=== PATIENT | male | born 1950 | race Caucasian/White ===

== ENCOUNTER → 2017-03-29 13:43 | Outpatient (CLI) | payer MEDICARE, OTHER, SELFPAY ==
--- NOTE | 2017-03-29 13:50 | RAD_ITS ---
STUDY: X-RAY - LUMBAR SPINE REASON FOR EXAM: Male, 66 years old. Radiculopathy TECHNIQUE: 3 view(s) of the lumbar spine were obtained. COMPARISON: Prior comparison studies are not available for review at this time. FINDINGS: Normal lumbar lordosis. There is no substantial scoliosis. There is a normal alignment of the vertebrae. Normal vertebral bodies and endplates. Normal disc space heights. The soft tissue structures are unremarkable. RAD/Lumbar Spine 2 or 3 Views IMPRESSION: Normal x-ray examination of the lumbar spine. Electronically Signed: Seamus Jim MD, FACR at 14:10 EST , Service support ,
== END ==
PROVIDERS: Family Provider Family Medicine Geriatric Medicine; PCP Family Medicine Geriatric Medicine; Visit Provider Family Medicine Geriatric Medicine
DX: M54.16 Radiculopathy, lumbar region (principal)
CPT/HCPCS: 72100

== ENCOUNTER → 2017-03-29 15:21 | Outpatient (CLI) | payer MEDICARE, OTHER, SELFPAY ==
[2017-03-29 17:35] LABS: Absolute Lymphocyte Count 1.35 X10^3/ul (0.83-4.51); Absolute Neutrophil Count 5.5 X10^3/uL (2.0-7.7); Basophil# 0.07 X10^3/uL; Basophil% 0.9 % (0-1); Eosinophil# 0.21 X10^3/uL; Eosinophils% 2.8 % (0-5); Hematocrit 45.9 % (40-54); Lymphocyte # 1.35 X10^3/ul (4.0); Lymphocyte % 17.8 % (19-41); Mean Corp Hgb Conc 32.7 g/gl (32-36); Mean Corpuscular Hgb 29.1 pg (27.0-32.0); Mean Corpuscular Volume 89.1 fL (80-94); Mean Platelet Vol. 11.5 fl (6.2-12.0); Monocyte# 0.46 X10^3/uL; Monocyte% 6.1 % (0-10); Neutrophil # 5.49 X10^3/uL (2.7-7.7); Neutrophil % 72.3 % (47-70); Platelet Count 234 K/mm3 (150-450); RBC Distribution Width CV 13.3 % (11.6-14.6); RBC Distribution Width SD 42.8 fl (35.1-43.9); Red Blood Count 5.15 M/mm3 (4.6-6.2); White Blood Count 7.6 K/mm3 (4.4-11.0)
[2017-03-29 17:54] LABS: POSITIVE COUNT NO; POSITIVE DIFFERENTIAL NO; POSITIVE MORPHOLOGY NO
[2017-03-29 18:06] LABS: ALB/GLOB Ratio 1.2 RATIO (0.9-2.4); AST(SGOT) 18 U/L (15-37); Alanine Aminotransfer ALT/SGPT 30 U/L (16-61); Albumin, Serum 4.1 g/dL (3.2-5.0); Alkaline Phosphatase 114 U/L (45-117); Anion Gap 7 (5-15); BUN 21 mg/dL (7-18); BUN/Creat Ratio 22.8 RATIO (10-20); Calcium,Total 9.1 mg/dL (8.5-10.1); Chloride 102 mmol/L (98-107); Creatinine, Serum 0.92 mg/dL (0.70-1.30); EST Glomerular Filtration Rate 87 mL/min (>60); Est Glom Filt Rate - Afr Amer 105 mL/min (>60); Globulin 3.4 g/dL (2.2-4.2); Glucose 154 mg/dL (74-106); Potassium 4.4 mmol/L (3.5-5.1); Protein, Total 7.5 g/dL (6.4-8.2); Sodium Level 137 mmol/L (136-145); Thyroid Stim Hormone (TSH) 1.64 uIU/mL (0.358-3.74)
== END ==
PROVIDERS: Family Provider Family Medicine Geriatric Medicine; PCP Family Medicine Geriatric Medicine; Visit Provider Family Medicine Geriatric Medicine
DX: E11.9 Type 2 diabetes mellitus without complications (principal); I10 Essential (primary) hypertension
CPT/HCPCS: 36415; 72100; 80053; 84443; 85025

== ENCOUNTER → 2017-12-09 09:17 | Outpatient (CLI) | payer MEDICARE, OTHER, SELFPAY ==
[2017-12-09 12:04] LABS: Absolute Lymphocyte Count 1.26 X10^3/ul (0.83-4.51); Absolute Neutrophil Count 4.3 X10^3/uL (2.0-7.7); Basophil# 0.05 X10^3/uL; Basophil% 0.8 % (0-1); Eosinophil# 0.31 X10^3/uL; Eosinophils% 4.9 % (0-5); Hematocrit 46.6 % (40-54); Hemoglobin 15.1 g/dl (13.0-16.5); Lymphocyte # 1.26 X10^3/ul (4.0); Mean Corp Hgb Conc 32.4 g/gl (32-36); Mean Corpuscular Hgb 28.5 pg (27.0-32.0); Mean Corpuscular Volume 87.9 fL (80-94); Mean Platelet Vol. 11.5 fl (6.2-12.0); Monocyte# 0.36 X10^3/uL; Monocyte% 5.7 % (0-10); Neutrophil # 4.32 X10^3/uL (2.7-7.7); Neutrophil % 68.4 % (47-70); Platelet Count 204 K/mm3 (150-450); RBC Distribution Width CV 13.1 % (11.6-14.6); RBC Distribution Width SD 42.2 fl (35.1-43.9); White Blood Count 6.3 K/mm3 (4.4-11.0)
[2017-12-09 12:19] LABS: Vitamin D,25 Hydroxy 20.3 ng/mL (29.95-100.01)
[2017-12-09 12:24] LABS: ALB/GLOB Ratio 1.2 RATIO (0.9-2.4); AST(SGOT) 20 U/L (15-37); Alanine Aminotransfer ALT/SGPT 26 U/L (16-61); Albumin, Serum 4.1 g/dL (3.2-5.0); Alkaline Phosphatase 104 U/L (45-117); Anion Gap 8 (5-15); BUN 19 mg/dL (7-18); BUN/Creat Ratio 20.6 RATIO (10-20); Chloride 104 mmol/L (98-107); Creatinine, Serum 0.92 mg/dL (0.70-1.30); EST Glomerular Filtration Rate 87 mL/min (>60); Est Glom Filt Rate - Afr Amer 105 mL/min (>60); Globulin 3.4 g/dL (2.2-4.2); Glucose 136 mg/dL (74-106); PSA,Total - Annual Screen 0.69 ng/mL (0.00-4.00); Potassium 4.2 mmol/L (3.5-5.1); Protein, Total 7.5 g/dL (6.4-8.2); Sodium Level 138 mmol/L (136-145); Thyroid Stim Hormone (TSH) 1.81 uIU/mL (0.358-3.74)
[2017-12-09 12:25] LABS: POSITIVE COUNT NO; POSITIVE DIFFERENTIAL NO; POSITIVE MORPHOLOGY NO
[2017-12-10 13:20] LABS: Hep C Antibodies <0.1 s/co ratio (0.0-0.9)
== END ==
PROVIDERS: Family Provider Family Medicine Geriatric Medicine; PCP Family Medicine Geriatric Medicine; Visit Provider Family Medicine Geriatric Medicine
DX: E11.9 Type 2 diabetes mellitus without complications (principal); E55.9 Vitamin D deficiency, unspecified; I10 Essential (primary) hypertension; Z13.89 Encounter for screening for other disorder; Z12.5 Encounter for screening for malignant neoplasm of prostate
CPT/HCPCS: 36415; 80053; 82306; 84153; 84443; 85025; 86803; G0103

== ENCOUNTER → 2018-08-23 10:04 | Outpatient (CLI) | payer MEDICARE, OTHER, SELFPAY ==
[2018-08-23 18:10] LABS: Absolute Lymphocyte Count 1.35 X10^3/ul (0.83-4.51); Absolute Neutrophil Count 4.2 X10^3/uL (2.0-7.7); Basophil# 0.05 X10^3/uL; Basophil% 0.8 % (0-1); Eosinophils% 4.8 % (0-5); Hematocrit 45.1 % (40-54); Hemoglobin 14.5 g/dl (13.0-16.5); Lymphocyte # 1.35 X10^3/ul (4.0); Lymphocyte % 21.5 % (19-41); Mean Corp Hgb Conc 32.2 g/gl (32-36); Mean Corpuscular Hgb 28.2 pg (27.0-32.0); Mean Corpuscular Volume 87.6 fL (80-94); Mean Platelet Vol. 11.3 fl (6.2-12.0); Monocyte% 6.4 % (0-10); Neutrophil # 4.17 X10^3/uL (2.7-7.7); Neutrophil % 66.3 % (47-70); Platelet Count 217 K/mm3 (150-450); RBC Distribution Width CV 13.3 % (11.6-14.6); RBC Distribution Width SD 42.4 fl (35.1-43.9); Red Blood Count 5.15 M/mm3 (4.6-6.2); White Blood Count 6.3 K/mm3 (4.4-11.0)
[2018-08-23 18:16] LABS: POSITIVE COUNT NO; POSITIVE DIFFERENTIAL NO; POSITIVE MORPHOLOGY NO
[2018-08-23 18:33] LABS: Vitamin D,25 Hydroxy 23.4 ng/mL (29.95-100.01)
[2018-08-23 18:39] LABS: ALB/GLOB Ratio 1.2 RATIO (0.9-2.4); AST(SGOT) 16 U/L (15-37); Alanine Aminotransfer ALT/SGPT 22 U/L (16-61); Albumin, Serum 4.1 g/dL (3.2-5.0); Alkaline Phosphatase 114 U/L (45-117); Anion Gap 4 (5-15); BUN 20 mg/dL (7-18); BUN/Creat Ratio 20.4 RATIO (10-20); Calcium,Total 9.2 mg/dL (8.5-10.1); Chloride 103 mmol/L (98-107); Creatinine, Serum 0.98 mg/dL (0.70-1.30); EST Glomerular Filtration Rate 81 mL/min (>60); Est Glom Filt Rate - Afr Amer 98 mL/min (>60); Globulin 3.3 g/dL (2.2-4.2); Glucose 131 mg/dL (74-106); Potassium 4.8 mmol/L (3.5-5.1); Protein, Total 7.4 g/dL (6.4-8.2); Sodium Level 137 mmol/L (136-145)
== END ==
PROVIDERS: Family Provider Family Medicine Geriatric Medicine; PCP Family Medicine Geriatric Medicine; Visit Provider Family Medicine Geriatric Medicine
DX: E11.9 Type 2 diabetes mellitus without complications (principal); E55.9 Vitamin D deficiency, unspecified; I10 Essential (primary) hypertension
CPT/HCPCS: 36415; 80053; 82306; 84443; 85025

== ENCOUNTER → 2018-12-11 | Outpatient (CLI) | payer MEDICARE, OTHER, SELFPAY ==
[2018-12-11 17:28] LABS: Absolute Lymphocyte Count 1.29 X10^3/uL (0.83-4.51); Absolute Neutrophil Count 5.2 X10^3/uL (2.0-7.7); Basophil# 0.07 X10^3/uL; Eosinophil# 0.23 X10^3/uL; Eosinophils% 3.2 % (0-5); Hematocrit 46.8 % (40-54); Hemoglobin 14.9 g/dL (13.0-16.5); Lymphocyte # 1.29 X10^3/ul (4.0); Lymphocyte % 17.7 % (19-41); Mean Corp Hgb Conc 31.8 g/dL (32-36); Mean Corpuscular Hgb 28.9 pg (27.0-32.0); Mean Corpuscular Volume 90.9 fL (80-94); Mean Platelet Vol. 11.4 fl (6.2-12.0); Monocyte# 0.43 X10^3/uL; Monocyte% 5.9 % (0-10); NRBC Flagged by Analyzer 0 % (0-5); Neutrophil # 5.24 X10^3/uL (2.7-7.7); Neutrophil % 71.9 % (47-70); Platelet Count 228 K/mm3 (150-450); RBC Distribution Width CV 12.3 % (11.6-14.6); RBC Distribution Width SD 40.7 fl (35.1-43.9); Red Blood Count 5.15 M/mm3 (4.6-6.2); White Blood Count 7.3 K/mm3 (4.4-11.0)
[2018-12-11 17:45] LABS: Vitamin D,25 Hydroxy 23.3 ng/mL (29.95-100.01)
[2018-12-11 17:49] LABS: BUN 19 mg/dL (7-18); Creatinine, Serum 0.96 mg/dL (0.70-1.30); Glucose 144 mg/dL (74-106)
[2018-12-11 17:50] LABS: ALB/GLOB Ratio 1.2 RATIO (0.9-2.4); AST(SGOT) 16 U/L (15-37); Alanine Aminotransfer ALT/SGPT 25 U/L (16-61); Albumin, Serum 4.2 g/dL (3.2-5.0); Alkaline Phosphatase 94 U/L (45-117); Anion Gap 6 (5-15); BUN/Creat Ratio 19.8 RATIO (10-20); Calcium,Total 9.4 mg/dL (8.5-10.1); Chloride 104 mmol/L (98-107); EST Glomerular Filtration Rate 83 mL/min (>60); Est Glom Filt Rate - Afr Amer 100 mL/min (>60); Globulin 3.5 g/dL (2.2-4.2); PSA,Total - Annual Screen 0.92 ng/mL (0.00-4.00); Potassium 4.4 mmol/L (3.5-5.1); Protein, Total 7.7 g/dL (6.4-8.2); Sodium Level 139 mmol/L (136-145); Thyroid Stim Hormone (TSH) 1.53 uIU/mL (0.358-3.74)
== END | disposition home or self-care (01) ==
LOC: POLAB3 15:20
PROVIDERS: Family Provider Family Medicine Geriatric Medicine; PCP Family Medicine Geriatric Medicine; Visit Provider Family Medicine Geriatric Medicine
DX: E11.9 Type 2 diabetes mellitus without complications (principal); E55.9 Vitamin D deficiency, unspecified; Z12.5 Encounter for screening for malignant neoplasm of prostate; I10 Essential (primary) hypertension
CPT/HCPCS: 36415; 80053; 82306; 84153; 84443; 85025; G0103

== ENCOUNTER → 2019-08-22 10:31 | Outpatient (CLI) | payer MEDICARE, OTHER, SELFPAY ==
[2019-08-22 12:33] LABS: Absolute Neutrophil Count 4.7 X10^3/uL (2.0-7.7); Basophil# 0.09 X10^3/uL; Basophil% 1.4 % (0-1); Eosinophil# 0.27 X10^3/uL; Eosinophils% 4.1 % (0-5); Hematocrit 46.3 % (40-54); Hemoglobin 14.7 g/dL (13.0-16.5); Mean Corp Hgb Conc 31.7 g/dL (32-36); Mean Corpuscular Hgb 29.3 pg (27.0-32.0); Mean Corpuscular Volume 92.2 fL (80-94); Mean Platelet Vol. 11.1 fl (6.2-12.0); Monocyte# 0.36 X10^3/uL; Monocyte% 5.4 % (0-10); NRBC Flagged by Analyzer 0 % (0-5); Neutrophil # 4.73 X10^3/uL (2.7-7.7); Neutrophil % 70.9 % (47-70); Platelet Count 208 K/mm3 (150-450); RBC Distribution Width CV 12.7 % (11.6-14.6); RBC Distribution Width SD 42.1 fl (35.1-43.9); Red Blood Count 5.02 M/mm3 (4.6-6.2); White Blood Count 6.7 K/mm3 (4.4-11.0)
[2019-08-22 12:51] LABS: ALB/GLOB Ratio 1.1 RATIO (0.9-2.4); AST(SGOT) 14 U/L (15-37); Alanine Aminotransfer ALT/SGPT 24 U/L (16-61); Albumin, Serum 4.1 g/dL (3.2-5.0); Alkaline Phosphatase 102 U/L (45-117); Anion Gap 6 (5-15); BUN 21 mg/dL (7-18); BUN/Creat Ratio 20.2 RATIO (10-20); Calcium,Total 9.4 mg/dL (8.5-10.1); Chloride 102 mmol/L (98-107); Creatinine, Serum 1.04 mg/dL (0.70-1.30); EST Glomerular Filtration Rate 75 mL/min (>60); Est Glom Filt Rate - Afr Amer 91 mL/min (>60); Globulin 3.6 g/dL (2.2-4.2); Glucose 136 mg/dL (74-106); Potassium 5.2 mmol/L (3.5-5.1); Protein, Total 7.7 g/dL (6.4-8.2); Sodium Level 137 mmol/L (136-145); Thyroid Stim Hormone (TSH) 1.98 uIU/mL (0.358-3.74)
[2019-08-22 12:52] LABS: Vitamin D,25 Hydroxy 31.6 ng/mL
== END ==
PROVIDERS: PCP Family Medicine Geriatric Medicine; Visit Provider Family Medicine Geriatric Medicine
DX: E11.9 Type 2 diabetes mellitus without complications (principal); E55.9 Vitamin D deficiency, unspecified; I10 Essential (primary) hypertension
CPT/HCPCS: 36415; 80053; 82306; 84443; 85025

== ENCOUNTER → 2019-08-24 11:39 | Outpatient (CLI) | payer MEDICARE, OTHER, SELFPAY ==
[2019-08-24 13:45] LABS: Anion Gap 2 (5-15); BUN 20 mg/dL (7-18); BUN/Creat Ratio 20.4 RATIO (10-20); Chloride 105 mmol/L (98-107); Creatinine, Serum 0.98 mg/dL (0.70-1.30); EST Glomerular Filtration Rate 80 mL/min (>60); Est Glom Filt Rate - Afr Amer 97 mL/min (>60); Glucose 177 mg/dL (74-106); Potassium 4.5 mmol/L (3.5-5.1); Sodium Level 136 mmol/L (136-145)
== END ==
PROVIDERS: PCP Family Medicine Geriatric Medicine; Referring Provider Family Medicine Geriatric Medicine; Visit Provider Family Medicine Geriatric Medicine
DX: E87.5 Hyperkalemia (principal)
CPT/HCPCS: 36415; 80048

== ENCOUNTER → 2020-03-20 13:05 | Outpatient (CLI) | payer MEDICARE, OTHER, SELFPAY ==
[2020-03-20 17:16] LABS: Absolute Neutrophil Count 4.7 X10^3/uL (2.0-7.7); Basophil# 0.07 X10^3/uL; Eosinophil# 0.33 X10^3/uL; Eosinophils% 4.8 % (0-5); Hematocrit 45.6 % (40-54); Hemoglobin 14.5 g/dL (13.0-16.5); Lymphocyte % 20.2 % (19-41); Mean Corp Hgb Conc 31.8 g/dL (32-36); Mean Corpuscular Hgb 29.3 pg (27.0-32.0); Mean Corpuscular Volume 92.1 fL (80-94); Mean Platelet Vol. 11.2 fl (6.2-12.0); Monocyte% 5.8 % (0-10); NRBC Flagged by Analyzer 0 % (0-5); Neutrophil # 4.72 X10^3/uL (2.7-7.7); Neutrophil % 67.9 % (47-70); Platelet Count 216 K/mm3 (150-450); RBC Distribution Width CV 12.4 % (11.6-14.6); RBC Distribution Width SD 41.9 fl (35.1-43.9); Red Blood Count 4.95 M/mm3 (4.6-6.2); White Blood Count 6.9 K/mm3 (4.4-11.0)
[2020-03-20 17:26] LABS: Vitamin D,25 Hydroxy 22.5 ng/mL
[2020-03-20 17:31] LABS: ALB/GLOB Ratio 1.3 RATIO (0.9-2.4); AST(SGOT) 17 U/L (15-37); Alanine Aminotransfer ALT/SGPT 29 U/L (16-61); Albumin, Serum 4.3 g/dL (3.2-5.0); Alkaline Phosphatase 123 U/L (45-117); Anion Gap 6 (5-15); BUN 26 mg/dL (7-18); BUN/Creat Ratio 26.7 RATIO (10-20); Calcium,Total 9.4 mg/dL (8.5-10.1); Chloride 102 mmol/L (98-107); Creatinine, Serum 0.97 mg/dL (0.70-1.30); EST Glomerular Filtration Rate 81 mL/min (>60); Est Glom Filt Rate - Afr Amer 98 mL/min (>60); Globulin 3.3 g/dL (2.2-4.2); Glucose 142 mg/dL (74-106); PSA,Total - Annual Screen 0.89 ng/mL (0.00-4.00); Potassium 4.7 mmol/L (3.5-5.1); Protein, Total 7.6 g/dL (6.4-8.2); Sodium Level 137 mmol/L (136-145); Thyroid Stim Hormone (TSH) 1.81 uIU/mL (0.358-3.74)
== END ==
PROVIDERS: PCP Family Medicine Geriatric Medicine; Visit Provider Family Medicine Geriatric Medicine
DX: E11.9 Type 2 diabetes mellitus without complications (principal); E55.9 Vitamin D deficiency, unspecified; I10 Essential (primary) hypertension; Z12.5 Encounter for screening for malignant neoplasm of prostate
CPT/HCPCS: 36415; 80053; 82306; 84153; 84443; 85025; G0103

== ENCOUNTER → 2020-07-17 14:22 | Outpatient (CLI) | payer MEDICARE, OTHER, SELFPAY ==
[2020-07-17 17:37] LABS: Absolute Lymphocyte Count 1.15 X10^3/uL (0.83-4.51); Absolute Neutrophil Count 4.6 X10^3/uL (2.0-7.7); Basophil# 0.08 X10^3/uL; Basophil% 1.2 % (0-1); Eosinophil# 0.26 X10^3/uL; Hematocrit 44.4 % (40-54); Hemoglobin 14.4 g/dL (13.0-16.5); Lymphocyte # 1.15 X10^3/ul (0.83-4.51); Lymphocyte % 17.7 % (19-41); Mean Corp Hgb Conc 32.4 g/dL (32-36); Mean Corpuscular Hgb 29.5 pg (27.0-32.0); Monocyte# 0.37 X10^3/uL; Monocyte% 5.7 % (0-10); NRBC Flagged by Analyzer 0 % (0-5); Neutrophil # 4.61 X10^3/uL (2.7-7.7); Neutrophil % 70.8 % (47-70); Platelet Count 224 K/mm3 (150-450); RBC Distribution Width CV 12.3 % (11.6-14.6); RBC Distribution Width SD 40.5 fl (35.1-43.9); Red Blood Count 4.88 M/mm3 (4.6-6.2); White Blood Count 6.5 K/mm3 (4.4-11.0)
[2020-07-17 17:41] LABS: Vitamin D,25 Hydroxy 25.6 ng/mL
[2020-07-17 17:44] LABS: ALB/GLOB Ratio 1.2 RATIO (0.9-2.4); AST(SGOT) 19 U/L (15-37); Alanine Aminotransfer ALT/SGPT 25 U/L (16-61); Alkaline Phosphatase 117 U/L (45-117); Anion Gap 5 (5-15); BUN 21 mg/dL (7-18); Calcium,Total 8.9 mg/dL (8.5-10.1); Chloride 104 mmol/L (98-107); Creatinine, Serum 1.05 mg/dL (0.70-1.30); EST Glomerular Filtration Rate 74 mL/min (>60); Est Glom Filt Rate - Afr Amer 90 mL/min (>60); Globulin 3.2 g/dL (2.2-4.2); Glucose 174 mg/dL (74-106); Potassium 4.4 mmol/L (3.5-5.1); Protein, Total 7.2 g/dL (6.4-8.2); Sodium Level 139 mmol/L (136-145)
[2020-07-18 10:47] LABS: Thyroid Stim Hormone (TSH) 1.79 uIU/mL (0.358-3.74)
== END ==
PROVIDERS: PCP Family Medicine Geriatric Medicine; Visit Provider Family Medicine Geriatric Medicine
DX: E11.9 Type 2 diabetes mellitus without complications (principal); I10 Essential (primary) hypertension; E55.9 Vitamin D deficiency, unspecified
CPT/HCPCS: 36415; 80053; 82306; 84443; 85025

== ENCOUNTER 2021-02-23 23:02 | Emergency (ER) | payer MEDICARE, OTHER, SELFPAY ==
[2021-02-23 23:02] VITALS: BP 131/76; PULSE 86; RESP 16; TEMP 36.2; O2SAT 99; BMI 27.5
--- NOTE | 2021-02-23 23:21 | CT_ITS ---
STUDY: CT ABDOMEN AND PELVIS WITHOUT CONTRAST REASON FOR EXAM: Male, 70 years old patient with hernia. RADIATION DOSAGE (If Supplied By Facility): CTDIvol = ( 13.08 ) mGy, DLP = ( 826.88 ) mGycm TECHNIQUE: Transaxial images were obtained from the dome of the diaphragm to the symphysis pubis without oral contrast, and without intravenous contrast. Sagittal and coronal images were reconstructed. Individualized dose optimization techniques were used for this CT. COMPARISON: Prior comparable comparison studies are not available for review at this time. FINDINGS: The visualized lung bases are unremarkable. The visualized portions of the heart are within normal limits. Normal liver. There are multiple gallstones. Normal spleen. There is severe fatty infiltration of the pancreas with minimal pancreatic parenchyma visible. Normal bilateral adrenal glands. There are multiple right-sided renal cysts with the largest measuring approximately 4.4 cm. There appears be a horseshoe kidney. The left kidney is small in size. There are bilateral nonobstructing renal calculi. The largest is on the right and measures approximately 8.4 mm. Normal visualized stomach. There is no obvious ascites or pneumoperitoneum. There is mild distention of small bowel within the lower abdomen and probably involving the distal ileum with maximum transverse dimension of approximately 2.5 cm. There is no clear dilated bowel. Small bowel has a grossly normal appearance, otherwise. There is stool throughout most of the colon. There are scattered colonic diverticula. There is non-visualization of the appendix. There is minimal atherosclerotic calcification of the abdominal aorta with elongation and tortuosity, but without a demonstrated aneurysm. There is venous distention of the inferior vena cava (IVC). Normal retroperitoneum. Normal urinary bladder. Normal visualized prostate gland. There is a right-sided inguinal hernia containing incarcerated bowel. Bowel extends into the right scrotum. There is mild distention of fluid-filled bowel in the right side of the abdomen probably involving the distal small bowel.. There are diffuse degenerative changes of the visualized spine. There is decreased height of the thoracic vertebral bodies with irregular endplates suggesting possible sequela of Scheuermann''s disease. The bones are osteopenic. There are degenerative changes of the sacroiliac joints. CT/Abdomen/Pelvis without Cont IMPRESSION: 1. Incarcerated right-sided inguinal hernia with possible mild/early small bowel obstruction. 2. 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 3. Bilateral nonobstructing renal calculi. 4. Multiple renal cysts. Electronically Signed: Linh Hill MD at 1:34 EST , Service support ,
--- NOTE | 2021-02-23 23:21 | EX.ED.GUMALE ---
HPI History of Present Illness Chief Complaint: Male Pain/Injury Informant: patient Narrative Narrative: 70-year-old male presenting to the emergency department out of concern for hernia. Patient states that earlier tonight he was straining to have a bowel movement and felt pain in his right lower quadrant swelling in his inguinal region. He has not had a hernia before. He has a history of diabetes and cholesterolemia. [facility] Medical History (Updated 02/24/21 @ 01:[address] Hiram Mccollum DO) Diabetes Hypercholesterolemia Home Medications docusate sodium [Colace] 100 mg PO DAILY #30 capsule 12/13/12 [Rx Last Taken Unknown] glipizide 10 mg PO BIDAC 12/13/12 [History Last Taken Unknown] metformin 1,000 mg PO BIDCM 12/13/12 [History Last Taken Unknown] Allergy/AdvReac Type Severity Reaction Status Date / Time No Known Allergies Allergy Unverified 12/13/12 15:40 Social History (Updated 02/23/21 @ 23:[address] Hiram Mccollum DO) current gender identity: male Smoking Status: Never smoker ROS ROS ED Constitutional Constitutional ED: Denies chills or weight loss Eyes Eyes: Denies change in vision or diplopia ENT ENT ED: Denies ear pain, rhinorrhea or sore throat Cardiovascular Cardiovascular: Denies chest pain, orthopnea, palpitations or racing heartbeat Respiratory/Chest Respiratory/Chest: Denies cough, dyspnea or orthopnea Gastrointestinal Gastrointestinal: Reports abdominal pain; Denies diarrhea, nausea or vomiting Genitourinary Genitourinary ED: Denies dysuria, hematuria or urinary frequency Musculoskeletal Musculoskeletal: Denies arthralgias or myalgias Integumentary Denies abscess or rash Neurologic Neurologic: Denies headache(s) or weakness Psychiatric Psychiatric: Denies anxiety, depression, suicidal ideation or suicidal thoughts Endocrine Endocrinology: Denies polydipsia, polyphagia or polyuria Allergic/Immunologic Allergic/Immunologic ED: Denies mouth swelling, tongue swelling or urticaria EXAM Physical Exam Const Vital Signs: 02/23/21 23:02 Temperature 97.1 F L Temperature Source Temporal Pulse Rate 86 Respiratory Rate 16 Blood Pressure 131/76 H Blood Pressure Mean 94 Pulse Ox 99 Oxygen Delivery Method Room Air Positive well nourished and well developed General Appearance ED: well developed HEENT Reports normocephalic, head/scalp atraumatic, TM's clear and moist mucous membranes normocephalic and atraumatic Tympanic Membrane ED: Yes TM's clear Eyes PERRL and EOMs intact bilaterally Neck no lymphadenopathy, supple and no JVD Resp normal respiratory effort and clear to auscultation bilaterally Cardio regular rate, regular rhythm and no murmurs GI normal to inspection, nondistended, normoactive bowel sounds and non-tender Palpation: soft Back/Spine no CVA tenderness and normal ROM Extremity normal to inspection General Extremety ED: Negative for edema General Extremity: Negative for edema Neuro oriented x3 and CN's II-XII intact bilaterally Sensorium / Orientation: alert Motor Exam: strength 5/5 throughout Psych mental status grossly normal Mood & Affect: Negative for depressed or tearful Skin no rashes or lesions noted and no wounds MDM MDM MDM Narrative Medical decision making narrative: Patient was laid flat with his knees bent. Is unable to reduce the hernia. CT then pelvis was obtained which confirms bowel into the scrotum. I attempted to reduce the hernia again and was unsuccessful. I contacted our on-call surgeon Dr. Ontiveros who came to the emergency department and was able to reduce this. Patient will be discharged home to follow-up in the office for outpatient surgical repair Lab Data Labs: Laboratory Results - last 24 hr 02/24/21 01:00 WBC 6.7 RBC 5.00 Hgb 14.3 Hct 45.0 MCV 90.0 MCH 28.6 MCHC 31.8 L RDW Std Deviation 39.9 RDW Coeff of Emmanuel 12.1 Plt Count 216 MPV 10.3 Immature Gran % (Auto) 0.300 Neut % (Auto) 66.5 Lymph % (Auto) 24.4 Trinity % (Auto) 4.6 Eos % (Auto) 3.3 Baso % (Auto) 0.9 Absolute Neuts (auto) 4.5 Absolute Lymphs (auto) 1.64 Nucleated RBC % 0 Discharge Plan Triage Chief Complaint: Male Pain/Injury ED Provider: Hiram Mccollum Dx/Rx/DC Orders Clinical Impression: Inguinal hernia Instructions: ED Hernia (Adult) Prescriptions: No Action glipizide 10 MG tablet 10 mg PO BIDAC RF: 0 metformin 1,000 MG tablet 1,000 mg PO BIDCM RF: 0 docusate sodium [DOK] 100 MG capsule 100 mg PO DAILY Qty: 30 RF: 0 Primary Care Provider: Zenon Garcia Chi Referrals: Hiarm Ontiveros MD [STAFF PHYSICIAN] - As soon as possible Zenon Garcia Chi, MD [Primary Care Provider] - Activity Restrictions/Additional Instructions: Avoid strenuous bowel movements and heavy lifting. Disposition Disposition: Home, Self Care
[2021-02-24 01:07] LABS: Absolute Lymphocyte Count 1.64 X10^3/uL (0.83-4.51); Absolute Neutrophil Count 4.5 X10^3/uL (2.0-7.7); Basophil# 0.06 X10^3/uL; Basophil% 0.9 % (0-1); Eosinophil# 0.22 X10^3/uL; Eosinophils% 3.3 % (0-5); Hemoglobin 14.3 g/dL (13.0-16.5); Lymphocyte # 1.64 X10^3/ul (0.83-4.51); Lymphocyte % 24.4 % (19-41); Mean Corp Hgb Conc 31.8 g/dL (32-36); Mean Corpuscular Hgb 28.6 pg (27.0-32.0); Mean Platelet Vol. 10.3 fl (6.2-12.0); Monocyte# 0.31 X10^3/uL; Monocyte% 4.6 % (0-10); NRBC Flagged by Analyzer 0 % (0-5); Neutrophil # 4.46 X10^3/uL (2.7-7.7); Neutrophil % 66.5 % (47-70); Platelet Count 216 K/mm3 (150-450); RBC Distribution Width CV 12.1 % (11.6-14.6); RBC Distribution Width SD 39.9 fl (35.1-43.9); White Blood Count 6.7 K/mm3 (4.4-11.0)
--- NOTE | 2021-02-24 01:10 | CON.PCM.SX_ITS ---
Assessment & Plan Assessment/Plan (1) Inguinal hernia: QUALIFIERS: Obstruction and gangrene presence: with obstruction but without gangrene Laterality: unilateral Recurrence: non-recurrent Qualified Code(s): K40.30 - Unilateral inguinal hernia, with obstruction, without gangrene, not specified as recurrent PLAN: We can have the patient discharged from the emergency department tonight. I will see him in the office and get him scheduled for a laparoscopic right inguinal hernia repair in the near future. HPI Consult Data Date of Consult: 02/24/21 HPI Narrative HPI Narrative: YUE CHAPIN, is a 70 M who presents with pain in his right inguinal area. Patient states that earlier tonight he was straining to have a bowel movement and felt pain in his right lower quadrant swelling in his inguinal region. He has not had a hernia before. He has a history of diabetes and cholesterolemia. Patient had a CT scan of his abdomen and pelvis without contrast which showed a strangulated right inguinal hernia. When I came to see him in the emergency department he was no longer complaining of pain. [facility] Medical History Diabetes Hypercholesterolemia Home Medications docusate sodium [Colace] 100 mg PO DAILY #30 capsule 12/13/12 [Rx Last Taken Unknown] glipizide 10 mg PO BIDAC 12/13/12 [History Last Taken Unknown] metformin 1,000 mg PO BIDCM 12/13/12 [History Last Taken Unknown] Allergy/AdvReac Type Severity Reaction Status Date / Time No Known Allergies Allergy Unverified 12/13/12 15:40 Social History current gender identity: male Smoking Status: Never smoker ROS Constitutional Constitutional: Denies chills, fatigue or fever(s) ENT HEENT: Denies dysphagia Cardiovascular Cardiovascular: Denies chest pain or dyspnea Respiratory/Chest Respiratory/Chest: Reports dyspnea; Denies cough Gastrointestinal Gastrointestinal: Reports abdominal pain, change in bowel habits and constipation; Denies diarrhea Physical Exam Const alert, oriented x3 and no apparent distress General Appearance: cooperative HEENT normocephalic and head/scalp atraumatic Eyes PERRL and EOMs intact bilaterally Resp clear to auscultation bilaterally Cardio Rate: regular rate Rhythm: regular rhythm GI soft to palpation, non-tender and non-distended GI Narrative: When I came to examine the patient hernia had spontaneously reduced and there were no longer any palpable lumps in either groin. Palpation: Negative for hernia Lab / Micro Data Result Diagrams: 02/24/21 01:00 02/24/21 01:00 Labs: Laboratory Results - last 24 hr 02/24/21 01:00: WBC 6.7, RBC 5.00, Hgb 14.3, Hct 45.0, MCV 90.0, MCH 28.6, MCHC 31.8 L, RDW Std Deviation 39.9, RDW Coeff of Emmanuel 12.1, Plt Count 216, MPV 10.3, Immature Gran % (Auto) 0.300, Neut % (Auto) 66.5, Lymph % (Auto) 24.4, Spink % (Auto) 4.6, Eos % (Auto) 3.3, Baso % (Auto) 0.9, Absolute Neuts (auto) 4.5, Absolute Lymphs (auto) 1.64, Nucleated RBC % 0
[2021-02-24 01:22] LABS: Anion Gap 7 (5-15); BUN 22 mg/dL (7-18); BUN/Creat Ratio 24.6 RATIO (10-20); Calcium,Total 9.6 mg/dL (8.5-10.1); Chloride 103 mmol/L (98-107); EST Glomerular Filtration Rate 89 mL/min (>60); Est Glom Filt Rate - Afr Amer 108 mL/min (>60); Estimated Creatinine Clearance 92.43 ml/min; Glucose 105 mg/dL (74-106); Potassium 4.5 mmol/L (3.5-5.1); Sodium Level 141 mmol/L (136-145)
[2021-02-24 01:26] VITALS: BP 136/76; PULSE 74; RESP 17; O2SAT 97
== END 2021-02-24 01:31 | disposition home or self-care (01) ==
PROVIDERS: Emergency Provider Emergency Medicine; PCP Family Medicine Geriatric Medicine; Visit Provider Emergency Medicine
DX: K40.90 Unilateral inguinal hernia, without obstruction or gangrene, not specified as recurrent (principal); E11.9 Type 2 diabetes mellitus without complications; E78.00 Pure hypercholesterolemia, unspecified; Z79.84 Long term (current) use of oral hypoglycemic drugs; Z79.899 Other long term (current) drug therapy
CPT/HCPCS: 74176; 80048; 85025; 99283; A4216

== ENCOUNTER 2021-03-07 06:26 | Emergency (ER) | payer MEDICARE, OTHER, SELFPAY ==
[2021-03-07 06:27] VITALS: BP 153/91; PULSE 93; RESP 18; TEMP 37.2; O2SAT 95; BMI 27.0
--- NOTE | 2021-03-07 06:49 | EDS_ITS ---
HPI History of Present Illness Chief Complaint: Abd Pain Narrative Narrative: Patient is a 70-year-old male who presents to the ER with postoperative abdominal pain. He was seen on February 24 of this year after trying to have a bowel movement and developing a bulge in his right inguinal. At that time he was seen and it was determined he had an incarcerated hernia in the right inguinal region. However by the time the patient's work-up was complete and he had been evaluated by general surgery at the hernia had spontaneously reduced. Therefore he went and had an outpatient open hernia repair on Tuesday. He states since that time he is been taking Tylenol for pain control which has not done too much for him. He states that he has noticed pain in the right lower quadrant region near the hernia that is worse if he coughs or sneezes or tries to walk. He denies any fevers or chills but also reports constipation. He states that he is urinating but that he feels like he is doing more so than normal but there is been no dysuria associated with it. He called his surgeon today because of the symptoms and was advised to come to the hospital for repeat evaluation [facility] Medical History Diabetes Hypercholesterolemia Home Medications docusate sodium [Colace] 100 mg PO DAILY #30 capsule 12/13/12 [Rx Last Taken Unknown] glipizide 10 mg PO BIDAC 12/13/12 [History Last Taken Unknown] metformin 1,000 mg PO BIDCM 12/13/12 [History Last Taken Unknown] docusate sodium [Colace] 100 mg PO BID 7 Days #14 cap 03/07/21 [Rx Last Taken Unknown] Allergy/AdvReac Type Severity Reaction Status Date / Time No Known Allergies Allergy Unverified 12/13/12 15:40 Social History Smoking Status: Never smoker ROS ROS ED Constitutional Constitutional ED: Denies chills or fever(s) ENT ENT ED: Denies sore throat Cardiovascular Cardiovascular: Denies chest pain Respiratory/Chest Respiratory/Chest: Denies cough or dyspnea Gastrointestinal Gastrointestinal: Reports abdominal pain and constipation; Denies diarrhea, nausea or vomiting Genitourinary Genitourinary ED: Reports urinary frequency; Denies dysuria Musculoskeletal Musculoskeletal: Denies myalgias Integumentary Denies rash Neurologic Neurologic: Denies headache(s) Hematologic/Lymphatic Hematologic/Lymphatic: Denies easy bleeding or easy bruising EXAM Physical Exam Const Vital Signs: 03/07/21 06:27 Temperature 98.9 F Temperature Source Temporal Pulse Rate 93 Respiratory Rate 18 Blood Pressure 153/91 H Blood Pressure Mean 111 Pulse Ox 95 Oxygen Delivery Method Room Air Positive well nourished and well developed General Appearance ED: well developed HEENT Reports moist mucous membranes Eyes PERRL and EOMs intact bilaterally Neck supple Resp normal respiratory effort and clear to auscultation bilaterally Cardio regular rate and regular rhythm Rate: other Other Details: Radial pulses are plus 2 out of 4 bilaterally are equal and symmetric GI non-distended GI Narrative: Abdomen is soft and nondistended with hypoactive bowel sounds. Patient has a horizontal incision in the right inguinal region consistent with his history of open inguinal hernia repair. The wound is clean dry and intact. Extending down into the right lower quadrant/inguinal region and scrotum there is soft tissue swelling and ecchymosis most consistent with a postoperative hematoma. There is pain with palpation over top the site. There is no induration or erythema no active drainage or lymphangitic streaking. No vol untary guarding or pulsatile mass Palpation: soft Narrative: Patient has ecchymosis and swelling into the penis and scrotum consistent with tracking of a postoperative hematoma Back/Spine no CVA tenderness Extremity normal to inspection Neuro oriented x3 and CN's II-XII intact bilaterally Sensorium / Orientation: alert Motor Exam: strength 5/5 throughout Psych mental status grossly normal Skin no rashes or lesions noted Skin Narrative: Soft tissue changes into the right abdomen/inguinal region as documented above MDM MDM MDM Narrative Medical decision making narrative: Patient presented to the ER afebrile but slightly hypertensive. I do feel the elevated blood pressure is most likely related to his pain. He is 3 days out from surgery and he denies having any fevers. He does admit to increased urinary frequency and constipation. However his exam does not suggest bowel obstruction or UTI. Exam is most consistent with postoperative hematoma. As he is diabetic and has had increased pain as well as the urinary and bowel issues I will elect to perform basic labs and a CT scan today. I feel that as long as his H&H is normal he does not have severe elevation to his white count or lactic acid value and CAT scan does not show any type of obstruction or active bleeding that he will be safe for discharge and can follow-up on an outpatient basis Discharge Plan Triage Chief Complaint: Abd Pain ED Provider: Hunter Hoyt Dx/Rx/DC Orders Clinical Impression: Postoperative hematoma Instructions: ED Hematoma Prescriptions: New docusate sodium [Colace] 100 mg capsule 100 mg PO BID 7 Days Qty: 14 RF: 0 No Action glipizide 10 MG tablet 10 mg PO BIDAC RF: 0 metformin 1,000 MG tablet 1,000 mg PO BIDCM RF: 0 docusate sodium [DOK] 100 MG capsule 100 mg PO DAILY Qty: 30 RF: 0 Primary Care Provider: Zenon Garcia Chi Referrals: Hiram Ontiveros MD [STAFF PHYSICIAN] - 3-5 Days if not improving Zenon Garcia Chi, MD [Primary Care Provider] -
[2021-03-07] MEDS: Ketorolac 15 MG/ML Vial IV (07:03)
[2021-03-07] MEDS: 0.9% Normal Saline 1,000 ML 999 ML IV (07:03)
--- NOTE | 2021-03-07 07:11 | CT_ITS ---
STUDY: CT PELVIS WITH CONTRAST REASON FOR EXAM: Male, 70 years old. Postoperative pain evaluate for abscess RADIATION DOSAGE (If Supplied By Facility): CTDIvol = ( 28.21 ) mGy, DLP = ( 1116.76 ) mGycm TECHNIQUE: Transaxial imaging of the pelvis was performed without oral contrast. IV 100mL Isovue-370 was administered intravenously. Individualized dose optimization techniques were used for this CT. COMPARISON: Preoperative CT abdomen and pelvis of of 11/23/2021. FINDINGS: Normal urinary bladder. Nonspecific fluid-filled small bowel loops. Fecal retention. No evidence of acute diverticulitis. There is no pelvic fluid. There is no pelvic lymphadenopathy or mass lesion. There is diffuse atherosclerotic calcification of the pelvic arteries. Edematous changes and thickening of the right groin fracture extending to the right abdominis rectus muscle with a small pocket of air extending into the pelvic cavity. No evidence of drainable abscess. There are degenerative changes in the lower lumbar spine. CT/Pelvis WITH IV Contrast IMPRESSION: Edematous changes and stranding in the right groin region involving the subcutaneous fat, anterior fascia and extending to the pelvic cavity with small pockets of air which could represent postoperative changes. Early infectious or inflammatory process cannot be excluded. No drainable abscess is seen at this time. Follow up exam might be of value if clinically indicated. Electronically Signed: Wero Loja, at 8:19 EST Tel , Service support ,
[2021-03-07 07:18] LABS: Mucous, Urine 0 SEEN /hpf (<or=2+); Squamous Epithelial Cells - UA 0 SEEN /hpf (0-5); White Blood Cells 0 SEEN /hpf (0-5)
[2021-03-07 07:20] LABS: Absolute Lymphocyte Count 0.88 X10^3/uL (0.83-4.51); Absolute Neutrophil Count 3.1 X10^3/uL (2.0-7.7); Basophil# 0.05 X10^3/uL; Basophil% 1.1 % (0-1); Eosinophil# 0.21 X10^3/uL; Eosinophils% 4.4 % (0-5); Hematocrit 43.5 % (40-54); Hemoglobin 13.6 g/dL (13.0-16.5); Lymphocyte # 0.88 X10^3/ul (0.83-4.51); Lymphocyte % 18.6 % (19-41); Mean Corp Hgb Conc 31.3 g/dL (32-36); Mean Corpuscular Hgb 28.6 pg (27.0-32.0); Mean Corpuscular Volume 91.4 fL (80-94); Mean Platelet Vol. 10.7 fl (6.2-12.0); Monocyte# 0.48 X10^3/uL; Monocyte% 10.1 % (0-10); NRBC Flagged by Analyzer 0 % (0-5); Neutrophil # 3.11 X10^3/uL (2.7-7.7); Neutrophil % 65.6 % (47-70); Platelet Count 185 K/mm3 (150-450); RBC Distribution Width CV 12.2 % (11.6-14.6); RBC Distribution Width SD 41.1 fl (35.1-43.9); Red Blood Count 4.76 M/mm3 (4.6-6.2); White Blood Count 4.7 K/mm3 (4.4-11.0)
[2021-03-07 07:24] LABS: Color, Urine Yellow (Yellow); Glucose, Dipstick Normal (Normal); Ketone-Dipstick Negative (Negative); Leukocyte Esterase-Dipstick Negative /ul (Negative); Nitrite-Dipstick Negative (Negative); Occult Blood-Urine 25 /ul (Negative); Protein-Dipstick Negative (Negative); Urine Bilirubin Dipstick Negative (Negative); Urine Clarity Clear (Clear); Urine Urobilinogen 1 mg/dl (Normal)
[2021-03-07 07:31] LABS: International Normalized Ratio 1.1; Prothrombin Time (Protime)PT. 13.5 SECONDS (11.7-14.9)
[2021-03-07 07:31] LABS: Bacteria RARE /hpf (None Seen); Red Blood Cells-Urine 0-5 SEEN /hpf (0-5)
[2021-03-07 07:32] LABS: Anion Gap 3 (5-15); BUN 12 mg/dL (7-18); BUN/Creat Ratio 14.9 RATIO (10-20); Chloride 104 mmol/L (98-107); Creatinine, Serum 0.81 mg/dL (0.70-1.30); EST Glomerular Filtration Rate 100 mL/min (>60); Est Glom Filt Rate - Afr Amer 121 mL/min (>60); Glucose 146 mg/dL (74-106); Partial Thromboplast Time 32.9 Seconds (24.1-36.2); Potassium 4.6 mmol/L (3.5-5.1); Sodium Level 137 mmol/L (136-145)
[2021-03-07 07:41] LABS: Lactic Acid 0.7 mmol/L (0.4-1.9)
[2021-03-07 08:35] VITALS: BP 126/71; PULSE 79; RESP 16; O2SAT 95
[2021-03-07 08:54] VITALS: RESP 16
--- NOTE | 2021-03-07 08:59 | ED.RN ---
REVIEWED D/C INSTRUCTIONS, FOLLOW UP CARE, PRESCRIPTION, AND S/S THAT WOULD WARRANT A RETURN TO THE ED WITH PT. PT VERBALIZED AN UNDERSTANDING AND DENIES FURTHER QUESTIONS FOR THIS RN. PT SKIN P/W/D, RESP EVEN AND UNLABORED, PT A&O X 3, NO DISTRESS NOTED. PT AMBULATED OUT OF ED, GAIT STEADY.
== END 2021-03-07 09:00 | disposition home or self-care (01) ==
PROVIDERS: Emergency Provider Emergency Medicine; PCP Family Medicine Geriatric Medicine; Visit Provider Emergency Medicine
DX: K91.870 Postprocedural hematoma of a digestive system organ or structure following a digestive system procedure (principal); E11.9 Type 2 diabetes mellitus without complications; Z79.899 Other long term (current) drug therapy; Z79.84 Long term (current) use of oral hypoglycemic drugs
CPT/HCPCS: 72193; 80048; 81001; 83605; 85025; 85610; 85730; 96361; 96374; 99283; J7030; Q9967; A4216

== ENCOUNTER 2021-03-31 13:46 | Outpatient (CLI) | payer MEDICARE, OTHER, SELFPAY ==
[2021-03-31 16:21] LABS: Absolute Lymphocyte Count 1.26 X10^3/uL (0.83-4.51); Absolute Neutrophil Count 3.9 X10^3/uL (2.0-7.7); Basophil# 0.07 X10^3/uL; Basophil% 1.2 % (0-1); Eosinophil# 0.16 X10^3/uL; Eosinophils% 2.7 % (0-5); Hematocrit 40.3 % (40-54); Hemoglobin 13.1 g/dL (13.0-16.5); Lymphocyte # 1.26 X10^3/ul (0.83-4.51); Lymphocyte % 21.4 % (19-41); Mean Corp Hgb Conc 32.5 g/dL (32-36); Mean Corpuscular Hgb 28.9 pg (27.0-32.0); Mean Corpuscular Volume 88.8 fL (80-94); Mean Platelet Vol. 10.8 fl (6.2-12.0); Monocyte# 0.46 X10^3/uL; Monocyte% 7.8 % (0-10); NRBC Flagged by Analyzer 0 % (0-5); Neutrophil # 3.93 X10^3/uL (2.7-7.7); Neutrophil % 66.6 % (47-70); Platelet Count 277 K/mm3 (150-450); RBC Distribution Width CV 12.1 % (11.6-14.6); RBC Distribution Width SD 39.1 fl (35.1-43.9); Red Blood Count 4.54 M/mm3 (4.6-6.2); White Blood Count 5.9 K/mm3 (4.4-11.0)
[2021-03-31 16:37] LABS: Vitamin D,25 Hydroxy 18.1 ng/mL
[2021-03-31 16:51] LABS: ALB/GLOB Ratio 0.8 RATIO (0.9-2.4); AST(SGOT) 30 U/L (15-37); Alanine Aminotransfer ALT/SGPT 34 U/L (16-61); Albumin, Serum 3.4 g/dL (3.2-5.0); Alkaline Phosphatase 104 U/L (45-117); Anion Gap 4 (5-15); BUN 9 mg/dL (7-18); BUN/Creat Ratio 10.8 RATIO (10-20); Calcium,Total 9.2 mg/dL (8.5-10.1); Chloride 102 mmol/L (98-107); Creatinine, Serum 0.84 mg/dL (0.70-1.30); EST Glomerular Filtration Rate 96 mL/min (>60); Est Glom Filt Rate - Afr Amer 117 mL/min (>60); Glucose 120 mg/dL (74-106); Potassium 4.4 mmol/L (3.5-5.1); Protein, Total 7.4 g/dL (6.4-8.2); Sodium Level 137 mmol/L (136-145); Thyroid Stim Hormone (TSH) 1.08 uIU/mL (0.358-3.74)
== END 2021-03-31 23:59 | disposition home or self-care (01) ==
PROVIDERS: PCP Family Medicine Geriatric Medicine; Visit Provider Family Medicine Geriatric Medicine
DX: E11.9 Type 2 diabetes mellitus without complications (principal); I82.411 Acute embolism and thrombosis of right femoral vein; I82.431 Acute embolism and thrombosis of right popliteal vein; I82.451 Acute embolism and thrombosis of right peroneal vein; I82.441 Acute embolism and thrombosis of right tibial vein; E55.9 Vitamin D deficiency, unspecified; I10 Essential (primary) hypertension; R60.9 Edema, unspecified
CPT/HCPCS: 36415; 80053; 82306; 84443; 85025; 93971

== ENCOUNTER 2021-03-31 14:27 | Outpatient (CLI) | payer MEDICARE, OTHER, SELFPAY ==
--- NOTE | 2021-03-31 14:37 | VDLE_ITS ---
Reason For Study: edema RIGHT LEFT GSV is normal. CFV is compressible, spontaneous, phasic, CFV is compressible, spontaneous, phasic, competent, and demonstrates normal competent and demonstrates normal augmentation. augmentation. Proximal FV is compressible, spontaneous, phasic, competent and demonstrates normal augmentation. Mid FV is compressible. Distal FV is partially compressible. POP V, T/P Trunk, and Peroneal V are dilated and noncompressible. Varicose veins below the knee are dilated and noncompressible. PTV is compressible. Procedure This is a venous duplex using B-mode, color flow and spectral Doppler. Exam performed in department. The exam was diagnostic. A preliminary report was called and/or faxed to Dr. Garcia. VL/Venous Duplex US, Unilateral Interpretation Summary Acute deep vein thrombosis is noted in the right distal femoral vein. Acute heriberto p vein thrombosis is noted in the right popliteal vein. Acute deep vein thrombosis is noted in the r ight tibio-peroneal trunk. Acute deep vein thrombosis is noted in the right peroneal vein. The gayatri liliane of the right lower extremity deep venous system is patent and compressible. The right great saphenous vein is patent and compressible. Acute superficial thrombophlebitis is noted involving superficial varicosities below the right knee. Ordering Physician: Zenon Garcia Performed By: Gino Wise RVRoberta
== END 2021-03-31 23:59 | disposition home or self-care (01) ==
LOC: CVS 14:29
PROVIDERS: PCP Family Medicine Geriatric Medicine; Referring Provider Family Medicine Geriatric Medicine; Visit Provider Family Medicine Geriatric Medicine
DX: R60.9 Edema, unspecified (principal); I82.411 Acute embolism and thrombosis of right femoral vein; I82.431 Acute embolism and thrombosis of right popliteal vein; I82.451 Acute embolism and thrombosis of right peroneal vein; I82.441 Acute embolism and thrombosis of right tibial vein
CPT/HCPCS: 93971

== ENCOUNTER 2021-05-25 11:16 | Outpatient (CLI) | payer MEDICARE, OTHER, SELFPAY ==
[2021-05-25 15:33] LABS: ALB/GLOB Ratio 1.4 RATIO (0.9-2.4); AST(SGOT) 19 U/L (15-37); Alanine Aminotransfer ALT/SGPT 30 U/L (16-61); Albumin, Serum 4.4 g/dL (3.2-5.0); Alkaline Phosphatase 110 U/L (45-117); Anion Gap 3 (5-15); BUN 18 mg/dL (7-18); BUN/Creat Ratio 21.6 RATIO (10-20); Calcium,Total 9.2 mg/dL (8.5-10.1); Chloride 102 mmol/L (98-107); Creatinine, Serum 0.83 mg/dL (0.70-1.30); EST Glomerular Filtration Rate 96 mL/min (>60); Est Glom Filt Rate - Afr Amer 117 mL/min (>60); Globulin 3.1 g/dL (2.2-4.2); Glucose 146 mg/dL (74-106); Potassium 5.2 mmol/L (3.5-5.1); Protein, Total 7.5 g/dL (6.4-8.2); Sodium Level 136 mmol/L (136-145)
== END 2021-05-25 23:59 | disposition home or self-care (01) ==
LOC: MFPLAB 11:21
PROVIDERS: PCP Family Medicine; Referring Provider Family Medicine; Visit Provider Family Medicine
DX: E11.9 Type 2 diabetes mellitus without complications (principal)
CPT/HCPCS: 36415; 80053

== ENCOUNTER → 2021-08-07 | Outpatient (CLI) | payer MEDICARE, OTHER, SELFPAY ==
[2021-08-07 15:19] LABS: Absolute Lymphocyte Count 1.31 X10^3/uL (0.83-4.51); Absolute Neutrophil Count 4.6 X10^3/uL (2.0-7.7); Basophil# 0.07 X10^3/uL; Basophil% 1.1 % (0-1); Eosinophil# 0.18 X10^3/uL; Eosinophils% 2.8 % (0-5); Hematocrit 48.2 % (40-54); Hemoglobin 15.4 g/dL (13.0-16.5); Lymphocyte # 1.31 X10^3/ul (0.83-4.51); Lymphocyte % 20.4 % (19-41); Mean Corpuscular Hgb 28.5 pg (27.0-32.0); Mean Corpuscular Volume 89.1 fL (80-94); Monocyte# 0.28 X10^3/uL; Monocyte% 4.4 % (0-10); NRBC Flagged by Analyzer 0 % (0-5); Neutrophil # 4.57 X10^3/uL (2.7-7.7); Platelet Count 198 K/mm3 (150-450); RBC Distribution Width CV 12.6 % (11.6-14.6); Red Blood Count 5.41 M/mm3 (4.6-6.2); White Blood Count 6.4 K/mm3 (4.4-11.0)
[2021-08-07 15:38] LABS: Microalbumin,Random Urine 9.4 mg/L (NO RANGE EST.); Microalbumin:Creatinine Ratio 28.5 mg/g CRE (<30 mg/g CRE)
[2021-08-07 15:45] LABS: Vitamin D,25 Hydroxy 50.4 ng/mL
[2021-08-07 15:46] LABS: ALB/GLOB Ratio 1.3 RATIO (0.9-2.4); AST(SGOT) 15 U/L (15-37); Alanine Aminotransfer ALT/SGPT 23 U/L (16-61); Albumin, Serum 4.2 g/dL (3.2-5.0); Alkaline Phosphatase 111 U/L (45-117); Anion Gap 7 (5-15); BUN 21 mg/dL (7-18); BUN/Creat Ratio 19.6 RATIO (10-20); Calcium,Total 9.7 mg/dL (8.5-10.1); Chloride 100 mmol/L (98-107); Cholesterol 193 mg/dL (200); Creatinine, Serum 1.07 mg/dL (0.70-1.30); EST Glomerular Filtration Rate 72 mL/min (>60); Est Glom Filt Rate - Afr Amer 87 mL/min (>60); Globulin 3.3 g/dL (2.2-4.2); Glucose 355 mg/dL (74-106); High Density Lipoprotein 24 mg/dL; Potassium 4.6 mmol/L (3.5-5.1); Protein, Total 7.5 g/dL (6.4-8.2); Sodium Level 134 mmol/L (136-145); Triglycerides 169 mg/dL; Very Low Density Lipoprotein 34 mg/dL (5-40)
== END | disposition home or self-care (01) ==
LOC: MFPLAB 14:18
PROVIDERS: PCP Family Medicine; Referring Provider Family Medicine; Visit Provider Family Medicine
DX: E55.9 Vitamin D deficiency, unspecified (principal); E11.9 Type 2 diabetes mellitus without complications
CPT/HCPCS: 36415; 80053; 80061; 82043; 82306; 82570; 83036; 85025

== ENCOUNTER → 2021-12-02 | Outpatient (CLI) | payer MEDICARE, OTHER, SELFPAY ==
[2021-12-02 17:46] LABS: Absolute Lymphocyte Count 1.51 X10^3/uL (0.83-4.51); Absolute Neutrophil Count 4.9 X10^3/uL (2.0-7.7); Basophil# 0.09 X10^3/uL; Basophil% 1.3 % (0-1); Eosinophil# 0.27 X10^3/uL; Eosinophils% 3.8 % (0-5); Hematocrit 47.7 % (40-54); Hemoglobin 15.3 g/dL (13.0-16.5); Lymphocyte # 1.51 X10^3/ul (0.83-4.51); Lymphocyte % 21.1 % (19-41); Mean Corp Hgb Conc 32.1 g/dL (32-36); Mean Corpuscular Hgb 29.5 pg (27.0-32.0); Mean Corpuscular Volume 92.1 fL (80-94); Mean Platelet Vol. 11.2 fl (6.2-12.0); Monocyte# 0.41 X10^3/uL; Monocyte% 5.7 % (0-10); NRBC Flagged by Analyzer 0 % (0-5); Neutrophil # 4.87 X10^3/uL (2.7-7.7); Neutrophil % 67.8 % (47-70); Platelet Count 210 K/mm3 (150-450); RBC Distribution Width CV 12.8 % (11.6-14.6); RBC Distribution Width SD 43.3 fl (35.1-43.9); Red Blood Count 5.18 M/mm3 (4.6-6.2); White Blood Count 7.2 K/mm3 (4.4-11.0)
[2021-12-02 18:10] LABS: ALB/GLOB Ratio 1.2 RATIO (0.9-2.4); AST(SGOT) 17 U/L (15-37); Alanine Aminotransfer ALT/SGPT 23 U/L (16-61); Albumin, Serum 4.2 g/dL (3.2-5.0); Alkaline Phosphatase 126 U/L (45-117); Anion Gap 7 (5-15); BUN 17 mg/dL (7-18); BUN/Creat Ratio 17.7 RATIO (10-20); Calcium,Total 9.7 mg/dL (8.5-10.1); Chloride 104 mmol/L (98-107); Cholesterol 133 mg/dL (200); Creatinine, Serum 0.96 mg/dL (0.70-1.30); EST Glomerular Filtration Rate 82 mL/min (>60); Est Glom Filt Rate - Afr Amer 99 mL/min (>60); Globulin 3.4 g/dL (2.2-4.2); Glucose 223 mg/dL (74-106); High Density Lipoprotein 23 mg/dL; Potassium 4.4 mmol/L (3.5-5.1); Protein, Total 7.6 g/dL (6.4-8.2); Sodium Level 137 mmol/L (136-145); Triglycerides 119 mg/dL; Very Low Density Lipoprotein 24 mg/dL (5-40)
[2021-12-02 20:53] LABS: Vitamin D,25 Hydroxy 37.6 ng/mL
== END | disposition home or self-care (01) ==
LOC: MFPLAB 14:40
PROVIDERS: PCP Family Medicine; Referring Provider Family Medicine; Visit Provider Family Medicine
DX: E55.9 Vitamin D deficiency, unspecified (principal); E11.9 Type 2 diabetes mellitus without complications
CPT/HCPCS: 36415; 80053; 80061; 82306; 83036; 85025

== ENCOUNTER → 2022-07-07 | Outpatient (CLI) | payer MEDICARE, OTHER, SELFPAY ==
[2022-07-07 14:48] LABS: Absolute Lymphocyte Count 1.47 X10^3/uL (0.83-4.51); Absolute Neutrophil Count 3.7 X10^3/uL (2.0-7.7); Basophil# 0.08 X10^3/uL; Basophil% 1.4 % (0-1); Eosinophil# 0.16 X10^3/uL; Eosinophils% 2.7 % (0-5); Hematocrit 46.9 % (40-54); Lymphocyte # 1.47 X10^3/ul (0.83-4.51); Lymphocyte % 25.1 % (19-41); Mean Corpuscular Hgb 29.2 pg (27.0-32.0); Mean Corpuscular Volume 91.4 fL (80-94); Mean Platelet Vol. 11.1 fl (6.2-12.0); Monocyte% 6.8 % (0-10); NRBC Flagged by Analyzer 0 % (0-5); Neutrophil # 3.66 X10^3/uL (2.7-7.7); Neutrophil % 62.5 % (47-70); Platelet Count 228 K/mm3 (150-450); RBC Distribution Width CV 12.5 % (11.6-14.6); RBC Distribution Width SD 42.5 fl (35.1-43.9); Red Blood Count 5.13 M/mm3 (4.6-6.2); White Blood Count 5.9 K/mm3 (4.4-11.0)
[2022-07-07 15:26] LABS: Microalbumin,Random Urine 5.5 mg/L (NO RANGE EST.); Microalbumin:Creatinine Ratio 17.6 mg/g CRE (<30 mg/g CRE)
[2022-07-07 15:35] LABS: ALB/GLOB Ratio 1.3 RATIO (0.9-2.4); AST(SGOT) 15 U/L (15-37); Alanine Aminotransfer ALT/SGPT 22 U/L (16-61); Albumin, Serum 4.1 g/dL (3.2-5.0); Alkaline Phosphatase 121 U/L (45-117); Anion Gap 6 (5-15); BUN 21 mg/dL (7-18); BUN/Creat Ratio 22.2 RATIO (10-20); Calcium,Total 9.5 mg/dL (8.5-10.1); Chloride 101 mmol/L (98-107); Cholesterol 173 mg/dL (200); Creatinine, Serum 0.95 mg/dL (0.70-1.30); EST Glomerular Filtration Rate 83 mL/min (>60); Est Glom Filt Rate - Afr Amer 101 mL/min (>60); Globulin 3.1 g/dL (2.2-4.2); Glucose 196 mg/dL (74-106); High Density Lipoprotein 26 mg/dL; PSA,Total - Annual Screen 1.08 ng/mL (0.00-4.00); Potassium 4.6 mmol/L (3.5-5.1); Protein, Total 7.2 g/dL (6.4-8.2); Sodium Level 134 mmol/L (136-145); Triglycerides 95 mg/dL; Very Low Density Lipoprotein 19 mg/dL (5-40)
== END | disposition home or self-care (01) ==
LOC: MFPLAB 12:18
PROVIDERS: PCP Family Medicine; Visit Provider Family Medicine
DX: Z12.5 Encounter for screening for malignant neoplasm of prostate (principal); E11.9 Type 2 diabetes mellitus without complications
CPT/HCPCS: 36415; 80053; 80061; 82043; 82570; 83036; 84153; 85025; G0103

== ENCOUNTER → 2022-10-07 | Outpatient (CLI) | payer MEDICARE, OTHER, SELFPAY ==
[2022-10-07 17:43] LABS: Absolute Neutrophil Count 5.5 X10^3/uL (2.0-7.7); Basophil% 1.2 % (0-1); Eosinophil# 0.32 X10^3/uL; Hematocrit 47.9 % (40-54); Hemoglobin 15.2 g/dL (13.0-16.5); Lymphocyte % 19.8 % (19-41); Mean Corp Hgb Conc 31.7 g/dL (32-36); Mean Corpuscular Hgb 29.1 pg (27.0-32.0); Mean Corpuscular Volume 91.6 fL (80-94); Mean Platelet Vol. 10.2 fl (6.2-12.0); Monocyte# 0.53 X10^3/uL; Monocyte% 6.6 % (0-10); NRBC Flagged by Analyzer 0 % (0-5); Platelet Count 213 K/mm3 (150-450); RBC Distribution Width CV 12.6 % (11.6-14.6); RBC Distribution Width SD 42.8 fl (35.1-43.9); Red Blood Count 5.23 M/mm3 (4.6-6.2); White Blood Count 8.1 K/mm3 (4.4-11.0)
[2022-10-07 18:10] LABS: Vitamin D,25 Hydroxy 35.7 ng/mL
[2022-10-07 18:16] LABS: ALB/GLOB Ratio 1.3 RATIO (0.9-2.4); AST(SGOT) 18 U/L (15-37); Alanine Aminotransfer ALT/SGPT 21 U/L (16-61); Albumin, Serum 4.3 g/dL (3.2-5.0); Alkaline Phosphatase 99 U/L (45-117); Anion Gap 6 (5-15); BUN 23 mg/dL (7-18); BUN/Creat Ratio 26.4 RATIO (10-20); Calcium,Total 9.5 mg/dL (8.5-10.1); Chloride 102 mmol/L (98-107); Cholesterol 135 mg/dL (200); Creatinine, Serum 0.87 mg/dL (0.70-1.30); EST Glomerular Filtration Rate 91 mL/min (>60); Est Glom Filt Rate - Afr Amer 111 mL/min (>60); Globulin 3.2 g/dL (2.2-4.2); Glucose 119 mg/dL (74-106); High Density Lipoprotein 27 mg/dL; Potassium 4.7 mmol/L (3.5-5.1); Protein, Total 7.5 g/dL (6.4-8.2); Sodium Level 137 mmol/L (136-145); Triglycerides 71 mg/dL; Very Low Density Lipoprotein 14 mg/dL (5-40)
[2022-10-07 18:23] LABS: Hemoglobin A1c 9.4 % (3.8-5.6)
== END | disposition home or self-care (01) ==
LOC: MFPLAB 16:37
PROVIDERS: PCP Family Medicine; Visit Provider Family Medicine
DX: E55.9 Vitamin D deficiency, unspecified (principal); E11.69 Type 2 diabetes mellitus with other specified complication
CPT/HCPCS: 36415; 80053; 80061; 82306; 83036; 85025

== ENCOUNTER → 2023-01-11 | Outpatient (CLI) | payer MEDICARE, OTHER, SELFPAY ==
[2023-01-11 17:41] LABS: Absolute Lymphocyte Count 1.74 X10^3/uL (0.83-4.51); Absolute Neutrophil Count 4.3 X10^3/uL (2.0-7.7); Basophil# 0.11 X10^3/uL; Basophil% 1.6 % (0-1); Eosinophil# 0.26 X10^3/uL; Eosinophils% 3.8 % (0-5); Hematocrit 49.1 % (40-54); Hemoglobin 15.2 g/dL (13.0-16.5); Lymphocyte # 1.74 X10^3/ul (0.83-4.51); Lymphocyte % 25.2 % (19-41); Mean Corpuscular Hgb 28.6 pg (27.0-32.0); Mean Corpuscular Volume 92.3 fL (80-94); Mean Platelet Vol. 10.4 fl (6.2-12.0); Monocyte# 0.44 X10^3/uL; Monocyte% 6.4 % (0-10); NRBC Flagged by Analyzer 0 % (0-5); Neutrophil # 4.34 X10^3/uL (2.7-7.7); Neutrophil % 62.9 % (47-70); Platelet Count 175 K/mm3 (150-450); RBC Distribution Width CV 12.7 % (11.6-14.6); RBC Distribution Width SD 43.3 fl (35.1-43.9); Red Blood Count 5.32 M/mm3 (4.6-6.2); White Blood Count 6.9 K/mm3 (4.4-11.0)
[2023-01-11 18:02] LABS: Vitamin D,25 Hydroxy 34.3 ng/mL
[2023-01-11 18:05] LABS: ALB/GLOB Ratio 1.3 RATIO (0.9-2.4); AST(SGOT) 13 U/L (15-37); Alanine Aminotransfer ALT/SGPT 23 U/L (16-61); Albumin, Serum 4.2 g/dL (3.2-5.0); Alkaline Phosphatase 99 U/L (45-117); Anion Gap 2 (5-15); BUN 25 mg/dL (7-18); BUN/Creat Ratio 25.4 RATIO (10-20); Calcium,Total 9.2 mg/dL (8.5-10.1); Chloride 105 mmol/L (98-107); Cholesterol 124 mg/dL (200); Creatinine, Serum 0.98 mg/dL (0.70-1.30); EST Glomerular Filtration Rate 79 mL/min (>60); Est Glom Filt Rate - Afr Amer 96 mL/min (>60); Globulin 3.3 g/dL (2.2-4.2); Glucose 111 mg/dL (74-106); High Density Lipoprotein 30 mg/dL; Potassium 4.6 mmol/L (3.5-5.1); Protein, Total 7.5 g/dL (6.4-8.2); Sodium Level 137 mmol/L (136-145); Triglycerides 65 mg/dL; Very Low Density Lipoprotein 13 mg/dL (5-40)
[2023-01-11 18:13] LABS: Hemoglobin A1c 6.7 % (3.8-5.6)
[2023-01-11 18:42] LABS: Microalbumin,Random Urine 6.8 mg/L (NO RANGE EST.); Microalbumin:Creatinine Ratio 11.8 mg/g CRE (<30 mg/g CRE)
== END | disposition home or self-care (01) ==
PROVIDERS: PCP Family Medicine; Referring Provider Family Medicine; Visit Provider Family Medicine
DX: E11.9 Type 2 diabetes mellitus without complications (principal); E55.9 Vitamin D deficiency, unspecified
CPT/HCPCS: 36415; 80053; 80061; 82043; 82306; 82570; 83036; 85025

== ENCOUNTER → 2023-04-12 | Outpatient (CLI) | payer MEDICARE, OTHER, SELFPAY ==
[2023-04-12 15:26] LABS: Absolute Lymphocyte Count 1.33 X10^3/uL (0.83-4.51); Absolute Neutrophil Count 5.1 X10^3/uL (2.0-7.7); Basophil# 0.08 X10^3/uL; Basophil% 1.1 % (0-1); Eosinophil# 0.23 X10^3/uL; Eosinophils% 3.2 % (0-5); Hematocrit 51.9 % (40-54); Hemoglobin 16.5 g/dL (13.0-16.5); Lymphocyte # 1.33 X10^3/ul (0.83-4.51); Lymphocyte % 18.6 % (19-41); Mean Corp Hgb Conc 31.8 g/dL (32-36); Mean Corpuscular Hgb 29.2 pg (27.0-32.0); Mean Corpuscular Volume 91.9 fL (80-94); Mean Platelet Vol. 10.8 fl (6.2-12.0); Monocyte# 0.37 X10^3/uL; Monocyte% 5.2 % (0-10); NRBC Flagged by Analyzer 0 % (0-5); Neutrophil # 5.13 X10^3/uL (2.7-7.7); Neutrophil % 71.6 % (47-70); Platelet Count 232 K/mm3 (150-450); RBC Distribution Width CV 12.5 % (11.6-14.6); RBC Distribution Width SD 42.5 fl (35.1-43.9); Red Blood Count 5.65 M/mm3 (4.6-6.2); White Blood Count 7.2 K/mm3 (4.4-11.0)
[2023-04-12 16:06] LABS: Hemoglobin A1c 7.7 % (3.8-5.6)
[2023-04-12 16:06] LABS: Microalbumin:Creatinine Ratio 19.1 mg/g CRE (<30 mg/g CRE)
[2023-04-12 16:42] LABS: ALB/GLOB Ratio 1.4 RATIO (0.9-2.4); AST(SGOT) 14 U/L (15-37); Alanine Aminotransfer ALT/SGPT 24 U/L (16-61); Albumin, Serum 4.4 g/dL (3.2-5.0); Alkaline Phosphatase 87 U/L (45-117); Anion Gap 6 (5-15); BUN 23 mg/dL (7-18); Calcium,Total 9.6 mg/dL (8.5-10.1); Chloride 104 mmol/L (98-107); Cholesterol 125 mg/dL (200); Creatinine, Serum 0.88 mg/dL (0.70-1.30); EST Glomerular Filtration Rate 90 mL/min (>60); Est Glom Filt Rate - Afr Amer 109 mL/min (>60); Globulin 3.1 g/dL (2.2-4.2); Glucose 129 mg/dL (74-106); High Density Lipoprotein 27 mg/dL; Potassium 4.6 mmol/L (3.5-5.1); Protein, Total 7.5 g/dL (6.4-8.2); Sodium Level 137 mmol/L (136-145); Triglycerides 63 mg/dL; Very Low Density Lipoprotein 13 mg/dL (5-40)
--- OUTSIDE RECORDS SUMMARY | 2023-04-12 21:09 | XMS RPT_ITS | CCD ---
Author Name Unknown Address [address] [place] [address] Organization [facility] Care Team Providers Care Elevator Tender Name Role Phone Sisi Cisneros Unavailable [phone] Joyce Aleshia Edith Unavailable Sisi Cisneros Unavailable Medications Completed/Discontinued Medications Medication Drug Class(es) Dates Sig (Normalized) Sig (Original) amoxicillin 875 mg / clavulanate 125 mg oral tablet (3 sources) Penicillin-class Antibacterial take 1 tablet by mouth twice daily AUGMENTIN 875-125 MG TABS One tablet by mouth twice daily AMOXICILLIN-POT CLAVULANATE [id number] Candy Ruiz Problems Problem Classification Problem Date Documented Da te Episodic/Chronic Nonmalignant breast conditions (4 sources) Gynecomastia; Translations: [Other abnormal and inconclusive findings on diagnostic imaging of breast] Onset: 01-31-2012 02-14-2012 Episodic Other non-traumatic joint disorders (2 sources) Pain in left shoulder; Translations: [Pain in left shoulder] Onset: 08-05-2016 08-05-2016 Episodic Other screening for suspected conditions (not mental disorders or infectious disease) (2 sources) Other abnormal and inconclusive findings on diagnostic imaging of breast; Translations: [Other abnormal and inconclusive findings on diagnostic imaging of breast] Onset: 01-31-2012 02-04-2012 Episodic Results Test Name Value Interpretation Reference Range Facil ity Vital Signs Date Time Vital Sign Value Performing Clinician Facility 08-05-2016 14:42-0400 BMI (Body Mass Index) 31.41 kg/m2 [facility] Work Phone: 08-05-2016 14:42-0400 Weight 111.59 kg [facility] Work Phone: 02-03-2012 10:06-7811 BMI (Body Mass Index) 34.89 kg/m2 [facility]
== END | disposition home or self-care (01) ==
LOC: MFPLAB 12:00
PROVIDERS: PCP Family Medicine; Visit Provider Family Medicine
DX: E55.9 Vitamin D deficiency, unspecified (principal); E11.69 Type 2 diabetes mellitus with other specified complication
CPT/HCPCS: 36415; 80053; 80061; 82043; 82306; 82570; 83036; 85025

== ENCOUNTER 2023-04-21 10:38 | Emergency (ER) | payer MEDICARE, OTHER, SELFPAY ==
[2023-04-21 10:39] VITALS: BP 123/91; PULSE 105; RESP 18; TEMP 36.6; O2SAT 99; BMI 22.8
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
[2023-04-21] MEDS: Fleet Enema 133 ML RC (13:50)
[2023-04-21 14:56] VITALS: BP 128/74; PULSE 61; RESP 16; TEMP 36.1; O2SAT 97
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
== END 2023-04-21 14:57 | disposition home or self-care (01) ==
PROVIDERS: Emergency Provider Emergency Medicine; PCP Family Medicine; Visit Provider Emergency Medicine
DX: K59.00 Constipation, unspecified (principal); E11.9 Type 2 diabetes mellitus without complications; E78.00 Pure hypercholesterolemia, unspecified; R11.10 Vomiting, unspecified
CPT/HCPCS: 99282

== ENCOUNTER → 2023-05-18 | Outpatient (CLI) | payer MEDICARE, OTHER, SELFPAY ==
--- NOTE | 2023-05-18 15:40 | RAD_ITS ---
STUDY: X-RAY - LUMBAR SPINE REASON FOR EXAM: Male, 72 years old. Back pain. TECHNIQUE: 2 view(s) of the lumbar spine were obtained. COMPARISON: 03/29/2017 FINDINGS: Osteopenia. Normal lumbar lordosis. No scoliosis. Normal vertebral alignment. Diffuse moderate lower thoracic and lumbosacral facet sclerosis. Endplate cavities compatible with osteoporosis. Diffuse mild intervertebral disc space narrowing without significant osteophytes. Vascular calcification. RAD/Lumbar Spine 2 or 3 Views IMPRESSION: Osteopenia with mild diffuse lower thoracic and lumbosacral spondylosis. Electronically Signed: Beck Ascencio MD at 12:33 EDT ,
== END | disposition home or self-care (01) ==
PROVIDERS: PCP Family Medicine; Referring Provider Family Medicine; Visit Provider Family Medicine
DX: M54.50 Low back pain, unspecified (principal)
CPT/HCPCS: 72100

== ENCOUNTER → 2023-06-16 | Outpatient (CLI) | payer MEDICARE, OTHER, SELFPAY ==
--- NOTE | 2023-06-16 12:59 | EKG12_ITS ---
Test Reason : PRE OP Blood Pressure : / mmHG Vent. Rate : 068 BPM Atrial Rate : 068 BPM P-R Int : 230 ms QRS Dur : 100 ms QT Int : 386 ms P-R-T Axes : 079 -08 045 degrees QTc Int : 410 ms Sinus rhythm with 1st degree A-V block Otherwise normal ECG Confirmed by REBECA PONCE, AZEEM ([id number]), medical transcription editor STEPHANY PRESTON ([id number]) on 06/17/2023 9:43:59 AM Referred By: Naseem Diaz Confirmed By:AZEEM JOSE MD
[2023-06-16 13:46] LABS: Hematocrit 47.3 % (40-54); Hemoglobin 15.3 g/dL (13.0-16.5); Mean Corp Hgb Conc 32.3 g/dL (32-36); Mean Corpuscular Hgb 29.5 pg (27.0-32.0); Mean Corpuscular Volume 91.3 fL (80-94); Mean Platelet Vol. 10.5 fl (6.2-12.0); Platelet Count 196 K/mm3 (150-450); RBC Distribution Width CV 12.1 % (11.6-14.6); Red Blood Count 5.18 M/mm3 (4.6-6.2)
[2023-06-16 14:08] LABS: Anion Gap 3 (5-15); BUN 20 mg/dL (7-18); BUN/Creat Ratio 22.9 RATIO (10-20); Calcium,Total 9.6 mg/dL (8.5-10.1); Chloride 103 mmol/L (98-107); Creatinine, Serum 0.87 mg/dL (0.70-1.30); EST Glomerular Filtration Rate 91 mL/min (>60); Est Glom Filt Rate - Afr Amer 110 mL/min (>60); Glucose 176 mg/dL (74-106); Potassium 4.4 mmol/L (3.5-5.1); Sodium Level 135 mmol/L (136-145)
== END | disposition home or self-care (01) ==
PROVIDERS: PCP Family Medicine; Referring Provider Urology; Visit Provider Urology
DX: Z01.810 Encounter for preprocedural cardiovascular examination (principal); Z01.818 Encounter for other preprocedural examination
CPT/HCPCS: 36415; 80048; 85027; 93005

== ENCOUNTER → 2023-09-08 | Outpatient (CLI) | payer MEDICARE, OTHER, SELFPAY ==
[2023-09-08 17:49] LABS: Basophil# 0.07 X10^3/uL; Eosinophil# 0.36 X10^3/uL; Eosinophils% 4.9 % (0-5); Hemoglobin 15.2 g/dL (13.0-16.5); Lymphocyte % 20.4 % (19-41); Mean Corp Hgb Conc 32.3 g/dL (32-36); Mean Corpuscular Hgb 29.9 pg (27.0-32.0); Mean Corpuscular Volume 92.3 fL (80-94); Mean Platelet Vol. 10.3 fl (6.2-12.0); Monocyte# 0.44 X10^3/uL; NRBC Flagged by Analyzer 0 % (0-5); Neutrophil # 4.96 X10^3/uL (2.7-7.7); Neutrophil % 67.3 % (47-70); Platelet Count 201 K/mm3 (150-450); Red Blood Count 5.09 M/mm3 (4.6-6.2); White Blood Count 7.4 K/mm3 (4.4-11.0)
[2023-09-08 18:25] LABS: Hemoglobin A1c 6.3 % (3.8-5.6)
[2023-09-08 18:27] LABS: Microalbumin,Random Urine < 5.0 mg/L (NO RANGE EST.)
[2023-09-08 18:44] LABS: ALB/GLOB Ratio 1.2 RATIO (0.9-2.4); AST(SGOT) 17 U/L (15-37); Alanine Aminotransfer ALT/SGPT 23 U/L (16-61); Albumin, Serum 4.3 g/dL (3.2-5.0); Alkaline Phosphatase 106 U/L (45-117); Anion Gap 6 (5-15); BUN 18 mg/dL (7-18); Calcium,Total 9.6 mg/dL (8.5-10.1); Chloride 102 mmol/L (98-107); Cholesterol 98 mg/dL (200); EST Glomerular Filtration Rate 88 mL/min (>60); Est Glom Filt Rate - Afr Amer 106 mL/min (>60); Globulin 3.5 g/dL (2.2-4.2); Glucose 116 mg/dL (74-106); High Density Lipoprotein 24 mg/dL; PSA,Total - Annual Screen 1.65 ng/mL (0.00-4.00); Potassium 4.4 mmol/L (3.5-5.1); Protein, Total 7.8 g/dL (6.4-8.2); Sodium Level 135 mmol/L (136-145); Triglycerides 60 mg/dL; Very Low Density Lipoprotein 12 mg/dL (5-40)
== END | disposition home or self-care (01) ==
LOC: MTLAB 16:52
PROVIDERS: PCP Family Medicine; Referring Provider Family Medicine; Visit Provider Family Medicine
DX: Z12.5 Encounter for screening for malignant neoplasm of prostate (principal); E11.9 Type 2 diabetes mellitus without complications
CPT/HCPCS: 36415; 80053; 80061; 82043; 82570; 83036; 84153; 85025; G0103

== ENCOUNTER 2023-10-20 23:24 | Emergency (ER) | payer MEDICARE, OTHER, SELFPAY ==
[2023-10-20 23:25] VITALS: BP 133/71; PULSE 89; RESP 18; TEMP 36.6; O2SAT 98; BMI 23.7
--- NOTE | 2023-10-21 00:01 | RAD_ITS ---
INDICATION: chest pain EXAMINATION/TECHNIQUE: X-RAY - XR Chest 2 Views COMPARISON: Prior study dated: 11/23/2016 FINDINGS: LINES/DEVICES: Cardiac leads overlie the chest. LUNGS: The lungs are well expanded. No consolidation, edema or effusion. No pneumothorax. MEDIASTINUM AND CARDIOVASCULAR STRUCTURES: Cardiac silhouette not enlarged. Central airways and mediastinal contour are unremarkable. BONES AND SOFT TISSUES: No acute abnormality. Moderate stool burden noted in the visualized colon. RAD/Chest PA and Lateral IMPRESSION: No acute pulmonary finding. Electronically Signed: Randy Flowers MD at 0:34 EDT ,
[2023-10-21 00:10] LABS: Absolute Lymphocyte Count 1.62 X10^3/uL (0.83-4.51); Absolute Neutrophil Count 3.5 X10^3/uL (2.0-7.7); Basophil# 0.05 X10^3/uL; Basophil% 0.8 % (0-1); Eosinophils% 6.6 % (0-5); Hemoglobin 14.9 g/dL (13.0-16.5); Lymphocyte # 1.62 X10^3/ul (0.83-4.51); Lymphocyte % 26.6 % (19-41); Mean Corp Hgb Conc 31.7 g/dL (32-36); Mean Corpuscular Hgb 29.2 pg (27.0-32.0); Mean Platelet Vol. 10.2 fl (6.2-12.0); Monocyte# 0.44 X10^3/uL; Monocyte% 7.2 % (0-10); NRBC Flagged by Analyzer 0 % (0-5); Neutrophil # 3.53 X10^3/uL (2.7-7.7); Platelet Count 189 K/mm3 (150-450); RBC Distribution Width CV 12.1 % (11.6-14.6); RBC Distribution Width SD 41.4 fl (35.1-43.9); Red Blood Count 5.11 M/mm3 (4.6-6.2); White Blood Count 6.1 K/mm3 (4.4-11.0)
[2023-10-21 00:15] VITALS: PULSE 78; RESP 20
[2023-10-21] MEDS: Aspirin 325 MG Tablet PO (00:34)
[2023-10-21 00:44] LABS: Anion Gap 5 (5-15); BUN 27 mg/dL (7-18); BUN/Creat Ratio 23.7 RATIO (10-20); Calcium,Total 9.8 mg/dL (8.5-10.1); Chloride 103 mmol/L (98-107); Creatinine, Serum 1.14 mg/dL (0.70-1.30); EST Glomerular Filtration Rate 67 mL/min (>60); Est Glom Filt Rate - Afr Amer 81 mL/min (>60); Estimated Creatinine Clearance 70.85 ml/min; Glucose 183 mg/dL (74-106); Magnesium 2.1 mg/dL (1.6-2.6); Potassium 4.4 mmol/L (3.5-5.1); Sodium Level 140 mmol/L (136-145); Troponin-I HS 12 pg/mL (3.0-78.0)
[2023-10-21 01:00] VITALS: PULSE 85; RESP 17
--- NOTE | 2023-10-21 01:12 | EKG12_ITS ---
Test Reason : CHEST HEAVY Blood Pressure : / mmHG Vent. Rate : 075 BPM Atrial Rate : 075 BPM P-R Int : 240 ms QRS Dur : 096 ms QT Int : 362 ms P-R-T Axes : 070 -03 059 degrees QTc Int : 404 ms Sinus rhythm with marked sinus arrhythmia with 1st degree A-V block Low voltage QRS Septal infarct , age undetermined Abnormal ECG Confirmed by REBECA PONCE, AZEEM ([id number]), purchasing expeditor ARLET COLUNGA ([id number]) on 10/24/2023 8:18:45 AM Referred By: Confirmed By:AZEEM JOSE MD
[2023-10-21 02:00] VITALS: BP 133/72; PULSE 79; RESP 18; O2SAT 98
[2023-10-21 02:15] VITALS: PULSE 78; RESP 19
[2023-10-21 02:19] LABS: Troponin-I HS 12 pg/mL (3.0-78.0)
--- NOTE | 2023-10-21 02:26 | EDS_ITS ---
HPI History of Present Illness Chief Complaint: Palpitations Informant: patient and family Narrative Narrative: Patient is a 72-year-old male with past medical history of hypertension and [id number] type 2 diabetes. He reports that he will frequently get GERD but that it seems to resolve with [id number] medication. He states this evening around 930 or 10 PM he felt a pressure/discomfort in the center of his chest. He states with this there was slight shortness of breath. He denies any nausea vomiting or diaphoresis or radiation of the pain. He states it felt similar nature to his previous bouts of GERD so he took his medication but there was no symptom improvement. Since the symptoms did not resolve he had concern this could be cardiac and therefore comes in for evaluation [facility] Medical History Diabetes Hypercholesterolemia Home Medications ?Medication ?Instructions ?Recorded ?Last Taken ?Type docusate sodium 100 mg capsule 100 mg PO DAILY ##30 12/13/12 Unknown Rx (DOK) glipizide 10 mg tablet 10 mg PO BIDAC 12/13/12 Unknown History metformin 1,000 mg tablet 1,000 mg PO BIDCM 12/13/12 Unknown History docusate sodium 100 mg capsule 100 mg PO BID 7 days #14 caps 03/07/21 Unknown Rx (Colace) magnesium citrate 300 ml PO X1 #1 BOTTLE 04/21/23 Unknown Rx atorvastatin 40 mg tablet 40 mg PO QHS 10/21/23 Unknown History plecanatide 3 mg tablet (Trulance) 3 mg PO DAILY 10/21/23 Unknown History Allergy/AdvReac Type Severity Reaction Status Date / Time No Known Allergies Allergy Verified 10/20/23 23:25 Social History Smoking Status: Former smoker ROS ROS ED Constitutional Constitutional ED: Denies chills or fever(s) Eyes Eyes: Denies blurry vision or change in vision ENT ENT ED: Denies sore throat Cardiovascular Cardiovascular: Reports chest pain; Denies palpitations or racing heartbeat Respiratory/Chest Respiratory/Chest: Reports dyspnea; Denies cough Gastrointestinal Gastrointestinal: Denies abdominal pain, diarrhea, nausea or vomiting Genitourinary Genitourinary ED: Denies dysuria Musculoskeletal Musculoskeletal: Denies back pain or myalgias Integumentary Denies rash Neurologic Neurologic: Denies headache(s) Hematologic/Lymphatic Hematologic/Lymphatic: Denies easy bleeding or easy bruising EXAM Physical Exam Const Vital Signs: 10/20/23 23:25 10/21/23 00:15 10/21/23 00:16 Temperature 97.8 F Temperature Source Temporal Pulse Rate 89 78 Respiratory Rate 18 20 H Respiratory Effort Normal Blood Pressure 133/71 H Blood Pressure Mean 91 Pulse Ox 98 Oxygen Delivery Method Room Air 10/21/23 01:00 10/21/23 02:00 10/21/23 02:15 Temperature Temperature Source Pulse Rate 85 79 78 Respiratory Rate 17 18 19 H Respiratory Effort Blood Pressure 133/72 H Blood Pressure Mean 92 Pulse Ox 98 Oxygen Delivery Method Room Air Positive well nourished and well developed General Appearance ED: well developed; Negative for pallor HEENT HEENT Narrative: Normocephalic atraumatic Eyes PERRL and EOMs intact bilaterally General Eye ED: Negative for pale conjunctiva or scleral icterus Neck supple and no JVD Neck Narrative: No nuchal rigidity or meningeal signs noted Chest Wall palpation of chest normal Chest Narrative: No bony deformity or crepitance of the chest wall no reproducible pain with palpation Resp normal respiratory effort and clear to auscultation bilaterally Cardio regular rate and regular rhythm Rate: other Other Details: Heart is regular rate and rhythm Radial and carotid pulses are equal and symmetric GI normal to inspection, nondistended, normoactive bowel sounds, non-tender, non- distended and no masses GI Narrative: No voluntary guarding or rigidity or pulsatile mass Auscultation: normoactive bowel sounds Palpation: soft Extremity normal to inspection Extremity Narrative: No asymmetric edema no pitting edema negative Homans' sign bilaterally Neuro oriented x3, CN's II-XII intact bilaterally and no sensory deficits noted Sensorium / Orientation: alert Motor Exam: strength 5/5 throughout Psych mental status grossly normal Skin no rashes or lesions noted General Skin Exam: Negative for jaundice or pallor MDM MDM MDM Narrative Medical decision making narrative: Patient arrived to the ER slightly hypertensive but otherwise with stable vitals. He reported roughly 30 minutes to 1 hour of chest discomfort prior to arrival. Differential diagnosis is for acute coronary syndrome versus cardiac dysrhythmia versus GERD versus esophageal spasm versus pneumonia or pneumothorax. The patient had an atypical presentation for ACS as he had chest pressure but no nausea vomiting diaphoresis or radiation of the pain. EKG reveals sinus rhythm with bouts of ectopy but no true cardiac dysrhythmia. The patient's initial and delta troponin were stable at 12 which goes against acute coronary syndrome. This correlates with the fact the patient's been pain-free since arrival without medication. He did not have a true cardiac dysrhythmia on exam/monitoring but just occasional/frequent PVCs. Therefore with no signs of lung pathology and no signs of acute ACS or cardiac dysrhythmia there is no need for further evaluation as an inpatient but he was strongly advised to follow-up with his family doctor to discuss Holter monitor to assess for cardiac dysrhythmia as a cause of his symptoms that occurred this evening History & Record Review Discussion w/independent historian: Patient and Family Lab Data Attestation: I reviewed the patient's lab results. Labs: Laboratory Results - last 24 hr 10/20/23 10/21/23 23:55 01:57 WBC 6.1 RBC 5.11 Hgb 14.9 Hct 47.0 MCV 92.0 MCH 29.2 MCHC 31.7 L RDW Std Deviation 41.4 RDW Coeff of Emmanuel 12.1 Plt Count 189 MPV 10.2 Immature Gran % (Auto) 0.800 Neut % (Auto) 58.0 Lymph % (Auto) 26.6 Travis % (Auto) 7.2 Eos % (Auto) 6.6 H Baso % (Auto) 0.8 Absolute Neuts (auto) 3.5 Absolute Lymphs (auto) 1.62 Nucleated RBC % 0 Sodium 140 Potassium 4.4 Chloride 103 Carbon Dioxide 32.0 Anion Gap 5 BUN 27 H Creatinine 1.14 Estim Creat Clear Calc 70.85 Est GFR (MDRD) Af Amer 81 Est GFR (MDRD) Non-Af 67 BUN/Creatinine Ratio 23.7 H Glucose 183 H Calcium 9.8 Magnesium 2.1 Troponin I High Sens 12 12 Radiography Diagnostic Testing: Clinical Impression(s) from Imaging Studies Chest X-Ray 10/21/23 00:01 IMPRESSION: No acute pulmonary finding. Electronically Signed: Randy Flowers MD at 0:34 EDT , Chest x-ray as interpreted by the emergency medicine physician reveals no acute infiltrate pneumothorax pleural effusion or widened mediastinum Discharge Plan Triage Chief Complaint: Palpitations ED Provider: Hunter Hoyt Dx/Rx/DC Orders Clinical Impression: Nonspecific chest pain, PVC's (premature ventricular contractions), Hyperlipidemia, Type 2 diabetes mellitus Instructions: PVCs, ED Chest Pain, Uncertain Cause Prescriptions: No Action glipizide 10 MG tablet 10 mg PO BIDAC metformin 1,000 MG tablet 1,000 mg PO BIDCM docusate sodium [DOK] 100 MG capsule 100 mg PO DAILY Qty: 30 0RF docusate sodium [Colace] 100 mg capsule 100 mg PO BID 7 Days Qty: 14 0RF magnesium citrate Solution 300 ml PO X1 Qty: 1 0RF atorvastatin 40 mg tablet 40 mg PO QHS Trulance 3 mg tablet 3 mg PO DAILY Primary Care Provider: Taras Leal Referrals: Taras Leal MD [Primary Care Provider] - Activity Restrictions/Additional Instructions: Your workup today showed no sign of heart attack but you are having abnormal heartbeats and this could have precipitated an abnormal heart rhythm while you are at home. Follow-up with your family doctor and/or tool analyst to discuss a Holter monitor to further assess the potential for an abnormal heart rhythm and return to the ER should you have any further concerns. Print Language: Vietnamese Disposition Disposition: Home, Self Care Discharge Date/Time: 10/21/23 02:38
== END 2023-10-21 02:38 | disposition home or self-care (01) ==
PROVIDERS: Emergency Provider Emergency Medicine; PCP Family Medicine; Visit Provider Emergency Medicine
DX: R00.2 Palpitations (principal); E11.9 Type 2 diabetes mellitus without complications; R07.9 Chest pain, unspecified; I49.3 Ventricular premature depolarization; Z87.891 Personal history of nicotine dependence; E78.00 Pure hypercholesterolemia, unspecified; I10 Essential (primary) hypertension; Z79.899 Other long term (current) drug therapy; Z79.84 Long term (current) use of oral hypoglycemic drugs
CPT/HCPCS: 71046; 80048; 83735; 84484; 85025; 93005; 99282; A4216

== ENCOUNTER → 2024-01-05 | Outpatient (CLI) | payer MEDICARE, OTHER, SELFPAY ==
[2024-01-05 17:51] LABS: Absolute Lymphocyte Count 1.35 X10^3/uL (0.83-4.51); Absolute Neutrophil Count 5.1 X10^3/uL (2.0-7.7); Basophil# 0.09 X10^3/uL; Basophil% 1.2 % (0-1); Eosinophils% 4.1 % (0-5); Hematocrit 47.6 % (40-54); Hemoglobin 15.3 g/dL (13.0-16.5); Lymphocyte # 1.35 X10^3/ul (0.83-4.51); Lymphocyte % 18.4 % (19-41); Mean Corp Hgb Conc 32.1 g/dL (32-36); Mean Corpuscular Hgb 29.5 pg (27.0-32.0); Mean Corpuscular Volume 91.7 fL (80-94); Mean Platelet Vol. 10.8 fl (6.2-12.0); Monocyte# 0.45 X10^3/uL; Monocyte% 6.1 % (0-10); NRBC Flagged by Analyzer 0 % (0-5); Neutrophil # 5.12 X10^3/uL (2.7-7.7); Neutrophil % 69.9 % (47-70); Platelet Count 191 K/mm3 (150-450); RBC Distribution Width CV 12.5 % (11.6-14.6); RBC Distribution Width SD 42.3 fl (35.1-43.9); Red Blood Count 5.19 M/mm3 (4.6-6.2); White Blood Count 7.3 K/mm3 (4.4-11.0)
[2024-01-05 18:14] LABS: Vitamin D,25 Hydroxy 27.2 ng/mL
[2024-01-05 18:21] LABS: ALB/GLOB Ratio 1.3 RATIO (0.9-2.4); AST(SGOT) 12 U/L (15-37); Alanine Aminotransfer ALT/SGPT 20 U/L (16-61); Alkaline Phosphatase 126 U/L (45-117); Anion Gap 5 (5-15); BUN 23 mg/dL (7-18); BUN/Creat Ratio 26.2 RATIO (10-20); Chloride 105 mmol/L (98-107); Cholesterol 121 mg/dL (200); Creatinine, Serum 0.88 mg/dL (0.70-1.30); EST Glomerular Filtration Rate 90 mL/min (>60); Est Glom Filt Rate - Afr Amer 109 mL/min (>60); Globulin 3.1 g/dL (2.2-4.2); Glucose 171 mg/dL (74-106); High Density Lipoprotein 25 mg/dL; Potassium 4.3 mmol/L (3.5-5.1); Protein, Total 7.1 g/dL (6.4-8.2); Sodium Level 138 mmol/L (136-145); Triglycerides 99 mg/dL; Very Low Density Lipoprotein 20 mg/dL (5-40)
[2024-01-05 18:52] LABS: Hemoglobin A1c 6.9 % (3.8-5.6)
== END | disposition home or self-care (01) ==
LOC: MFPLAB 14:29
PROVIDERS: PCP Family Medicine; Visit Provider Family Medicine
DX: E11.9 Type 2 diabetes mellitus without complications (principal); E55.9 Vitamin D deficiency, unspecified
CPT/HCPCS: 36415; 80053; 80061; 82306; 83036; 85025

== ENCOUNTER → 2024-02-01 | Outpatient (CLI) | payer MEDICARE, OTHER, SELFPAY ==
--- NOTE | 2024-02-01 13:40 | ECHOD_ITS ---
Reason For Study: VENTRICULAR PREMATURE DEPOLARIZATION Procedure This was a 2D Doppler, Color Flow transthoracic echocardiogram. Exam performed in department. Left Ventricle Normal LV size. Left ventricular systolic function is normal. The left ventricular ejection fraction is 55 %. No regional wall motion abnormalities noted. Right Ventricle Normal RV size. Normal systolic function. Atria Normal left atrium. Normal right atrium. Mitral Valve Normal mitral valve. Tricuspid Valve Myxomatous appearing tricuspid valve. Aortic Valve Trisinus/trileaflet aortic valve. Pulmonic Valve The pulmonic valve is not well visualized. Great Vessels Normal aortic root. The pulmonary artery is normal size. Inferior vena cava collapse with respiration. Pericardium/Pleural No pericardial effusion. MMode/2D Measurements & Calculations LVIDd: 4.3 cm IVSd: 1.1 cm LVOT diam: 2.2 cm LVIDs: 3.0 cm LVPWd: 1.0 cm LVOT area: 3.9 cm2 RVDd: 3.7 cm FS: 31.8 % asc Aorta Diam: 3.1 cm LAV(MOD-bp): 51.7 ml LVAd ap4: 26.3 cm2 LAV(MOD-bp) Indexed: 23.4 ml/m2 LVLd ap4: 7.8 cm LAV(MOD-sp2): 59.2 ml EDV(MOD-sp4): 71.3 ml LAV(MOD-sp4): 44.9 ml EDV(sp4-el): 74.9 ml LVAs ap4: 17.6 cm2 LVLs ap4: 6.7 cm ESV(MOD-sp4): 37.5 ml ESV(sp4-el): 39.5 ml EF(MOD-sp4): 47.4 % EF(sp4-el): 47.2 % LVAd ap2: 21.0 cm2 SV(MOD-sp4): 33.8 ml SV(MOD-sp2): 22.3 ml LVLd ap2: 7.3 cm SI(MOD-sp4): 15.3 ml/m2 SI(MOD-sp2): 10.1 ml/m2 EDV(MOD-sp2): 49.4 ml EDV(sp2-el): 50.9 ml LVAs ap2: 13.7 cm2 LVLs ap2: 5.9 cm ESV(MOD-sp2): 27.1 ml ESV(sp2-el): 26.6 ml EF(MOD-sp2): 45.1 % SV(sp4-el): 35.4 ml Ao sinus diam: 3.[address] Junction: 3.0 cm LA dimension(2D): 4.1 cm LA A4 area: 17.2 cm2 RA A4 area: 13.9 cm2 TAPSE: 1.5 cm Time Measurements MV dec time: 0.26 sec Doppler Measurements & Calculations MV E max raffi: 43.4 cm/sec Lat Peak E' Raffi: 8.2 cm/sec Med Peak E' Raffi: 5.4 cm/sec MV A max raffi: 78.5 cm/sec E/E' lat: 5.3 E/E' med: 8.1 MV E/A: 0.55 MV dec slope: 167.0 cm/sec2 Ao V2 max: 75.1 cm/sec LV V1 max: 57.0 cm/sec Ao max P.3 mmHg LV V1 max P.3 mmHg Ao V2 mean: 49.8 cm/sec LV V1 mean P.74 mmHg Ao mean P.2 mmHg LV V1 mean: 40.6 cm/sec Ao V2 VTI: 16.9 cm LV V1 VTI: 12.5 cm AV (velocity ratio): 0.74 CHAITANYA(I,D): 2.9 cm2 CHAITANYA(V,D): 3.0 cm2 SV(LVOT): 49.1 ml PA V2 max: 63.1 cm/sec ECHO/Echo Complete Interpretation Summary Normal LV size. Left ventricular systolic function is normal. The left ventricular ejection fraction is 55 %. Myxomatous appearing tricuspid valve. Ordering Physician: Anjel Nelson Referring Physician: Taras Leal Performed By: Angelika Murry RDCS
== END | disposition home or self-care (01) ==
LOC: CVS 13:40
PROVIDERS: PCP Family Medicine; Referring Provider Internal Medicine Cardiovascular Disease; Visit Provider Internal Medicine Cardiovascular Disease
DX: I49.3 Ventricular premature depolarization (principal)
CPT/HCPCS: 93306

== ENCOUNTER 2024-02-11 21:58 | Emergency (ER) | payer MEDICARE, OTHER, SELFPAY ==
[2024-02-11 21:59] VITALS: BP 148/71; PULSE 72; RESP 11; TEMP 36.5; O2SAT 97; BMI 24.8
--- NOTE | 2024-02-11 22:44 | EKG12_ITS ---
Test Reason : CP Blood Pressure : */* mmHG Vent. Rate : 84 BPM Atrial Rate : 84 BPM P-R Int : 306 ms QRS Dur : 110 ms QT Int : 378 ms P-R-T Axes : 60 -19 45 degrees QTcB Int : 446 ms Sinus rhythm with 1st degree A-V block Septal infarct (cited on or before 20-Oct-2023) Abnormal ECG Confirmed by AZEEM JOSE MD ([id number]), medical editor STEPHANY PRESTON ([id number]) on 02/13/2024 8:41:00 AM Referred By: FABRICIO Confirmed By: AZEEM JOSE MD
[2024-02-11 22:55] LABS: Absolute Lymphocyte Count 1.35 X10^3/uL (0.83-4.51); Absolute Neutrophil Count 4.2 X10^3/uL (2.0-7.7); Basophil# 0.08 X10^3/uL; Basophil% 1.3 % (0-1); Eosinophil# 0.31 X10^3/uL; Eosinophils% 4.8 % (0-5); Hematocrit 46.6 % (40-54); Hemoglobin 14.9 g/dL (13.0-16.5); Lymphocyte # 1.35 X10^3/ul (0.83-4.51); Lymphocyte % 21.1 % (19-41); Mean Corpuscular Hgb 29.4 pg (27.0-32.0); Mean Corpuscular Volume 92.1 fL (80-94); Mean Platelet Vol. 10.8 fl (6.2-12.0); Monocyte# 0.49 X10^3/uL; Monocyte% 7.7 % (0-10); NRBC Flagged by Analyzer 0 % (0-5); Neutrophil # 4.15 X10^3/uL (2.7-7.7); Neutrophil % 64.8 % (47-70); POSITIVE COUNT NO; POSITIVE DIFFERENTIAL NO; POSITIVE MORPHOLOGY NO; Platelet Count 187 K/mm3 (150-450); RBC Distribution Width CV 12.4 % (11.6-14.6); RBC Distribution Width SD 42.3 fl (35.1-43.9); Red Blood Count 5.06 M/mm3 (4.6-6.2); White Blood Count 6.4 K/mm3 (4.4-11.0)
--- NOTE | 2024-02-11 22:55 | RAD_ITS ---
INDICATION: chest pain EXAMINATION/TECHNIQUE: X-RAY - XR Chest 2 Views COMPARISON: None. FINDINGS: The lungs are clear. Tortuous and calcified thoracic aorta. The heart is not enlarged. No pleural effusion or pneumothorax. Degenerative changes of the thoracic spine. RAD/Chest PA and Lateral IMPRESSION: No acute radiographic abnormalities. Electronically Signed: Aaron Harris MD at 23:21 EST ,
[2024-02-11 22:59] VITALS: BP 142/85; PULSE 70; RESP 19; O2SAT 100
[2024-02-11 22:59] LABS: Bacteria 0 SEEN /hpf (None Seen); Mucous, Urine 0 SEEN /hpf (<or=2+); Squamous Epithelial Cells - UA 0 SEEN /hpf (0-5)
[2024-02-11 23:00] LABS: Color, Urine Yellow (Yellow); Glucose, Dipstick 1000 mg/dl (Normal); Ketone-Dipstick Negative (Negative); Leukocyte Esterase-Dipstick Negative /ul (Negative); Nitrite-Dipstick Negative (Negative); Occult Blood-Urine 25 /ul (Negative); Protein-Dipstick 15 mg/dl (Negative); Specific Gravity, Urine 1.015 (1.002-1.030); Urine Bilirubin Dipstick Negative (Negative); Urine Clarity Clear (Clear); Urine Urobilinogen 1 mg/dl (Normal)
[2024-02-11 23:07] VITALS: PULSE 76; RESP 17
[2024-02-11 23:15] VITALS: BP 119/53; PULSE 71; RESP 14
[2024-02-11 23:22] LABS: Anion Gap 6 (5-15); BUN 23 mg/dL (7-18); BUN/Creat Ratio 24.8 RATIO (10-20); Calcium,Total 9.5 mg/dL (8.5-10.1); Chloride 103 mmol/L (98-107); Creatinine, Serum 0.93 mg/dL (0.70-1.30); EST Glomerular Filtration Rate 85 mL/min (>60); Est Glom Filt Rate - Afr Amer 102 mL/min (>60); Estimated Creatinine Clearance 85.56 ml/min; Glucose 221 mg/dL (74-106); Magnesium 2.3 mg/dL (1.6-2.6); Potassium 4.2 mmol/L (3.5-5.1); Sodium Level 139 mmol/L (136-145); Troponin-I HS 8 pg/mL (3.0-78.0)
[2024-02-11 23:28] LABS: Red Blood Cells-Urine 0-5 SEEN /hpf (0-5); White Blood Cells 0-5 SEEN /hpf (0-5)
[2024-02-11 23:30] VITALS: BP 122/66; PULSE 74; RESP 20
[2024-02-11 23:45] VITALS: BP 104/73; PULSE 75; RESP 16
[2024-02-12] VITALS (9 sets, daily range): BP systolic 118–180; BP diastolic 61–99; PULSE 71–82; RESP 13–27; TEMP 36.6; O2SAT 96
[2024-02-12 00:39] LABS: Troponin-I HS 9 pg/mL (3.0-78.0)
--- NOTE | 2024-02-12 01:13 | EDS_ITS ---
HPI History of Present Illness Chief Complaint: Chest Pain Informant: patient Narrative Narrative: Patient is a 73-year-old male with past medical history of hyperlipidemia diabetes and GERD. He states a few hours prior to arrival he developed some midsternal chest discomfort. He states that there is no associated nausea vomiting diaphoresis or shortness of breath. He denies any radiation of the pain. However because of his history of hyperlipidemia and diabetes and his age he is concerned this could be cardiac in nature and therefore comes in for evaluation [facility] Medical History (Updated 02/19/24 @ 06:[address] Hunter Hoyt, DO) GERD (gastroesophageal reflux disease) PVC (premature ventricular contraction) Hypercholesterolemia Diabetes Home Medications ?Medication ?Instructions ?Recorded ?Last Taken ?Type plecanatide 3 mg tablet (Trulance) 3 mg PO DAILY 10/21/23 Unknown History atorvastatin 40 mg tablet 20 mg PO QHS 12/26/23 Unknown History brimonidine 0.2 % eye drops 1 drp ophthalmic (eye) BID 12/26/23 Unknown History dorzolamide 22.3 mg-timolol 6.8 1 drp ophthalmic (eye) BID 12/26/23 Unknown His tory mg/mL eye drops dulaglutide 1.5 mg/0.5 mL 1.5 mg subcut QWEEK 12/26/23 Unknown History subcutaneous pen injector (Trulicity) empagliflozin 25 mg tablet 25 mg PO DAILY 12/26/23 Unknown History (Jardiance) latanoprost 0.005 % eye drops 1 drp ophthalmic (eye) QDAY 12/26/23 Unknown History metformin 850 mg tablet 850 mg PO BID 12/26/23 Unknown History cholecalciferol (vitamin D3) 25 25 mcg PO QDAY 01/10/24 Unknown History mcg (1,000 unit) capsule docusate sodium 100 mg capsule 100 mg PO DAILY PRN constipation 01/10/24 Unknown History (DOK) fluticasone propionate 50 1 spray intranasal QDAY PRN 01/10/24 Unknown History mcg/actuation nasal allergy symptoms spray,suspension Allergy/AdvReac Type Severity Reaction Status Date / Time No Known Allergies Allergy Verified 02/11/24 22:02 Social History Smoking Status: Former smoker ROS ROS ED Constitutional Constitutional ED: Denies chills or fever(s) Eyes Eyes: Denies blurry vision or change in vision ENT ENT ED: Denies sore throat Cardiovascular Cardiovascular: Reports chest pain; Denies palpitations or racing heartbeat Respiratory/Chest Respiratory/Chest: Denies cough or dyspnea Gastrointestinal Gastrointestinal: Denies abdominal pain, diarrhea, nausea or vomiting Genitourinary Genitourinary ED: Denies dysuria Musculoskeletal Musculoskeletal: Denies back pain Integumentary Denies rash Neurologic Neurologic: Denies headache(s), paresthesias or weakness Hematologic/Lymphatic Hematologic/Lymphatic: Denies easy bleeding or easy bruising EXAM Physical Exam Const Vital Signs: 02/11/24 21:59 02/11/24 22:04 02/11/24 22:59 Temperature 97.7 F L Temperature Source Oral Pulse Rate 72 70 Respiratory Rate 11 L 19 H Respiratory Effort Normal Non-Labored Blood Pressure 148/71 H 142/85 H Blood Pressure Mean 96 104 Pulse Ox 97 100 Oxygen Delivery Method Room Air Room Air 02/11/24 23:07 02/11/24 23:15 02/11/24 23:30 Temperature Temperature Source Pulse Rate 76 71 74 Respiratory Rate 17 14 20 H Respiratory Effort Blood Pressure 119/53 L 122/66 H Blood Pressure Mean 73 84 Pulse Ox Oxygen Delivery Method 02/11/24 23:45 02/12/24 00:00 02/12/24 00:07 Temperature Temperature Source Pulse Rate 75 79 Respiratory Rate 16 14 Respiratory Effort Blood Pressure 104/73 118/63 Blood Pressure Mean 83 79 Pulse Ox Oxygen Delivery Method Positive well nourished and well developed General Appearance ED: well developed; Negative for pallor HEENT HEENT Narrative: Normocephalic atraumatic Eyes PERRL and EOMs intact bilaterally General Eye ED: Negative for scleral icterus Neck supple and no JVD Neck Narrative: No nuchal rigidity or meningeal signs Chest Wall palpation of chest normal Chest Narrative: No bony deformity or crepitance or subcutaneous emphysema noted Resp normal respiratory effort and clear to auscultation bilaterally Cardio regular rate and regular rhythm Rate: other Other Details: Heart is regular rate and rhythm without murmurs rubs or gallop Radial and carotid pulses are equal and symmetric GI normal to inspection, nondistended, normoactive bowel sounds, non-tender, non- distended and no masses Auscultation: normoactive bowel sounds Palpation: soft Extremity normal to inspection Extremity Narrative: No asymmetric edema no pitting edema negative Homans' sign bilaterally Neuro oriented x3, CN's II-XII intact bilaterally and no sensory deficits noted Sensorium / Orientation: alert Motor Exam: strength 5/5 throughout Psych mental status grossly normal Skin no rashes or lesions noted General Skin Exam: Negative for jaundice or pallor MDM MDM MDM Narrative Medical decision making narrative: Patient arrived to the ER with stable vitals. He reported midsternal chest pain without nausea vomiting diaphoresis shortness of breath. This goes against classic acute coronary syndrome but based on his age and medical risk factors he still has risk for this. In order to ensure that there is no signs of ACS or cardiac dysrhythmia patient will undergo a basic workup. EKG was sinus rhythm without ischemic changes or dysrhythmia findings. His initial troponin was 8 the delta remained flat at a value of 9 going against ACS. Chest x-ray revealed no acute lung pathology such as pneumonia pneumothorax or pleural effusion. Laboratory studies showed no clinically significant findings such as LEE or clinically significant electrolyte finding. On reevaluation he had resolution of his pain and as his workup is negative for ACS or dysrhythmia I do not feel there is any need for further evaluation in the ER especially with resolution of symptoms and he is otherwise safe for discharge History & Record Review Discussion w/independent historian: Patient and Family Lab Data Attestation: I reviewed the patient's lab results. Labs: Laboratory Results - last 24 hr 02/11/24 02/11/24 02/12/24 22:09 22:52 00:05 WBC 6.4 RBC 5.06 Hgb 14.9 Hct 46.6 MCV 92.1 MCH 29.4 MCHC 32.0 RDW Std Deviation 42.3 RDW Coeff of Emmanuel 12.4 Plt Count 187 MPV 10.8 Immature Gran % (Auto) 0.300 Neut % (Auto) 64.8 Lymph % (Auto) 21.1 Lewis % (Auto) 7.7 Eos % (Auto) 4.8 Baso % (Auto) 1.3 H Absolute Neuts (auto) 4.2 Absolute Lymphs (auto) 1.35 Nucleated RBC % 0 Sodium 139 Potassium 4.2 Chloride 103 Carbon Dioxide 30.0 Anion Gap 6 BUN 23 H Creatinine 0.93 Estim Creat Clear Calc 85.56 Est GFR (MDRD) Af Amer 102 Est GFR (MDRD) Non-Af 85 BUN/Creatinine Ratio 24.8 H Glucose 221 H Calcium 9.5 Magnesium 2.3 Troponin I High Sens 8 9 TSH 1.620 Urine Color Yellow Urine Clarity Clear Urine pH 6.0 Ur Specific [place] 1.015 Urine Protein 15 H Urine Glucose (UA) 1000 H Urine Ketones Negative Urine Occult Blood 25 H Urine Nitrite Negative Urine Bilirubin Negative Urine Urobilinogen 1 H Ur Leukocyte Esterase Negative Urine RBC 0-5 SEEN Urine WBC 0-5 SEEN Ur Squamous Epith Cells 0 SEEN Urine Bacteria 0 SEEN Urine Mucus 0 SEEN Radiography Diagnostic Testing: Clinical Impression(s) from Imaging Studies Chest X-Ray 02/11/24 22:55 IMPRESSION: No acute radiographic abnormalities. Electronically Signed: Aaron Harris MD at 23:21 EST , Chest x-ray as interpreted by the emergency medicine physician reveals no acute infiltrate pneumothorax pleural effusion or widening of the mediastinum Discharge Plan Triage Chief Complaint: Chest Pain ED Provider: Hunter Hoyt Dx/Rx/DC Orders Clinical Impression: Nonspecific chest pain, Hypercholesterolemia, Diabetes, GERD (gastroesophageal reflux disease) Instructions: ED Chest Pain, Uncertain Cause Prescriptions: No Action metformin 850 mg tablet 850 mg PO BID dorzolamide-timolol 22.3-6.8 mg/mL drops 1 drp ophthalmic (eye) BID brimonidine 0.2 % drops 1 drp ophthalmic (eye) BID Rx Instructions: administer approximately 8 hours apart latanoprost 0.005 % drops 1 drp ophthalmic (eye) QDAY Jardiance 25 mg tablet 25 mg PO DAILY Trulicity 1.5 mg/0.5 mL pen injector 1.5 mg subcut QWEEK docusate sodium [DOK] 100 mg capsule 100 mg PO DAILY PRN (Reason: constipation) fluticasone propionate 50 mcg/actuation spray,suspension 1 spray intranasal QDAY PRN (Reason: allergy symptoms) Rx Instructions: administer into each nostril cholecalciferol (vitamin D3) 25 mcg (1,000 unit) capsule 25 mcg PO QDAY Trulance 3 mg tablet 3 mg PO DAILY atorvastatin 40 mg tablet 20 mg PO QHS Primary Care Provider: Taras Leal Referrals: Taras Leal MD [Primary Care Provider] - Activity Restrictions/Additional Instructions: Please follow-up with your family doctor and/or director of social work for repeat evaluation. Your workup today for active heart disease was negative but based o n your age history of diabetes and high cholesterol you have cardiac risk factors and therefore you may require a heart cath but based on your negative workup today this can be done as an outpatient. Return to the ER should you have any further concerns Print Language: Malagasy Disposition Disposition: Home, Self Care Discharge Date/Time: 02/12/24 01:49
== END 2024-02-12 01:49 | disposition home or self-care (01) ==
PROVIDERS: Emergency Provider Emergency Medicine; PCP Family Medicine; Visit Provider Emergency Medicine
DX: R07.9 Chest pain, unspecified (principal); E11.9 Type 2 diabetes mellitus without complications; K21.9 Gastro-esophageal reflux disease without esophagitis; Z87.891 Personal history of nicotine dependence; E78.00 Pure hypercholesterolemia, unspecified; Z79.899 Other long term (current) drug therapy; R94.31 Abnormal electrocardiogram [ECG] [EKG]; I44.0 Atrioventricular block, first degree; I77.1 Stricture of artery
CPT/HCPCS: 71046; 80048; 81001; 83735; 84443; 84484; 85025; 87631; 93005; 99283; A4216

== ENCOUNTER → 2024-02-16 | Outpatient (CLI) | payer MEDICARE, OTHER, SELFPAY ==
--- NOTE | 2024-02-16 15:26 | RAD_ITS ---
STUDY: X-RAY - LEFT HAND, ATTENTION THUMB FINGER REASON FOR EXAM: Male, 73 years old. Fracture/trauma. TECHNIQUE: 3 views of the left thumb were obtained. COMPARISON: None. FINDINGS: Intact visualized first metacarpal. There is mild degenerative arthrosis of the MCP joint of the thumb. Normal proximal phalanx of the thumb. There is a minimally displaced transverse fracture through the midportion of the distal phalanx of the thumb. Normal interphalangeal joint of the thumb. RAD/Finger(s) Min 2 Views IMPRESSION: Minimally displaced transverse fracture through the midportion of the distal phalanx of the thumb. 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 Electronically Signed: Magdiel Laura MD at 9:35 EST ,
== END | disposition home or self-care (01) ==
PROVIDERS: PCP Family Medicine; Referring Provider Family Medicine; Visit Provider Family Medicine
DX: S62.509A Fracture of unspecified phalanx of unspecified thumb, initial encounter for closed fracture (principal)
CPT/HCPCS: 73140

== ENCOUNTER → 2024-02-23 | Outpatient (CLI) | payer MEDICARE, OTHER, SELFPAY ==
--- NOTE | 2024-02-24 14:19 | STRESSREP_ITS ---
Stress Test Report Date: 02/23/2024 Procedure: Pharmacologic stress nuclear imaging study Indications: Chest pain Consent: Per the patient Procedure: The patient underwent pharmacologic (Regadenoson) evaluation with a peak heart rate of 107 beats per minute (73%predicted maximal heart rate) and a peak blood pressure of 118/70 mmHg. The baseline ECG demonstrated normal sinus rhythm. EKG during lexiscan infusion revealed no significant ischemic changes. EKG post infusion revealed no significant ischemic changes [There were no cardiac dysrhythmias pretest, during pharmacologic infusion, or recovery]. [There was no complaint of chest discomfort during pharmacologic infusion or recovery]. The examination was discontinued secondary to completion of protocol. Impression: 1. Lexiscan stress test test is negative for Lexiscan infusion induced EKG changes of ischemia. 2. Lexiscan stress test test is negative for Lexiscan infusion induced chest pain. 3. Results of the nuclear portion of the test is as below Myocardial perfusion imaging study: Technique: The patient was injected with 11 millicuries of technetium 99m Cardiolite and subsequently rest SPECT Cardiolite nuclear imaging was obtained in the horizontal long, vertical long, and short axis views. The patient underwent pharmacologic [Regadenoson 0.4mg] evaluation. Please see above for details. The patient was injected with 35 millicuries of technetium 99m Cardiolite and subsequently stress SPECT Cardiolite nuclear imaging was obtained in the horizontal long, vertical long, and short axis views. A gated Cardiolite study at peak stress was obtained. Interpretation: Rest and stress SPECT Cardiolite nuclear imaging status post realignment, normalization, and attenuation correction demonstrate mild fixed defect in the apex and septum. No significant reversibility suggestive of significant ischemia. Gated images reveal no significant regional wall motion abnormalities. The reported LVEF is 69%. Impression: 1. There is no evidence of significant ischemia. 2. Estimated ejection fraction is 69%. This note was generated with Simfinitation software. It may contain incorrect words, spelling, and punctuation that were not noted in checking the note before signing.
== END | disposition home or self-care (01) ==
LOC: CVS 06:58
PROVIDERS: PCP Family Medicine; Referring Provider Nurse Practitioner Family; Visit Provider Nurse Practitioner Family
DX: R07.9 Chest pain, unspecified (principal); E11.9 Type 2 diabetes mellitus without complications; I49.3 Ventricular premature depolarization; E78.00 Pure hypercholesterolemia, unspecified; R94.31 Abnormal electrocardiogram [ECG] [EKG]
CPT/HCPCS: 78452; 93017; A9500; A4216; J2785

== ENCOUNTER → 2024-04-10 | Outpatient (CLI) | payer MEDICARE, OTHER, SELFPAY ==
--- NOTE | 2024-04-10 16:24 | RAD_ITS ---
PROCEDURE: FINGER(S) MIN 2 VIEWS REASON FOR EXAM: History of fracture, still not feeling better TECHNIQUE: 3 view(s) of the left 1st ray, thumb COMPARISON: 02/16/2024 FINDINGS: Continued visualization of fracture plane at the 1st distal phalanx without significant interval callus formation or definite bony bridging since the prior examination. No change in bony alignment. 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 RAD/Finger(s) Min 2 Views IMPRESSION: Continued visualization of fracture plane at the 1st distal phalanx without sig nificant interval callus formation or definite bony bridging since the prior examination. No change in bony alignment. Reading Location: [id number]
== END | disposition home or self-care (01) ==
LOC: MTRAD 16:24
PROVIDERS: PCP Family Medicine; Referring Provider Family Medicine; Visit Provider Family Medicine
DX: S62.509A Fracture of unspecified phalanx of unspecified thumb, initial encounter for closed fracture (principal)
CPT/HCPCS: 73140

== ENCOUNTER → 2024-05-04 | Outpatient (CLI) | payer MEDICARE, OTHER, SELFPAY ==
[2024-05-04 16:18] LABS: Hemoglobin A1c 7.4 % (<=5.6)
[2024-05-04 16:34] LABS: Basophil# 0.08 X10^3/uL; Basophil% 1.3 % (0-1); Eosinophil# 0.32 X10^3/uL; Hematocrit 46.6 % (40-54); Lymphocyte % 23.7 % (19-41); Mean Corp Hgb Conc 32.2 g/dL (32-36); Mean Corpuscular Hgb 29.7 pg (27.0-32.0); Mean Corpuscular Volume 92.3 fL (80-94); Mean Platelet Vol. 11.1 fl (6.2-12.0); Monocyte# 0.38 X10^3/uL; NRBC Flagged by Analyzer 0 % (0-5); Neutrophil # 4.04 X10^3/uL (2.7-7.7); Neutrophil % 63.7 % (47-70); Platelet Count 171 K/mm3 (150-450); RBC Distribution Width CV 12.4 % (11.6-14.6); RBC Distribution Width SD 41.9 fl (35.1-43.9); Red Blood Count 5.05 M/mm3 (4.6-6.2); White Blood Count 6.3 K/mm3 (4.4-11.0)
[2024-05-04 16:54] LABS: ALB/GLOB Ratio 1.7 RATIO (0.9-2.4); AST(SGOT) 17 U/L (<=37); Alanine Aminotransfer ALT/SGPT 16 U/L (<=46); Albumin, Serum 4.5 g/dL (3.4-4.8); Alkaline Phosphatase 110 U/L (40-129); Anion Gap 11 (5-15); BUN 20 mg/dL (4-19); BUN/Creat Ratio 22.9 RATIO (10-20); Calcium,Total 9.7 mg/dL (7.6-11.0); Chloride 102 mmol/L (98-108); Cholesterol 102 mg/dL (<=200); Creatinine, Serum 0.87 mg/dL (0.70-1.20); EST Glomerular Filtration Rate 90 (>60); Globulin 2.6 g/dL (2.2-4.2); Glucose 112 mg/dL (70-99); High Density Lipoprotein 25 mg/dL; Low Density Lipoprotein Calc. 63 mg/dL; Potassium 4.7 mmol/L (3.3-5.1); Protein, Total 7.1 g/dL (5.9-8.4); Sodium Level 139 mmol/L (133-145); Total Bilirubin 0.49 mg/dL (0.00-1.30); Triglycerides 72 mg/dL; Very Low Density Lipoprotein 14 mg/dL (5-40); Vitamin D,25 Hydroxy 30.3 ng/mL (30-100)
[2024-05-04 18:12] LABS: Microalbumin,Random Urine < 12.0 mg/L (NO RANGE EST.); Microalbumin:Creatinine Ratio UNABLE TO CALCULATE mg/g CRE
== END | disposition home or self-care (01) ==
LOC: MFPLAB 14:05
PROVIDERS: PCP Family Medicine; Referring Provider Family Medicine; Visit Provider Family Medicine
DX: E11.9 Type 2 diabetes mellitus without complications (principal); E55.9 Vitamin D deficiency, unspecified
CPT/HCPCS: 36415; 80053; 80061; 82043; 82306; 82570; 83036; 85025

== ENCOUNTER → 2024-09-04 | Outpatient (CLI) | payer MEDICARE, OTHER, SELFPAY ==
[2024-09-04 16:23] LABS: Microalbumin,Random Urine < 12.0 mg/L (<20 mg/L)
[2024-09-04 18:13] LABS: Hematocrit 47.6 % (40-54); Hemoglobin 15.2 g/dL (13.0-16.5); Immature Granulocytes Count 0.020 X10^3/uL (0.0-0.0); Mean Corp Hgb Conc 31.9 g/dL (32-36); Mean Corpuscular Volume 91.7 fL (80-94); Mean Platelet Vol. 11.2 fl (6.2-12.0); NRBC Flagged by Analyzer 0 % (0-5); Platelet Count 191 K/mm3 (150-450); RBC Distribution Width CV 12.3 % (11.6-14.6); RBC Distribution Width SD 41.1 fl (35.1-43.9); Red Blood Count 5.19 M/mm3 (4.6-6.2); White Blood Count 6.1 K/mm3 (4.4-11.0)
[2024-09-04 19:00] LABS: AST(SGOT) 17 U/L (<=37); Alanine Aminotransfer ALT/SGPT 11 U/L (<=46); Albumin, Serum 4.5 g/dL (3.4-4.8); Alkaline Phosphatase 90 U/L (40-129); Anion Gap 13 (5-15); BUN 17 mg/dL (4-19); BUN/Creat Ratio 20.0 RATIO (10-20); Calcium,Total 10.5 mg/dL (7.6-11.0); Carbon Dioxide 25.7 mmol/L (21.0-32.0); Chloride 102 mmol/L (98-108); Cholesterol 158 mg/dL (<=200); Globulin 2.6 g/dL (2.2-4.2); Glucose 147 mg/dL (70-99); Low Density Lipoprotein Calc. 118 mg/dL; Potassium 4.1 mmol/L (3.3-5.1); Triglycerides 78 mg/dL; Very Low Density Lipoprotein 16 mg/dL (5-40); Vitamin D,25 Hydroxy 36.0 ng/mL (30-100); cholesterol:hdl ratio screen 6.53
== END | disposition home or self-care (01) ==
LOC: MFPLAB 13:56
PROVIDERS: PCP Family Medicine; Referring Provider Family Medicine; Visit Provider Family Medicine
DX: E11.8 Type 2 diabetes mellitus with unspecified complications (principal); E55.9 Vitamin D deficiency, unspecified
CPT/HCPCS: 36415; 80053; 80061; 82043; 82306; 83036; 85025

== ENCOUNTER → 2024-11-29 | Outpatient (CLI) | payer MEDICARE, OTHER, SELFPAY ==
[2024-11-29 17:58] LABS: Hematocrit 46.0 % (40-54); Hemoglobin 14.6 g/dL (13.0-16.5); Immature Granulocytes Count 0.020 X10^3/uL (0.0-0.0); Mean Corp Hgb Conc 31.7 g/dL (32-36); Mean Corpuscular Volume 91.6 fL (80-94); Mean Platelet Vol. 11.4 fl (6.2-12.0); NRBC Flagged by Analyzer 0 % (0-5); Platelet Count 201 K/mm3 (150-450); RBC Distribution Width CV 12.8 % (11.6-14.6); RBC Distribution Width SD 42.8 fl (35.1-43.9); Red Blood Count 5.02 M/mm3 (4.6-6.2); White Blood Count 6.4 K/mm3 (4.4-11.0)
[2024-11-29 18:39] LABS: AST(SGOT) 17 U/L (<=37); Alanine Aminotransfer ALT/SGPT 12 U/L (<=46); Albumin, Serum 4.5 g/dL (3.4-4.8); Alkaline Phosphatase 90 U/L (40-129); Anion Gap 11 (5-15); BUN 16 mg/dL (4-19); BUN/Creat Ratio 21.0 RATIO (10-20); Calcium,Total 9.8 mg/dL (7.6-11.0); Carbon Dioxide 27.0 mmol/L (21.0-32.0); Chloride 101 mmol/L (98-108); Cholesterol 97 mg/dL (<=200); Globulin 2.5 g/dL (2.2-4.2); Glucose 121 mg/dL (70-99); Low Density Lipoprotein Calc. 58 mg/dL; PSA,Total - Annual Screen 1.06 ng/mL (0.02-4.00); Potassium 4.0 mmol/L (3.3-5.1); Triglycerides 72 mg/dL; Very Low Density Lipoprotein 14 mg/dL (5-40); Vitamin D,25 Hydroxy 34.2 ng/mL (30-100); cholesterol:hdl ratio screen 3.98
== END | disposition home or self-care (01) ==
LOC: MFPLAB 15:11
PROVIDERS: PCP Family Medicine; Visit Provider Family Medicine
DX: E11.8 Type 2 diabetes mellitus with unspecified complications (principal); E55.9 Vitamin D deficiency, unspecified; Z12.5 Encounter for screening for malignant neoplasm of prostate
CPT/HCPCS: 36415; 80053; 80061; 82306; 83036; 84153; 85025; G0103

== ENCOUNTER → 2025-01-30 | Outpatient (CLI) | payer MEDICARE, OTHER, SELFPAY ==
--- NOTE | 2025-01-30 11:57 | NM_ITS ---
PROCEDURE: GASTRIC EMPTYING STUDY 01/30/2025 REASON FOR EXAM: DIABETES TECHNIQUE: Procedure Code: NMGES Modality: NM Procedure: GASTRIC EMPTYING STUDY The patient ingested a standard meal of oatmeal mixed with, and water. There was no vomiting postprandially. Anterior and posterior planar images of the upper abdomen were obtained for 1 minute immediately following the meal at 1h, 2h and 4h if more than 10% of the activity persisted within the stomach. Regions of interest were drawn, and a geometric mean was used to calculate a [id number]. RADIOPHARMACEUTICAL: Technetium sulfur colloid. DOSE 1.2mCi FINDINGS: Percent activity remaining in stomach: 1 hour 35 % (normal 37-90%) NM/Gastric Emptying Study IMPRESSION: Unremarkable gastric emptying. Reading Location: [id number]
--- OUTSIDE RECORDS SUMMARY | 2025-01-30 19:22 | XMS RPT_ITS | CCD ---
Author Organization [facility] CliniSynv Care Team Providers Care Crm Architect Name Role Phone AmeliaSisi Unavailable [phone] Aleshia Cook Edith Unavailable Sisi Cisneros Unavailable [phone] Elvis PONCE, Dr. Yue Caballero Primary Care Provider [phone] Elvis PONCE, Dr. Yue Caballero Attending Provider Dr. Yue Leal MD Referring Provider Dr. Anjel Nelson MD Attending Provider Dr. Anjel Nelson MD Referring Provider Rhona PONCE, Dr. Alcaraz Attending Provider Dr. Hunter Hoyt DO Attending Provider Dr. Hunter Hoyt DO Emergency Provider Roof ASPHALT ROLLER PERSON-C, Yue Kearney Attending Provider Roof ASPHALT ROLLER PERSON-C, Yue [place]earney Referring Provider Roof ASPHALT ROLLER PERSON-C, Yue [place] Other Provider Florencio PONCE, Dr. White Attending Provider Monica Fraser Attending Provider Ian Vickers MD Attending Provider Dr. Yue Leal MD Primary Care Provider Dr. Anjel Nelson MD Attending Provider Dr. Yue Leal MD Attending Provider Dr. Yue Leal MD Referring Provider JOSE ELIAS DE LA TORRE PAC Admitting Unavailable WIL, JOSE ELIAS PAC Primary Care Unavailable WIL, JOSE ELIAS PAC Attending Unavailable YUE LEAL Consulting Unavailable PROVIDER, UNKNOWN Consulting Unavailable YUE LEAL Consulting Unavailable YUE LEAL Referring Unavailable CHAVO PEDERSEN MD Admitting Unavailable CHAVO PEDERSEN MD Primary Care Unavailable CHAVO PEDERSEN MD Attending Unavailable PROVIDER, UNKNOWN Consulting Unavailable Elvis PONCE, Dr. Yue Caballero Primary Care Provider Elvis PONCE, Dr. Yue Caballero Attending Provider Elvis PONCE, Dr. Yue Caballero Referring Provider Yue Leal Primary Care Unavailable Yue Leal Referring Unavailable Monica Fraser Attending Unavail able Yue Leal Referring Unavailable Anjel Nelson Attending Unavailable Yue Leal Primary Care Unavailable Yue Leal Referring Unavailable Ian Vickers Attending Unavailable Yue Leal Primary Care Unavailable Yue Leal Primary Care Unavailable Roof ASPHALT ROLLER PERSON, Yue [place]ear[place] Referring Unavailable Roof ASPHALT ROLLER PERSONYue Consulting Unavailable Christopher Matias Attending UnavailYue Cantu Primary Care Unavailable Roof ASPHALT ROLLER PERSON, Yue [place] Referring Unavailable Christopher Matias Attending UnavailYue Cantu Primary Care Unavailable Roof ASPHALT ROLLER PERSONYue Attending Unavailable Yue Leal Primary Care Unavailable Yue Leal Referring Unavailable Yue Leal Attending Unavailable Yue Leal Primary Care Unavailable Roof ASPHALT ROLLER PERSON, Yue [place] Referring Unavailable Roof ASPHALT ROLLER PERSONYue Attending Unavailable Yue Leal Primary Care Unavailable Yue Leal Referring Unavailable Yue Leal Attending Unavailable Anjel Nelson Referring Unavailable Anjel Nelson Attending Unavailable Yue Leal Primary Care Unavailable Yue Leal Attending Unavailable Yue Leal Primary Care Unavailable Yue Leal Primary Care Unavailable Hunter Hoyt Attending Unavailable Yue Leal Primary Care Unavailable Yue Leal Attending Unavailable Yue Leal Referring Unavailable Yue Leal Primary Care Unavailable Yue Leal Attending Unavailable Yue Leal Referring Unavailable Yue Leal Primary Care Unavailable Yue Leal Attending Unavailable Yue Leal Primary Care Unavailable Kieran Melgoza Attending Unavailable Medications Current Medications Medication Drug Class(es) Dates Sig (Normalized) Sig (Original) atorvastatin 40 mg oral tablet (6 sources) HMG-CoA Reductase Inhibitor Start: 12-26-2023 Atorvastatin 40 mg tablet Active 20 mg PO AT BEDTIME December 26, 2023 4:00pm Start: 10-21-2023 End: 12-26-2023 take 1 tablet by mouth at bedtime Atorvastatin 40 mg tablet Discontinued 40 mg PO AT BEDTIME October 21, 2023 12:00am December 26, 2023 4:03pm brimonidine tartrate 2 mg/ml ophthalmic solution (3 sources) alpha-Adrenergic Agonist Start: 12-26-2023 Brimonidine 0.2 % drops Active 1 NMA OPHTHALMIC TWICE A DAY December 26, 2023 1:00am administer approximately 8 hours apart cholecalciferol 0.025 mg oral capsule (3 sources) Vitamin D Start: 01-10-2024 take 1 capsule by mouth once daily Cholecalciferol (Vitamin D3) 25 mcg (1,000 unit) capsule Active 25 ug PO daily January 10, 2024 1:00am dorzolamide 20 mg/ml / timolol 5 mg/ml ophthalmic solution (3 sources) Carbonic Anhydrase Inhibitor, beta-Adrenergic Glen Start: 12-26-2023 Dorzolamide-Timolol 22.3-6.8 mg/mL drops Active 1 NMA OPHTHALMIC TWICE A DAY December 26, 2023 1:00am 0.5 ml dulaglutide 3 mg/ml auto-injector (3 sources) GLP-1 Receptor Agonist Start: 12-26-2023 Dulaglutide (Trulicity) 1.5 mg/0.5 mL pen injector Active 1.5 mg SC EVERY WEEK December 26, 2023 1:00am empagliflozin 25 mg oral tablet (3 sources) Sodium-Glucose Cotransporter 2 Inhibitor Start: 12-26-2023 take 1 tablet by mouth once daily Empagliflozin (Jardiance) 25 mg tablet Active 25 mg PO DAILY December 26, 2023 1:00am fluticasone propionate 0.05 mg/actuat metered dose nasal spray (6 sources) Corticosteroid Start: 12-26-2023 End: 01-10-2024 Fluticasone Propionate 50 mcg/actuation spray,suspension Active 1 NMA INTRANASAL daily as needed for allergy symptoms January 10, 2024 1:56pm administer into each nostril latanoprost 0.05 mg/ml ophthalmic solution (6 sources) Prostaglandin Analog Start: 12-26-2023 Latanoprost 0.005 % drops Active 1 NMA OPHTHALMIC daily December 26, 2023 1:00am XALATAN 0.005 % SOLN eye drops LATANOPROST [id number] Juniorelijah Blanco XALATAN 0.005 % SOLN eye drops LATANOPROST [id number] Junior Blanco metFORMIN hydrochloride 850 mg oral tablet (18 sources) Biguanide Start: 12-26-2023 take 1 tablet by mouth twice daily Metformin 850 mg tablet Active 850 mg PO TWICE A DAY December 26, 2023 1:00am Start: 08-05-2016 METFORMIN HCL 500 MG TABS METFORMIN HCL [id number] AydeeGlenys Cisneros Start: 08-05-2016 METFORMIN HCL 850 MG TABS METFORMIN HCL [id number] Sisi Cisneros Start: 12-13-2012 End: 12-26-2023 take 1 tablet by mouth twice daily at mealtime Metformin 1,000 MG tablet Discontinued 1000 mg PO TWICE DAILY WITH MEALS December 13, 2012 12:00am December 26, 2023 3:57pm plecanatide 3 mg oral tablet (3 sources) Start: 10-21-2023 take 1 tablet by mouth once daily Plecanatide (Plecanatide 3 Mg Tablet) 3 mg tablet Active 3 mg PO DAILY October 21, 2023 12:00am Completed/Discontinued Medications Medication Drug Class(es) Dates Sig (Normalized) Sig (Original) amoxicillin 875 mg / clavulanate 125 mg oral tablet (3 sources) Penicillin-class Antibacterial take 1 tablet by mouth twice daily AUGMENTIN 875-125 MG TABS One tablet by mouth twice daily AMOXICILLIN-POT CLAVULANATE [id number] Candy Ruiz take 1 tablet by mouth twice ata ly AUGMENTIN 875-125 MG TABS One tablet by mouth twice daily AMOXICILLIN-POT CLAVULANATE [id number] Candy Ruiz docusate sodium 100 mg oral capsule (20 sources) Start: 03-07-2021 End: 01-10-2024 take 1 capsule by mouth twice daily Docusate Sodium (Colace) 100 mg capsule Discontinued 100 mg PO TWICE A DAY 14 7 0 March 07, 2021 1:00am January 10, 2024 1:56pm Start: 12-13-2012 End: 01-10-2024 take 1 capsule by mouth once daily as needed for constipation Docusate Sodium (Dok) 100 mg capsule Active 100 mg PO DAILY as needed for constipation January 10, 2024 1:56pm dorzolamide 20 mg/ml ophthalmic solution (3 sources) Carbonic Anhydrase Inhibitor DORZOLAMIDE HCL 2 % SOLN eye drops DORZOLAMIDE HCL [id number] Junior Blanco glipiZIDE 10 mg oral tablet (16 sources) Sulfonylurea Start: 12-14-19 13 End: 02-11-20 24 take 1 tablet by mouth twice daily before mealtime Glipizide 10 MG tablet Discontinued 10 mg PO TWICE DAILY BEFORE MEALS December 13, 2012 12:00am February 11, 2024 11:11pm take 1 tablet by mouth once edson y GLIPIZIDE ER 10 MG [id number] One tablet by mouth daily GLIPIZIDE [id number] Junior Blanco magnesium citrate 58.2 mg/ml oral solution (6 sources) Start: 04-21-2023 End: 01-10-2024 take 1 mL by mouth once Magnesium Citrate solution Discontinued 300 mL PO ONE TIME 1 April 21, 2023 1:00am January 10, 2024 1:57pm Start: 04-21-2023 take 1 mL by mouth once Magnes ium Citrate Active 300 ML PO ONE TIME April 21, 2023 1:00am Problems Active Problems Problem Classification Problem Date Documented Da te Episodic/Chronic Abdominal hernia (11 sources) Inguinal hernia; Translations: [Unilateral inguinal hernia, without obstruction or gangrene, not specified as recurrent] 03-04-2021 Episodic Abdominal pain (11 sources) Right inguinal pain; Translations: [Right lower quadrant pain] 03-15-2021 Episodic Cardiac dysrhythmias (11 sources) Multiple premature ventricular complexes; Translations: [Ventricular premature depolarization] Onset: 12-26-2023 Chronic Complications of surgical procedures or medical care (11 sources) Postoperative hematoma formation; Translations: [Postoperative hematoma] 03-15-2021 Episodic Diabetes mellitus with complications (1 source) Type 2 diabetes mellitus with unspecified complications; Translations: [Type 2 diabetes mellitus with unspecified complications] Onset: 5 Chronic Diabetes mellitus without complication (9 sources) Diabetes mellitus; Translations: [Type 2 diabetes mellitus without complications] Onset: 5 02-11-2024 Chronic Comment on above: T2DM Disorders of lipid metabolism (11 sources) Hypercholesterolemia; Translations: [Pure hypercholesterolemia, unspecified] Onset: 4 12-26-2023 Chronic Esophageal disorders (3 sources) Gastroesophageal reflux disease; Translations: [Gastro-esophageal reflux disease without esophagitis] 12-26-2023 Chronic Osteoarthritis (1 source) Post-traumatic osteoarthritis, left wrist; Translations: [Post-traumatic osteoarthritis, left wrist] Onset: 5 Chronic Other gastrointestinal disorders (6 sources) Constipation; Translations: [Constipation, unspecified] 04-21-2023 Episodic Past or Other Problems Problem Classification Problem Date Documented Da te Episodic/Chronic Fracture of upper limb (9 sources) Closed fracture of phalanx of thumb; Translations: [Fracture of unspecified phalanx of left thumb, initial encounter for closed fracture] Onset: 03-26-2024 04-13-2024 Episodic Nonmalignant breast conditions (4 sources) Gynecomastia; Translations: [Other abnormal and inconclusive findings on diagnostic imaging of breast] Onset: 01-31-2012 02-14-2012 Episodic Nonspecific chest pain (11 sources) Chest pain; Translations: [Chest pain, unspecified] Onset: 03-19-2024 10-29-2023 Episodic Other non-traumatic joint disorders (2 sources) Pain in left shoulder; Translations: [Pain in left shoulder] Onset: 08-05-2016 08-05-2016 Episodic Other screening for suspected conditions (not mental disorders or infectious disease) (6 sources) Other abnormal and inconclusive findings on diagnostic imaging of breast; Translations: [Electrocardiogram abnormal] Onset: 01-31-2012 02-04-2012 Episodic Results Test Name Value Interpretation Reference Range Facility CBC W/Diff, Automatedon 11-14 Absolute Lymph 1.33 X10 3/uL Normal 0.83-4.51 [facility] Comment on above: Order Comment: 'TROP ' Serial specimen #1, #2 or #3: 2 Performed By: #### L [id number] #### [facility] [address] [place], [address] Absolute Neut 4.4 X10 3/uL Normal 2.0-7.7 [facility] Comment on above: Order Comment: 'TROP ' Serial specimen #1, #2 or #3: 2 Performed By: #### L [id number] #### [facility] [address] [place], [address] Basophils/100 WBC (Bld) 1.2 % High 0-1 [facility] Comment on above: Order Comment: 'TROP ' Serial specimen #1, #2 or #3: 2 Performed By: #### L [id number] #### [facility] [address] [place], [address] Eosinophils/100 WBC (Bld) 3.9 % Normal 0-5 [facility] Comment on above: Order Comment: 'TROP ' Serial specimen #1, #2 or #3: 2 Performed By: #### L [id number] #### [facility] [address] [place], [address] Erythrocyte distribution width (RBC) [Ratio] 12.8 % Normal 11.6-14.6 [facility] Comment on above: Order Comment: 'TROP ' Serial specimen #1, #2 or #3: 2 Performed By: #### L [id number] #### [facility] [address] [place], [address] Hematocrit (Bld) [Volume fraction] 46.0 % Normal 40-54 [facility] Comment on above: Order Comment: 'TROP ' Serial specimen #1, #2 or #3: 2 Performed By: #### L [id number] #### [facility] [address] [place], [address] Hemoglobin (Bld) [Mass/Vol] 14.6 g/dL Normal 13.0-16.5 [facility] Comment on above: Order Comment: 'TROP ' Serial specimen #1, #2 or #3: 2 Performed By: #### L [id number] #### [facility] [address] [place], [address] IG% 0.300 Normal 0.0-0.9 [facility] Comment on above: Order Comment: 'TROP ' Serial specimen #1, #2 or #3: 2 Result Comment: IG% - Immature Granulocytes (promyelocytes, myelocytes and metamyelocytes) > 1% indicates that a LEFT SHIFT is Present. Performed By: #### L [id number] #### [facility] [address] [place], [address] Lymphocytes/100 WBC (Bld) 20.7 % Normal 19-41 [facility] Comment on above: Order Comment: 'TROP ' Serial specimen #1, #2 or #3: 2 Performed By: #### L [id number] #### [facility] [address] [place], [address] MCH (RBC) [Entitic mass] 29.1 pg Normal 27.0-32.0 [facility] Comment on above: Order Comment: 'TROP ' Serial specimen #1, #2 or #3: 2 Performed By: #### L [id number] #### [facility] [address] [place], [address] MCHC (RBC) [Mass/Vol] 31.7 g/dL Low 32-36 [facility] Comment on above: Order Comment: 'TROP ' Serial specimen #1, #2 or #3: 2 Performed By: #### L [id number] #### [facility] [address] [place], [address] MCV (RBC) [Entitic vol] 91.6 fL Normal 80-94 [facility] Comment on above: Order Comment: 'TROP ' Serial specimen #1, #2 or #3: 2 Performed By: #### L [id number] #### [facility] [address] [place], [address] Monocytes/100 WBC (Bld) 5.6 % Normal 0-10 [facility] Comment on above: Order Comment: 'TROP ' Serial specimen #1, #2 or #3: 2 Performed By: #### L [id number] #### [facility] [address] [place], [address] Neutrophils/100 WBC (Bld) 68.3 % Normal 47-70 [facility] Comment on above: Order Comment: 'TROP ' Serial specimen #1, #2 or #3: 2 Performed By: #### L [id number] #### [facility] [address] [place], [address] Nucleated RBC (Bld) [#/Vol] 0 10*3/uL Normal 0-5 [facility] Comment on above: Order Comment: 'TROP ' Serial specimen #1, #2 or #3: 2 Performed By: #### L [id number] #### [facility] [address] [place], [address] Platelet mean volume (Bld) [Entitic vol] 11.4 fL Normal 6.2-12.0 [facility] Comment on above: Order Comment: 'TROP ' Serial specimen #1, #2 or #3: 2 Performed By: #### L [id number] #### [facility] [address] [place], [address] Platelets (Bld) [#/Vol] 201 10*3/uL Normal 150-450 [facility] Comment on above: Order Comment: 'TROP ' Serial specimen #1, #2 or #3: 2 Performed By: #### L [id number] #### [facility] [address] [place], [address] RBC (Bld) [#/Vol] 5.02 10*6/uL Normal 4.6-6.2 [facility] Comment on above: Order Comment: 'TROP ' Serial specimen #1, #2 or #3: 2 Performed By: #### L [id number] #### [facility] [address] [place], [address] RDW SD 42.8 fl Normal 35.1-43.9 [facility] Comment on above: Order Comment: 'TROP ' Serial specimen #1, #2 or #3: 2 Performed By: #### L [id number] #### [facility] [address] [place], [address] WBC (Bld) [#/Vol] 6.4 10*3/uL Normal 4.4-11.0 [facility] Comment on above: Order Comment: 'TROP ' Serial specimen #1, #2 or #3: 2 Performed By: #### L [id number] #### [facility] [address] [place], [address] Comprehensive Metabolic Prof [facility] 11-29-2024 Albumin [Mass/Vol] 4.5 g/dL Normal 3.4-4.8 [facility] Comment on above: Order Comment: 'TROP ' Serial specimen #1, #2 or #3: 2 Performed By: #### L [id number] #### [facility] [address] [place], [address] Albumin/Globulin [Mass ratio] 1.8 {ratio} Normal 0.9-2.4 [facility] Comment on above: Order Comment: 'TROP ' Serial specimen #1, #2 or #3: 2 Performed By: #### L [id number] #### [facility] [address] [place], [address] ALK PHOS 90 U/L Normal 40-129 [facility] Comment on above: Order Comment: 'TROP ' Serial specimen #1, #2 or #3: 2 Performed By: #### L [id number] #### [facility] [address] [place], [address] ALT [Catalytic activity/Vol] 12 U/L Normal <=46 [facility] Comment on above: Order Comment: 'TROP ' Serial specimen #1, #2 or #3: 2 Performed By: #### L [id number] #### [facility] [address] [place], [address] AST [Catalytic activity/Vol] 17 U/L Normal <=37 [facility] Comment on above: Order Comment: 'TROP ' Serial specimen #1, #2 or #3: 2 Performed By: #### L [id number] #### [facility] [address] [place], [address] Bilirubin [Mass/Vol] 0.72 mg/dL Normal 0.00-1.30 [facility] Comment on above: Order Comment: 'TROP ' Serial specimen #1, #2 or #3: 2 Performed By: #### L [id number] #### [facility] [address] [place], [address] BUN/CRE 21.0 RATIO High 10-20 [facility] Comment on above: Order Comment: 'TROP ' Serial specimen #1, #2 or #3: 2 Performed By: #### L [id number] #### [facility] [address] [place], [address] Calcium [Mass/Vol] 9.8 mg/dL Normal 7.6-11.0 [facility] Comment on above: Order Comment: 'TROP ' Serial specimen #1, #2 or #3: 2 Performed By: #### L [id number] #### [facility] [address] [place], [address] Chloride [Moles/Vol] 101 mmol/L Normal 98-108 [facility] Comment on above: Order Comment: 'TROP ' Serial specimen #1, #2 or #3: 2 Performed By: #### L [id number] #### [facility] [address] [place], [address] CO2 [Moles/Vol] 27.0 mmol/L Normal 21.0-32.0 [facility] Comment on above: Order Comment: 'TROP ' Serial specimen #1, #2 or #3: 2 Performed By: #### L [id number] #### [facility] [address] [place], [address] Creatinine [Mass/Vol] 0.77 mg/dL Normal 0.70-1.20 [facility] Comment on above: Order Comment: 'TROP ' Serial specimen #1, #2 or #3: 2 Performed By: #### L [id number] #### [facility] [address] [place], [address] GAP 11 Normal 5-15 [facility] Comment on above: Order Comment: 'TROP ' Serial specimen #1, #2 or #3: 2 Performed By: #### L [id number] #### [facility] [address] [place], [address] GFR/1.73 sq M.predicted among non-blacks MDRD (S/P/Bld) [Vol rate/Area] 93 mL/min/{1.73_m2} Normal >60 [facility] Comment on above: Order Comment: 'TROP ' Serial specimen #1, #2 or #3: 2 Result Comment: mL/m in/1.73m2 CKD-EPI Creatinine Equation (2020) Performed By: #### L [id number] #### [facility] [address] [place], [address] Globulin (S) [Mass/Vol] 2.5 g/dL Normal 2.2-4.2 [facility] Comment on above: Order Comment: 'TROP ' Serial specimen #1, #2 or #3: 2 Performed By: #### L [id number] #### [facility] [address] [place], [address] Glucose [Mass/Vol] 121 mg/dL High 70-99 [facility] Comment on above: Order Comment: 'TROP ' Serial specimen #1, #2 or #3: 2 Performed By: #### L [id number] #### [facility] [address] [place], [address] Potassium [Moles/Vol] 4.0 mmol/L Normal 3.3-5.1 [facility] Comment on above: Order Comment: 'TROP ' Serial specimen #1, #2 or #3: 2 Performed By: #### L [id number] #### [facility] [address] [place], [address] Sodium [Moles/Vol] 139 mmol/L Normal 133-145 [facility] Comment on above: Order Comment: 'TROP ' Serial specimen #1, #2 or #3: 2 Performed By: #### L [id number] #### [facility] [address] [place], [address] T PROT 7.0 g/dL Normal 5.9-8.4 [facility] Comment on above: Order Comment: 'TROP ' Serial specimen #1, #2 or #3: 2 Performed By: #### L [id number] #### [facility] [address] [place], [address] Urea nitrogen [Mass/Vol] 16 mg/dL Normal 4-19 [facility] Comment on above: Order Comment: 'TROP ' Serial specimen #1, #2 or #3: 2 Performed By: #### L [id number] #### [facility] [address] [place], [address] Hemoglobin A1con 11-29-2024 HbA1c (Bld) [Mass fraction] 7.6 % High <=5.6 [facility] Comment on above: Order Comment: 'TROP ' Serial specimen #1, #2 or #3: 2 Result Comment: Norm al < 5.7 % Prediabetic 5.7 - 6.4 % Diabetic >or= 6.5 % Please note range changes. Performed By: #### L [id number] #### [facility] [address] [place], [address] Lipid Profileon 11-29-2024 CHOL:HDL 3.98 Normal [facility] Comment on above: Order Comment: Order Date: 05/04/24 Order Info: [id number] - CMP Order Info: [id number] - LIPID Performed By: #### L [id number] #### [facility] [address] [place], [address] Cholesterol [Mass/Vol] 97 mg/dL Normal <=200 [facility] Comment on above: Order Comment: Order Date: 05/04/24 Order Info: [id number] - CMP Order Info: [id number] - LIPID Result Comment: Chol esterol level, Desirable <200 mg/dL Borderline high cholesterol 200-239 mg/dL High cholesterol >=240 mg/dL Recommendations of the NCEP Adult Treatment Panel for the following risk-cutoff thresholds for the [place] population. Performed By: #### L [id number] #### [facility] [address] [place], [address] Cholesterol in HDL [Mass/Vol] 24 mg/dL Low [facility] Comment on above: Order Comment: Order Date: 05/04/24 Order Info: [id number] - CMP Order Info: [id number] - LIPID Result Comment: Kae onal Cholesterol Education Program (NCEP) guidelines: <40 mg/dL: Low HDL-cholesterol (major risk factor for CHD) >= 60 mg/dL: High HDL-cholesterol (negative risk factor for CHD) HDL-cholesterol is affected by a number of factors, e.g. smoking, exercise, hormones, sex and age. Performed By: #### L [id number] #### [facility] [address] [place], [address] Cholesterol in LDL [Mass/Vol] 58 mg/dL Normal [facility] Comment on above: Order Comment: Order Date: 05/04/24 Order Info: [id number] - CMP Order Info: [id number] - LIPID Result Comment: Bord futwzn=665-629 mg/dL Higher Xmqp=080 mg/dL or greater Friedwald Equation for LDL-C Performed By: #### L [id number] #### [facility] [facility] [address] [place], [place], [id number] ([phone]) Cholesterol in VLDL [Mass/Vol] 14 mg/dL Normal 5-40 [facility] Comment on above: Order Comment: Order Date: 05/04/24 Order Info: [id number] - CMP Order Info: [id number] - LIPID Performed By: #### L 506.1001 #### [facility] [address] [place], [address] Triglyceride [Mass/Vol] 72 mg/dL Normal [facility] Comment on above: Order Comment: Order Date: 05/04/24 Order Info: [id number] - CMP Order Info: [id number] - LIPID Result Comment: The drugs N-Acetylcysteine and Metamizole may falsely depress this assay. Normal range: <150 mg/dL Borderline High: 150-199 mg/dL High: 200-499 mg/dL Very High: >500 mg/dL Performed By: #### L 506.1001 #### [facility] [address] [place], [place], [id number] PSA,Total - Annual Screenon 11-29-2024 PSA,TOT SCREEN 1.06 ng/mL Normal 0.02-4.00 [facility] Comment on above: Order Comment: Order Date: 05/04/24 Order Info: [id number] - CMP Order Info: [id number] - LIPID Result Comment: This test was performed using the [employer] tPSA method. Measured values of a patient??sample can vary depending on the testing procedure used. PSA values determined on patient samples by different testing procedures cannot be used interchangeably. If there is a change in PSA assays while monitoring therapy, sequential testing should be performed to confirm baseline values. Performed By: #### L 506.1001 #### [facility] [address] [place], [place], [address] Vitamin D,25 Hydroxyon 11-29 Vitamin D 25-OH 34.2 ng/mL Normal 30-100 [facility] Comment on above: Order Comment: 'TROP ' Serial specimen #1, #2 or #3: 2 Result Comment: Alyx min D Status Deficiency: <20 ng/mL (50nmol/L) Insufficiency: 20-30 ng/mL (50-75 nmol/L) Sufficiency: 30-100 ng/mL (75-250 nmol/L) Toxicity: >100 ng/mL (>250 nmol/L) Performed By: #### L 501.4020 #### [facility] [address] [place], [place], [address] Absolute lymphocyte countOrd ered By: Yue Leal on 09-04-2024 Lymphocytes Auto (Unsp spec) [#/Vol] 1.23 10*3/uL 0.83-4.51 [facility] Absolute neutrophil countOrd ered By: Yue Leal on 09-04-2024 Neutrophils (Bld) [#/Vol] 4.1 10*3/uL 2.0-7.7 [facility] Anion gap in Serum or Plasma Ordered By: Yue Leal on 09-04-2024 Anion gap [Moles/Vol] 13 mmol/L 5-15 [facility] Automated lymphocyte count a s percentage of total leukocytesOrdered By: Yue Leal on 09-04-2024 Lymphocytes/100 WBC Auto (Unsp spec) 20.3 % 19-41 [facility] BUN/creatinine ratioOrdered By: Yue Leal on 09-04-2024 Urea nitrogen/Creatinine [Mass ratio] 20.0 mg/mg 10-20 [facility] Basophil percentageOrdered B y: Yue Leal on 09-04-2024 Basophils/100 WBC (Bld) 1.3 % High 0-1 [facility] Bilirubin, totalOrdered By: Yue Leal on 09-04-2024 Bilirubin [Mass/Vol] 0.75 mg/dL Normal 0.00-1.30 [facility] Comment on above: Order Comment: Order Date: 09/04/24Order Info: [id number] - CMPOrder Info: [id number] - LIPID Performed By: #### L 500.4050, L501.9985, L502.0500, L500.4100, L100.0100 ####[facility] [address] [place], [address] CBC W/Diff, Automatedon 08-15 Absolute Lymph 1.23 X10 3/uL Normal 0.83-4.51 [facility] Comment on above: Order Comment: Order Date: 09/04/24Order Info: [id number] - CBCD Performed By: #### L 500.4050, L501.9985, L502.0500, L500.4100, L100.0100 ####[facility] [address] [place], [address] Absolute Neut 4.1 X10 3/uL Normal 2.0-7.7 [facility] Comment on above: Order Comment: Order Date: 09/04/24Order Info: [id number] - CBCD Performed By: #### L 500.4050, L501.9985, L502.0500, L500.4100, L100.0100 ####[facility] [address] [place], [address] Basophils/100 WBC (Bld) 1.3 % High 0-1 [facility] Comment on above: Order Comment: Order Date: 09/04/24Order Info: [id number] - CBCD Performed By: #### L 500.4050, L501.9985, L502.0500, L500.4100, L100.0100 ####[facility] [address] [place], [address] Eosinophils/100 WBC (Bld) 4.1 % Normal 0-5 [facility] Comment on above: Order Comment: Order Date: 09/04/24Order Info: [id number] - CBCD Performed By: #### L 500.4050, L501.9985, L502.0500, L500.4100, L100.0100 ####[facility] [address] [place], [address] Erythrocyte distribution width (RBC) [Ratio] 12.3 % Normal 11.6-14.6 [facility] Comment on above: Order Comment: Order Date: 09/04/24Order Info: [id number] - CBCD Performed By: #### L 500.4050, L501.9985, L502.0500, L500.4100, L100.0100 ####[facility] [address] [place], [address] Hematocrit (Bld) [Volume fraction] 47.6 % Normal 40-54 [facility] Comment on above: Order Comment: Order Date: 09/04/24Order Info: [id number] - CBCD Performed By: #### L 500.4050, L501.9985, L502.0500, L500.4100, L100.0100 ####[facility] [address] [place], [address] Hemoglobin (Bld) [Mass/Vol] 15.2 g/dL Normal 13.0-16.5 [facility] Comment on above: Order Comment: Order Date: 09/04/24Order Info: [id number] - CBCD Performed By: #### L 500.4050, L501.9985, L502.0500, L500.4100, L100.0100 ####[facility] [address] [place], [address] IG% 0.300 Normal 0.0-0.9 [facility] Comment on above: Order Comment: Order Date: 09/04/24Order Info: [id number] - CBCD Result Comment: IG% - Immature Granulocytes (promyelocytes, myelocytes and metamyelocytes) > 1% indicates that a LEFT SHIFT is Present. Performed By: #### L 500.4050, L501.9985, L502.0500, L500.4100, L100.0100 ####[facility] [address] [place], [address] Lymphocytes/100 WBC (Bld) 20.3 % Normal 19-41 [facility] Comment on above: Order Comment: Order Date: 09/04/24Order Info: [id number] - CBCD Performed By: #### L 500.4050, L501.9985, L502.0500, L500.4100, L100.0100 ####[facility] [address] [place], [address] MCH (RBC) [Entitic mass] 29.3 pg Normal 27.0-32.0 [facility] Comment on above: Order Comment: Order Date: 09/04/24Order Info: [id number]- - CBCD Performed By: #### L 500.4050, L501.9985, L502.0500, L500.4100, L100.0100 ####[facility] [address] [place], [address] MCHC (RBC) [Mass/Vol] 31.9 g/dL Low 32-36 [facility] Comment on above: Order Comment: Order Date: 09/04/24Order Info: [id number]- - CBCD Performed By: #### L 500.4050, L501.9985, L502.0500, L500.4100, L100.0100 ####[facility] [address] [place], [address] MCV (RBC) [Entitic vol] 91.7 fL Normal 80-94 [facility] Comment on above: Order Comment: Order Date: 09/04/24Order Info: [id number] - CBCD Performed By: #### L 500.4050, L501.9985, L502.0500, L500.4100, L100.0100 ####[facility] [address] [place], [address] Monocytes/100 WBC (Bld) 6.3 % Normal 0-10 [facility] Comment on above: Order Comment: Order Date: 09/04/24Order Info: [id number] - CBCD Performed By: #### L 500.4050, L501.9985, L502.0500, L500.4100, L100.0100 ####[facility] [address] [place], [address] Neutrophils/100 WBC (Bld) 67.7 % Normal 47-70 [facility] Comment on above: Order Comment: Order Date: 09/04/24Order Info: [id number] - CBCD Performed By: #### L 500.4050, L501.9985, L502.0500, L500.4100, L100.0100 ####[facility] [address] [place], [address] Nucleated RBC (Bld) [#/Vol] 0 10*3/uL Normal 0-5 [facility] Comment on above: Order Comment: Order Date: 09/04/24Order Info: [id number] - CBCD Performed By: #### L 500.4050, L501.9985, L502.0500, L500.4100, L100.0100 ####[facility] [address] [place], [address] Platelet mean volume (Bld) [Entitic vol] 11.2 fL Normal 6.2-12.0 [facility] Comment on above: Order Comment: Order Date: 09/04/24Order Info: [id number] - CBCD Performed By: #### L 500.4050, L501.9985, L502.0500, L500.4100, L100.0100 ####[facility] [address] [place], [address] Platelets (Bld) [#/Vol] 191 10*3/uL Normal 150-450 [facility] Comment on above: Order Comment: Order Date: 09/04/24Order Info: [id number] - CBCD Performed By: #### L 500.4050, L501.9985, L502.0500, L500.4100, L100.0100 ####[facility] [address] [place], [address] RBC (Bld) [#/Vol] 5.19 10*6/uL Normal 4.6-6.2 [facility] Comment on above: Order Comment: Order Date: 09/04/24Order Info: [id number] - CBCD Performed By: #### L 500.4050, L501.9985, L502.0500, L500.4100, L100.0100 ####[facility] [address] [place], [address] RDW SD 41.1 fl Normal 35.1-43.9 [facility] Comment on above: Order Comment: Order Date: 09/04/24Order Info: [id number] - CBCD Performed By: #### L 500.4050, L501.9985, L502.0500, L500.4100, L100.0100 ####[facility] [address] [place], [address] WBC (Bld) [#/Vol] 6.1 10*3/uL Normal 4.4-11.0 [facility] Comment on above: Order Comment: Order Date: 09/04/24Order Info: [id number] - CBCD Performed By: #### L 500.4050, L501.9985, L502.0500, L500.4100, L100.0100 ####[facility] [address] [place], [address] Calculated very low density lipoprotein (VLDL) cholesterol measurementOrdered By: Yue Lela on 09-04-2024 Calculated very low density lipoprotein (VLDL) cholesterol measurement 16 mg/dL 5-40 [facility] Carbon dioxide, total [Moles /volume] in Central venous bloodOrdered By: Yue Leal on 09-04-2024 CO2 [Moles/Vol] 25.7 mmol/L Normal 21.0-32.0 [facility] Comment on above: Order Comment: Order Date: 09/04/24Order Info: 07-1 - CMPOrder Info: [id number] - LIPID Performed By: #### L 500.4050, L501.9985, L502.0500, L500.4100, L100.0100 ####[facility] [address] [place], [address] Chloride assayOrdered By: Ann Leal on 09-04-2024 Chloride [Moles/Vol] 102 mmol/L Normal 98-108 [facility] Comment on above: Order Comment: Order Date: 09/04/24Order Info: 07 - CMPOrder Info: [id number] - LIPID Performed By: #### L 500.4050, L501.9985, L502.0500, L500.4100, L100.0100 ####[facility] [address] [place], [address] Comprehensive Metabolic Prof ilon 09-04-2024 ALK PHOS 90 U/L Normal 40-129 [facility] Comment on above: Order Comment: Order Date: 09/04/24Order Info: [id number] - CMPOrder Info: [id number] - LIPID Performed By: #### L 500.4050, L501.9985, L502.0500, L500.4100, L100.0100 ####[facility] [address] [place], [address] BUN/CRE 20.0 RATIO Normal 10-20 [facility] Comment on above: Order Comment: Order Date: 09/04/24Order Info: 07- - CMPOrder Info: [id number] - LIPID Performed By: #### L 500.4050, L501.9985, L502.0500, L500.4100, L100.0100 ####[facility] [address] [place], [address] GAP 13 Normal 5-15 [facility] Comment on above: Order Comment: Order Date: 09/04/24Order Info: [id number] - CMPOrder Info: [id number] - LIPID Performed By: #### L 500.4050, L501.9985, L502.0500, L500.4100, L100.0100 ####[facility] [address] [place], [address] Potassium [Moles/Vol] 4.1 mmol/L Normal 3.3-5.1 [facility] Comment on above: Order Comment: Order Date: 09/04/24Order Info: [id number] - CMPOrder Info: [id number] - LIPID Performed By: #### L 500.4050, L501.9985, L502.0500, L500.4100, L100.0100 ####[facility] [address] [place], [address] T PROT 7.1 g/dL Normal 5.9-8.4 [facility] Comment on above: Order Comment: Order Date: 09/04/24Order Info: [id number] - CMPOrder Info: [id number] - LIPID Performed By: #### L 500.4050, L501.9985, L502.0500, L500.4100, L100.0100 ####[facility] [address] [place], [address] Comprehensive Metabolic Prof ilOrdered By: Yue Leal on 09-04-2024 AST [Catalytic activity/Vol] 17 U/L Normal <=37 [facility] Comment on above: Order Comment: Order Date: 09/04/24Order Info: [id number] - CMPOrder Info: [id number] - LIPID Performed By: #### L 500.4050, L501.9985, L502.0500, L500.4100, L100.0100 ####[facility] [address] [place], [place], [id number] Eosinophil percentageOrdered By: Yue Leal on 09-04-2024 Eosinophils/100 WBC (Bld) 4.1 % 0-5 [facility] Erythrocyte distribution wid th ratioOrdered By: Yue Leal on 09-04-2024 Erythrocyte distribution width (RBC) [Ratio] 12.3 % 11.6-14.6 [facility] Erythrocyte distribution wid th standard deviationOrdered By: Yue Leal on 09-04-2024 Erythrocyte distribution width (RBC) [Ratio] 41.1 fl 35.1-43.9 [facility] Glomerular filtration rate ( GFR) estimation/1.73 sq m using serum, plasma, or whole bOrdered By: Yue Leal on 09-04-2024 GFR/1.73 sq M.predicted among non-blacks MDRD (S/P/Bld) [Vol rate/Area] 92 mL/min/{1.73_m2} Normal >60 [facility] Comment on above: mL/min/1.73m2 CKD-EP I Creatinine Equation (2020) Order Comment: Order Date: 09/04/24Order Info: [id number] - CMPOrder Info: [id number] - LIPID Result Comment: mL/m in/1.73m2 CKD-EPI Creatinine Equation (2020) Performed By: #### L 500.4050, L501.9985, L502.0500, L500.4100, L100.0100 ####[facility] [address] [place], [place], [address] Hematocrit Auto (Bld) [Volum e fraction]Ordered By: Yue Leal on 09-04-2024 Hematocrit (Bld) [Volume fraction] 47.6 % 40-54 [facility] Hemoglobin A1con 09-04-2024 HbA1c (Bld) [Mass fraction] 8.0 % High <=5.6 [facility] Comment on above: Order Comment: Order Date: 09/04/24Order Info: [id number] - A1C Result Comment: Norm al < 5.7 % Prediabetic 5.7 - 6.4 % Diabetic >or= 6.5 % Please note range changes. Performed By: #### L 500.4050, L501.9985, L502.0500, L500.4100, L100.0100 ####[facility] [address] [place], [place], [id number] Hemoglobin A1c percentageOrd ered By: Yue Leal on 09-04-2024 HbA1c (Bld) [Mass fraction] 8.0 % High <5.7 [facility] Comment on above: Normal < 5.7 % Predi abetic 5.7 - 6.4 % Diabetic >or= 6.5 % Please note range changes. Hemoglobin measurementOrdere d By: Yue Leal on 09-04-2024 Hemoglobin (Bld) [Mass/Vol] 15.2 g/dL 13.0-16.5 [facility] Immature granulocytes/100 WB C Auto (Bld)Ordered By: Yue Leal on 09-04-2024 Immature granulocytes/100 WBC (Bld) 0.300 % 0.0-0.9 [facility] Comment on above: IG% - Immature Granu locytes (promyelocytes, myelocytes and metamyelocytes) > 1% indicates that a LEFT SHIFT is Present. LDL calc ser/plasOrdered By: Yue Leal on 09-04-2024 Cholesterol in LDL [Mass/Vol] 118 mg/dL Normal [facility] Comment on above: Odqcwghqkx=387-427 m g/dL & Higher Mlkx=018 mg/dL or greater Order Comment: Order Date: 09/04/24Order Info: [id number] - CMPOrder Info: [id number] - LIPID Result Comment: Bord roslfz=005-247 mg/dL Higher Jhvt=093 mg/dL or greater Performed By: #### L 500.4050, L501.9985, L502.0500, L500.4100, L100.0100 ####[facility] [address] [place], [place], [id number] Lipid Profileon 09-04-2024 CHOL:HDL 6.53 Normal [facility] Comment on above: Order Comment: Order Date: 09/04/24Order Info: [id number] - CMPOrder Info: [id number] - LIPID Performed By: #### L 500.4050, L501.9985, L502.0500, L500.4100, L100.0100 ####[facility] [address] [place], [address] Cholesterol in VLDL [Mass/Vol] 16 mg/dL Normal 5-40 [facility] Comment on above: Order Comment: Order Date: 09/04/24Order Info: [id number] - CMPOrder Info: [id number] - LIPID Performed By: #### L 500.4050, L501.9985, L502.0500, L500.4100, L100.0100 ####[facility] [address] [place], [place], [id number] MCV (mean corpuscular volume ) determinationOrdered By: Yue Leal on 09-04-2024 MCV (RBC) [Entitic vol] 91.7 fL 80-94 [facility] Mean corpuscular hemoglobin (MCH) determinationOrdered By: Yue Leal on 09-04-2024 MCH (RBC) [Entitic mass] 29.3 pg 27.0-32.0 [facility] Mean corpuscular hemoglobin concentration (MCHC) determinationOrdered By: Yue Leal on 09-04-2024 MCHC (RBC) [Mass/Vol] 31.9 g/dL Low 32-36 [facility] Mean platelet volume determi nationOrdered By: Yue Leal on 09-04-2024 Platelet mean volume (Bld) [Entitic vol] 11.2 fL 6.2-12.0 [facility] Microalbumin,Random Urineon 09-04-2024 MICROALBUMIN,UR < 12.0 Normal <20 mg/L [facility] Comment on above: Order Comment: Order Date: 09/04/24 Order Info: [id number] - MIALB Performed By: #### L 500.4050, L501.9985, L502.0500, L500.4100, L100.0100 #### [facility] [address] [place], [place], [id number] Monocyte percentageOrdered B y: Yue Leal on 09-04-2024 Monocytes/100 WBC (Bld) 6.3 % 0-10 [facility] Neutrophil percentageOrdered By: Yue Leal on 09-04-2024 Neutrophils/100 WBC (Bld) 67.7 % 47-70 [facility] Nucleated red blood cell per centageOrdered By: Yue Leal on 09-04-2024 Nucleated RBC/100 WBC (Bld) [Ratio] 0 % 0-5 [facility] Platelet countOrdered By: Ann Leal on 09-04-2024 Platelets (Bld) [#/Vol] 191 10*3/uL 150-450 [facility] Potassium measurement (mass/ volume)Ordered By: Yue Leal on 09-04-2024 Potassium (Unsp spec) [Mass/Vol] 4.1 mmol/L 3.3-5.1 [facility] RBC Auto (Bld) [#/Vol]Ordere d By: Yue Leal on 09-04-2024 RBC (Bld) [#/Vol] 5.19 10*6/uL 4.6-6.2 [facility] Screening total cholesterol/ high density lipoprotein (HDL) cholesterol ratioOrdered By: Yue Leal on 09-04-2024 Cholesterol.total/Chol esterol in HDL [Mass ratio] 6.53 {ratio} [facility] Serum creatinine measurement (mass/volume)Ordered By: Yue Leal on 09-04-2024 Creatinine [Mass/Vol] 0.83 mg/dL Normal 0.70-1.20 [facility] Comment on above: Order Comment: Order Date: 09/04/24Order Info: [id number] - CMPOrder Info: [id number] - LIPID Performed By: #### L 500.4050, L501.9918, L502.0500, L500.4100, L100.0100 ####[facility] [address] [place], [place], [id number] Serum globulin measurementOr dered By: Yue Leal on 09-04-2024 Globulin (S) [Mass/Vol] 2.6 g/dL Normal 2.2-4.2 [facility] Comment on above: Order Comment: Order Date: 09/04/24Order Info: [id number] - CMPOrder Info: [id number] - LIPID Performed By: #### L 500.4050, L501.9985, L502.0500, L500.4100, L100.0100 ####[facility] [address] [place], [address] Serum glucose measurement (m ass/volume)Ordered By: Yue Leal on 09-04-2024 Glucose [Mass/Vol] 147 mg/dL High 70-99 [facility] Comment on above: Order Comment: Order Date: 09/04/24Order Info: [id number] - CMPOrder Info: [id number] - LIPID Performed By: #### L 500.4050, L501.9985, L502.0500, L500.4100, L100.0100 ####[facility] [address] [place], [address] Serum or plasma alanine mcginnis otransferase (ALT) measurementOrdered By: Yue Leal on 09-04-2024 ALT [Catalytic activity/Vol] 11 U/L Normal <=46 [facility] Comment on above: Order Comment: Order Date: 09/04/24Order Info: [id number]- - CMPOrder Info: [id number] - LIPID Performed By: #### L 500.4050, L501.9985, L502.0500, L500.4100, L100.0100 ####[facility] [address] [place], [address] Serum or plasma albumin jessica urement (mass/volume)Ordered By: Yue Leal on 09-04-2024 Albumin [Mass/Vol] 4.5 g/dL Normal 3.4-4.8 [facility] Comment on above: Order Comment: Order Date: 09/04/24Order Info: [id number]- - CMPOrder Info: [id number] - LIPID Performed By: #### L 500.4050, L501.9985, L502.0500, L500.4100, L100.0100 ####[facility] [address] [place], [place], [id number] Serum or plasma albumin/glob ulin mass ratioOrdered By: Yue Leal on 09-04-2024 Albumin/Globulin [Mass ratio] 1.7 {ratio} Normal 0.9-2.4 [facility] Comment on above: Order Comment: Order Date: 09/04/24Order Info: [id number] - CMPOrder Info: [id number] - LIPID Performed By: #### L 500.4050, L501.9985, L502.0500, L500.4100, L100.0100 ####[facility] [address] [place], [place], [id number] Serum or plasma alkaline paulina sphatase measurementOrdered By: Yue Leal on 09-04-2024 ALP [Catalytic activity/Vol] 90 U/L 40-129 [facility] Serum or plasma calcium jessica urement (mass/volume)Ordered By: Yue Leal on 09-04-2024 Calcium [Mass/Vol] 10.5 mg/dL Normal 7.6-11.0 [facility] Comment on above: Order Comment: Order Date: 09/04/24Order Info: [id number] - CMPOrder Info: [id number] - LIPID Performed By: #### L 500.4050, L501.9985, L502.0500, L500.4100, L100.0100 ####[facility] [address] [place], [address] Serum or plasma cholesterol in HDL measurement (mass/volume)Ordered By: Yue Leal on 09-04-2024 Cholesterol in HDL [Mass/Vol] 24 mg/dL Low [facility] Comment on above: National Cholesterol Education Program (NCEP) guidelines:<40 mg/dL: Low HDL-cholesterol (major risk factor for CHD)>= 60 mg/dL: High HDL-cholesterol (negative risk factor for CHD)HDL-cholesterol is affected by a number of factors, e.g. smoking, exercise, hormones, sex and age. Order Comment: Order Date: 09/04/24Order Info: [id number] - CMPOrder Info: [id number] - LIPID Result Comment: [place] on[place] Cholesterol Education Program (NCEP) guidelines: <40 mg/dL: Low HDL-cholesterol (major risk factor for CHD) >= 60 mg/dL: High HDL-cholesterol (negative risk factor for CHD) HDL-cholesterol is affected by a number of factors, e.g. smoking, exercise, hormones, sex and age. Performed By: #### L 500.4050, L501.9985, L502.0500, L500.4100, L100.0100 ####[facility] [address] [facility] [place], [address] Serum or plasma cholesterol measurement (mass/volume)Ordered By: Yue Leal on 09-04-2024 Cholesterol [Mass/Vol] 158 mg/dL Normal <=200 [facility] Comment on above: Cholesterol level, D esirable <200 mg/dLBorderline high cholesterol 200-239 mg/dLHigh cholesterol >=240 mg/dLRecommendations of the NCEP Adult Treatment Panel for the following risk-cutoff thresholds for the [place] population. Order Comment: Order Date: 09/04/24Order Info: [id number] - CMPOrder Info: [id number] - LIPID Result Comment: Chol esterol level, Desirable <200 mg/dL Borderline high cholesterol 200-239 mg/dL High cholesterol >=240 mg/dL Recommendations of the NCEP Adult Treatment Panel for the following risk-cutoff thresholds for the [place] population. Performed By: #### L 500.4050, L501.9985, L502.0500, L500.4100, L100.0100 ####[facility] [address] [facility] [address] [place], [place], [id number] Serum or plasma urea nitroge n measurement (mass/volume)Ordered By: Yue Leal on 09-04-2024 Urea nitrogen [Mass/Vol] 17 mg/dL Normal 4-19 [facility] Comment on above: Order Comment: Order Date: 09/04/24Order Info: [id number] - CMPOrder Info: [id number] - LIPID Performed By: #### L 500.4050, L501.9985, L502.0500, L500.4100, L100.0100 ####[facility] [address] [place], [address] Sodium levelOrdered By: Yue Leal on 09-04-2024 Sodium [Moles/Vol] 141 mmol/L Normal 133-145 [facility] Comment on above: Order Comment: Order Date: 09/04/24Order Info: [id number] - CMPOrder Info: [id number] - LIPID Performed By: #### L 500.4050, L501.9985, L502.0500, L500.4100, L100.0100 ####[facility] [address] [place], [place], [id number] Total proteinOrdered By: Holden Leal on 09-04-2024 Protein [Mass/Vol] 7.1 g/dL 5.9-8.4 [facility] Triglycerides measurementOrd ered By: Yue Leal on 09-04-2024 Triglyceride [Mass/Vol] 78 mg/dL Normal [facility] Comment on above: The drugs N-Acetylcy steine and Metamizole may falsely depress this assay. Normal range: <150 mg/dLBorderline High: 150-199 mg/dLHigh: 200-499 mg/dLVery High: >500 mg/dL Order Comment: Order Date: 09/04/24Order Info: 07 - CMPOrder Info: [id number] - LIPID Result Comment: The drugs N-Acetylcysteine and Metamizole may falsely depress this assay. Normal range: <150 mg/dL Borderline High: 150-199 mg/dL High: 200-499 mg/dL Very High: >500 mg/dL Performed By: #### L 500.4050, L501.9985, L502.0500, L500.4100, L100.0100 ####[facility] [address] [place], [place], [id number] Urine albumin measurement wi detection limit of 20 mg/L or less (mass/volume)Ordered By: Yue Leal on 09-04-2024 Albumin DL <= 20 mg/L (U) [Mass/Vol] < 12.0 mg/L <20 mg/L [facility] Vitamin D,25 Hydroxyon 09-04 Vitamin D 25-OH 36.0 ng/mL Normal 30-100 [facility] Comment on above: Order Comment: Order Date: 05/04/24 Order Info: [id number] - CMP Order Info: [id number] - LIPID Result Comment: Alyx min D Status Deficiency: <20 ng/mL (50nmol/L) Insufficiency: 20-30 ng/mL (50-75 nmol/L) Sufficiency: 30-100 ng/mL (75-250 nmol/L) Toxicity: >100 ng/mL (>250 nmol/L) Performed By: #### L 506.1001 #### [facility] [address] [place] [address], [id number] White blood cell (WBC) count Ordered By: Yue Leal on 09-04-2024 WBC (Bld) [#/Vol] 6.1 10*3/uL 4.4-11.0 [facility] Absolute neutrophil countOrd ered By: Yue Leal on 05-04-2024 Neutrophils (Bld) [#/Vol] 4.0 10*3/uL 2.0-7.7 [facility] Albumin DL <= 20 mg/L (U) [M ass/Vol]Ordered By: Yue Leal on 05-04-2024 Urine Random Microalbumin < 12.0 mg/L NO RANGE EST. [facility] Anion gap in Serum or Plasma Ordered By: Yue Leal on 05-04-2024 Anion gap [Moles/Vol] 11 mmol/L 5-15 [facility] BUN/creatinine ratioOrdered By: Yue Leal on 05-04-2024 Urea nitrogen/Creatinine [Mass ratio] 22.9 mg/mg High 10-20 [facility] Basophil percentageOrdered B y: Yue Leal on 05-04-2024 Basophils/100 WBC (Bld) 1.3 % High 0-1 [facility] Bilirubin, totalOrdered By: Yue Leal on 05-04-2024 Bilirubin [Mass/Vol] 0.49 mg/dL 0.00-1.30 [facility] CBC W/Diff, Automatedon 04-15 Absolute Lymph 1.50 X10 3/uL Normal 0.83-4.51 [facility] Comment on above: Order Comment: Order Date: 05/04/24 Order Info: [id number] - CBCD Performed By: #### L 100.0100, L500.4100, L502.0250, L500.4050, L501.9985 #### [facility] [address] [place], [address] Absolute Neut 4.0 X10 3/uL Normal 2.0-7.7 [facility] Comment on above: Order Comment: Order Date: 05/04/24 Order Info: 018- - CBCD Performed By: #### L 100.0100, L500.4100, L502.0250, L500.4050, L501.9985 #### [facility] [address] [place], [address] Basophils/100 WBC (Bld) 1.3 % High 0-1 [facility] Comment on above: Order Comment: Order Date: 05/04/24 Order Info: [id number]- - CBCD Performed By: #### L 100.0100, L500.4100, L502.0250, L500.4050, L501.9985 #### [facility] [address] [place], [address] Eosinophils/100 WBC (Bld) 5.0 % Normal 0-5 [facility] Comment on above: Order Comment: Order Date: 05/04/24 Order Info: [id number] - CBCD Performed By: #### L 100.0100, L500.4100, L502.0250, L500.4050, L501.9985 #### [facility] [address] [place], [address] Erythrocyte distribution width (RBC) [Ratio] 12.4 % Normal 11.6-14.6 [facility] Comment on above: Order Comment: Order Date: 05/04/24 Order Info: [id number] - CBCD Performed By: #### L 100.0100, L500.4100, L502.0250, L500.4050, L501.9985 #### [facility] [address] [place], [address] Hematocrit (Bld) [Volume fraction] 46.6 % Normal 40-54 [facility] Comment on above: Order Comment: Order Date: 05/04/24 Order Info: [id number] - CBCD Performed By: #### L 100.0100, L500.4100, L502.0250, L500.4050, L501.9985 #### [facility] [address] [place], [address] Hemoglobin (Bld) [Mass/Vol] 15.0 g/dL Normal 13.0-16.5 [facility] Comment on above: Order Comment: Order Date: 05/04/24 Order Info: [id number] - CBCD Performed By: #### L 100.0100, L500.4100, L502.0250, L500.4050, L501.9985 #### [facility] [address] [place], [address] IG% 0.300 Normal 0.0-0.9 [facility] Comment on above: Order Comment: Order Date: 05/04/24 Order Info: [id number] - CBCD Result Comment: IG% - Immature Granulocytes (promyelocytes, myelocytes and metamyelocytes) > 1% indicates that a LEFT SHIFT is Present. Performed By: #### L 100.0100, L500.4100, L502.0250, L500.4050, L501.9985 #### [facility] [address] [place], [address] Lymphocytes/100 WBC (Bld) 23.7 % Normal 19-41 [facility] Comment on above: Order Comment: Order Date: 05/04/24 Order Info: [id number] - CBCD Performed By: #### L 100.0100, L500.4100, L502.0250, L500.4050, L501.9985 #### [facility] [address] [place], [address] MCH (RBC) [Entitic mass] 29.7 pg Normal 27.0-32.0 [facility] Comment on above: Order Comment: Order Date: 05/04/24 Order Info: [id number] - CBCD Performed By: #### L 100.0100, L500.4100, L502.0250, L500.4050, L501.9985 #### [facility] [address] [place], [address] MCHC (RBC) [Mass/Vol] 32.2 g/dL Normal 32-36 [facility] Comment on above: Order Comment: Order Date: 05/04/24 Order Info: [id number] - CBCD Performed By: #### L 100.0100, L500.4100, L502.0250, L500.4050, L501.9985 #### [facility] [address] [place], [address] MCV (RBC) [Entitic vol] 92.3 fL Normal 80-94 [facility] Comment on above: Order Comment: Order Date: 05/04/24 Order Info: [id number] - CBCD Performed By: #### L 100.0100, L500.4100, L502.0250, L500.4050, L501.9985 #### [facility] [address] [place], [address] Monocytes/100 WBC (Bld) 6.0 % Normal 0-10 [facility] Comment on above: Order Comment: Order Date: 05/04/24 Order Info: [id number] - CBCD Performed By: #### L 100.0100, L500.4100, L502.0250, L500.4050, L501.9985 #### [facility] [address] [place], [address] Neutrophils/100 WBC (Bld) 63.7 % Normal 47-70 [facility] Comment on above: Order Comment: Order Date: 05/04/24 Order Info: [id number] - CBCD Performed By: #### L 100.0100, L500.4100, L502.0250, L500.4050, L501.9985 #### [facility] [address] [place], [address] Nucleated RBC (Bld) [#/Vol] 0 10*3/uL Normal 0-5 [facility] Comment on above: Order Comment: Order Date: 05/04/24 Order Info: [id number] - CBCD Performed By: #### L 100.0100, L500.4100, L502.0250, L500.4050, L501.9985 #### [facility] [address] [place], [address] Platelet mean volume (Bld) [Entitic vol] 11.1 fL Normal 6.2-12.0 [facility] Comment on above: Order Comment: Order Date: 05/04/24 Order Info: [id number] - CBCD Performed By: #### L 100.0100, L500.4100, L502.0250, L500.4050, L501.9985 #### [facility] [address] [place], [address] Platelets (Bld) [#/Vol] 171 10*3/uL Normal 150-450 [facility] Comment on above: Order Comment: Order Date: 05/04/24 Order Info: [id number] - CBCD Performed By: #### L 100.0100, L500.4100, L502.0250, L500.4050, L501.9985 #### [facility] [address] [place], [place], [phone] RBC (Bld) [#/Vol] 5.05 10*6/uL Normal 4.6-6.2 [facility] Comment on above: Order Comment: Order Date: 05/04/24 Order Info: [id number] - CBCD Performed By: #### L 100.0100, L500.4100, L502.0250, L500.4050, L501.9985 #### [facility] [address] [place], [address] RDW SD 41.9 fl Normal 35.1-43.9 [facility] Comment on above: Order Comment: Order Date: 05/04/24 Order Info: [id number] - CBCD Performed By: #### L 100.0100, L500.4100, L502.0250, L500.4050, L501.9985 #### [facility] [address] [place], [address] WBC (Bld) [#/Vol] 6.3 10*3/uL Normal 4.4-11.0 [facility] Comment on above: Order Comment: Order Date: 05/04/24 Order Info: [id number] - CBCD Performed By: #### L 100.0100, L500.4100, L502.0250, L500.4050, L501.9985 #### [facility] [address] [place], [place], [phone] Calculated very low density lipoprotein (VLDL) cholesterol measurementOrdered By: Yue Leal on 05-04-2024 VLDL Cholesterol 14 mg/dL 5-40 [facility] Carbon dioxide, total [Moles /volume] in Central venous bloodOrdered By: Yue Leal on 05-04-2024 CO2 [Moles/Vol] 26.0 mmol/L 21.0-32.0 [facility] Chloride assayOrdered By: Ann Leal on 05-04-2024 Chloride [Moles/Vol] 102 mmol/L 98-108 [facility] Comprehensive Metabolic Prof ilon 05-04-2024 Albumin [Mass/Vol] 4.5 g/dL Normal 3.4-4.8 [facility] Comment on above: Order Comment: Order Date: 05/04/24 Order Info: 0786- - CMP Order Info: [id number] - LIPID Performed By: #### L 100.0100, L500.4100, L502.0250, L500.4050, L501.9985 #### [facility] [address] [place], [place], [id number] Albumin/Globulin [Mass ratio] 1.7 {ratio} Normal 0.9-2.4 [facility] Comment on above: Order Comment: Order Date: 05/04/24 Order Info: 0786- - CMP Order Info: [id number] - LIPID Performed By: #### L 100.0100, L500.4100, L502.0250, L500.4050, L501.9985 #### [facility] [address] [place], [place], [id number] ALK PHOS 110 U/L Normal 40-129 [facility] Comment on above: Order Comment: Order Date: 05/04/24 Order Info: [id number]- - CMP Order Info: [id number] - LIPID Performed By: #### L 100.0100, L500.4100, L502.0250, L500.4050, L501.9985 #### [facility] [address] [place], [address] ALT [Catalytic activity/Vol] 16 U/L Normal <=46 [facility] Comment on above: Order Comment: Order Date: 05/04/24 Order Info: 0786- - CMP Order Info: [id number] - LIPID Performed By: #### L 100.0100, L500.4100, L502.0250, L500.4050, L501.9985 #### [facility] [address] [place], [address] AST [Catalytic activity/Vol] 17 U/L Normal <=37 [facility] Comment on above: Order Comment: Order Date: 05/04/24 Order Info: [id number] - CMP Order Info: [id number] - LIPID Performed By: #### L 100.0100, L500.4100, L502.0250, L500.4050, L501.9985 #### [facility] [address] [place], [address] Bilirubin [Mass/Vol] 0.49 mg/dL Normal 0.00-1.30 [facility] Comment on above: Order Comment: Order Date: 05/04/24 Order Info: [id number] - CMP Order Info: [id number] - LIPID Performed By: #### L 100.0100, L500.4100, L502.0250, L500.4050, L501.9985 #### [facility] [address] [place], [address] BUN/CRE 22.9 RATIO High 10-20 [facility] Comment on above: Order Comment: Order Date: 05/04/24 Order Info: [id number] - CMP Order Info: [id number] - LIPID Performed By: #### L 100.0100, L500.4100, L502.0250, L500.4050, L501.9985 #### [facility] [address] [place], [address] Calcium [Mass/Vol] 9.7 mg/dL Normal 7.6-11.0 [facility] Comment on above: Order Comment: Order Date: 05/04/24 Order Info: [id number] - CMP Order Info: [id number] - LIPID Performed By: #### L 100.0100, L500.4100, L502.0250, L500.4050, L501.9985 #### [facility] [address] [place], [place], [id number] Chloride [Moles/Vol] 102 mmol/L Normal 98-108 [facility] Comment on above: Order Comment: Order Date: 05/04/24 Order Info: [id number] - CMP Order Info: [id number] - LIPID Performed By: #### L 100.0100, L500.4100, L502.0250, L500.4050, L501.9985 #### [facility] [address] [place], [place], [id number] CO2 [Moles/Vol] 26.0 mmol/L Normal 21.0-32.0 [facility] Comment on above: Order Comment: Order Date: 05/04/24 Order Info: 0786- - CMP Order Info: [id number] - LIPID Performed By: #### L 100.0100, L500.4100, L502.0250, L500.4050, L501.9985 #### [facility] [address] [place], [place], [phone] Creatinine [Mass/Vol] 0.87 mg/dL Normal 0.70-1.20 [facility] Comment on above: Order Comment: Order Date: 05/04/24 Order Info: 0786- - CMP Order Info: [id number] - LIPID Performed By: #### L 100.0100, L500.4100, L502.0250, L500.4050, L501.9985 #### [facility] [address] [place], [address] GAP 11 Normal 5-15 [facility] Comment on above: Order Comment: Order Date: 05/04/24 Order Info: [id number] - CMP Order Info: [id number] - LIPID Performed By: #### L 100.0100, L500.4100, L502.0250, L500.4050, L501.9985 #### [facility] [address] [place], [place], [phone] GFR/1.73 sq M.predicted among non-blacks MDRD (S/P/Bld) [Vol rate/Area] 90 mL/min/{1.73_m2} Normal >60 [facility] Comment on above: Order Comment: Order Date: 05/04/24 Order Info: [id number]- - CMP Order Info: [id number] - LIPID Result Comment: mL/m in/1.73m2 CKD-EPI Creatinine Equation (2020) Performed By: #### L 100.0100, L500.4100, L502.0250, L500.4050, L501.9985 #### [facility] [address] [place], [address] Globulin (S) [Mass/Vol] 2.6 g/dL Normal 2.2-4.2 [facility] Comment on above: Order Comment: Order Date: 05/04/24 Order Info: 0786 - CMP Order Info: [id number] - LIPID Performed By: #### L 100.0100, L500.4100, L502.0250, L500.4050, L501.9985 #### [facility] [address] [place], [place], [address] Glucose [Mass/Vol] 112 mg/dL High 70-99 [facility] Comment on above: Order Comment: Order Date: 05/04/24 Order Info: [id number] - CMP Order Info: [id number] - LIPID Performed By: #### L 100.0100, L500.4100, L502.0250, L500.4050, L501.9985 #### [facility] [address] [place], [address] Potassium [Moles/Vol] 4.7 mmol/L Normal 3.3-5.1 [facility] Comment on above: Order Comment: Order Date: 05/04/24 Order Info: [id number] - CMP Order Info: [id number] - LIPID Performed By: #### L 100.0100, L500.4100, L502.0250, L500.4050, L501.9985 #### [facility] [address] [place], [place], [id number] Sodium [Moles/Vol] 139 mmol/L Normal 133-145 [facility] Comment on above: Order Comment: Order Date: 05/04/24 Order Info: [id number] - CMP Order Info: [id number] - LIPID Performed By: #### L 100.0100, L500.4100, L502.0250, L500.4050, L501.9985 #### [facility] [address] [place], [address] T PROT 7.1 g/dL Normal 5.9-8.4 [facility] Comment on above: Order Comment: Order Date: 05/04/24 Order Info: [id number] - CMP Order Info: [id number] - LIPID Performed By: #### L 100.0100, L500.4100, L502.0250, L500.4050, L501.9985 #### [facility] [address] [place], [address] Urea nitrogen [Mass/Vol] 20 mg/dL High 4-19 [facility] Comment on above: Order Comment: Order Date: 05/04/24 Order Info: [id number] - CMP Order Info: [id number] - LIPID Performed By: #### L 100.0100, L500.4100, L502.0250, L500.4050, L501.9985 #### [facility] [address] [place], [address] Creatinine Unsp time (U) [Ma ss/Vol]Ordered By: Yue Leal on 05-04-2024 Creatinine (U) [Mass/Vol] 63.10 mg/dL 39.00-259.0 0 [facility] Eosinophil percentageOrdered By: Yue Leal on 05-04-2024 Eosinophils/100 WBC (Bld) 5.0 % 0-5 [facility] Erythrocyte distribution wid th ratioOrdered By: Yue Leal on 05-04-2024 Erythrocyte distribution width (RBC) [Ratio] 12.4 % 11.6-14.6 [facility] Erythrocyte distribution wid th standard deviationOrdered By: Yue Leal on 05-04-2024 Erythrocyte distribution width (RBC) [Entitic vol] 41.9 fL 35.1-43.9 [facility] GFR/1.73 sq M.predicted ari g non-blacks MDRD (S/P/Bld) [Vol rate/Area]Ordered By: Yue Leal on 05-04-2024 Estimated GFR (MDRD) Non-Af Amer 90 >60 [facility] Comment on above: mL/min/1.73m2 CKD-EP I Creatinine Equation (2020) Hematocrit Auto (Bld) [Volum e fraction]Ordered By: Yue Leal on 05-04-2024 Hematocrit (Bld) [Volume fraction] 46.6 % 40-54 [facility] Hemoglobin A1con 05-04-2024 HbA1c (Bld) [Mass fraction] 7.4 % Normal <=5.6 [facility] Comment on above: Order Comment: Order Date: 05/04/24 Order Info: [id number] - A1C Performed By: #### L 100.0100, L500.4100, L502.0250, L500.4050, L501.9985 #### [facility] [place], [address] Hemoglobin A1c percentageOrd ered By: Yue Leal on 05-04-2024 HbA1c (Bld) [Mass fraction] 7.4 % >5.7 [facility] Hemoglobin measurementOrdere d By: Yue Leal on 05-04-2024 Hemoglobin (Bld) [Mass/Vol] 15.0 g/dL 13.0-16.5 [facility] Immature granulocytes/100 WB C Auto (Bld)Ordered By: Yue Leal on 05-04-2024 Immature granulocytes/100 WBC (Bld) 0.300 % 0.0-0.9 [facility] Comment on above: IG% - Immature Granu locytes (promyelocytes, myelocytes and metamyelocytes) > 1% indicates that a LEFT SHIFT is Present. L506.1001on 05-04-2024 Vitamin D 25-OH 30.3 ng/mL Normal 30-100 [facility] Comment on above: Order Comment: Order Date: 05/04/24 Order Info: [id number] - CMP Order Info: [id number] - LIPID Result Comment: Alyx min D Status Deficiency: <20 ng/mL (50nmol/L) Insufficiency: 20-30 ng/mL (50-75 nmol/L) Sufficiency: 30-100 ng/mL (75-250 nmol/L) Toxicity: >100 ng/mL (>250 nmol/L) Performed By: #### L 506.1001 #### [facility] [address] [place], [place], [id number] LDL calc ser/plasOrdered By: Yue Leal on 05-04-2024 LDL Cholesterol, Calculated 63 mg/dL [facility] Comment on above: Stelzecsmu=132-512 m g/dL & Higher Ldzz=214 mg/dL or greater Laboratory - Chemistry and C hemistry - challengeOrdered By: Yue Leal on 05-04-2024 AST [Catalytic activity/Vol] 17 U/L <38 [facility] Lipid Profileon 05-04-2024 CHOL:HDL 4.10 Normal [facility] Comment on above: Order Comment: Order Date: 05/04/24 Order Info: [id number] - CMP Order Info: [id number] - LIPID Performed By: #### L 100.0100, L500.4100, L502.0250, L500.4050, L501.9985 #### [facility] [address] [place], [place], [address] Cholesterol [Mass/Vol] 102 mg/dL Normal <=200 [facility] Comment on above: Order Comment: Order Date: 05/04/24 Order Info: [id number] - CMP Order Info: [id number] - LIPID Result Comment: Chol esterol level, Desirable <200 mg/dL Borderline high cholesterol 200-239 mg/dL High cholesterol >=240 mg/dL Recommendations of the NCEP Adult Treatment Panel for the following risk-cutoff thresholds for the [place] population. Performed By: #### L 100.0100, L500.4100, L502.0250, L500.4050, L501.9985 #### [facility] [address] [place], [address] Cholesterol in HDL [Mass/Vol] 25 mg/dL Low [facility] Comment on above: Order Comment: Order Date: 05/04/24 Order Info: [id number] - CMP Order Info: [id number] - LIPID Result Comment: [place]ae onal Cholesterol Education Program (NCEP) guidelines: <40 mg/dL: Low HDL-cholesterol (major risk factor for CHD) >= 60 mg/dL: High HDL-cholesterol (negative risk factor for CHD) HDL-cholesterol is affected by a number of factors, e.g. smoking, exercise, hormones, sex and age. Performed By: #### L 100.0100, L500.4100, L502.0250, L500.4050, L501.9985 #### [facility] [address] [place], [address] Cholesterol in LDL [Mass/Vol] 63 mg/dL Normal [facility] Comment on above: Order Comment: Order Date: 05/04/24 Order Info: [id number] - CMP Order Info: [id number] - LIPID Result Comment: Bord vgbtit=339-795 mg/dL Higher Wkhm=484 mg/dL or greater Performed By: #### L 100.0100, L500.4100, L502.0250, L500.4050, L501.9985 #### [facility] [address] [place], [address] Cholesterol in VLDL [Mass/Vol] 14 mg/dL Normal 5-40 [facility] Comment on above: Order Comment: Order Date: 05/04/24 Order Info: [id number] - CMP Order Info: [id number] - LIPID Performed By: #### L 100.0100, L500.4100, L502.0250, L500.4050, L501.9985 #### [facility] [address] [place], [address] Triglyceride [Mass/Vol] 72 mg/dL Normal [facility] Comment on above: Order Comment: Order Date: 05/04/24 Order Info: [id number] - CMP Order Info: [id number] - LIPID Result Comment: The drugs N-Acetylcysteine and Metamizole may falsely depress this assay. Normal range: <150 mg/dL Borderline High: 150-199 mg/dL High: 200-499 mg/dL Very High: >500 mg/dL Performed By: #### L 100.0100, L500.4100, L502.0250, L500.4050, L501.9985 #### [facility] [address] [place], [place], [address] Lymphocytes Auto (Unsp spec) [#/Vol]Ordered By: Yue Leal on 05-04-2024 Lymphocytes (Bld) [#/Vol] 1.50 10*3/uL 0.83-4.51 [facility] Lymphocytes/100 WBC Auto (Un sp spec)Ordered By: Yue Leal on 05-04-2024 Lymphocytes/100 WBC (Bld) 23.7 % 19-41 [facility] MCV (mean corpuscular volume ) determinationOrdered By: Yue Leal on 05-04-2024 MCV (RBC) [Entitic vol] 92.3 fL 80-94 [facility] Mean corpuscular hemoglobin (MCH) determinationOrdered By: Yue Leal on 05-04-2024 MCH (RBC) [Entitic mass] 29.7 pg 27.0-32.0 [facility] Mean corpuscular hemoglobin concentration (MCHC) determinationOrdered By: Yue Leal on 05-04-2024 MCHC (RBC) [Mass/Vol] 32.2 g/dL 32-36 [facility] Mean platelet volume determi nationOrdered By: Yue Leal on 05-04-2024 Platelet mean volume (Bld) [Entitic vol] 11.1 fL 6.2-12.0 [facility] Microalb:Creat Ratio,Random URon 05-04-2024 Creatinine [Mass/Vol] 63.10 mg/dL Normal 39.00- 259.0 0 [facility] Comment on above: Order Comment: Order Date: 05/04/24 Order Info: [id number] - MIACRE Order Info: [id number] - MIALB Performed By: #### L 100.0100, L500.4100, L502.0250, L500.4050, L501.9985 #### [facility] Laboratory [address] [place], [address] MALB:CREAT UNABLE TO CALCULATE Normal [facility] Comment on above: Order Comment: Order Date: 05/04/24 Order Info: [id number] - MIACRE Order Info: [id number] - MIALB Performed By: #### L 100.0100, L500.4100, L502.0250, L500.4050, L501.9985 #### [facility] Laboratory [address] [place], [address] MICROALBUMIN,UR < 12.0 Normal NO RANGE EST. [facility] Comment on above: Order Comment: Order Date: 05/04/24 Order Info: [id number] - MIACRE Order Info: [id number] - MIALB Performed By: #### L 100.0100, L500.4100, L502.0250, L500.4050, L501.9985 #### [facility] [address] [place], [address] Microalbumin/creat ratio urO rdered By: Yue Leal on 05-04-2024 Urine Microalbumin/Creatinin e Ratio UNABLE TO CALCULATE mg/g CRE [facility] Monocyte percentageOrdered B y: Yue Leal on 05-04-2024 Monocytes/100 WBC (Bld) 6.0 % 0-10 [facility] Neutrophil percentageOrdered By: Yue Leal on 05-04-2024 Neutrophils/100 WBC (Bld) 63.7 % 47-70 [facility] Nucleated red blood cell per centageOrdered By: Yue Leal on 05-04-2024 Nucleated RBC/100 WBC (Bld) [Ratio] 0 % 0-5 [facility] Platelet countOrdered By: Ann Leal on 05-04-2024 Platelets (Bld) [#/Vol] 171 10*3/uL 150-450 [facility] Potassium (Unsp spec) [Mass/ Vol]Ordered By: Yue Leal on 05-04-2024 Potassium [Moles/Vol] 4.7 mmol/L 3.3-5.1 [facility] RBC Auto (Bld) [#/Vol]Ordere d By: Yue Leal on 05-04-2024 RBC (Bld) [#/Vol] 5.05 10*6/uL 4.6-6.2 [facility] Screening total cholesterol/ high density lipoprotein (HDL) cholesterol ratioOrdered By: Yue Leal on 05-04-2024 Cholesterol.total/Chol esterol in HDL [Mass ratio] 4.10 {ratio} [facility] Serum creatinine measurement (mass/volume)Ordered By: Yue Leal on 05-04-2024 Creatinine [Mass/Vol] 0.87 mg/dL 0.70-1.20 [facility] Serum globulin measurementOr dered By: Yue Leal on 05-04-2024 Globulin (S) [Mass/Vol] 2.6 g/dL 2.2-4.2 [facility] Serum glucose measurement (m ass/volume)Ordered By: Yue Leal on 05-04-2024 Glucose [Mass/Vol] 112 mg/dL High 70-99 [facility] Serum or plasma alanine mcginnis otransferase (ALT) measurementOrdered By: Yue Leal on 05-04-2024 ALT [Catalytic activity/Vol] 16 U/L <47 [facility] Serum or plasma albumin jessica urement (mass/volume)Ordered By: Yue Leal on 05-04-2024 Albumin [Mass/Vol] 4.5 g/dL 3.4-4.8 [facility] Serum or plasma albumin/glob ulin mass ratioOrdered By: Yue Leal on 05-04-2024 Albumin/Globulin [Mass ratio] 1.7 {ratio} 0.9-2.4 [facility] Serum or plasma alkaline paulina sphatase measurementOrdered By: Yue Leal on 05-04-2024 ALP [Catalytic activity/Vol] 110 U/L 40-129 [facility] Serum or plasma calcium jessica urement (mass/volume)Ordered By: Yue Leal on 05-04-2024 Calcium [Mass/Vol] 9.7 mg/dL 7.6-11.0 [facility] Serum or plasma cholesterol in HDL measurement (mass/volume)Ordered By: Yue Leal on 05-04-2024 Cholesterol in HDL [Mass/Vol] 25 mg/dL Low >40 [facility] Comment on above: National Cholesterol Education Program (NCEP) guidelines:<40 mg/dL: Low HDL-cholesterol (major risk factor for CHD)>= 60 mg/dL: High HDL-cholesterol (negative risk factor for CHD)HDL-cholesterol is affected by a number of factors, e.g. smoking, exercise, hormones, sex and age. Serum or plasma cholesterol measurement (mass/volume)Ordered By: Yue Leal on 05-04-2024 Cholesterol [Mass/Vol] 102 mg/dL <201 [facility] Comment on above: Cholesterol level, D esirable <200 mg/dLBorderline high cholesterol 200-239 mg/dLHigh cholesterol >=240 mg/dLRecommendations of the NCEP Adult Treatment Panel for the following risk-cutoff thresholds for the [place] population. Serum or plasma urea nitroge n measurement (mass/volume)Ordered By: Yue Leal on 05-04-2024 Urea nitrogen [Mass/Vol] 20 mg/dL High 4-19 [facility] Sodium levelOrdered By: Yue Leal on 05-04-2024 Sodium [Moles/Vol] 139 mmol/L 133-145 [facility] Total proteinOrdered By: Holden Leal on 05-04-2024 Protein [Mass/Vol] 7.1 g/dL 5.9-8.4 [facility] Triglycerides measurementOrd ered By: Yue Leal on 05-04-2024 Triglyceride [Mass/Vol] 72 mg/dL <199 [facility] Comment on above: The drugs N-Acetylcy steine and Metamizole may falsely depress this assay. Normal range: <150 mg/dLBorderline High: 150-199 mg/dLHigh: 200-499 mg/dLVery High: >500 mg/dL Vitamin D, 25-hydroxyOrdered By: Yue Leal on 05-04-2024 Vitamin D 25-Hydroxy 30.3 ng/mL 30-100 [facility] Comment on above: Vitamin D StatusDefi ciency: <20 ng/mL (50nmol/L)Insufficiency: 20-30 ng/mL (50-75 nmol/L)Sufficiency: 30-100 ng/mL (75-250 nmol/L)Toxicity: >100 ng/mL (>250 nmol/L) White blood cell (WBC) count Ordered By: Yue Leal on 05-04-2024 WBC (Bld) [#/Vol] 6.3 10*3/uL 4.4-11.0 [facility] Orthopedic Visit Reporton Orthopedic Visit Report [facility] [address] [place] [address] [address] [place] [address] OFFICE VISIT Date of Service: 04/13/24 MR#: [id number] Acct: [id number] Name: YUE CHPAIN Rep #: [id number] : 1950 Provider: Dr. Ian hdz MD Age/Sex: 73/M [place] [facility] Status: Signed Intake Vital Signs 03/16/24 11:39 04/13/24 13:56 Height 6 ft 4 in 6 ft 4 in Weight: 206 lb 201 lb 6 oz BMI 25.0 24.5 BP 123/80 H Blood Pressure Location Lt brachial Position Sitting Respiration 18 Pulse 66 Pulse Source Monitor Intake Visit Reasons: LEFT THUMB Chief Complaint: Left Thumb Pain Accompanied by: Self Is patient in pain?: Yes Pain scale (1-10): 2 Allergies No Known Allergies Allergy (Verified 04/13/24 13:56) Medications ???Medication ???Instructions ???Recorded ???Confirmed ???Type plecanatide 3 mg tablet (Trulance) 3 mg PO DAILY 10/21/23 04/13/24 History atorvastatin 40 mg tablet 20 mg PO QHS 12/26/23 04/13/24 His tory brimonidine 0.2 % eye drops 1 drp ophthalmic (eye) BID 4 04/13/24 History dorzolamide 22.3 mg-timolol 6.8 1 drp ophthalmic (eye) BID 4 04/13/24 History mg/mL eye drops dulaglutide 1.5 mg/0.5 mL 1.5 mg subcut QWEEK 12/26/2304/13 History subcutaneous pen injector (Trulicity) empagliflozin 25 mg tablet 25 mg PO DAILY 12/26/23 04/13/24 H istory (Jardiance) latanoprost 0.005 % eye drops 1 drp ophthalmic (eye) QDAY 04/13/24 History metformin 850 mg tablet 850 mg PO BID 12/26/23 04/13/24 Hi story cholecalciferol (vitamin D3) 25 25 mcg PO QDAY 01/10/24 04/13/24 H istory mcg (1,000 unit) capsule docusate sodium 100 mg capsule 100 mg PO DAILY PRN constipation 1 03/11/23 04/13/24 History (DOK) fluticasone propionate 50 1 spray intranasal QDAY PRN 04/13/24 History mcg/actuation nasal allergy symptoms spray,suspension Have you fallen in the past year?: Yes (November 2023) [facility] Medical History Fracture of thumb, left, closed GERD (gastroesophageal reflux disease) PVC (premature ventricular contraction) Hypercholesterolemia Diabetes Social History Smoking Status: Former smoker HPI LEFT THUMB Details: This documentation accurately reflects the service provided and the decisions made by me, Dr. Ian Vickers MD 04/13/24 2760. Part of today???s visit was documented by [ ], acting as scribe. YUE CHAPIN is a 73 year old M here today for left thumb distal phalanx fracture. Patient [id number]. He a heavy pot following him back February 01 now about 3 months ago. He was initially placed into a thumb spica brace. He has noticed a little bit of swelling in the thumb some mild pain when he tries to load up the magazine of a gun. Supplemental Info [facility] Imaging Services [address] [place] [address] Finger(s) Min 2 Views MR#: [id number] Acct: [id number] Name: YUE CHAPIN Rep #: [id number] : 1950 M 73 From: Magdiel Laura MD PCP: Dr. Yue Leal MD Status: REG CLI Study: Finger(s) Min 2 Views Date of Exam: 02/16/24 Exam# [id number] Ordering Dr: Yue Leal MD [id number] STUDY: X-RAY - LEFT HAND, ATTENTION THUMB FINGER REASON FOR EXAM: Male, 73 years old. Fracture/trauma. TECHNIQUE: 3 views of the left thumb were obtained. COMPARISON: None. FINDINGS: Intact visualized first metacarpal. There is mild degenerative arthrosis of the MCP joint of the thumb. Normal proximal phalanx of the thumb. There is a minimally displaced transverse fracture through the midportion of the distal phalanx of the thumb. Normal interphalangeal joint of the thumb. RAD/Finger(s) Min 2 Views IMPRESSION: Minimally displaced transverse fracture through the midportion of the distal phalanx of the thumb. 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 Electronically Signed: Magdiel Laura MD at 9:35 EST Reading Location ID and State: [address] [place] [address] , Service support , [facility] Imaging Services [address] [place] [address] Finger(s) Min 2 Views MR#: [id number] Acct: [id number] Name: YUE CHAPIN Rep #: [id number] : 1950 M 73 From: Emmanuel Batista MD PCP: Dr. Daigle (more content not included)... Normal [facility] Finger(s) Min 2 Viewson 03-18 Finger(s) Min 2 Views [facility] Imaging Services [address] [place], [place] [id number] Finger(s) Min 2 Views MR#: [id number] Acct: [id number] Name: YUE CHAPIN Rep #: [id number] : 1950 M 73 From: Emmanuel Batista MD PCP: Dr. Yue Leal MD Status: REG CLI Study: Finger(s) Min 2 Views Date of Exam: 04/10/24 Exam# [id number] Ordering Dr: Yue Leal MD PROCEDURE: FINGER(S) MIN 2 VIEWS REASON FOR EXAM: History of fracture, still not feeling better TECHNIQUE: 3 view(s) of the left 1st ray, thumb COMPARISON: 02/16/2024 FINDINGS: Continued visualization of fracture plane at the 1st distal phalanx without significant interval callus formation or definite bony bridging since the prior examination. No change in bony alignment. 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 RAD/Finger(s) Min 2 Views IMPRESSION: Continued visualization of fracture plane at the 1st distal phalanx without significant interval callus formation or definite bony bridging since the prior examination. No change in bony alignment. Reading Location: [facility] CC: Dr. Yue Leal MD Traffic Superintendent: Signed Normal [facility] Cardiology Visit Reporton Cardiology Visit Report [facility] [address] [place] [address] OFFICE VISIT Date of Service: 03/16/24 MR#: [id number] Acct: [id number] Name: YUE CHAPIN Rep #: [id number] : 1950 Provider: POLA Huang Age/Sex: 73/M Location: [facility] [place] Status: Signed HPI HPI History of Present Illness Details: Yue Chapin is a 73-year-old white male who established with us for frequent PVCs. He also has a history of hyperlipidemia and diabetes. As part of his evaluation he had a pharmacologic stress test which was negative for ischemia in February 2024.Echocardiogram in January 2024 demonstrated an ejection fraction of 55% with Myxomatous appearing tricuspid valve. From a cardiac standpoint, patient is doing well. He does not have any chest discomfort/heaviness/t ightness. His exercise tolerance is stable for his age. He does not have any worsening symptoms of shortness of breath. He denies any PND. He does not have any orthopnea. He does not have any symptoms of congestive heart failure. He does not have any palpitations that he is aware of. He does not have any lightheadedness or dizziness. He does not have any near-syncope or syncope. He does not have any lower extremity edema. He does not have any symptoms of claudication. Intake Vital Signs 02/11/24 21:59 03/16/24 11:39 Height 6 ft 4 in 6 ft 4 in Weight: 206 lb BMI 25.0 BP 123/80 H Blood Pressure Location Lt brachial Position Sitting Respiration 18 Pulse 66 Pulse Source Monitor Intake Visit Reasons: Acute Intellectual Property Manager Required: No Is patient in pain?: No Allergies No Known Allergies Allergy (Verified 03/16/24 11:40) Medications ???Medication ???Instructions ???Recorded ???Confirmed ???Type plecanatide 3 mg tablet (Trulance) 3 mg PO DAILY 10/21/23 03/16/24 History atorvastatin 40 mg tablet 20 mg PO QHS 12/26/23 03/16/24 His tory brimonidine 0.2 % eye drops 1 drp ophthalmic (eye) BID 4 03/16/24 History dorzolamide 22.3 mg-timolol 6.8 1 drp ophthalmic (eye) BID 4 03/16/24 History mg/mL eye drops dulaglutide 1.5 mg/0.5 mL 1.5 mg subcut QWEEK 12/26/2303/16 History subcutaneous pen injector (Trulicity) empagliflozin 25 mg tablet 25 mg PO DAILY 12/26/23 03/16/24 H istory (Jardiance) latanoprost 0.005 % eye drops 1 drp ophthalmic (eye) QDAY 03/16/24 History metformin 850 mg tablet 850 mg PO BID 12/26/23 03/16/24 Hi story cholecalciferol (vitamin D3) 25 25 mcg PO QDAY 01/10/24 03/16/24 H istory mcg (1,000 unit) capsule docusate sodium 100 mg capsule 100 mg PO DAILY PRN constipation 1 03/11/23 03/16/24 History (DOK) fluticasone propionate 50 1 spray intranasal QDAY PRN 03/16/24 History mcg/actuation nasal allergy symptoms spray,suspension Have you fallen in the past year?: No PFSH Medical History GERD (gastroesophageal reflux disease) PVC (premature ventricular contraction) Hypercholesterolemia Diabetes Social History Smoking Status: Former smoker ROS Const Const: Negative for fatigue, weakness, headache(s) or frequent falls Eyes Eyes: Negative for loss of peripheral vision or change in vision ENT ENT: Positive for balance problems (had back surgery); Negative for headache(s), dizziness or hearing loss Cardio Chest Pain: Yes (vague, not frequent) Palpitations: No Edema: None Muscle aches with walking: None Resp Respiratory: Negative for SOB with activity, SOB at rest or SOB orthopnea SOB lying down GI GI: Negative nausea, vomiting or heartburn Musc Musc: Positive for balance problems (had back surgery); Negative for muscle aches/ myalgia, muscle weakness or joint pain Neuro Neuro: Negative for dizziness, frequent falls, headache(s) or weakness Endo Endo: Negative for fatigue Cardiology Exam Const Appearance: cooperative, comfortable, no acute distress and well developed Head Head: normal to inspection Teeth and gingiva: poor dentition Eyes General: appearance normal, both eyes and all related structures Neck Neck: normal visual inspection and no JVD Carotids: Negative bruit Chest Chest inspection: normal inspection of the chest Auscultation: Bilateral: Clear to Auscultation Cardio Rate: regular rate Rhythm: regular rhythm Heart sounds: S1 normal and S2 normal; Negative rub, gallop or murmur GI GI: normal to inspection and bowel sounds present Neuro General: patient alert and patient oriented x3 Skin Skin: no rashes or lesions noted Extremities Lower Extremity Edema: None: Bilateral Psych Psychological: normal affect Supplemental Info Supplemental Infor (more content not included)... Normal [facility] Stress Reporton 02-24-2024 Stress Report [facility] Cardiovascular Services [address] [place] [address] MR#: [id number] Acct: [id number] Name: YUE CHAPIN Rep #: [id number] : 1950 73 From: Christopher Matias MD Primary Care: Dr. Yue Leal MD Status: REG CLI Referring Dr: Yue Matthew ASPHALT ROLLER PERSON ASPHALT ROLLER PERSON-C Sex: M C Stress Test Report Date: 02/23/2024 Procedure: Pharmacologic stress nuclear imaging study Indications: Chest pain Consent: Per the patient Procedure: The patient underwent pharmacologic (Regadenoson) evaluation with a peak heart rate of 107 beats per minute (73%predicted maximal heart rate) and a peak blood pressure of 118/70 mmHg. The baseline ECG demonstrated normal sinus rhythm. EKG during lexiscan infusion revealed no significant ischemic changes. EKG post infusion revealed no significant ischemic changes [There were no cardiac dysrhythmias pretest, during pharmacologic infusion, or recovery]. [There was no complaint of chest discomfort during pharmacologic infusion or recovery]. The examination was discontinued secondary to completion of protocol. Impression: 1. Lexiscan stress test test is negative for Lexiscan infusion induced EKG changes of ischemia. 2. Lexiscan stress test test is negative for Lexiscan infusion induced chest pain. 3. Results of the nuclear portion of the test is as below Myocardial perfusion imaging study: Technique: The patient was injected with 11 millicuries of technetium 99m Cardiolite and subsequently rest SPECT Cardiolite nuclear imaging was obtained in the horizontal long, vertical long, and short axis views. The patient underwent pharmacologic [Regadenoson 0.4mg] evaluation. Please see above for details. The patient was injected with 35 millicuries of technetium 99m Cardiolite and subsequently stress SPECT Cardiolite nuclear imaging was obtained in the horizontal long, vertical long, and short axis views. A gated Cardiolite study at peak stress was obtained. Interpretation: Rest and stress SPECT Cardiolite nuclear imaging status post realignment, normalization, and attenuation correction demonstrate mild fixed defect in the apex and septum. No significant reve rsibility suggestive of significant ischemia. Gated images reveal no significant regional wall motion abnormalities. The reported LVEF is 69%. Impression: 1. There is no evidence of significant ischemia. 2. Estimated ejection fraction is 69%. This note was generated with Appsind[employer] dictation software. It may contain incorrect words, spelling, and punctuation that were not noted in checking the note before signing. 02/24/24 1426 Date Christopher Matias MD CC: DONITA Matthew; Dr. Yue Leal MD Date Dictated: 02/24/241418 Date Transcribed: 02/24/241418 Traffic Superintendent: NN Signed Normal [facility] Finger(s) Min 2 Viewson 010 2-2024 Finger(s) Min 2 Views [facility] Imaging Services [address] [place] [address] Finger(s) Min 2 Views MR#: [id number] Acct: [id number] Name: YUE CHAPIN Rep #: [id number] : 1950 M 73 From: Magdiel Laura MD PCP: Dr. Yue Leal MD Status: REG CL Study: Finger(s) Min 2 Views Date of Exam: 02/16/24 Exam# [id number] Ordering Dr: Yue Leal MD [id number] STUDY: X-RAY - LEFT HAND, ATTENTION THUMB FINGER REASON FOR EXAM: Male, 73 years old. Fracture/trauma. TECHNIQUE: 3 views of the left thumb were obtained. COMPARISON: None. FINDINGS: Intact visualized first metacarpal. There is mild degenerative arthrosis of the MCP joint of the thumb. Normal proximal phalanx of the thumb. There is a minimally displaced transverse fracture through the midportion of the distal phalanx of the thumb. Normal interphalangeal joint of the thumb. RAD/Finger(s) Min 2 Views IMPRESSION: Minimally displaced transverse fracture through the midportion of the distal phalanx of the thumb. 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 Electronically Signed: Magdiel Laura MD at 9:35 EST , CC: Dr. Yue Leal MD Traffic Superintendent: Signed Normal [facility] Emergency Department Summary on 02-12-2024 Emergency Department Summary [facility] Medical Records Department [address] [place] [address] Emergency Department Summary 02/12/24 MR#: [id number] Acct: [id number] Name: YUE CHAPIN Rep #: [id number] : 1950 73 From: Hunter Hoyt DO PCP: Dr. Yue Leal MD Status:DEP ER Location: ED HPI History of Present Illness Chief Complaint: Chest Pain Informant: patient Narrative Narrative: Patient is a 73-year-old male with past medical history of hyperlipidemia diabetes and GERD. He states a few hours prior to arrival he developed some midsternal chest discomfort. He states that there is no associated nausea vomiting diaphoresis or shortness of breath. He denies any radiation of the pain. However because of his history of hyperlipidemia and diabetes and his age he is concerned this could be cardiac in nature and therefore comes in for evaluation [facility] Medical History (Updated 02/19/24 @ 06:[address] Hunter Hoyt DO) GERD (gastroesophageal reflux disease) PVC (premature ventricular contraction) Hypercholesterolemia Diabetes Home Medications ???Medication ???Instructions ???Recorded ???Last Taken ???Type plecanatide 3 mg tablet (Trulance) 3 mg PO DAILY 10/21/23 Unknown History atorvastatin 40 mg tablet 20 mg PO QHS 12/26/23 Unknown History brimonidine 0.2 % eye drops 1 drp ophthalmic (eye) BID 12/26/23 Unknown History dorzolamide 22.3 mg-timolol 6.8 1 drp ophthalmic (eye) BID 12/26/23 Unknown History mg/mL eye drops dulaglutide 1.5 mg/0.5 mL 1.5 mg subcut QWEEK 12/26/23 Unknown History subcutaneous pen injector (Trulicity) empagliflozin 25 mg tablet 25 mg PO DAILY 12/26/23 Unknown History (Jardiance) latanoprost 0.005 % eye drops 1 drp ophthalmic (eye) QDAY 12/26/23 Unknown History metformin 850 mg tablet 850 mg PO BID 12/26/23 Unknown History cholecalciferol (vitamin D3) 25 25 mcg PO QDAY 01/10/24 Unknown History mcg (1,000 unit) capsule docusate sodium 100 mg capsule 100 mg PO DAILY PRN constipation 01/10/24 Unknown History (DOK) fluticasone propionate 50 1 spray intranasal QDAY PRN 01/10/24 Unknown History mcg/actuation nasal allergy symptoms spray,suspension Allergy/AdvReac Type Severity Reaction Status Date / Time No Known Allergies Allergy Verified 02/11/24 22:02 Social History Smoking Status: Former smoker ROS ROS ED Constitutional Constitutional ED: Denies chills or fever(s) Eyes Eyes: Denies blurry vision or change in vision ENT ENT ED: Denies sore throat Cardiovascular Cardiovascular: Reports chest pain; Denies palpitations or racing heartbeat Respiratory/Chest Respiratory/Chest: Denies cough or dyspnea Gastrointestinal Gastrointestinal: Denies abdominal pain, diarrhea, nausea or vomiting Genitourinary Genitourinary ED: Denies dysuria Musculoskeletal Musculoskeletal: Denies back pain Integumentary Denies rash Neurologic Neurologic: Denies headache(s), paresthesias or weakness Hematologic/Lymphatic Hematologic/Lymphatic: Denies easy bleeding or easy bruising EXAM Physical Exam Const Vital Signs: 02/11/24 21:59 02/11/24 22:04 02/11/24 22:59 Temperature 97.7 F L Temperature Source Oral Pulse Rate 72 70 Respiratory Rate 11 L 19 H Respiratory Effort Normal Non-Labored Blood Pressure 148/71 H 142/85 H Blood Pressure Mean 96 104 Pulse Ox 97 100 Oxygen Delivery Method Room Air Room Air 02/11/24 23:07 02/11/24 23:15 02/11/24 23:30 Temperature Temperature Source Pulse Rate 76 71 74 Respiratory Rate 17 14 20 H Respiratory Effort Blood Pressure 119/53 L 122/66 H Blood Pressure Mean 73 84 Pulse Ox Oxygen Delivery Method 02/11/24 23:45 02/12/24 00:00 02/12/24 00:07 Temperature Temperature Source Pulse Rate 75 79 Respiratory Rate 16 14 Respiratory Effort Blood Pressure 104/73 118/63 Blood Pressure Mean 83 79 Pulse Ox Oxygen Delivery Method Positive well nourished and well developed General Appearance ED: well developed; Negative for pallor HEENT HEENT Narrative: Normocephalic atraumatic Eyes PERRL and EOMs intact bilaterally General Eye ED: Negative for scleral icterus Neck supple and no JVD Neck Narrative: No nuchal rigidity or meningeal signs Chest Wall palpation of chest normal Chest Narrative: No bony deformity or crepitance or subcutaneous emphysema noted Resp normal respiratory effort and clear to auscultation bilaterally Cardio regular rate and regular rhythm Rate: other Other Details: Heart is regular rate and rhythm without murmurs rubs or gallop Radial and carotid pulses are equal and symmetric GI normal to inspection, nondistended, normoactive bowel sounds, non-tender (more content not included)... Normal [facility] L501.4020on 02-12-2024 TROPONIN-I HS 9 pg/mL Normal 3.0-78.0 [facility] Comment on above: Order Comment: 'TROP ' Serial specimen #1, #2 or #3: 2 Result Comment: Plea se Note: New Test Units and Gender Specific Reference Ranges. For more information see Policy Stat Procedure [place] High Sensitivity Troponin (TNIH) and attachments. Performed By: #### L 501.4020 #### [facility] Laboratory [address] [facility], [address] Troponin IOrdered By: Hunter Hoyt on 02-12-2024 Troponin I High Sensitivity 9 pg/mL 3.0-78.0 [facility] Comment on above: Please Note: New Apoorva t Units and Gender Specific Reference Ranges. For more information see Policy Stat Procedure [place] High Sensitivity Troponin (TNIH) and attachments. 12 Lead EKGon 02-11-2024 12 Lead EKG [facility] Cardiovascular Services [address] [place] [address] 12 Lead EKG 02/11/24 2202 MR#: [id number] Acct: [id number] Name: YUE CHAPIN Rep #: [id number] : 1950 73 From: Kieran Melgoza MD Attending Dr: Status: DEP ER Ordering Dr: Hunter Hoyt DO Date: 02/11/24 Location: ED Sex: M C Admitted: Test Reason : CP Blood Pressure : */* mmHG Vent. Rate : 84 BPM Atrial Rate : 84 BPM P-R Int : 306 ms QRS Dur : 110 ms QT Int : 378 ms P-R-T Axes : 60 -19 45 degrees QTcB Int : 446 ms Sinus rhythm with 1st degree A-V block Septal infarct (cited on or before 20-Oct-2023) Abnormal ECG Confirmed by RHONA PONCE, KIERAN ([id number]), video tape editor STEPHANY PRESTON ([id number]) on 02/13/2024 8:41:00 AM Referred By: FABRICIO Confirmed By: KIERAN MELGOZA MD 02/13/24 0841 Date Kieran Melgoza MD CC: Dr. Yue Leal MD; Hunter Hoyt DO Signed Normal [facility] Absolute neutrophil countOrd ered By: Hunter Hoyt on 02-11-2024 Neutrophils (Bld) [#/Vol] 4.2 10*3/uL 2.0-7.7 [facility] Basic Metabolic Profile (BMP )on 02-11-2024 BUN/CRE 24.8 RATIO High 10-20 [facility] Comment on above: Order Comment: 'TROP ' Serial specimen #1, #2 or #3: 1 Performed By: #### L 100.0100, L501.9520, L501.5200, L500.2500, L501.4020 ####[facility] [address] [place], [address] CA,Total 9.5 mg/dL Normal 8.5-10.1 [facility] Comment on above: Order Comment: 'TROP ' Serial specimen #1, #2 or #3: 1 Performed By: #### L 100.0100, L501.9520, L501.5200, L500.2500, L501.4020 ####[facility] [address] [place], [address] Chloride [Moles/Vol] 103 mmol/L Normal 98-107 [facility] Comment on above: Order Comment: 'TROP ' Serial specimen #1, #2 or #3: 1 Performed By: #### L 100.0100, L501.9520, L501.5200, L500.2500, L501.4020 ####[facility] [address] [place], [address] CO2 [Moles/Vol] 30.0 mmol/L Normal 21.0-32.0 [facility] Comment on above: Order Comment: 'TROP ' Serial specimen #1, #2 or #3: 1 Performed By: #### L 100.0100, L501.9520, L501.5200, L500.2500, L501.4020 ####[facility] [address] [place], [address] Creatinine [Mass/Vol] 0.93 mg/dL Normal 0.70-1.30 [facility] Comment on above: Order Comment: 'TROP ' Serial specimen #1, #2 or #3: 1 Result Comment: The validity of the calculated GFR GFRAA in patients over 70 years has not been determined. Clinical correlation is essential. Performed By: #### L 100.0100, L501.9520, L501.5200, L500.2500, L501.4020 ####[facility] [address] [place], [address] ECRCL 85.56 ml/min Normal [facility] Comment on above: Order Comment: 'TROP ' Serial specimen #1, #2 or #3: 1 Performed By: #### L 100.0100, L501.9520, L501.5200, L500.2500, L501.4020 ####[facility] [address] [place], [address] EST GFR - AA 102 mL/min Normal >60 [facility] Comment on above: Order Comment: 'TROP ' Serial specimen #1, #2 or #3: 1 Result Comment: Afri can Cameroonian GFR Calc Performed By: #### L 100.0100, L501.9520, L501.5200, L500.2500, L501.4020 ####[facility] [address] [place], [address] GAP 6 Normal 5-15 [facility] Comment on above: Order Comment: 'TROP ' Serial specimen #1, #2 or #3: 1 Performed By: #### L 100.0100, L501.9520, L501.5200, L500.2500, L501.4020 ####[facility] [address] [place], [address] GFR/1.73 sq M.predicted among non-blacks MDRD (S/P/Bld) [Vol rate/Area] 85 mL/min/{1.73_m2} Normal >60 [facility] Comment on above: Order Comment: 'TROP ' Serial specimen #1, #2 or #3: 1 Result Comment: Non- GFR Calc Performed By: #### L 100.0100, L501.9520, L501.5200, L500.2500, L501.4020 ####[facility] [address] [place], [address] Glucose [Mass/Vol] 221 mg/dL High 74-106 [facility] Comment on above: Order Comment: 'TROP ' Serial specimen #1, #2 or #3: 1 Result Comment: Gluc ose result greater than or equal to 200 mg/dL suggests DIABETES MELLITUS per A.D.A. criteria. Performed By: #### L 100.0100, L501.9520, L501.5200, L500.2500, L501.4020 ####[facility] [address] [place], [address] Potassium [Moles/Vol] 4.2 mmol/L Normal 3.5-5.1 [facility] Comment on above: Order Comment: 'TROP ' Serial specimen #1, #2 or #3: 1 Performed By: #### L 100.0100, L501.9520, L501.5200, L500.2500, L501.4020 ####[facility] [address] [place], [address] Sodium [Moles/Vol] 139 mmol/L Normal 136-145 [facility] Comment on above: Order Comment: 'TROP ' Serial specimen #1, #2 or #3: 1 Performed By: #### L 100.0100, L501.9520, L501.5200, L500.2500, L501.4020 ####[facility] [address] [place], [address] Urea nitrogen [Mass/Vol] 23 mg/dL High 7-18 [facility] Comment on above: Order Comment: 'TROP ' Serial specimen #1, #2 or #3: 1 Performed By: #### L 100.0100, L501.9520, L501.5200, L500.2500, L501.4020 ####[facility] [address] [place], [address] Basophil percentageOrdered B y: Hunter Hoyt on 02-11-2024 Basophils/100 WBC (Bld) 1.3 % High 0-1 [facility] Bilirubin Test strip Ql (U)O rdered By: Hunter Hoyt on 02-11-2024 Bilirubin Ql (U) Negative Negative [facility] Blood urea nitrogen (BUN)/cr eatinine ratioOrdered By: Hunter Hoyt on 02-11-2024 Urea nitrogen/Creatinine [Mass ratio] 24.8 mg/mg High 10-20 [facility] CBC W/Diff, Automatedon 12-2 Absolute Lymph 1.35 X10 3/uL Normal 0.83-4.51 [facility] Comment on above: Performed By: #### L 100.0100, L501.9520, L501.5200, L500.2500, L501.4020 ####[facility] [address] [place], [address] Absolute Neut 4.2 X10 3/uL Normal 2.0-7.7 [facility] Comment on above: Performed By: #### L 100.0100, L501.9520, L501.5200, L500.2500, L501.4020 ####[facility] [address] [place], [address] Basophils/100 WBC (Bld) 1.3 % High 0-1 [facility] Comment on above: Performed By: #### L 100.0100, L501.9520, L501.5200, L500.2500, L501.4020 ####[facility] [address] [place], [address] Eosinophils/100 WBC (Bld) 4.8 % Normal 0-5 [facility] Comment on above: Performed By: #### L 100.0100, L501.9520, L501.5200, L500.2500, L501.4020 ####[facility] [address] [place], [address] Erythrocyte distribution width (RBC) [Ratio] 12.4 % Normal 11.6-14.6 [facility] Comment on above: Performed By: #### L 100.0100, L501.9520, L501.5200, L500.2500, L501.4020 ####[facility] [address] [place], [address] Hematocrit (Bld) [Volume fraction] 46.6 % Normal 40-54 [facility] Comment on above: Performed By: #### L 100.0100, L501.9520, L501.5200, L500.2500, L501.4020 ####[facility] [address] [place], [address] Hemoglobin (Bld) [Mass/Vol] 14.9 g/dL Normal 13.0-16.5 [facility] Comment on above: Performed By: #### L 100.0100, L501.9520, L501.5200, L500.2500, L501.4020 ####[facility] [address] [place], [address] IG% 0.300 Normal 0.0-0.9 [facility] Comment on above: Result Comment: IG% - Immature Granulocytes (promyelocytes, myelocytes and metamyelocytes) > 1% indicates that a LEFT SHIFT is Present. Performed By: #### L 100.0100, L501.9520, L501.5200, L500.2500, L501.4020 ####[facility] [address] [place], [address] Lymphocytes/100 WBC (Bld) 21.1 % Normal 19-41 [facility] Comment on above: Performed By: #### L 100.0100, L501.9520, L501.5200, L500.2500, L501.4020 ####[facility] [address] [place], [address] MCH (RBC) [Entitic mass] 29.4 pg Normal 27.0-32.0 [facility] Comment on above: Performed By: #### L 100.0100, L501.9520, L501.5200, L500.2500, L501.4020 ####[facility] [address] [place], [address] MCHC (RBC) [Mass/Vol] 32.0 g/dL Normal 32-36 [facility] Comment on above: Performed By: #### L 100.0100, L501.9520, L501.5200, L500.2500, L501.4020 ####[facility] [address] [place], [address] MCV (RBC) [Entitic vol] 92.1 fL Normal 80-94 [facility] Comment on above: Performed By: #### L 100.0100, L501.9520, L501.5200, L500.2500, L501.4020 ####[facility] [address] [place], [address] Monocytes/100 WBC (Bld) 7.7 % Normal 0-10 [facility] Comment on above: Performed By: #### L 100.0100, L501.9520, L501.5200, L500.2500, L501.4020 ####[facility] [address] [place], [address] Neutrophils/100 WBC (Bld) 64.8 % Normal 47-70 [facility] Comment on above: Performed By: #### L 100.0100, L501.9520, L501.5200, L500.2500, L501.4020 ####[facility] [address] [place], [address] Nucleated RBC (Bld) [#/Vol] 0 10*3/uL Normal 0-5 [facility] Comment on above: Performed By: #### L 100.0100, L501.9520, L501.5200, L500.2500, L501.4020 ####[facility] [address] [place], [address] Platelet mean volume (Bld) [Entitic vol] 10.8 fL Normal 6.2-12.0 [facility] Comment on above: Performed By: #### L 100.0100, L501.9520, L501.5200, L500.2500, L501.4020 ####[facility] [address] [place], [address] Platelets (Bld) [#/Vol] 187 10*3/uL Normal 150-450 [facility] Comment on above: Performed By: #### L 100.0100, L501.9520, L501.5200, L500.2500, L501.4020 ####[facility] [address] [place], [address] RBC (Bld) [#/Vol] 5.06 10*6/uL Normal 4.6-6.2 [facility] Comment on above: Performed By: #### L 100.0100, L501.9520, L501.5200, L500.2500, L501.4020 ####[facility] [address] [place], [address] RDW SD 42.3 fl Normal 35.1-43.9 [facility] Comment on above: Performed By: #### L 100.0100, L501.9520, L501.5200, L500.2500, L501.4020 ####[facility] [address] [place], [address] WBC (Bld) [#/Vol] 6.4 10*3/uL Normal 4.4-11.0 [facility] Comment on above: Performed By: #### L 100.0100, L501.9520, L501.5200, L500.2500, L501.4020 ####[facility] [address] [place], [address] Carbon dioxide measurementOr dered By: Hunter Hoyt on 02-11-2024 CO2 [Moles/Vol] 30.0 mmol/L 21.0-32.0 [facility] Chest PA and Lateralon 02-10 Chest PA and Lateral [facility] Imaging Services [address] [place] [address] Chest PA and Lateral MR#: [id number] Acct: [id number] Name: YUE CHAPIN Rep #: [id number] : 1950 M 73 From: Aaron cervantes MD PCP: Dr. Yue Leal MD Status: REG ER Study: Chest PA and Lateral Date of Exam: 02/11/24 Exam# [id number] Ordering Dr: Hunter Hoyt DO [id number] INDICATION: chest pain EXAMINATION/TECHNIQUE: X-RAY - XR Chest 2 Views COMPARISON: None. FINDINGS: The lungs are clear. Tortuous and calcified thoracic aorta. The heart is not enlarged. No pleural effusion or pneumothorax. Degenerative changes of the thoracic spine. RAD/Chest PA and Lateral IMPRESSION: No acute radiographic abnormalities. Electronically Signed: Aaron Harris MD at 23:21 EST , CC: Dr. Yue Leal MD; Hunter Hoyt DO Traffic Superintendent: Signed Normal [facility] Chloride measurementOrdered By: Hunter Hoyt on 02-11-2024 Chloride [Moles/Vol] 103 mmol/L 98-107 [facility] Eosinophil percentageOrdered By: Hunter Hoyt on 02-11-2024 Eosinophils/100 WBC (Bld) 4.8 % 0-5 [facility] Epithelial cells.squamous LM Ql (Urine sed)Ordered By: Hunter Hoyt on 02-11-2024 Epithelial cells.squamous LM.HPF (Urine sed) [#/Area] 0 /[HPF] 0-5 [facility] Erythrocyte distribution wid th ratioOrdered By: Hunter Hoyt on 02-11-2024 Erythrocyte distribution width (RBC) [Ratio] 12.4 % 11.6-14.6 [facility] Erythrocyte distribution wid th standard deviationOrdered By: Hunter Hoyt on 02-11-2024 Erythrocyte distribution width (RBC) [Entitic vol] 42.3 fL 35.1-43.9 [facility] Estimated glomerular filtrat ion rate (GFR) AmericanOrdered By: Hunter Hoyt on 02-11-2024 Estimated GFR (MDRD) Amer 102 mL/min >60 [facility] Comment on above: GFR Calc Estimation of creatinine meme aranceOrdered By: Hunter Hoyt on 02-11-2024 Estimated Creatinine Clearance Calc 85.56 ml/min [facility] Glomerular filtration rate ( GFR) estimationOrdered By: Hunter Hoyt on 02-11-2024 Estimated GFR (MDRD) Non-Af Amer 85 mL/min >60 [facility] Comment on above: Non- GFR Calc Glucose Ql (U)Ordered By: Gerri Hoyt on 02-11-2024 Glucose (U) [Mass/Vol] 1000 mg/dL High Normal [facility] Glucose measurementOrdered B y: Hunter Hoyt on 02-11-2024 Glucose [Mass/Vol] 221 mg/dL High 74-106 [facility] Comment on above: Glucose result great er than or equal to 200 mg/dLsuggests DIABETES MELLITUS per A.D.A. criteria. Hematocrit Auto (Bld) [Volum e fraction]Ordered By: Hunter Hoyt on 02-11-2024 Hematocrit (Bld) [Volume fraction] 46.6 % 40-54 [facility] Hemoglobin measurementOrdere d By: Hunter Hoyt on 02-11-2024 Hemoglobin (Bld) [Mass/Vol] 14.9 g/dL 13.0-16.5 [facility] Immature granulocytes/100 WB C Auto (Bld)Ordered By: Hunter Hoyt on 02-11-2024 Immature granulocytes/100 WBC (Bld) 0.300 % 0.0-0.9 [facility] Comment on above: IG% - Immature Granu locytes (promyelocytes, myelocytes and metamyelocytes) > 1% indicates that a LEFT SHIFT is Present. Influenza virus A and B and SARS-CoV-2 (COVID-19) and Respiratory syncytial virus RNAOrdered By: Hunter Hoyt on 02-11-2024 SARS-CoV-2 (COVID-19) RNA BALBINA+probe Ql (Unsp spec) [facility] Ketones Test strip Ql (U)Ord ered By: Hunter Hoyt on 02-11-2024 Ketones Ql (U) Negative Negative [facility] L501.4020on 02-11-2024 TROPONIN-I HS 8 pg/mL Normal 3.0-78.0 [facility] Comment on above: Order Comment: 'TROP ' Serial specimen #1, #2 or #3: 1 Result Comment: Bienvenido cabello Note: New Test Units and Gender Specific Reference Ranges. For more information see Policy Stat Procedure [place] High Sensitivity Troponin (TNIH) and attachments. Performed By: #### L 100.0100, L501.9520, L501.5200, L500.2500, L501.4020 ####[facility] [address] [place], [address] Lymphocytes Auto (Unsp spec) [#/Vol]Ordered By: Hunter Hoyt on 02-11-2024 Lymphocytes (Bld) [#/Vol] 1.35 10*3/uL 0.83-4.51 [facility] Lymphocytes/100 WBC Auto (Un sp spec)Ordered By: Hunter Hoyt on 02-11-2024 Lymphocytes/100 WBC (Bld) 21.1 % 19-41 [facility] M100.678on 02-11-2024 M100.678 Pending SARS-CoV-2 (COVID 19) Negative INFLUENZA A Negative INFLUENZA B Negative RSV PCR Negative Normal [facility] Comment on above: Performed By: #### M 100.678, L400.0001 ####[facility] [address] [place], [place], [address] MCV (mean corpuscular volume ) determinationOrdered By: Hunter Hoyt on 02-11-2024 MCV (RBC) [Entitic vol] 92.1 fL 80-94 [facility] Magnesiumon 02-11-2024 Magnesium [Mass/Vol] 2.3 mg/dL Normal 1.6-2.6 [facility] Comment on above: Order Comment: 'TROP ' Serial specimen #1, #2 or #3: 1 Performed By: #### L 100.0100, L501.9520, L501.5200, L500.2500, L501.4020 ####[facility] [address] [place], [address] Magnesium measurementOrdered By: Hunter Hoyt on 02-11-2024 Magnesium [Mass/Vol] 2.3 mg/dL 1.6-2.6 [facility] Mean corpuscular hemoglobin (MCH) determinationOrdered By: Hunter Hoyt on 02-11-2024 MCH (RBC) [Entitic mass] 29.4 pg 27.0-32.0 [facility] Mean corpuscular hemoglobin concentration (MCHC) determinationOrdered By: Hunter Hoyt on 02-11-2024 MCHC (RBC) [Mass/Vol] 32.0 g/dL 32-36 [facility] Mean platelet volume determi nationOrdered By: Hunter Hoyt on 02-11-2024 Platelet mean volume (Bld) [Entitic vol] 10.8 fL 6.2-12.0 [facility] Microscopic analysis of urin e for red blood cells (RBC)Ordered By: Hunter Hoyt on 02-11-2024 Urine RBC 0-5 SEEN /hpf 0-5 [facility] Monocyte percentageOrdered B y: Hunter Hoyt on 02-11-2024 Monocytes/100 WBC (Bld) 7.7 % 0-10 [facility] Mucus LM Ql (Urine sed)Order ed By: Hunter Hoyt on 02-11-2024 Mucus Ql (Urine sed) 0 SEEN /hpf [facility] Neutrophil percentageOrdered By: Hunter Hoyt on 02-11-2024 Neutrophils/100 WBC (Bld) 64.8 % 47-70 [facility] Nitrite Test strip Ql (U)Ord ered By: Hunter Hoyt on 02-11-2024 Nitrite Ql (U) Negative Negative [facility] Nucleated red blood cell per centageOrdered By: Hunter Hoyt on 02-11-2024 Nucleated RBC/100 WBC (Bld) [Ratio] 0 % 0-5 [facility] Platelet countOrdered By: Gerri Hoyt on 02-11-2024 Platelets (Bld) [#/Vol] 187 10*3/uL 150-450 [facility] Potassium measurementOrdered By: Hunter Hoyt on 02-11-2024 Potassium [Moles/Vol] 4.2 mmol/L 3.5-5.1 [facility] Protein Test strip Ql (U)Ord ered By: Hunter Hoyt on 02-11-2024 Protein Ql (U) 15 mg/dl High Negative [facility] RBC Auto (Bld) [#/Vol]Ordere d By: Hunter Hoyt on 02-11-2024 RBC (Bld) [#/Vol] 5.06 10*6/uL 4.6-6.2 [facility] Serum anion gap measurementO rdered By: Hunter Hoyt on 02-11-2024 Anion gap [Moles/Vol] 6 mmol/L 5-15 [facility] Serum or plasma calcium jessica urement (mass/volume)Ordered By: Hunter Hoyt on 02-11-2024 Calcium [Mass/Vol] 9.5 mg/dL 8.5-10.1 [facility] Serum or plasma creatinine m easurement (mass/volume)Ordered By: Hunter Hoyt on 02-11-2024 Creatinine [Mass/Vol] 0.93 mg/dL 0.70-1.30 [facility] Comment on above: The validity of the calculated GFR & GFRAA in patients over 70 years has not been determined. Clinical correlation is essential. Serum or plasma urea nitroge n measurement (mass/volume)Ordered By: Hunter Hoyt on 02-11-2024 Urea nitrogen [Mass/Vol] 23 mg/dL High 7-18 [facility] Sodium levelOrdered By: Fran Hoyt on 02-11-2024 Sodium [Moles/Vol] 139 mmol/L 136-145 [facility] TSH QnOrdered By: Chelly on 02-11-2024 Thyroid Stimulating Hormone (TSH) 1.620 uIU/mL 0.358-3.740 [facility] Thyroid Stim Hormone (TSH)on 02-11-2024 TSH 1.620 uIU/mL Normal 0.358-3.740 [facility] Comment on above: Order Comment: 'TROP ' Serial specimen #1, #2 or #3: 2 Performed By: #### L 501.4020 #### [facility] Laboratory [address] [place], [address] Urinalysis, Completeon 02-10 RBC 0-5 SEEN Normal 0-5 [facility] Comment on above: Order Comment: CLEAN CATCH Performed By: #### M 100.678, L400.0001 ####[facility] [address] [place], [address] WBC 0-5 SEEN Normal 0-5 [facility] Comment on above: Order Comment: CLEAN CATCH Performed By: #### M 100.678, L400.0001 ####[facility] [address] [place], [address] BACTERIA 0 SEEN Normal None Seen [facility] Comment on above: Order Comment: CLEAN CATCH Performed By: #### M 100.678, L400.0001 ####[facility] [address] [place], [address] EPI,SQUAMOUS 0 SEEN Normal 0-5 [facility] Comment on above: Order Comment: CLEAN CATCH Performed By: #### M 100.678, L400.0001 ####[facility] [address] [place], [address] Mucus Ql (Urine sed) 0 SEEN Normal [facility] Comment on above: Order Comment: CLEAN CATCH Performed By: #### M 100.678, L400.0001 ####[facility] [address] [place], [address] Urine blood detectionOrdered By: Hunter Hoyt on 02-11-2024 Urine Occult Blood 25 /ul High Negative [facility] Urine clarityOrdered By: Sinan Hoyt on 02-11-2024 Clarity (U) Clear Clear [facility] Urine color determinationOrd ered By: Hunter Hoyt on 02-11-2024 Color (U) Yellow Yellow [facility] Urine leukocyte esterase det ection by dipstickOrdered By: Hunter Hoyt on 02-11-2024 Leukocyte esterase Test strip Ql (U) Negative Negative [facility] Urine pHOrdered By: Hunter puri on 02-11-2024 pH (U) 6.0 [pH] 5.0 - 8.0 [facility] Urine sediment bacteria coun t by microscopy (number/high power field)Ordered By: Hunter Hoyt on 02-11-2024 Bacteria LM.HPF (Urine sed) [#/Area] 0 /[HPF] None Seen [facility] Urine specific gravity measu rementOrdered By: Hunter Hoyt on 02-11-2024 Specific gravity (U) [Rel density] 1.015 1.002-1.030 [facility] Urobilinogen Ql (U)Ordered B y: Hunter Hoyt on 02-11-2024 Urobilinogen (U) [Mass/Vol] 1 mg/dL High Normal [facility] White blood cell (WBC) count Ordered By: Hunter Hoyt on 02-11-2024 WBC (Bld) [#/Vol] 6.4 10*3/uL 4.4-11.0 [facility] White blood cell countOrdere d By: Hunter Hoyt on 02-11-2024 Urine WBC 0-5 SEEN /hpf 0-5 [facility] ED MED ADMINISTRATION DETAIL on 02-02-2024 ED MED ADMINISTRATION DETAIL [employer] Medication Administration Record [address] [address] [id number] 02/02/2024 Patient: YUE CHAPIN Sex: Male : 1950 Age: 73y MEASUREMENTS: Wt: 89.4 kg, Ht/Mike: 76.0 in, BMI: 23.98 ALLERGIES: No known drug allergies Medication Ordered Medication Administration Date/Time 1 of 1 Normal [facility] ED NURSES CLINICAL NOTEon ED NURSES CLINICAL NOTE Nurse Narrative Nurse Clinical Narrative [address] [address] [id number] 02/02/2024 Patient: YUE CHAPIN Sex: Male : 1950 Age: 73y Disposition: Discharge to Home Disposition Decision Time: 12:13 02/02/2024 Departure Time: 12:22 02/02/2024 TRIAGE Arrived by private vehicle. Historian: patient. Primary physician (Darron). Triage time: 10:30 02/02/2024. Acuity: LEVEL 4. Chief Complaint: LEFT UPPER EXTREMITY PAIN, NUMBNESS and TINGLING. Location of symptoms- left thumb. Injury occurred. This started just prior to arrival. ( Pt jammed his left thumb on a roaster trying to catch it before it fell.). SEPSIS SCREEN: NEGATIVE. SIRS criteria negative. No possible sources of infection. -- 10:38 02/02/24 Miguel SparksN. 10:37 02/02/24. BP: 122/84 MAP: 97. HR: 66. RR: 16. O2 saturation: 99% Temperature: 97.9 F (temporal). Pain level now 2/10. -- 10:37 02/02/24 RIKKI Godfrey R.N. Measurements: 10:37 02/02/24 Wt: 89.4 kg, Ht/Mike: 76.0 in, BMI: 23.98 -- 10:37 02/02/24 RIKKI Godfrey R.N. Medications: unable to obtain home medications -- 10:33 02/02/24 RIKKI Godfrey R.N. 1 of 3 Nurse Narrative Allergies: no known drug allergies -- 10:32 02/02/24 RIKKI Godfrey R.N. Problems: Diabetes Mellitus -- 10:33 02/02/24 RIKKI Godfrey R.N. Glaucoma -- 10:34 02/02/24 RIKKI Godfrey R.N. ADDITIONAL SURGERIES: Back Surgery -- 10:35 02/02/24 RIKKI Godfrey R.N. History 10:30 02/02/24. PAST MEDICAL HX: Immunizations: up-to-date. SOCIAL HX: Never smoker. No alcohol use or drug use. The patient has not traveled outside the [place] Infectious disease exposure: No infectious disease exposure. ABUSE ASSESSMENT: The patient answered yes to the question(s) Do you feel safe in your home? and no to the question(s) Are you afraid to go home?. SELF HARM ASSESSMENT: Self harm assessment was performed. The patient answered no to the question(s) Have you recently felt down, depressed, or hopeless? and Do you have thoughts of harming or killing yourself?. FALL RISK ASSESSMENT: Fall risk assessment completed. Risk factors identified include patient age greater than 65 years and impairment of mobility. -- 10:38 02/02/24 RIKKI Godfrey R.N. Interventions 10:30 02/02/24. Advanced care plan discussed with patient. Patient has advanced directive. -- 10:38 02/02/24 RIKKI Godfrey R.N. PHYSICAL ASSESSMENT 2 of 3 Nurse Narrative 10:50 02/02/24. GENERAL / NEURO / PSYCH: Oriented X 4. Alert. Appears in no acute distress. ( Pt arrives ambulatory to ER#6 c/o left thumb pain after trying to catch a big pot and he couldn't initially catch it and shoved his thumb into the pain trying to catch it. Pt looks like he has a dislocation to the bottom knuckle but ROM is intact, the distal knuckle has decreased ROM and numbness to the tip. 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 EXTREMITIES: Limited ROM present. Left thumb: tenderness, swelling and deformity of the dorsal aspect and thumb tip. Limited movement secondary to pain and swelling. No laceration, abrasion, puncture wound or foreign body. No subungual hematoma. SKIN: Skin intact. Skin is warm and dry. -- 10:55 02/02/24 RIKKI Ryan R.N. NURSING PROGRESS NOTES 11:02 02/02/24. Bed placed in lowest position. Brakes of bed on. patient care technician at the patient's bedside (11:02 02/02/2024). -- 11:20 02/02/24 RIKKI Ryan R.N. 11:34 02/02/24. SPLINT APPLIED: Short arm thumb spica thermoplastic medium velcro splint applied to left wrist. Distal pulses intact, sensation intact and motor within normal limits. Patient tolerated the procedure well. Splinting applied by me. -- 11:36 02/02/24 RIKKI Ryan R.N. DISPOSITION / DISCHARGE Departure time: 12:22 02/02/2024. Condition at departure: improved. Discharge instructions provided and reviewed with the patient. Patient verbalized understanding. Written instructions provided in Faroese. The patient was discharged by the physician. The patient was discharged home. The patient left ambulatory and via private vehicle. Patient driving. -- 12:27 02/02/24 EST Xi Ryan R.N. (Electronically signed by Xi Ryan R.N. 02/02/24 12:28:31 EST) Generated by [facility] 3 of 3 Normal [facility] ED ORDER SHEET (CPOE ONLY)on 02-02-2024 ED ORDER SHEET (CPOE ONLY) Order Sheet Order Sheet [address] [address] [id number] 02/02/2024 Patient: YUE CHAPIN Sex: Male : 1950 Age: 73y MEASUREMENTS: Wt: 89.4 kg, Ht/Mike: 76.0 in, BMI: 23.98 ALLERGIES: No known drug allergies MEDICATION/IV/DRIP/FLU ID ORDERS Order Description Priority Entered Acknowledged Completed LAB ORDERS Order Description Priority Entered Acknowledged Collected Completed DIAGNOSTIC STUDY ORDERS Order Description Priority Entered Acknowledged Completed Hand L 3V Stat Stat 10:53 02/02/2024 10:55 11:29 Chavo Pedersen M.D. 02/02/2024 02/02/2024 Xi Mahajan R.N. R.N. Reason for Study: Hands Injury STAFF ORDERS Order Description Priority Entered Acknowledged Collected Completed Splint (UE) 11:29 02/02/2024 11:29 02/02/2024 11:29 02/02/2024 Xi Gilmore Shauna Ewing, M.D. R.N. RLiaN. 1 of 2 Order Sheet [Electronically signed by Chavo Pedersen M.D. (02/02/2024 23:02 EST)] 2 of 2 Normal [facility] ED PHYSICIAN CLINICAL REPORT on 02-02-2024 ED PHYSICIAN CLINICAL REPORT Narrative Physician Clinical Narrative [address] [address] [id number] 02/02/2024 Patient: YUE CHAPIN Sex: Male : 1950 Age: 73y Disposition: Discharge to Home Disposition Decision Time: 12:13 02/02/2024 Departure Time: 12:22 02/02/2024 Measurements Wt: 89.4 kg, Ht/Mike: 76.0 in, BMI: 23.98 Initial Vital Sign Measured Time BP MAP HR RR O2Sat ETCO2 Temp Pain GCS RTS 10:37 02/02/2024 122/84 97 66 16 99% 97.9 F 2 Time Seen: late entry - 11:01 02/02/2024. HISTORY OF PRESENT ILLNESS Chief Complaint: Injury to the left hand and thumb. ( Patient presents With a chief complaint of injuring his thumb by trying to lift a heavy object. He opened back of his truck where he was storing a large cooking device when it fell landing on the tip of his finger jamming it inward. He is concerned that he may have broken his finger. He has pain whenever he flexes at the distalmost part of his left thumb which is his nondominant hand. No blood. No nail avulsion. Denies any significant pain and does not want anything for pain now. Just wanted evaluated to know a plan going forward). PAST HISTORY Diabetes Mellitus Glaucoma 1 of 4 Narrative Surgeries: Back Surgery Medications: unable to obtain home medications Allergies: no known drug allergies ADDITIONAL NOTES The nursing notes have been reviewed. PHYSICAL EXAM Vital Signs: Have been reviewed. Extremities: Tip of left thumb: tenderness and mild swelling. No erythema, laceration of tip of left thumb, puncture wound or foreign body. No avulsion. No subungual hematoma, nail avulsion, exposed bone or loss of the nail bed on the left thumb or tip amputation of the left thumb. No wrist injury. No hand injury. Hand and wrist exam otherwise negative. Neuro, Vascular and Tendons: Sensation intact. Motor intact. LABS, X-RAYS, AND EKG Diagnostic Study Tests: HAND LT MIN 3 VIEWS Final EXAM Date: 02/02/2024 11:07:00 EST MsgRcvd: 02/02/2024 11:15 [place] [address] Patient: YUE CHAPIN Phone#: : 1950 Age: 73 Gender: M Pt. Type: ER Account: [id number] Location: 052 2 of 4 Narrative Ordering: DR. CHAVO PEDERSEN Exam Date: 02/02/2024/10:56 Family Phys: Charge Code: [id number] Physician: [place] Order #: [id number] Dose#: PROCEDURE: X-RAY HAND LT COMPLETE 3 VIEWS COMPARISON: None. INDICATIONS: Hand injury. FINDINGS: BONES: Comminuted nondisplaced fracture of the distal phalanx of the thumb. There is deformity of the 5th metacarpal consistent with remote healed fracture. Degenerative changes are present at the interphalangeal joints and 1st metacarpal phalangeal joint. There is deformity of the distal ulna likely related to remote trauma. SOFT TISSUES: Negative. No visible soft tissue swelling. EFFUSION: None visible. OTHER: Negative. CONCLUSION: 1. Comminuted fracture of the distal phalanx of the thumb. 2. Degenerative changes are present. Likely posttraumatic deformities of the 5th metacarpal and distal ulna. Dictated by: Caitlin Barroso MD on 02/02/2024 at 11:10 Approved by: Caitlin Barroso MD on 02/02/2024 at 11:12 PROGRESS AND PROCEDURES MEDICAL DECISION MAKING: (Presented with thumb injury. X-ray found to have a comminuted nondisplaced fracture. He was thus put in a thumb spica splint. He did not worry pain medication. He was neurovascular tact. Patient can follow-up with primary care. No indication for orthopedic surgery follow-up at this time as it is nondisplaced. Discharge instruction strict return precautions were provided. No indication for antibiotics.). Disposition: Condition: stable. Disposition Decision Time: 12:13 02/02/2024. Patient discharged to Home. CLINICAL IMPRESSION Closed nondisplaced distal phalanx fracture of the left thumb. DISCHARGE INSTRUCTIONS 3 of 4 Narrative (please follow-up with your primary care. Please keep the splint on as discussed. Please take Tylenol 500 mg every 6 hours as needed for pain and Alternate with ibuprofen every 6 hours as needed for pain, 600 mg. unless she re-injured the finger there is no need to follow up with Orthopedics. You already have full movement but there is pain.). Follow-up: Follow up with your doctor. (Electronically signed by Chavo Pedersen M.D. 02/02/24 23:02:35 EST) Generated by [facility] 4 of 4 Normal [facility] ED SUPER BILLon 02-02-2024 [facility] [address] [place] [address] [id number] 02/02/2024 Patient: YUE CHAPIN Sex: Male : 1950 Age: 73y Item Facility Professional Category Description Code Code Quantity Fee Total Nurse/E/M EMERGENCY 766720 1 $0.00 $0.00 DEPARTMENT VISIT MODERATE SEVERITY (14951-97) Physician/Procedures Splint - Short 399767 1 $0.00 $0.00 Arm (91780-OB) Grand Total $0.00 Providers Chavo Pedersen M.D. Chief Complaint Injury to the left hand and thumb. Principal Diagnosis Closed nondisplaced distal phalanx fracture of the left thumb. 1 of 2 [facility] ICD-10 Codes S62.525A: Nondisplaced fracture of distal phalanx of left thumb, initial encounter for closed fracture 2 of 2 [facility] ED VISIT SUMMARYon ED VISIT SUMMARY Visit Overview Visit Overview [address] [address] [id number] 02/02/2024 Patient: YUE CHAPIN Sex: Male : 1950 Age: 73y 02/02/2024 11:02 PM EST ED Arrival:10:27 02/02/2024 EST Status: Recent Travel:no Language:eng Adv Directive:Yes Isolation Status: Ethnicity:N Fall Risk:risk Infectious Disease Exposure:no Measurements:6'4 / 193.0 Self-Harm Status:risk Sepsis Screen:negative cm 197.0 lb / 89.4 kg Chief Complaint:left thumb, LEFT UPPER EXTREMITY NUMBNESS, LEFT UPPER EXTREMITY PAIN, LEFT UPPER EXTREMITY TINGLING, (Pt jammed his left thumb on a roaster trying to catch it before it fell.), and (Shriner) ALLERGIES No Known Drug Allergies HOME MEDICATIONS Unable To Obtain 1 of 3 Visit Overview PAST MEDICAL HISTORY / PROBLEMS Diabetes Mellitus Glaucoma Immunizations: up-to-date PAST SURGICAL HISTORY Back Surgery SOCIAL HISTORY Smoking status: No Alcohol use: No Drug use: No ED COURSE MEDICATIONS GIVEN IN EMERGENCY DEPARTMENT IV SITE INFORMATION INTAKE OUTPUT REASSESMENT (most recent) 10:50 02/02/24. GENERAL / NEURO / PSYCH: Oriented X 4. Alert. Appears in no acute distress. ( Pt arrives ambulatory to ER#6 c/o left thumb pain after trying to catch a big pot and he couldn't initially catch it and shoved his thumb into the pain trying to catch it. Pt looks like he has a dislocation to the bottom knuckle but ROM is intact, the distal knuckle has decreased ROM and numbness to the tip. 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 EXTREMITIES: Limited ROM present. Left thumb: tenderness, swelling and deformity of the dorsal aspect and thumb tip. Limited movement secondary to pain and swelling. No laceration, abrasion, puncture wound or foreign body. No subungual hematoma. SKIN: Skin intact. Skin is warm and dry. VITAL SIGNS First Vitals Last Vitals Temp 10:37 02/02/24 97.9 F Temp 10:37 02/02/24 97.9 F 2 of 3 Visit Overview First Vitals Last Vitals BP 10:37 02/02/24 122/84 BP 10:37 02/02/24 122/84 HR 10:37 02/02/24 66 HR 10:37 02/02/24 66 RR 10:37 02/02/24 16 RR 10:37 02/02/24 16 O2 Sat 10:37 02/02/24 99% O2 Sat 10:37 02/02/24 99% Pain 10:37 02/02/24 2 Pain 10:37 02/02/24 2 ETCO2 10:37 02/02/24 ETCO2 10:37 02/02/24 GCS 10:37 02/02/24 GCS 10:37 02/02/24 RTS 10:37 02/02/24 RTS 10:37 02/02/24 PROCEDURES NURSING INTERVENTIONS Splint LABS / STUDIES LABS / STUDIES ORDERED Hand L 3V CLINICAL IMPRESSION CLOSED NONDISPLACED DISTAL PHALANX FRACTURE OF THE LEFT THUMB 3 of 3 Normal [facility] ED VITALS FLOW SHEETon 02-01 ED VITALS FLOW SHEET Vitals Vital Sign Flow Sheet [facility] [address] [address] [id number] 02/02/2024 Patient: YUE CHAPIN Sex: Male : 1950 Age: 73y Measurements Wt: 89.4 kg, Ht/Mike: 76.0 in, BMI: 23.98 Measured Time BP MAP HR RR O2Sat ETCO2 Temp Pain GCS RTS 10:37 02/02/2024 122/84 97 66 16 99% 97.9 F 2 1 of 1 Normal [facility] HAND LT MIN 3 VIEWSon 2023 HAND LT MIN [address] [address] Patient: YUE CHAPIN Phone#: : 1950 Age: 73 Gender: M Pt. Type: ER Account: [id number] Location: [facility] Ordering: DR. CHAVO PEDERSEN Exam Date: 02/02/2024/10:56 Family Phys: Charge Code: [id number] Physician: [place] Order #: [id number] Dose#: PROCEDURE: X-RAY HAND LT COMPLETE 3 VIEWS COMPARISON: None. INDICATIONS: Hand injury. FINDINGS: BONES: Comminuted nondisplaced fracture of the distal phalanx of the thumb. There is deformity of the 5th metacarpal consistent with remote healed fracture. Degenerative changes are present at the interphalangeal joints and 1st metacarpal phalangeal joint. There is deformity of the distal ulna likely related to remote trauma. SOFT TISSUES: Negative. No visible soft tissue swelling. EFFUSION: None visible. OTHER: Negative. CONCLUSION: 1. Comminuted fracture of the distal phalanx of the thumb. 2. Degenerative changes are present. Likely posttraumatic deformities of the 5th metacarpal and distal ulna. Dictated by: Caitlin Barroso MD on 02/02/2024 at 11:10 Approved by: Caitlin Barroso MD on 02/02/2024 at 11:12 Normal [facility] Echo Completeon 02-01-2024 Echo Complete [facility] [address] [place] [id number] Echo Complete 02/01/24 1350 MR#: [id number] Acct: [id number] Name: YUE CHAPIN Rep #: [id number] : 1950 73 From: Kieran Melgoza MD Attending Dr: Dr. Anjel Nelson MD Status: RE G CLI Ordering Dr: Anjel Nelson MD Date: 02/01/24 Location: [facility] Sex: M C Admitted: Reason For Study: VENTRICULAR PREMATURE DEPOLARIZATION Procedure This was a 2D Doppler, Color Flow transthoracic echocardiogram. Exam performed in department. Left Ventricle Normal LV size. Left ventricular systolic function is normal. The left ventricular ejection fraction is 55 %. No regional wall motion abnormalities noted. Right Ventricle Normal RV size. Normal systolic function. Atria Normal left atrium. Normal right atrium. Mitral Valve Normal mitral valve. Tricuspid Valve Myxomatous appearing tricuspid valve. Aortic Valve Trisinus/trileaflet aortic valve. Pulmonic Valve The pulmonic valve is not well visualized. Great Vessels Normal aortic root. The pulmonary artery is normal size. Inferior vena cava collapse with respiration. Pericardium/Pleural No pericardial effusion. MMode/2D Measurements Calculations LVIDd: 4.3 cm IVSd: 1.1 cm LVOT diam: 2.2 cm LVIDs: 3.0 cm LVPWd: 1.0 cm LVOT area: 3.9 cm2 RVDd: 3.7 cm FS: 31.8 % asc Aorta Diam: 3.1 cm LAV(MOD-bp): 51.7 ml LVAd ap4: 26.3 cm2 LAV(MOD-bp) Indexed: 23.4 ml/m2 LVLd ap4: 7.8 cm LAV(MOD-sp2): 59.2 ml EDV(MOD-sp4): 71.3 ml LAV(MOD-sp4): 44.9 ml EDV(sp4-el): 74.9 ml LVAs ap4: 17.6 cm2 LVLs ap4: 6.7 cm ESV(MOD-sp4): 37.5 ml ESV(sp4-el): 39.5 ml EF(MOD-sp4): 47.4 % EF(sp4-el): 47.2 % LVAd ap2: 21.0 cm2 SV(MOD-sp4): 33.8 ml SV(MOD-sp2): 22.3 ml LVLd ap2: 7.3 cm SI(MOD-sp4): 15.3 ml/m2 SI(MOD-sp2): 10.1 ml/m2 EDV(MOD-sp2): 49.4 ml EDV(sp2-el): 50.9 ml LVAs ap2: 13.7 cm2 LVLs ap2: 5.9 cm ESV(MOD-sp2): 27.1 ml ESV(sp2-el): 26.6 ml EF(MOD-sp2): 45.1 % SV(sp4-el): 35.4 ml Ao sinus diam: 3.[address] Junction: 3.0 cm LA dimension(2D): 4.1 cm LA A4 area: 17.2 cm2 RA A4 area: 13.9 cm2 TAPSE: 1.5 cm Time Measurements MV dec time: 0.26 sec Doppler Measurements Calculations MV E max hugh: 43.4 cm/sec Lat Peak E' Hugh: 8.2 cm/sec Med Peak E' Hugh: 5.4 cm/sec MV A max hugh: 78.5 cm/sec E/E' lat: 5.3 E/E' med: 8.1 MV E/A: 0.55 MV dec slope: 167.0 cm/sec2 Ao V2 max: 75.1 cm/sec LV V1 max: 57.0 cm/sec Ao max P.3 mmHg LV V1 max P.3 mmHg Ao V2 mean: 49.8 cm/sec LV V1 mean P.74 mmHg Ao mean P.2 mmHg LV V1 mean: 40.6 cm/sec Ao V2 VTI: 16.9 cm LV V1 VTI: 12.5 cm AV (velocity ratio): 0.74 CHAITANYA(I,D): 2.9 cm2 CHAITANYA(V,D): 3.0 cm2 SV(LVOT): 49.1 ml PA V2 max: 63.1 cm/sec ECHO/Echo Complete Interpretation Summary Normal LV size. Left ventricular systolic function is normal. The left ventricular ejection fraction is 55 %. Myxomatous appearing tricuspid valve. Ordering Physician: Anjel Nelson Referring Physician: Yue Leal Performed By: Angelika Murry LARISA 02/01/241703 Date Kieran Melgoza MD CC: Dr. Yue Leal MD; Dr. Anjel Nelson MD Date Dictated: 02/01/24 1350 Date Transcribed: 02/01/241703 Traffic Superintendent: Signed Normal [facility] 12 Lead EKG performed by [facility] [place] 01-10-2024 12 Lead EKG performed by [address] [address] 12 Lead EKG performed by [facility] 01/10/24 1253 MR#: [id number] Acct: [id number] Name: YUE CHAPIN Rep #: [id number] : 1950 73 From: Anjel Nelson MD Attending Dr: Dr. Anjel Nelson MD Status: DE P AMB Ordering Dr: Anjel Nelson MD Date: 01/10/24 Location: [facility] Sex: M C Admitted: [facility]12 Lead EKG performed by [facility] ECG Report Interpretation ----Sinus Rhythm -First degree A-V block - occasional ectopic ventricular beat Yanely = 224Leads V2/V3 reversedABNORMAL Electronically signed on 01/10/2024 at 15:[address] Anjel Nelson [employer] Version 8610 01/10/24 1527 Date Anjel Nelson MD CC: Dr. Yue Leal MD Date Dictated: 01/10/24 1253 Date Transcribed: 01/10/241252 Traffic Superintendent: Signed Normal [facility] Cardiology Visit Reporton Cardiology Visit Report [facility] [address] [place] [address] OFFICE VISIT Date of Service: 01/10/24 MR#: [id number] Acct: [id number] Name: YUE CHAPIN Rep #: [id number] : 1950 Provider: Dr. Anjel castillo MD Age/Sex: 73/M [place] [facility] Status: Signed HPI HPI History of Present Illness Details: Patient 73-year-old white male who comes in today for new patient visit. The patient is referred for PVCs noted on 7-day event monitor. This monitor was predominantly normal sinus rhythm he had 5 episodes of short runs of ventricular tachycardia longest being 5 beats with an average heart rate of 119 bpm. He also had occasional second-degree AV block type I. His total PAC burden was 0.2% and PVC burden was 1.3%. Patient is active in his home environment he cuts grass on a 0 turn mower without any restrictions he denies any dyspnea on exertion denies any chest tightness or squeezing. He did have 1 episode back in October where he drank some V8 juice and laid down and went to sleep and woke up with some indigestion. It did not immediately resolve with oral treatments in the home environment and he came to the emergency department. He was evaluated there and found to be nonischemic troponins were 12 and 12. The patient has not had a recurrence of this symptom. He denies any anginal type symptoms at this time. He denies any PND orthopnea denies any lower extremity edema denies any syncope or near syncope. He reports he has been doing fairly well in his home environment. The patient is diabetic and hyperlipidemic on therapy. There is no early family history of coronary disease he denies a history of hypertension he is not a smoker. EKG in the office today showed normal sinus rhythm with a first-degree AV block and occasional PVC. Leads V2 and V3 were reversed on the EKG. The patient has not had an LV evaluation nor is he had a stress test. Intake Vital Signs 10/20/23 23:25 01/10/24 12:53 Height 6 ft 4 in 6 ft 4 in Weight: 198 lb BMI 24.0 BP 126/77 H Blood Pressure Location Lt brachial Position Sitting Respiration 16 Pulse 75 Pulse Source Monitor Intake Visit Reasons: PVC's (Elvis) Intellectual Property Manager Required: No Accompanied by: Self Is patient in pain?: No Allergies No Known Allergies Allergy (Verified 01/10/24 12:55) Medications ???Medication ???Instructions ???Recorded ???Confirmed ???Type glipizide 10 mg tablet 10 mg PO BIDAC 12/13/12 01/10/24 History plecanatide 3 mg tablet (Trulance) 3 mg PO DAILY 10/21/23 01/10/24 History atorvastatin 40 mg tablet 20 mg PO QHS 12/26/23 01/10/24 History brimonidine 0.2 % eye drops 1 drp ophthalmic (eye) BID 12/26/23 01/10/24 History dorzolamide 22.3 mg-timolol 6.8 1 drp ophthalmic (eye) BID 12/26/23 01/10/24 History mg/mL eye drops dulaglutide 1.5 mg/0.5 mL mg subcut QWEEK 12/26/23 01/10/24 History subcutaneous pen injector (Trulicity) empagliflozin 25 mg tablet 25 mg PO DAILY 12/26/23 01/10/24 History (Jardiance) latanoprost 0.005 % eye drops 1 drp ophthalmic (eye) QDAY 12/26/23 01/10/24 History metformin 850 mg tablet 850 mg PO BID 12/26/23 01/10/24 History cholecalciferol (vitamin D3) 25 25 mcg PO QDAY 01/10/24 01/10/24 History mcg (1,000 unit) capsule docusate sodium 100 mg capsule 100 mg PO DAILY PRN 01/10/24 History (DOK) fluticasone propionate 50 1 spray intranasal QDAY PRN 01/10/24 01/10/24 History mcg/actuation nasal spray,suspension Have you fallen in the past year?: No PFSH Medical History GERD (gastroesophageal reflux disease) PVC (premature ventricular contraction) Hypercholesterolemia Diabetes Social History Smoking Status: Former smoker ROS Const Const: Positive for difficulty sleeping; Negative for fatigue, weakness, headache(s) or daytime sleepiness ENT ENT: Negative for headache(s), dizziness or Nosebleed/epistaxis Cardio Chest Pain: No Palpitations: No Edema: None Resp Respiratory: Negative for SOB with activity, SOB at rest, SOB orthopnea SOB lying down or Cough GI GI: Negative nausea, vomiting or heartburn Neuro Neuro: Negative for dizziness, lightheadedness, near syncope, headache(s) or weakness Endo Endo: Negative for fatigue Cardiology Exam Const Appearance: cooperative, comfortable, no acute distress and well developed Head Head: normal to inspection Teeth and gingiva: poor dentition Eyes General: appearance normal, both eyes and all related structures Neck Neck: normal visual inspection and no JVD Carotids: Negative bruit Chest Chest inspection: normal inspection of the chest Auscultation: Bilateral: Clear to Auscultation Car (more content not included)... Normal [facility] [id number] DOrdered By: Pilo Leal on 01-05-2024 Vitamin D 25-Hydroxy 27.2 ng/mL [facility] Comment on above: Vitamin D 25(OH) Sta tus Range Deficiency <20 ng/mL (50nmol/L) Insufficiency 20 - 30 ng/mL (50 - 75 nmol/L) Sufficiency 30 - 100 ng/mL (75 - 250 nmol/L) Toxicity >100 ng/mL (>250 nmol/L) Absolute neutrophil countOrd ered By: Yue Leal on 01-05-2024 Neutrophils (Bld) [#/Vol] 5.1 10*3/uL 2.0-7.7 [facility] Albumin to globulin ratioOrd ered By: Yue Leal on 01-05-2024 Albumin/Globulin [Mass ratio] 1.3 {ratio} 0.9-2.4 [facility] Basophil percentageOrdered B y: Yue Dicksonfiliberto on 01-05-2024 Basophils/100 WBC (Bld) 1.2 % High 0-1 [facility] Bilirubin, totalOrdered By: Yue Dicksonfiliberto on 01-05-2024 Bilirubin [Mass/Vol] 0.40 mg/dL 0.20-1.00 [facility] Comment on above: For patients on eltr ombopag therapy, use of Dimension [place] TBIL is not recommended. Blood urea nitrogen (BUN)/cr eatinine ratioOrdered By: Yue Leal on 01-05-2024 Urea nitrogen/Creatinine [Mass ratio] 26.2 mg/mg High - [facility] CBC W/Diff, Automatedon 12-16 Absolute Lymph 1.35 X10 3/uL Normal 0.83-4.51 [facility] Comment on above: Order Comment: 'TROP ' Serial specimen #1, #2 or #3: 2 Performed By: #### L [id number] #### [facility] [address] [place], [address] Absolute Neut 5.1 X10 3/uL Normal 2.0-7.7 [facility] Comment on above: Order Comment: 'TROP ' Serial specimen #1, #2 or #3: 2 Performed By: #### L [id number] #### [facility] [address] [place], [address] Basophils/100 WBC (Bld) 1.2 % High 0-1 [facility] Comment on above: Order Comment: 'TROP ' Serial specimen #1, #2 or #3: 2 Performed By: #### L [id number] #### [facility] [address] [place], [address] Eosinophils/100 WBC (Bld) 4.1 % Normal 0-5 [facility] Comment on above: Order Comment: 'TROP ' Serial specimen #1, #2 or #3: 2 Performed By: #### [id number] #### [facility] [address] [place], [address] Erythrocyte distribution width (RBC) [Ratio] 12.5 % Normal 11.6-14.6 [facility] Comment on above: Order Comment: 'TROP ' Serial specimen #1, #2 or #3: 2 Performed By: #### [id number] #### [facility] [address] [place], [address] Hematocrit (Bld) [Volume fraction] 47.6 % Normal 40-54 [facility] Comment on above: Order Comment: 'TROP ' Serial specimen #1, #2 or #3: 2 Performed By: #### [id number] #### [facility] [address] [place], [address] Hemoglobin (Bld) [Mass/Vol] 15.3 g/dL Normal 13.0-16.5 [facility] Comment on above: Order Comment: 'TROP ' Serial specimen #1, #2 or #3: 2 Performed By: #### L [id number] #### [facility] [address] [place], [address] IG% 0.300 Normal 0.0-0.9 [facility] Comment on above: Order Comment: 'TROP ' Serial specimen #1, #2 or #3: 2 Result Comment: IG% - Immature Granulocytes (promyelocytes, myelocytes and metamyelocytes) > 1% indicates that a LEFT SHIFT is Present. Performed By: #### L [id number] #### [facility] [address] [place], [address] Lymphocytes/100 WBC (Bld) 18.4 % Low 19-41 [facility] Comment on above: Order Comment: 'TROP ' Serial specimen #1, #2 or #3: 2 Performed By: #### L [id number] #### [facility] [address] [place], [address] MCH (RBC) [Entitic mass] 29.5 pg Normal 27.0-32.0 [facility] Comment on above: Order Comment: 'TROP ' Serial specimen #1, #2 or #3: 2 Performed By: #### L [id number] #### [facility] [address] [place], [address] MCHC (RBC) [Mass/Vol] 32.1 g/dL Normal 32-36 [facility] Comment on above: Order Comment: 'TROP ' Serial specimen #1, #2 or #3: 2 Performed By: #### L [id number] #### [facility] [address] [place], [address] MCV (RBC) [Entitic vol] 91.7 fL Normal 80-94 [facility] Comment on above: Order Comment: 'TROP ' Serial specimen #1, #2 or #3: 2 Performed By: #### L [id number] #### [facility] [address] [place], [address] Monocytes/100 WBC (Bld) 6.1 % Normal 0-10 [facility] Comment on above: Order Comment: 'TROP ' Serial specimen #1, #2 or #3: 2 Performed By: #### L [id number] #### [facility] [address] [place], [address] Neutrophils/100 WBC (Bld) 69.9 % Normal 47-70 [facility] Comment on above: Order Comment: 'TROP ' Serial specimen #1, #2 or #3: 2 Performed By: #### L [id number] #### [facility] [address] [place], [address] Nucleated RBC (Bld) [#/Vol] 0 10*3/uL Normal 0-5 [facility] Comment on above: Order Comment: 'TROP ' Serial specimen #1, #2 or #3: 2 Performed By: #### L [id number] #### [facility] [address] [place], [address] Platelet mean volume (Bld) [Entitic vol] 10.8 fL Normal 6.2-12.0 [facility] Comment on above: Order Comment: 'TROP ' Serial specimen #1, #2 or #3: 2 Performed By: #### L [id number] #### [facility] [address] [place], [address] Platelets (Bld) [#/Vol] 191 10*3/uL Normal 150-450 [facility] Comment on above: Order Comment: 'TROP ' Serial specimen #1, #2 or #3: 2 Performed By: #### L [id number] #### [facility] [address] [place], [address] RBC (Bld) [#/Vol] 5.19 10*6/uL Normal 4.6-6.2 [facility] Comment on above: Order Comment: 'TROP ' Serial specimen #1, #2 or #3: 2 Performed By: #### L [id number] #### [facility] [address] [place], [address] RDW SD 42.3 fl Normal 35.1-43.9 [facility] Comment on above: Order Comment: 'TROP ' Serial specimen #1, #2 or #3: 2 Performed By: #### L [id number] #### [facility] [address] [place], [address] WBC (Bld) [#/Vol] 7.3 10*3/uL Normal 4.4-11.0 [facility] Comment on above: Order Comment: 'TROP ' Serial specimen #1, #2 or #3: 2 Performed By: #### L [id number] #### [facility] [address] [place], [address] Carbon dioxide measurementOr dered By: Yue Leal on 01-05-2024 CO2 [Moles/Vol] 28.0 mmol/L 21.0-32.0 [facility] Chloride measurementOrdered By: Yue Leal on 01-05-2024 Chloride [Moles/Vol] 105 mmol/L 98-107 [facility] Comprehensive Metabolic Prof ilon 01-05-2024 Albumin [Mass/Vol] 4.0 g/dL Normal 3.2-5.0 [facility] Comment on above: Order Comment: 'TROP ' Serial specimen #1, #2 or #3: 2 Performed By: #### L [id number] #### [facility] [address] [place], [address] Albumin/Globulin [Mass ratio] 1.3 {ratio} Normal 0.9-2.4 [facility] Comment on above: Order Comment: 'TROP ' Serial specimen #1, #2 or #3: 2 Performed By: #### L [id number] #### [facility] [address] [place], [address] ALK P 126 U/L High 45-117 [facility] Comment on above: Order Comment: 'TROP ' Serial specimen #1, #2 or #3: 2 Performed By: #### L [id number] #### [facility] [address] [place], [address] ALT [Catalytic activity/Vol] 20 U/L Normal 16-61 [facility] Comment on above: Order Comment: 'TROP ' Serial specimen #1, #2 or #3: 2 Performed By: #### [id number] #### [facility] [address] [place], [address] AST [Catalytic activity/Vol] 12 U/L Low 15-37 [facility] Comment on above: Order Comment: 'TROP ' Serial specimen #1, #2 or #3: 2 Performed By: #### L [id number] #### [facility] [address] [place], [address] Bilirubin [Mass/Vol] 0.40 mg/dL Normal 0.20-1.00 [facility] Comment on above: Order Comment: 'TROP ' Serial specimen #1, #2 or #3: 2 Result Comment: For patients on eltrombopag therapy, use of Dimension [place] TBIL is not recommended. Performed By: #### L [id number] #### [facility] [address] [place], [address] BUN/CRE 26.2 RATIO High 10-20 [facility] Comment on above: Order Comment: 'TROP ' Serial specimen #1, #2 or #3: 2 Performed By: #### L [id number] #### [facility] [address] [place], [address] CA,Total 9.0 mg/dL Normal 8.5-10.1 [facility] Comment on above: Order Comment: 'TROP ' Serial specimen #1, #2 or #3: 2 Performed By: #### L [id number] #### [facility] [address] [place], [address] Chloride [Moles/Vol] 105 mmol/L Normal 98-107 [facility] Comment on above: Order Comment: 'TROP ' Serial specimen #1, #2 or #3: 2 Performed By: #### L [id number] #### [facility] [address] [place], [address] CO2 [Moles/Vol] 28.0 mmol/L Normal 21.0-32.0 [facility] Comment on above: Order Comment: 'TROP ' Serial specimen #1, #2 or #3: 2 Performed By: #### L [id number] #### [facility] [address] [place], [address] Creatinine [Mass/Vol] 0.88 mg/dL Normal 0.70-1.30 [facility] Comment on above: Order Comment: 'TROP ' Serial specimen #1, #2 or #3: 2 Result Comment: The validity of the calculated GFR GFRAA in patients over 70 years has not been determined. Clinical correlation is essential. Performed By: #### L [id number] #### [facility] [address] [place], [address] EST GFR - AA 109 mL/min Normal >60 [facility] Comment on above: Order Comment: 'TROP ' Serial specimen #1, #2 or #3: 2 Result Comment: Afri can Cam[place]onian GFR Calc Performed By: #### L [id number] #### [facility] [address] [place], [address] GAP 5 Normal 5-15 [facility] Comment on above: Order Comment: 'TROP ' Serial specimen #1, #2 or #3: 2 Performed By: #### L [id number] #### [facility] [address] [place], [address] GFR/1.73 sq M.predicted among non-blacks MDRD (S/P/Bld) [Vol rate/Area] 90 mL/min/{1.73_m2} Normal >60 [facility] Comment on above: Order Comment: 'TROP ' Serial specimen #1, #2 or #3: 2 Result Comment: Non- GFR Calc Performed By: #### L [id number] #### [facility] [address] [place], [address] Globulin (S) [Mass/Vol] 3.1 g/dL Normal 2.2-4.2 [facility] Comment on above: Order Comment: 'TROP ' Serial specimen #1, #2 or #3: 2 Performed By: #### L [id number] #### [facility] [address] [place], [address] Glucose [Mass/Vol] 171 mg/dL High 74-106 [facility] Comment on above: Order Comment: 'TROP ' Serial specimen #1, #2 or #3: 2 Result Comment: Fast ing Glucose result greater than or equal to 126 mg/dL suggests DIABETES MELLITUS per A.D.A. criteria. Performed By: #### L [id number] #### [facility] [address] [place], [address] Potassium [Moles/Vol] 4.3 mmol/L Normal 3.5-5.1 [facility] Comment on above: Order Comment: 'TROP ' Serial specimen #1, #2 or #3: 2 Performed By: #### L [id number] #### [facility] [address] [place], [address] Sodium [Moles/Vol] 138 mmol/L Normal 136-145 [facility] Comment on above: Order Comment: 'TROP ' Serial specimen #1, #2 or #3: 2 Performed By: #### L [id number] #### [facility] [address] [place], [address] T PROT 7.1 g/dL Normal 6.4-8.2 [facility] Comment on above: Order Comment: 'TROP ' Serial specimen #1, #2 or #3: 2 Performed By: #### L [id number] #### [facility] [address] [place], [address] Urea nitrogen [Mass/Vol] 23 mg/dL High 7-18 [facility] Comment on above: Order Comment: 'TROP ' Serial specimen #1, #2 or #3: 2 Performed By: #### L [id number] #### [facility] [address] [place], [address] Eosinophil percentageOrdered By: Yue Leal on 01-05-2024 Eosinophils/100 WBC (Bld) 4.1 % 0-5 [facility] Erythrocyte distribution wid th ratioOrdered By: Yue Leal on 01-05-2024 Erythrocyte distribution width (RBC) [Ratio] 12.5 % 11.6-14.6 [facility] Erythrocyte distribution wid th standard deviationOrdered By: Yue Leal on 01-05-2024 Erythrocyte distribution width (RBC) [Entitic vol] 42.3 fL 35.1-43.9 [facility] Estimated glomerular filtrat ion rate (GFR) AmericanOrdered By: Yue Leal on 01-05-2024 Estimated GFR (MDRD) Amer 109 mL/min >60 [facility] Comment on above: GFR Calc Glomerular filtration rate ( GFR) estimationOrdered By: Yue Leal on 01-05-2024 Estimated GFR (MDRD) Non-Af Amer 90 mL/min >60 [facility] Comment on above: Non- GFR Calc Glucose measurementOrdered B y: Yue Leal on 01-05-2024 Glucose [Mass/Vol] 171 mg/dL High 74-106 [facility] Comment on above: Fasting Glucose resu lt greater than or equal to 126 mg/dL suggests DIABETES MELLITUS per A.D.A. criteria. Hematocrit Auto (Bld) [Volum e fraction]Ordered By: Yue Leal on 01-05-2024 Hematocrit (Bld) [Volume fraction] 47.6 % 40-54 [facility] Hemoglobin A1con 01-05-2024 HbA1c (Bld) [Mass fraction] 6.9 % High 3.8-5.6 [facility] Comment on above: Order Comment: 'TROP ' Serial specimen #1, #2 or #3: 2 Result Comment: Norm al < 5.7 % Prediabetic 5.7 - 6.4 % Diabetic >or= 6.5 % Please note range changes. Performed By: #### L [id number] #### [facility] [address] [place], [place] [address], [address] Hemoglobin A1c percentageOrd ered By: Yue Leal on 01-05-2024 HbA1c (Bld) [Mass fraction] 6.9 % High 3.8-5.6 [facility] Comment on above: Normal < 5.7 % Predi abetic 5.7 - 6.4 % Diabetic >or= 6.5 % Please note range changes. Hemoglobin measurementOrdere d By: Yue Leal on 01-05-2024 Hemoglobin (Bld) [Mass/Vol] 15.3 g/dL 13.0-16.5 [facility] High density lipoprotein (HD L) measurementOrdered By: Yue Leal on 01-05-2024 Cholesterol in HDL [Mass/Vol] 25 mg/dL Low >40 [facility] Comment on above: The drugs N-Acetylcy steine and Metamizole may falsely depress this assay. Reference Range HDL <40 mg/dL Low HDL Cholesterol HDL >or= 60 mg/dL High HDL Cholesterol Immature granulocytes/100 WB C Auto (Bld)Ordered By: Yue Leal on 01-05-2024 Immature granulocytes/100 WBC (Bld) 0.300 % 0.0-0.9 [facility] Comment on above: IG% - Immature Granu locytes (promyelocytes, myelocytes and metamyelocytes) > 1% indicates that a LEFT SHIFT is Present. Laboratory - Chemistry and C hemistry - challengeOrdered By: Yue Leal on 01-05-2024 AST [Catalytic activity/Vol] 12 U/L Low 15-37 [facility] Lipid Profileon 01-05-2024 Cholesterol [Mass/Vol] 121 mg/dL Normal 200 [facility] Comment on above: Order Comment: 'TROP ' Serial specimen #1, #2 or #3: 2 Result Comment: <200 mg/dL Desirable 200-240 mg/dL Borderline >240 mg/dL High Risk Performed By: #### L [id number] #### [facility] [address] [facility] [place], [address] Cholesterol in HDL [Mass/Vol] 25 mg/dL Low [facility] Comment on above: Order Comment: 'TROP ' Serial specimen #1, #2 or #3: 2 Result Comment: The drugs N-Acetylcysteine and Metamizole may falsely depress this assay. Reference Range HDL <40 mg/dL Low HDL Cholesterol HDL >or= 60 mg/dL High HDL Cholesterol Performed By: #### L [id number] #### [facility] [address] [place], [address] Cholesterol in LDL [Mass/Vol] 76 mg/dL Normal 0-130 [facility] Comment on above: Order Comment: 'TROP ' Serial specimen #1, #2 or #3: 2 Performed By: #### L [id number] #### [facility] [address] [place], [place], [address] Cholesterol in VLDL [Mass/Vol] 20 mg/dL Normal 5-40 [facility] Comment on above: Order Comment: 'TROP ' Serial specimen #1, #2 or #3: 2 Performed By: #### L [id number] #### [facility] [address] [place], [place], [address] Triglyceride [Mass/Vol] 99 mg/dL Normal [facility] Comment on above: Order Comment: 'TROP ' Serial specimen #1, #2 or #3: 2 Result Comment: The drugs N-Acetylcysteine and Metamizole may falsely depress this assay. Serum Triglycerides Reference Interval Normal <150 mg/dL Borderline high 150 - 199 mg/dL High 200 - 499 mg/dL Very High > or = 500 mg/dL Performed By: #### L [id number] #### [facility] [address] [place], [place], [address] Low density lipoprotein (LDL ) cholesterol measurementOrdered By: Yue Leal on 01-05-2024 Cholesterol in LDL [Mass/Vol] 76 mg/dL 0-130 [facility] Lymphocytes Auto (Unsp spec) [#/Vol]Ordered By: Yue Lela on 01-05-2024 Lymphocytes (Bld) [#/Vol] 1.35 10*3/uL 0.83-4.51 [facility] Lymphocytes/100 WBC Auto (Un sp spec)Ordered By: Yue Leal on 01-05-2024 Lymphocytes/100 WBC (Bld) 18.4 % Low 19-41 [facility] MCV (mean corpuscular volume ) determinationOrdered By: Yue Leal on 01-05-2024 MCV (RBC) [Entitic vol] 91.7 fL 80-94 [facility] Mean corpuscular hemoglobin (MCH) determinationOrdered By: Yue Leal on 01-05-2024 MCH (RBC) [Entitic mass] 29.5 pg 27.0-32.0 [facility] Mean corpuscular hemoglobin concentration (MCHC) determinationOrdered By: Yue Leal on 01-05-2024 MCHC (RBC) [Mass/Vol] 32.1 g/dL 32-36 [facility] Mean platelet volume determi nationOrdered By: Yue Leal on 01-05-2024 Platelet mean volume (Bld) [Entitic vol] 10.8 fL 6.2-12.0 [facility] Monocyte percentageOrdered B y: Yue Leal on 01-05-2024 Monocytes/100 WBC (Bld) 6.1 % 0-10 [facility] Neutrophil percentageOrdered By: Yue Leal on 01-05-2024 Neutrophils/100 WBC (Bld) 69.9 % 47-70 [facility] Nucleated red blood cell per centageOrdered By: Yue Leal on 01-05-2024 Nucleated RBC/100 WBC (Bld) [Ratio] 0 % 0-5 [facility] Platelet countOrdered By: Ann Leal on 01-05-2024 Platelets (Bld) [#/Vol] 191 10*3/uL 150-450 [facility] Potassium measurementOrdered By: Yue Leal on 01-05-2024 Potassium [Moles/Vol] 4.3 mmol/L 3.5-5.1 [facility] RBC Auto (Bld) [#/Vol]Ordere d By: Yue Leal on 01-05-2024 RBC (Bld) [#/Vol] 5.19 10*6/uL 4.6-6.2 [facility] Serum anion gap measurementO rdered By: Yue Leal on 01-05-2024 Anion gap [Moles/Vol] 5 mmol/L 5-15 [facility] Serum globulin measurementOr dered By: Yue Leal on 01-05-2024 Globulin (S) [Mass/Vol] 3.1 g/dL 2.2-4.2 [facility] Serum or plasma alanine mcginnis otransferase (ALT) measurementOrdered By: Yue Leal on 01-05-2024 ALT [Catalytic activity/Vol] 20 U/L 16-61 [facility] Serum or plasma albumin jessica urement (mass/volume)Ordered By: Yue Leal on 01-05-2024 Albumin [Mass/Vol] 4.0 g/dL 3.2-5.0 [facility] Serum or plasma alkaline paulina sphatase measurementOrdered By: Yue Leal on 01-05-2024 ALP [Catalytic activity/Vol] 126 U/L High 45-117 [facility] Serum or plasma calcium jessica urement (mass/volume)Ordered By: Yue Leal on 01-05-2024 Calcium [Mass/Vol] 9.0 mg/dL 8.5-10.1 [facility] Serum or plasma cholesterol measurement (mass/volume)Ordered By: Yue Leal on 01-05-2024 Cholesterol [Mass/Vol] 121 mg/dL <200 [facility] Comment on above: <200 mg/dL Desirable 200-240 mg/dL Borderline >240 mg/dL High Risk Serum or plasma creatinine m easurement (mass/volume)Ordered By: Yue Leal on 01-05-2024 Creatinine [Mass/Vol] 0.88 mg/dL 0.70-1.30 [facility] Comment on above: The validity of the calculated GFR & GFRAA in patients over 70 years has not been determined. Clinical correlation is essential. Serum or plasma urea nitroge n measurement (mass/volume)Ordered By: Yue Leal on 01-05-2024 Urea nitrogen [Mass/Vol] 23 mg/dL High 7-18 [facility] Sodium levelOrdered By: Yue Leal on 01-05-2024 Sodium [Moles/Vol] 138 mmol/L 136-145 [facility] Total proteinOrdered By: Holden Leal on 01-05-2024 Protein [Mass/Vol] 7.1 g/dL 6.4-8.2 [facility] Triglycerides measurementOrd ered By: Yue Leal on 01-05-2024 Triglyceride [Mass/Vol] 99 mg/dL <199 [facility] Comment on above: The drugs N-Acetylcy steine and Metamizole may falsely depress this assay.Serum Triglycerides Reference Interval Normal <150 mg/dL Borderline high 150 - 199 mg/dL High 200 - 499 mg/dL Very High > or = 500 mg/dL Very low density lipoprotein (VLDL) cholesterol measurementOrdered By: Yue Leal on 01-05-2024 VLDL Cholesterol 20 mg/dL 5-40 [facility] Vitamin D,25 Hydroxyon 01-04 Vitamin D 25-OH 27.2 ng/mL Normal [facility] Comment on above: Order Comment: 'TROP ' Serial specimen #1, #2 or #3: 2 Result Comment: Alyx min D 25(OH) Status Range Deficiency <20 ng/mL (50nmol/L) Insufficiency 20 - 30 ng/mL (50 - 75 nmol/L) Sufficiency 30 - 100 ng/mL (75 - 250 nmol/L) Toxicity >100 ng/mL (>250 nmol/L) Performed By: #### L [id number] #### [facility] [address] [place], [place], [id number] White blood cell (WBC) count Ordered By: Yue Leal on 01-05-2024 WBC (Bld) [#/Vol] 7.3 10*3/uL 4.4-11.0 [facility] Basophil percentageOrdered B y: Naseem Diaz on 06-16-2023 Chloride [Moles/Vol] 103 mmol/L 98-107 [facility] Glucose [Mass/Vol] 176 mg/dL 74-106 [facility] Comment on above: Fasting Glucose resu lt greater than or equal to 126 mg/dL suggests DIABETES MELLITUS per A.D.A. criteria. Hemoglobin (Bld) [Mass/Vol] 15.3 g/dL 13.0-16.5 [facility] Potassium [Moles/Vol] 4.4 mmol/L 3.5-5.1 [facility] Sodium [Moles/Vol] 135 mmol/L 136-145 [facility] WBC (Bld) [#/Vol] 7.0 10*3/uL 4.4-11.0 [facility] Determination of erythrocyte mean corpuscular volume (MCV)Ordered By: Naseem Diaz on 06-16-2023 MCV (RBC) [Entitic vol] 91.3 fL 80-94 [facility] Erythrocyte distribution wid th ratioOrdered By: Naseem Diaz on 06-16-2023 Erythrocyte distribution width (RBC) [Ratio] 12.1 % 11.6-14.6 [facility] Erythrocyte distribution wid th standard deviationOrdered By: Naseem Diaz on 06-16-2023 Erythrocyte distribution width (RBC) [Entitic vol] 41.0 fL 35.1-43.9 [facility] Hematocrit Auto (Bld) [Volum e fraction]Ordered By: Naseem Diaz on 06-16-2023 Hematocrit (Bld) [Volume fraction] 47.3 % 40-54 [facility] Laboratory - Chemistry and C hemistry - challengeOrdered By: Naseem Diaz on 06-16-2023 CO2 [Moles/Vol] 29.0 mmol/L 21.0-32.0 [facility] Urea nitrogen/Creatinine [Mass ratio] 22.9 mg/mg 10-20 [facility] Laboratory - Hematology and Cell countsOrdered By: Naseem Diaz on 06-16-2023 MCH (RBC) [Entitic mass] 29.5 pg 27.0-32.0 [facility] MCHC (RBC) [Mass/Vol] 32.3 g/dL 32-36 [facility] Platelet mean volume (Bld) [Entitic vol] 10.5 fL 6.2-12.0 [facility] Platelets (Bld) [#/Vol] 196 10*3/uL 150-450 [facility] No Panel InformationOrdered By: Naseem Diaz on 06-16-2023 Estimated GFR (MDRD) Amer 110 mL/min >60 [facility] Comment on above: GFR Calc Estimated GFR (MDRD) Non-Af Amer 91 mL/min >60 [facility] Comment on above: Non- GFR Calc RBC Auto (Bld) [#/Vol]Ordere d By: Naseem Diaz on 06-16-2023 RBC (Bld) [#/Vol] 5.18 10*6/uL 4.6-6.2 [facility] Serum or plasma calcium jessica urement (mass/volume)Ordered By: Naseem Diaz on 06-16-2023 Calcium [Mass/Vol] 9.6 mg/dL 8.5-10.1 [facility] Serum or plasma creatinine m easurement (mass/volume)Ordered By: Naseem Diaz on 06-16-2023 Creatinine [Mass/Vol] 0.87 mg/dL 0.70-1.30 [facility] Comment on above: The validity of the calculated GFR & GFRAA in patients over 70 years has not been determined. Clinical correlation is essential. Serum or plasma urea nitroge n measurement (mass/volume)Ordered By: Naseem Diaz on 06-16-2023 Urea nitrogen [Mass/Vol] 20 mg/dL 7-18 [facility] Thin prep Papanicolaou smear with manual screeningOrdered By: Naseem Diaz on 06-16-2023 Thin prep Papanicolaou smear with manual screening 3 5-15 [facility] Absolute lymphocyte countOrd ered By: Yue Leal on 04-12-2023 Lymphocytes Auto (Unsp spec) [#/Vol] 1.33 10*3/uL 0.83-4.51 [facility] Automated lymphocyte count a s percentage of total leukocytesOrdered By: Yue Leal on 04-12-2023 Lymphocytes/100 WBC Auto (Unsp spec) 18.6 % 19-41 [facility] Basophil percentageOrdered B y: Yue Leal on 04-12-2023 Basophils/100 WBC (Bld) 1.1 % 0-1 [facility] Bilirubin [Mass/Vol] 0.90 mg/dL 0.20-1.00 [facility] Comment on above: For patients on eltr ombopag therapy, use of Dimension [place] TBIL is not recommended. Chloride [Moles/Vol] 104 mmol/L 98-107 [facility] Cholesterol [Mass/Vol] 125 mg/dL <200 [facility] Comment on above: <200 mg/dL Desirable 200-240 mg/dL Borderline >240 mg/dL High Risk Eosinophils/100 WBC (Bld) 3.2 % 0-5 [facility] Glucose [Mass/Vol] 129 mg/dL 74-106 [facility] Comment on above: Fasting Glucose resu lt greater than or equal to 126 mg/dL suggests DIABETES MELLITUS per A.D.A. criteria. Hemoglobin (Bld) [Mass/Vol] 16.5 g/dL 13.0-16.5 [facility] Monocytes/100 WBC (Bld) 5.2 % 0-10 [facility] Neutrophils (Bld) [#/Vol] 5.1 10*3/uL 2.0-7.7 [facility] Neutrophils/100 WBC (Bld) 71.6 % 47-70 [facility] Potassium [Moles/Vol] 4.6 mmol/L 3.5-5.1 [facility] Protein [Mass/Vol] 7.5 g/dL 6.4-8.2 [facility] Sodium [Moles/Vol] 137 mmol/L 136-145 [facility] Triglyceride [Mass/Vol] 63 mg/dL <199 [facility] Comment on above: The drugs N-Acetylcy steine and Metamizole may falsely depress this assay.Serum Triglycerides Reference Interval Normal <150 mg/dL Borderline high 150 - 199 mg/dL High 200 - 499 mg/dL Very High > or = 500 mg/dL WBC (Bld) [#/Vol] 7.2 10*3/uL 4.4-11.0 [facility] Determination of erythrocyte mean corpuscular volume (MCV)Ordered By: Yue Leal on 04-12-2023 MCV (RBC) [Entitic vol] 91.9 fL 80-94 [facility] Erythrocyte distribution wid th ratioOrdered By: Yue Leal on 04-12-2023 Erythrocyte distribution width (RBC) [Ratio] 12.5 % 11.6-14.6 [facility] Erythrocyte distribution wid th standard deviationOrdered By: Yue Leal on 04-12-2023 Erythrocyte distribution width (RBC) [Entitic vol] 42.5 fL 35.1-43.9 [facility] Hematocrit Auto (Bld) [Volum e fraction]Ordered By: Yue Leal on 04-12-2023 Hematocrit (Bld) [Volume fraction] 51.9 % 40-54 [facility] Immature granulocytes/100 WB C Auto (Bld)Ordered By: Yue Leal on 04-12-2023 Immature granulocytes/100 WBC (Bld) 0.300 % 0.0-0.9 [facility] Comment on above: IG% - Immature Granu locytes (promyelocytes, myelocytes and metamyelocytes) > 1% indicates that a LEFT SHIFT is Present. Laboratory - Chemistry and C hemistry - challengeOrdered By: Yue Leal on 04-12-2023 Albumin/Globulin [Mass ratio] 1.4 {ratio} 0.9-2.4 [facility] ALP [Catalytic activity/Vol] 87 U/L 45-117 [facility] ALT [Catalytic activity/Vol] 24 U/L 16-61 [facility] Cholesterol in HDL [Mass/Vol] 27 mg/dL >40 [facility] Comment on above: The drugs N-Acetylcy steine and Metamizole may falsely depress this assay. Reference Range HDL <40 mg/dL Low HDL Cholesterol HDL >or= 60 mg/dL High HDL Cholesterol Cholesterol in LDL [Mass/Vol] 85 mg/dL 0-130 [facility] CO2 [Moles/Vol] 27.0 mmol/L 21.0-32.0 [facility] Globulin (S) [Mass/Vol] 3.1 g/dL 2.2-4.2 [facility] Urea nitrogen/Creatinine [Mass ratio] 26.0 mg/mg 10-20 [facility] Laboratory - Hematology and Cell countsOrdered By: Yue Leal on 04-12-2023 MCH (RBC) [Entitic mass] 29.2 pg 27.0-32.0 [facility] MCHC (RBC) [Mass/Vol] 31.8 g/dL 32-36 [facility] Nucleated RBC/100 WBC (Bld) [Ratio] 0 % 0-5 [facility] Platelet mean volume (Bld) [Entitic vol] 10.8 fL 6.2-12.0 [facility] Platelets (Bld) [#/Vol] 232 10*3/uL 150-450 [facility] No Panel InformationOrdered By: Yue Leal on 04-12-2023 Urine Microalbumin/Creatinin e Ratio 19.1 mg/g CRE <30 [facility] Estimated GFR (MDRD) Amer 109 mL/min >60 [facility] Comment on above: GFR Calc Estimated GFR (MDRD) Non-Af Amer 90 mL/min >60 [facility] Comment on above: Non- GFR Calc Vitamin D 25-Hydroxy 26.0 ng/mL [facility] Comment on above: Vitamin D 25(OH) Sta tus Range Deficiency <20 ng/mL (50nmol/L) Insufficiency 20 - 30 ng/mL (50 - 75 nmol/L) Sufficiency 30 - 100 ng/mL (75 - 250 nmol/L) Toxicity >100 ng/mL (>250 nmol/L) VLDL Cholesterol 13 mg/dL 5-40 [facility] RBC Auto (Bld) [#/Vol]Ordere d By: Yue Leal on 04-12-2023 RBC (Bld) [#/Vol] 5.65 10*6/uL 4.6-6.2 [facility] Serum or plasma calcium jessica urement (mass/volume)Ordered By: Yue Leal on 04-12-2023 Calcium [Mass/Vol] 9.6 mg/dL 8.5-10.1 [facility] Serum or plasma creatinine m easurement (mass/volume)Ordered By: Yue Leal on 04-12-2023 Creatinine [Mass/Vol] 0.88 mg/dL 0.70-1.30 [facility] Comment on above: The validity of the calculated GFR & GFRAA in patients over 70 years has not been determined. Clinical correlation is essential. Serum or plasma urea nitroge n measurement (mass/volume)Ordered By: Yue Leal on 04-12-2023 Urea nitrogen [Mass/Vol] 23 mg/dL 7-18 [facility] Thin prep Papanicolaou smear with manual screeningOrdered By: Yue Leal on 04-12-2023 Thin prep Papanicolaou smear with manual screening 16.0 mg/L NO RANGE EST. [facility] Thin prep Papanicolaou smear with manual screening 4.4 g/dL 3.2-5.0 [facility] Thin prep Papanicolaou smear with manual screening 14 U/L 15-37 [facility] Thin prep Papanicolaou smear with manual screening 6 5-15 [facility] Urine creatinine measurement (mass/volume)Ordered By: Yue Leal on 04-12-2023 Creatinine (U) [Mass/Vol] 83.60 mg/dL NO RANGE EST. [facility] Whole blood hemoglobin A1c/t otal hemoglobin ratio (mass fraction)Ordered By: Yue Leal on 04-12-2023 HbA1c (Bld) [Mass fraction] 7.7 % 3.8-5.6 [facility] Comment on above: Normal < 5.7 % Predi abetic 5.7 - 6.4 % Diabetic >or= 6.5 % Please note range changes. Absolute lymphocyte countOrd ered By: Yue Leal on 01-11-2023 Lymphocytes Auto (Unsp spec) [#/Vol] 1.74 10*3/uL 0.83-4.51 [facility] Basophil percentageOrdered B y: Yue Leal on 01-11-2023 Basophils/100 WBC (Bld) 1.6 % 0-1 [facility] Bilirubin [Mass/Vol] 0.60 mg/dL 0.20-1.00 [facility] Comment on above: For patients on eltr ombopag therapy, use of Dimension [place] TBIL is not recommended. Chloride [Moles/Vol] 105 mmol/L 98-107 [facility] Cholesterol [Mass/Vol] 124 mg/dL <200 [facility] Comment on above: <200 mg/dL Desirable 200-240 mg/dL Borderline >240 mg/dL High Risk Eosinophils/100 WBC (Bld) 3.8 % 0-5 [facility] Glucose [Mass/Vol] 111 mg/dL 74-106 [facility] Comment on above: Fasting Glucose resu lt from 100 to 125 mg/dL suggests IMPAIRED HOMEOSTASIS per A.D.A. criteria. Neutrophils (Bld) [#/Vol] 4.3 10*3/uL 2.0-7.7 [facility] Neutrophils/100 WBC (Bld) 62.9 % 47-70 [facility] Potassium [Moles/Vol] 4.6 mmol/L 3.5-5.1 [facility] Protein [Mass/Vol] 7.5 g/dL 6.4-8.2 [facility] Sodium [Moles/Vol] 137 mmol/L 136-145 [facility] Triglyceride [Mass/Vol] 65 mg/dL <199 [facility] Comment on above: The drugs N-Acetylcy steine and Metamizole may falsely depress this assay.Serum Triglycerides Reference Interval Normal <150 mg/dL Borderline high 150 - 199 mg/dL High 200 - 499 mg/dL Very High > or = 500 mg/dL WBC (Bld) [#/Vol] 6.9 10*3/uL 4.4-11.0 [facility] Blood erythrocytes count (nu mber/volume)Ordered By: Yue Leal on 01-11-2023 RBC (Bld) [#/Vol] 5.32 10*6/uL 4.6-6.2 [facility] Blood hemoglobin measurement (mass/volume)Ordered By: Yue Leal on 01-11-2023 Hemoglobin (Bld) [Mass/Vol] 15.2 g/dL 13.0-16.5 [facility] Blood lymphocytes/100 leukoc ytesOrdered By: Yue Leal on 01-11-2023 Lymphocytes/100 WBC (Bld) 25.2 % 19-41 [facility] Blood monocytes/100 leukocyt esOrdered By: Yue Leal on 01-11-2023 Monocytes/100 WBC (Bld) 6.4 % 0-10 [facility] Blood platelet mean volumeOr dered By: Yue Leal on 01-11-2023 Platelet mean volume (Bld) [Entitic vol] 10.4 fL 6.2-12.0 [facility] Determination of erythrocyte mean corpuscular volume (MCV)Ordered By: Yue Leal on 01-11-2023 MCV (RBC) [Entitic vol] 92.3 fL 80-94 [facility] Hematocrit Auto (Bld) [Volum e fraction]Ordered By: Yue Leal on 01-11-2023 Hematocrit (Bld) [Volume fraction] 49.1 % 40-54 [facility] Laboratory - Chemistry and C hemistry - challengeOrdered By: uYe Leal on 01-11-2023 ALP [Catalytic activity/Vol] 99 U/L 45-117 [facility] ALT [Catalytic activity/Vol] 23 U/L 16-61 [facility] CO2 [Moles/Vol] 30.0 mmol/L 21.0-32.0 [facility] Globulin (S) [Mass/Vol] 3.3 g/dL 2.2-4.2 [facility] Urea nitrogen/Creatinine [Mass ratio] 25.4 mg/mg 10-20 [facility] Laboratory - Hematology and Cell countsOrdered By: Yue Leal on 01-11-2023 Erythrocyte distribution width (RBC) [Entitic vol] 43.3 fL 35.1-43.9 [facility] Erythrocyte distribution width (RBC) [Ratio] 12.7 % 11.6-14.6 [facility] Immature granulocytes/100 WBC (Bld) 0.100 % 0.0-0.9 [facility] Comment on above: IG% - Immature Granu locytes (promyelocytes, myelocytes and metamyelocytes) > 1% indicates that a LEFT SHIFT is Present. MCH (RBC) [Entitic mass] 28.6 pg 27.0-32.0 [facility] Nucleated RBC/100 WBC (Bld) [Ratio] 0 % 0-5 [facility] MCHC Auto (RBC) [Mass/Vol]Or dered By: Yue Leal on 01-11-2023 MCHC (RBC) [Mass/Vol] 31.0 g/dL 32-36 [facility] No Panel InformationOrdered By: Yue Leal on 01-11-2023 Estimated GFR (MDRD) Amer 96 mL/min >60 [facility] Comment on above: GFR Calc Estimated GFR (MDRD) Non-Af Amer 79 mL/min >60 [facility] Comment on above: Non- GFR Calc Urine Microalbumin/Creatinin e Ratio 11.8 mg/g CRE <30 [facility] Vitamin D 25-Hydroxy 34.3 ng/mL [facility] Comment on above: Vitamin D 25(OH) Sta tus Range Deficiency <20 ng/mL (50nmol/L) Insufficiency 20 - 30 ng/mL (50 - 75 nmol/L) Sufficiency 30 - 100 ng/mL (75 - 250 nmol/L) Toxicity >100 ng/mL (>250 nmol/L) Platelets bldOrdered By: Holden Leal on 01-11-2023 Platelets (Bld) [#/Vol] 175 10*3/uL 150-450 [facility] Serum or plasma albumin jessica urement (mass/volume)Ordered By: Yue Leal on 01-11-2023 Albumin [Mass/Vol] 4.2 g/dL 3.2-5.0 [facility] Serum or plasma albumin/glob ulin mass ratioOrdered By: Yue Leal on 01-11-2023 Albumin/Globulin [Mass ratio] 1.3 {ratio} 0.9-2.4 [facility] Serum or plasma calcium jessica urement (mass/volume)Ordered By: Yue Leal on 01-11-2023 Calcium [Mass/Vol] 9.2 mg/dL 8.5-10.1 [facility] Serum or plasma cholesterol in HDL measurement (mass/volume)Ordered By: Yue Leal on 01-11-2023 Cholesterol in HDL [Mass/Vol] 30 mg/dL >40 [facility] Comment on above: The drugs N-Acetylcy steine and Metamizole may falsely depress this assay. Reference Range HDL <40 mg/dL Low HDL Cholesterol HDL >or= 60 mg/dL High HDL Cholesterol Serum or plasma cholesterol in VLDL measurement (mass/volume)Ordered By: Yue Leal on 01-11-2023 Cholesterol in VLDL [Mass/Vol] 13 mg/dL 5-40 [facility] Serum or plasma creatinine m easurement (mass/volume)Ordered By: Yue Leal on 01-11-2023 Creatinine [Mass/Vol] 0.98 mg/dL 0.70-1.30 [facility] Comment on above: The validity of the calculated GFR & GFRAA in patients over 70 years has not been determined. Clinical correlation is essential. Serum or plasma low density lipoprotein (LDL) cholesterol measurement (mass/volume)Ordered By: Yue Leal on 01-11-2023 Cholesterol in LDL [Mass/Vol] 81 mg/dL 0-130 [facility] Serum or plasma urea nitroge n measurement (mass/volume)Ordered By: Yue Leal on 01-11-2023 Urea nitrogen [Mass/Vol] 25 mg/dL 7-18 [facility] Thin prep Papanicolaou smear with manual screeningOrdered By: Yue Leal on 01-11-2023 Thin prep Papanicolaou smear with manual screening 13 U/L 15-37 [facility] Thin prep Papanicolaou smear with manual screening 2 5-15 [facility] Thin prep Papanicolaou smear with manual screening 6.8 mg/L NO RANGE EST. [facility] Urine creatinine measurement (mass/volume)Ordered By: Yue Leal on 01-11-2023 Creatinine (U) [Mass/Vol] 57.30 mg/dL NO RANGE EST. [facility] Whole blood hemoglobin A1c/t otal hemoglobin ratio (mass fraction)Ordered By: Yue Leal on 01-11-2023 HbA1c (Bld) [Mass fraction] 6.7 % 3.8-5.6 [facility] Comment on above: Normal < 5.7 % Predi abetic 5.7 - 6.4 % Diabetic >or= 6.5 % Please note range changes. Absolute lymphocyte countOrd ered By: Yue Leal on 10-07-2022 Lymphocytes Auto (Unsp spec) [#/Vol] 1.60 10*3/uL 0.83-4.51 [facility] Basophil percentageOrdered B y: Yue Leal on 10-07-2022 Basophils/100 WBC (Bld) 1.2 % 0-1 [facility] Bilirubin [Mass/Vol] 0.80 mg/dL 0.20-1.00 [facility] Comment on above: For patients on eltr ombopag therapy, use of Dimension [place] TBIL is not recommended. Chloride [Moles/Vol] 102 mmol/L 98-107 [facility] Cholesterol [Mass/Vol] 135 mg/dL <200 [facility] Comment on above: <200 mg/dL Desirable 200-240 mg/dL Borderline >240 mg/dL High Risk Eosinophils/100 WBC (Bld) 4.0 % 0-5 [facility] Glucose [Mass/Vol] 119 mg/dL 74-106 [facility] Comment on above: Fasting Glucose resu lt from 100 to 125 mg/dL suggests IMPAIRED HOMEOSTASIS per A.D.A. criteria. Neutrophils (Bld) [#/Vol] 5.5 10*3/uL 2.0-7.7 [facility] Neutrophils/100 WBC (Bld) 68.0 % 47-70 [facility] Potassium [Moles/Vol] 4.7 mmol/L 3.5-5.1 [facility] Protein [Mass/Vol] 7.5 g/dL 6.4-8.2 [facility] Sodium [Moles/Vol] 137 mmol/L 136-145 [facility] Triglyceride [Mass/Vol] 71 mg/dL <199 [facility] Comment on above: The drugs N-Acetylcy steine and Metamizole may falsely depress this assay.Serum Triglycerides Reference Interval Normal <150 mg/dL Borderline high 150 - 199 mg/dL High 200 - 499 mg/dL Very High > or = 500 mg/dL WBC (Bld) [#/Vol] 8.1 10*3/uL 4.4-11.0 [facility] Blood erythrocytes count (nu mber/volume)Ordered By: Yue Leal on 10-07-2022 RBC (Bld) [#/Vol] 5.23 10*6/uL 4.6-6.2 [facility] Blood hemoglobin measurement (mass/volume)Ordered By: Yue Leal on 10-07-2022 Hemoglobin (Bld) [Mass/Vol] 15.2 g/dL 13.0-16.5 [facility] Blood lymphocytes/100 leukoc ytesOrdered By: Yue Leal on 10-07-2022 Lymphocytes/100 WBC (Bld) 19.8 % 19-41 [facility] Blood monocytes/100 leukocyt esOrdered By: Yue Leal on 10-07-2022 Monocytes/100 WBC (Bld) 6.6 % 0-10 [facility] Blood platelet mean volumeOr dered By: Yue Leal on 10-07-2022 Platelet mean volume (Bld) [Entitic vol] 10.2 fL 6.2-12.0 [facility] Determination of erythrocyte mean corpuscular volume (MCV)Ordered By: Yue Leal on 10-07-2022 MCV (RBC) [Entitic vol] 91.6 fL 80-94 [facility] Hematocrit Auto (Bld) [Volum e fraction]Ordered By: Yue Leal on 10-07-2022 Hematocrit (Bld) [Volume fraction] 47.9 % 40-54 [facility] Laboratory - Chemistry and C hemistry - challengeOrdered By: Yue Leal on 10-07-2022 ALP [Catalytic activity/Vol] 99 U/L 45-117 [facility] ALT [Catalytic activity/Vol] 21 U/L 16-61 [facility] CO2 [Moles/Vol] 29.0 mmol/L 21.0-32.0 [facility] Globulin (S) [Mass/Vol] 3.2 g/dL 2.2-4.2 [facility] Urea nitrogen/Creatinine [Mass ratio] 26.4 mg/mg 10-20 [facility] Laboratory - Hematology and Cell countsOrdered By: Yue Leal on 10-07-2022 Erythrocyte distribution width (RBC) [Entitic vol] 42.8 fL 35.1-43.9 [facility] Erythrocyte distribution width (RBC) [Ratio] 12.6 % 11.6-14.6 [facility] Immature granulocytes/100 WBC (Bld) 0.400 % 0.0-0.9 [facility] Comment on above: IG% - Immature Granu locytes (promyelocytes, myelocytes and metamyelocytes) > 1% indicates that a LEFT SHIFT is Present. MCH (RBC) [Entitic mass] 29.1 pg 27.0-32.0 [facility] Nucleated RBC/100 WBC (Bld) [Ratio] 0 % 0-5 [facility] MCHC Auto (RBC) [Mass/Vol]Or dered By: Yue Leal on 10-07-2022 MCHC (RBC) [Mass/Vol] 31.7 g/dL 32-36 [facility] No Panel InformationOrdered By: Yue Leal on 10-07-2022 Estimated GFR (MDRD) Amer 111 mL/min >60 [facility] Comment on above: GFR Calc Estimated GFR (MDRD) Non-Af Amer 91 mL/min >60 [facility] Comment on above: Non- GFR Calc Vitamin D 25-Hydroxy 35.7 ng/mL [facility] Comment on above: Vitamin D 25(OH) Sta tus Range Deficiency <20 ng/mL (50nmol/L) Insufficiency 20 - 30 ng/mL (50 - 75 nmol/L) Sufficiency 30 - 100 ng/mL (75 - 250 nmol/L) Toxicity >100 ng/mL (>250 nmol/L) Platelets bldOrdered By: Holden Leal on 10-07-2022 Platelets (Bld) [#/Vol] 213 10*3/uL 150-450 [facility] Serum or plasma albumin jessica urement (mass/volume)Ordered By: Yue Leal on 10-07-2022 Albumin [Mass/Vol] 4.3 g/dL 3.2-5.0 [facility] Serum or plasma albumin/glob ulin mass ratioOrdered By: Yue Leal on 10-07-2022 Albumin/Globulin [Mass ratio] 1.3 {ratio} 0.9-2.4 [facility] Serum or plasma calcium jessica urement (mass/volume)Ordered By: Yue Leal on 10-07-2022 Calcium [Mass/Vol] 9.5 mg/dL 8.5-10.1 [facility] Serum or plasma cholesterol in HDL measurement (mass/volume)Ordered By: Yue Leal on 10-07-2022 Cholesterol in HDL [Mass/Vol] 27 mg/dL >40 [facility] Comment on above: The drugs N-Acetylcy steine and Metamizole may falsely depress this assay. Reference Range HDL <40 mg/dL Low HDL Cholesterol HDL >or= 60 mg/dL High HDL Cholesterol Serum or plasma cholesterol in VLDL measurement (mass/volume)Ordered By: Yue Leal on 10-07-2022 Cholesterol in VLDL [Mass/Vol] 14 mg/dL 5-40 [facility] Serum or plasma creatinine m easurement (mass/volume)Ordered By: Yue Leal on 10-07-2022 Creatinine [Mass/Vol] 0.87 mg/dL 0.70-1.30 [facility] Comment on above: The validity of the calculated GFR & GFRAA in patients over 70 years has not been determined. Clinical correlation is essential. Serum or plasma low density lipoprotein (LDL) cholesterol measurement (mass/volume)Ordered By: Yue Leal on 10-07-2022 Cholesterol in LDL [Mass/Vol] 94 mg/dL 0-130 [facility] Serum or plasma urea nitroge n measurement (mass/volume)Ordered By: Yue Leal on 10-07-2022 Urea nitrogen [Mass/Vol] 23 mg/dL 7-18 [facility] Thin prep Papanicolaou smear with manual screeningOrdered By: Yue Leal on 10-07-2022 Thin prep Papanicolaou smear with manual screening 18 U/L 15-37 [facility] Thin prep Papanicolaou smear with manual screening 6 5-15 [facility] Whole blood hemoglobin A1c/t otal hemoglobin ratio (mass fraction)Ordered By: Yue Leal on 10-07-2022 HbA1c (Bld) [Mass fraction] 9.4 % 3.8-5.6 [facility] Comment on above: Normal < 5.7 % Predi abetic 5.7 - 6.4 % Diabetic >or= 6.5 % Please note range changes. Absolute lymphocyte countOrd ered By: Yue Resendezlove on 07-07-2022 Lymphocytes Auto (Unsp spec) [#/Vol] 1.47 10*3/uL 0.83-4.51 [facility] Basophil percentageOrdered B y: Yue Elvis on 07-07-2022 Basophils/100 WBC (Bld) 1.4 % 0-1 [facility] Bilirubin [Mass/Vol] 0.80 mg/dL 0.20-1.00 [facility] Comment on above: For patients on eltr ombopag therapy, use of Dimension [place] TBIL is not recommended. Chloride [Moles/Vol] 101 mmol/L 98-107 [facility] Cholesterol [Mass/Vol] 173 mg/dL <200 [facility] Comment on above: <200 mg/dL Desirable 200-240 mg/dL Borderline >240 mg/dL High Risk Eosinophils/100 WBC (Bld) 2.7 % 0-5 [facility] Glucose [Mass/Vol] 196 mg/dL 74-106 [facility] Comment on above: Fasting Glucose resu lt greater than or equal to 126 mg/dL suggests DIABETES MELLITUS per A.D.A. criteria. Neutrophils (Bld) [#/Vol] 3.7 10*3/uL 2.0-7.7 [facility] Neutrophils/100 WBC (Bld) 62.5 % 47-70 [facility] Potassium [Moles/Vol] 4.6 mmol/L 3.5-5.1 [facility] Protein [Mass/Vol] 7.2 g/dL 6.4-8.2 [facility] Sodium [Moles/Vol] 134 mmol/L 136-145 [facility] Triglyceride [Mass/Vol] 95 mg/dL <199 [facility] Comment on above: The drugs N-Acetylcy steine and Metamizole may falsely depress this assay.Serum Triglycerides Reference Interval Normal <150 mg/dL Borderline high 150 - 199 mg/dL High 200 - 499 mg/dL Very High > or = 500 mg/dL WBC (Bld) [#/Vol] 5.9 10*3/uL 4.4-11.0 [facility] Blood erythrocytes count (nu mber/volume)Ordered By: Yue Leal on 07-07-2022 RBC (Bld) [#/Vol] 5.13 10*6/uL 4.6-6.2 [facility] Blood hemoglobin measurement (mass/volume)Ordered By: Yue Leal on 07-07-2022 Hemoglobin (Bld) [Mass/Vol] 15.0 g/dL 13.0-16.5 [facility] Blood lymphocytes/100 leukoc ytesOrdered By: Yue Leal on 07-07-2022 Lymphocytes/100 WBC (Bld) 25.1 % 19-41 [facility] Blood monocytes/100 leukocyt esOrdered By: Yue Leal on 07-07-2022 Monocytes/100 WBC (Bld) 6.8 % 0-10 [facility] Blood platelet mean volumeOr dered By: Yue Leal on 07-07-2022 Platelet mean volume (Bld) [Entitic vol] 11.1 fL 6.2-12.0 [facility] Determination of erythrocyte mean corpuscular volume (MCV)Ordered By: Yue Leal on 07-07-2022 MCV (RBC) [Entitic vol] 91.4 fL 80-94 [facility] Hematocrit Auto (Bld) [Volum e fraction]Ordered By: Yue Leal on 07-07-2022 Hematocrit (Bld) [Volume fraction] 46.9 % 40-54 [facility] Laboratory - Chemistry and C hemistry - challengeOrdered By: Yue Leal on 07-07-2022 ALP [Catalytic activity/Vol] 121 U/L 45-117 [facility] ALT [Catalytic activity/Vol] 22 U/L 16-61 [facility] CO2 [Moles/Vol] 27.0 mmol/L 21.0-32.0 [facility] Globulin (S) [Mass/Vol] 3.1 g/dL 2.2-4.2 [facility] Urea nitrogen/Creatinine [Mass ratio] 22.2 mg/mg 10-20 [facility] Laboratory - Hematology and Cell countsOrdered By: Yue Leal on 07-07-2022 Erythrocyte distribution width (RBC) [Entitic vol] 42.5 fL 35.1-43.9 [facility] Erythrocyte distribution width (RBC) [Ratio] 12.5 % 11.6-14.6 [facility] Immature granulocytes/100 WBC (Bld) 1.500 % 0.0-0.9 [facility] Comment on above: IG% - Immature Granu locytes (promyelocytes, myelocytes and metamyelocytes) > 1% indicates that a LEFT SHIFT is Present. MCH (RBC) [Entitic mass] 29.2 pg 27.0-32.0 [facility] Nucleated RBC/100 WBC (Bld) [Ratio] 0 % 0-5 [facility] MCHC Auto (RBC) [Mass/Vol]Or dered By: Yue Leal on 07-07-2022 MCHC (RBC) [Mass/Vol] 32.0 g/dL 32-36 [facility] No Panel InformationOrdered By: Yue Leal on 07-07-2022 Estimated GFR (MDRD) Amer 101 mL/min >60 [facility] Comment on above: GFR Calc Estimated GFR (MDRD) Non-Af Amer 83 mL/min >60 [facility] Comment on above: Non- GFR Calc Prostate Specific Antigen Screen 1.08 ng/mL 0.00-4.00 [facility] Comment on above: This test was perfor med using the TPSA assay method for the[facility] system. Values obtained with differentassay methods cannot be used interchangably.When changing PSA assays in the course of monitoring apatient, additional sequential testing should be carriedout to confirm baseline values. Urine Microalbumin/Creatinin e Ratio 17.6 mg/g CRE <30 [facility] Platelets bldOrdered By: Holden Leal on 07-07-2022 Platelets (Bld) [#/Vol] 228 10*3/uL 150-450 [facility] Serum or plasma albumin jessica urement (mass/volume)Ordered By: Yue Leal on 07-07-2022 Albumin [Mass/Vol] 4.1 g/dL 3.2-5.0 [facility] Serum or plasma albumin/glob ulin mass ratioOrdered By: Yue Leal on 07-07-2022 Albumin/Globulin [Mass ratio] 1.3 {ratio} 0.9-2.4 [facility] Serum or plasma calcium jessica urement (mass/volume)Ordered By: Yue Leal on 07-07-2022 Calcium [Mass/Vol] 9.5 mg/dL 8.5-10.1 [facility] Serum or plasma cholesterol in HDL measurement (mass/volume)Ordered By: Yue Leal on 07-07-2022 Cholesterol in HDL [Mass/Vol] 26 mg/dL >40 [facility] Comment on above: The drugs N-Acetylcy steine and Metamizole may falsely depress this assay. Reference Range HDL <40 mg/dL Low HDL Cholesterol HDL >or= 60 mg/dL High HDL Cholesterol Serum or plasma cholesterol in VLDL measurement (mass/volume)Ordered By: Yue Leal on 07-07-2022 Cholesterol in VLDL [Mass/Vol] 19 mg/dL 5-40 [facility] Serum or plasma creatinine m easurement (mass/volume)Ordered By: Yue Leal on 07-07-2022 Creatinine [Mass/Vol] 0.95 mg/dL 0.70-1.30 [facility] Comment on above: The validity of the calculated GFR & GFRAA in patients over 70 years has not been determined. Clinical correlation is essential. Serum or plasma low density lipoprotein (LDL) cholesterol measurement (mass/volume)Ordered By: Yue Leal on 07-07-2022 Cholesterol in LDL [Mass/Vol] 128 mg/dL 0-130 [facility] Serum or plasma urea nitroge n measurement (mass/volume)Ordered By: Yue Leal on 07-07-2022 Urea nitrogen [Mass/Vol] 21 mg/dL 7-18 [facility] Thin prep Papanicolaou smear with manual screeningOrdered By: Yue Leal on 07-07-2022 Thin prep Papanicolaou smear with manual screening 15 U/L 15-37 [facility] Thin prep Papanicolaou smear with manual screening 6 5-15 [facility] Thin prep Papanicolaou smear with manual screening 5.5 mg/L NO RANGE EST. [facility] Urine creatinine measurement (mass/volume)Ordered By: Yue Leal on 07-07-2022 Creatinine (U) [Mass/Vol] 31.30 mg/dL NO RANGE EST. [facility] Whole blood hemoglobin A1c/t otal hemoglobin ratio (mass fraction)Ordered By: Yue Leal on 07-07-2022 HbA1c (Bld) [Mass fraction] 9.0 % 3.8-5.6 [facility] Comment on above: Normal < 5.7 % Predi abetic 5.7 - 6.4 % Diabetic >or= 6.5 % Please note range changes. Absolute lymphocyte counton 08-07-2021 Lymphocytes Auto (Unsp spec) [#/Vol] 1.31 10*3/uL 0.83-4.51 [facility] Work Phone: Basophil percentageon 2021 Basophils/100 WBC (Bld) 1.1 % 0-1 [facility] Work Phone: Bilirubin [Mass/Vol] 0.60 mg/dL 0.20-1.00 [facility] Work Phone: Comment on above: For patients on eltr ombopag therapy, use of Dimension [place] TBIL is not recommended. Chloride [Moles/Vol] 100 mmol/L 98-107 [facility] Work Phone: Cholesterol [Mass/Vol] 193 mg/dL <200 [facility] Work Phone: Comment on above: <200 mg/dL Desirable 200-240 mg/dL Borderline >240 mg/dL High Risk Eosinophils/100 WBC (Bld) 2.8 % 0-5 [facility] Work Phone: Glucose [Mass/Vol] 355 mg/dL 74-106 [facility] Work Phone: Comment on above: Glucose result great er than or equal to 200 mg/dLsuggests DIABETES MELLITUS per A.D.A. criteria. Neutrophils (Bld) [#/Vol] 4.6 10*3/uL 2.0-7.7 [facility] Work Phone: Neutrophils/100 WBC (Bld) 71.0 % 47-70 [facility] Work Phone: Potassium [Moles/Vol] 4.6 mmol/L 3.5-5.1 [facility] Work Phone: Protein [Mass/Vol] 7.5 g/dL 6.4-8.2 [facility] Work Phone: Sodium [Moles/Vol] 134 mmol/L 136-145 [facility] Work Phone: Triglyceride [Mass/Vol] 169 mg/dL <199 [facility] Work Phone: Comment on above: The drugs N-Acetylcy steine and Metamizole may falsely depress this assay.Serum Triglycerides Reference Interval Normal <150 mg/dL Borderline high 150 - 199 mg/dL High 200 - 499 mg/dL Very High > or = 500 mg/dL WBC (Bld) [#/Vol] 6.4 10*3/uL 4.4-11.0 [facility] Work Phone: Blood erythrocytes count (nu mber/volume)on 08-07-2021 RBC (Bld) [#/Vol] 5.41 10*6/uL 4.6-6.2 [facility] Work Phone: Blood hemoglobin measurement (mass/volume)on 08-07-2021 Hemoglobin (Bld) [Mass/Vol] 15.4 g/dL 13.0-16.5 [facility] Work Phone: Blood lymphocytes/100 leukoc yteson 08-07-2021 Lymphocytes/100 WBC (Bld) 20.4 % 19-41 [facility] Work Phone: Blood monocytes/100 leukocyt eson 08-07-2021 Monocytes/100 WBC (Bld) 4.4 % 0-10 [facility] Work Phone: Blood platelet mean volumeon 08-07-2021 Platelet mean volume (Bld) [Entitic vol] 11.0 fL 6.2-12.0 [facility] Work Phone: Determination of erythrocyte mean corpuscular volume (MCV)on 08-07-2021 MCV (RBC) [Entitic vol] 89.1 fL 80-94 [facility] Work Phone: Hematocrit Auto (Bld) [Volum e fraction]on 08-07-2021 Hematocrit (Bld) [Volume fraction] 48.2 % 40-54 [facility] Work Phone: Laboratory - Chemistry and C hemistry - challengeon 08-07-2021 ALP [Catalytic activity/Vol] 111 U/L 45-117 [facility] Work Phone: ALT [Catalytic activity/Vol] 23 U/L 16-61 [facility] Work Phone: CO2 [Moles/Vol] 27.0 mmol/L 21.0-32.0 [facility] Work Phone: Globulin (S) [Mass/Vol] 3.3 g/dL 2.2-4.2 [facility] Work Phone: Urea nitrogen/Creatinine [Mass ratio] 19.6 mg/mg 10-20 [facility] Work Phone: Laboratory - Hematology and Cell countson 08-07-2021 Erythrocyte distribution width (RBC) [Entitic vol] 41.0 fL 35.1-43.9 [facility] Work Phone: Erythrocyte distribution width (RBC) [Ratio] 12.6 % 11.6-14.6 [facility] Work Phone: Immature granulocytes/100 WBC (Bld) 0.300 % 0.0-0.9 [facility] Work Phone: Comment on above: IG% - Immature Granu locytes (promyelocytes, myelocytes and metamyelocytes) > 1% indicates that a LEFT SHIFT is Present. MCH (RBC) [Entitic mass] 28.5 pg 27.0-32.0 [facility] Work Phone: Nucleated RBC/100 WBC (Bld) [Ratio] 0 % 0-5 [facility] Work Phone: MCHC Auto (RBC) [Mass/Vol]on 08-07-2021 MCHC (RBC) [Mass/Vol] 32.0 g/dL 32-36 [facility] Work Phone: No Panel Informationon 08-07 Estimated GFR (MDRD) Amer 87 mL/min >60 [facility] Work Phone: Comment on above: GFR Calc Estimated GFR (MDRD) Non-Af Amer 72 mL/min >60 [facility] Work Phone: Comment on above: Non- GFR Calc Urine Microalbumin/Creatinin e Ratio 28.5 mg/g CRE <30 [facility] Work Phone: Vitamin D 25-Hydroxy 50.4 ng/mL [facility] Work Phone: Comment on above: Vitamin D 25(OH) Sta tus Range Deficiency <20 ng/mL (50nmol/L) Insufficiency 20 - 30 ng/mL (50 - 75 nmol/L) Sufficiency 30 - 100 ng/mL (75 - 250 nmol/L) Toxicity >100 ng/mL (>250 nmol/L) Platelets bldon 08-07-2021 Platelets (Bld) [#/Vol] 198 10*3/uL 150-450 [facility] Work Phone: Serum or plasma albumin jessica urement (mass/volume)on 08-07-2021 Albumin [Mass/Vol] 4.2 g/dL 3.2-5.0 [facility] Work Phone: Serum or plasma albumin/glob ulin mass ratioon 08-07-2021 Albumin/Globulin [Mass ratio] 1.3 {ratio} 0.9-2.4 [facility] Work Phone: Serum or plasma calcium jessica urement (mass/volume)on 08-07-2021 Calcium [Mass/Vol] 9.7 mg/dL 8.5-10.1 [facility] Work Phone: Serum or plasma cholesterol in HDL measurement (mass/volume)on 08-07-2021 Cholesterol in HDL [Mass/Vol] 24 mg/dL >40 [facility] Work Phone: Comment on above: The drugs N-Acetylcy steine and Metamizole may falsely depress this assay. Reference Range HDL <40 mg/dL Low HDL Cholesterol HDL >or= 60 mg/dL High HDL Cholesterol Serum or plasma cholesterol in VLDL measurement (mass/volume)on 08-07-2021 Cholesterol in VLDL [Mass/Vol] 34 mg/dL 5-40 [facility] Work Phone: Serum or plasma creatinine m easurement (mass/volume)on 08-07-2021 Creatinine [Mass/Vol] 1.07 mg/dL 0.70-1.30 [facility] Work Phone: Comment on above: The validity of the calculated GFR & GFRAA in patients over 70 years has not been determined. Clinical correlation is essential. Serum or plasma low density lipoprotein (LDL) cholesterol measurement (mass/volume)on 08-07-2021 Cholesterol in LDL [Mass/Vol] 135 mg/dL 0-130 [facility] Work Phone: Serum or plasma urea nitroge n measurement (mass/volume)on 08-07-2021 Urea nitrogen [Mass/Vol] 21 mg/dL 7-18 [facility] Work Phone: Thin prep Papanicolaou smear with manual screeningon 08-07-2021 Thin prep Papanicolaou smear with manual screening 15 U/L 15-37 [facility] Work Phone: Thin prep Papanicolaou smear with manual screening 7 5-15 [facility] Work Phone: Thin prep Papanicolaou smear with manual screening 9.4 mg/L NO RANGE EST. [facility] Work Phone: Urine creatinine measurement (mass/volume)on 08-07-2021 Creatinine (U) [Mass/Vol] 32.90 mg/dL NO RANGE EST. [facility] Work Phone: Whole blood hemoglobin A1c/t otal hemoglobin ratio (mass fraction)on 08-07-2021 HbA1c (Bld) [Mass fraction] 10.0 % 3.8-5.6 [facility] Work Phone: Comment on above: Normal < 5.7 % Predi abetic 5.7 - 6.4 % Diabetic >or= 6.5 % Please note range changes. Basophil percentageon 2021 Bilirubin [Mass/Vol] 0.40 mg/dL 0.20-1.00 [facility] Work Phone: Comment on above: For patients on eltr ombopag therapy, use of Dimension [place] TBIL is not recommended. Chloride [Moles/Vol] 102 mmol/L 98-107 [facility] Work Phone: Glucose [Mass/Vol] 146 mg/dL 74-106 [facility] Work Phone: Comment on above: Fasting Glucose resu lt greater than or equal to 126 mg/dL suggests DIABETES MELLITUS per A.D.A. criteria. Potassium [Moles/Vol] 5.2 mmol/L 3.5-5.1 [facility] Work Phone: Protein [Mass/Vol] 7.5 g/dL 6.4-8.2 [facility] Work Phone: Sodium [Moles/Vol] 136 mmol/L 136-145 [facility] Work Phone: Laboratory - Chemistry and C hemistry - challengeon 05-25-2021 ALP [Catalytic activity/Vol] 110 U/L 45-117 [facility] Work Phone: ALT [Catalytic activity/Vol] 30 U/L 16-61 [facility] Work Phone: CO2 [Moles/Vol] 31.0 mmol/L 21.0-32.0 [facility] Work Phone: Globulin (S) [Mass/Vol] 3.1 g/dL 2.2-4.2 [facility] Work Phone: Urea nitrogen/Creatinine [Mass ratio] 21.6 mg/mg 10-20 [facility] Work Phone: No Panel Informationon 05-25 Estimated GFR (MDRD) Amer 117 mL/min >60 [facility] Work Phone: Comment on above: GFR Calc Estimated GFR (MDRD) Non-Af Amer 96 mL/min >60 [facility] Work Phone: Comment on above: Non- GFR Calc Serum or plasma albumin jessica urement (mass/volume)on 05-25-2021 Albumin [Mass/Vol] 4.4 g/dL 3.2-5.0 [facility] Work Phone: Serum or plasma albumin/glob ulin mass ratioon 05-25-2021 Albumin/Globulin [Mass ratio] 1.4 {ratio} 0.9-2.4 [facility] Work Phone: Serum or plasma calcium jessica urement (mass/volume)on 05-25-2021 Calcium [Mass/Vol] 9.2 mg/dL 8.5-10.1 [facility] Work Phone: Serum or plasma creatinine m easurement (mass/volume)on 05-25-2021 Creatinine [Mass/Vol] 0.83 mg/dL 0.70-1.30 [facility] Work Phone: Comment on above: The validity of the calculated GFR & GFRAA in patients over 70 years has not been determined. Clinical correlation is essential. Serum or plasma urea nitroge n measurement (mass/volume)on 05-25-2021 Urea nitrogen [Mass/Vol] 18 mg/dL 7-18 [facility] Work Phone: Thin prep Papanicolaou smear with manual screeningon 05-25-2021 Thin prep Papanicolaou smear with manual screening 19 U/L 15-37 [facility] Work Phone: Thin prep Papanicolaou smear with manual screening 3 5-15 [facility] Work Phone: CNOVon 04-13-2021 CNOV Office Visit (GENSWS ) YUE CHAPIN ([id number]) 1950 M Date Time Provider Department 04/13/21 2:00 PM HIRAM CARRSACO During your visit today, we recorded the following information about you: Temperature Pulse Blood pressure Weight 97.1 degrees 109/minute 132/72 94.8 kg Height 1.93 m Hiram Carrasco III, MD 04/13/2021 2:08 PM Signed Subjective: Patient status post open right inguinal hernia on 03/04/2021. He was playing with his grandkids developed some pain in his right groin area. This has subsided. Unfortunately he lost his unexpectedly. Objective:Blood pressure 132/72, pulse 109, temperature 36.2 ?C (97.1 ?F), height 193 cm (6' 4), weight 94.8 kg (209 lb), SpO2 96 %. Incision is healing well. There is no signs of recurrence there is no bulge there is no signs of cellulitis or infection Assessment: Aftercare Plan: He can follow-up with me on an as-needed basis I told him to gradually increase his activities as he tolerates. Referring Provider: HIRAM CARRASCO [[id number]] Allergies As of Date: 04/13/2021 (No Known Allergies) Date Reviewed: 04/13/2021 Reviewed by: Kylah Davidson LPN - Fully Assessed Reason for Visit: Follow Up [171] Cmt: right lower abdomen pain Primary Visit Diagnosis:Aftercare [Z51.89] Prescriptions as of 04/13/2021 - pioglitazone (ACTOS) 15 mg tablet - metFORMIN (GLUCOPHAGE) 850 mg tablet Take 850 mg by mouth twice daily. - GLIPIZIDE 10 MG TAB Take 10 mg by mouth twice daily before meals. - latanoprost(XALATAN 0.005 % EYE DROPS) Place one(1) drop in the affected eye(s) once daily at bedtime. 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] 07/18/2009 Right inguinal hernia [K40.90] 03/04/2021 03/04/2021 Encounter Status:Closed by HIRAM CARRASCO on 04/13/21 Normal [facility] Absolute lymphocyte counton 03-31-2021 Lymphocytes Auto (Unsp spec) [#/Vol] 1.26 10*3/uL 0.83-4.51 [facility] Work Phone: Basophil percentageon 2021 Basophils/100 WBC (Bld) 1.2 % 0-1 [facility] Work Phone: Bilirubin [Mass/Vol] 0.50 mg/dL 0.20-1.00 [facility] Work Phone: Comment on above: For patients on eltr ombopag therapy, use of Dimension [place] TBIL is not recommended. Chloride [Moles/Vol] 102 mmol/L 98-107 [facility] Work Phone: Eosinophils/100 WBC (Bld) 2.7 % 0-5 [facility] Work Phone: Glucose [Mass/Vol] 120 mg/dL 74-106 [facility] Work Phone: Comment on above: Fasting Glucose resu lt from 100 to 125 mg/dL suggests IMPAIRED HOMEOSTASIS per A.D.A. criteria. Neutrophils (Bld) [#/Vol] 3.9 10*3/uL 2.0-7.7 [facility] Work Phone: Neutrophils/100 WBC (Bld) 66.6 % 47-70 [facility] Work Phone: Potassium [Moles/Vol] 4.4 mmol/L 3.5-5.1 [facility] Work Phone: Protein [Mass/Vol] 7.4 g/dL 6.4-8.2 [facility] Work Phone: Sodium [Moles/Vol] 137 mmol/L 136-145 [facility] Work Phone: WBC (Bld) [#/Vol] 5.9 10*3/uL 4.4-11.0 [facility] Work Phone: Blood erythrocytes count (nu mber/volume)on 03-31-2021 RBC (Bld) [#/Vol] 4.54 10*6/uL 4.6-6.2 [facility] Work Phone: Blood hemoglobin measurement (mass/volume)on 03-31-2021 Hemoglobin (Bld) [Mass/Vol] 13.1 g/dL 13.0-16.5 [facility] Work Phone: Blood lymphocytes/100 leukoc yteson 03-31-2021 Lymphocytes/100 WBC (Bld) 21.4 % 19-41 [facility] Work Phone: Blood monocytes/100 leukocyt eson 03-31-2021 Monocytes/100 WBC (Bld) 7.8 % 0-10 [facility] Work Phone: Blood platelet mean volumeon 03-31-2021 Platelet mean volume (Bld) [Entitic vol] 10.8 fL 6.2-12.0 [facility] Work Phone: Determination of erythrocyte mean corpuscular volume (MCV)on 03-31-2021 MCV (RBC) [Entitic vol] 88.8 fL 80-94 [facility] Work Phone: Hematocrit Auto (Bld) [Volum e fraction]on 03-31-2021 Hematocrit (Bld) [Volume fraction] 40.3 % 40-54 [facility] Work Phone: Laboratory - Chemistry and C hemistry - challengeon 03-31-2021 ALP [Catalytic activity/Vol] 104 U/L 45-117 [facility] Work Phone: ALT [Catalytic activity/Vol] 34 U/L 16-61 [facility] Work Phone: CO2 [Moles/Vol] 31.0 mmol/L 21.0-32.0 [facility] Work Phone: Globulin (S) [Mass/Vol] 4.0 g/dL 2.2-4.2 [facility] Work Phone: Urea nitrogen/Creatinine [Mass ratio] 10.8 mg/mg 10-20 [facility] Work Phone: Laboratory - Hematology and Cell countson 03-31-2021 Erythrocyte distribution width (RBC) [Entitic vol] 39.1 fL 35.1-43.9 [facility] Work Phone: Erythrocyte distribution width (RBC) [Ratio] 12.1 % 11.6-14.6 [facility] Work Phone: Immature granulocytes/100 WBC (Bld) 0.300 % 0.0-0.9 [facility] Work Phone: Comment on above: IG% - Immature Granu locytes (promyelocytes, myelocytes and metamyelocytes) > 1% indicates that a LEFT SHIFT is Present. MCH (RBC) [Entitic mass] 28.9 pg 27.0-32.0 [facility] Work Phone: Nucleated RBC/100 WBC (Bld) [Ratio] 0 % 0-5 [facility] Work Phone: MCHC Auto (RBC) [Mass/Vol]on 03-31-2021 MCHC (RBC) [Mass/Vol] 32.5 g/dL 32-36 [facility] Work Phone: No Panel Informationon 03-31 Estimated GFR (MDRD) Amer 117 mL/min >60 [facility] Work Phone: Comment on above: GFR Calc Estimated GFR (MDRD) Non-Af Amer 96 mL/min >60 [facility] Work Phone: Comment on above: Non- GFR Calc Thyroid Stimulating Hormone (TSH) 1.08 uIU/mL 0.358-3.74 [facility] Work Phone: Vitamin D 25-Hydroxy 18.1 ng/mL [facility] Work Phone: Comment on above: Vitamin D 25(OH) Sta tus Range Deficiency <20 ng/mL (50nmol/L) Insufficiency 20 - 30 ng/mL (50 - 75 nmol/L) Sufficiency 30 - 100 ng/mL (75 - 250 nmol/L) Toxicity >100 ng/mL (>250 nmol/L) Platelets bldon 03-31-2021 Platelets (Bld) [#/Vol] 277 10*3/uL 150-450 [facility] Work Phone: Serum or plasma albumin jessica urement (mass/volume)on 03-31-2021 Albumin [Mass/Vol] 3.4 g/dL 3.2-5.0 [facility] Work Phone: Serum or plasma albumin/glob ulin mass ratioon 03-31-2021 Albumin/Globulin [Mass ratio] 0.8 {ratio} 0.9-2.4 [facility] Work Phone: Serum or plasma calcium jessica urement (mass/volume)on 03-31-2021 Calcium [Mass/Vol] 9.2 mg/dL 8.5-10.1 [facility] Work Phone: Serum or plasma creatinine m easurement (mass/volume)on 03-31-2021 Creatinine [Mass/Vol] 0.84 mg/dL 0.70-1.30 [facility] Work Phone: Comment on above: The validity of the calculated GFR & GFRAA in patients over 70 years has not been determined. Clinical correlation is essential. Serum or plasma urea nitroge n measurement (mass/volume)on 03-31-2021 Urea nitrogen [Mass/Vol] 9 mg/dL 7-18 [facility] Work Phone: Thin prep Papanicolaou smear with manual screeningon 03-31-2021 Thin prep Papanicolaou smear with manual screening 30 U/L 15-37 [facility] Work Phone: Thin prep Papanicolaou smear with manual screening 4 5-15 [facility] Work Phone: Den 03-23-2021 CNPN Telephone (eParachuteS) YUE CHAPIN ([id number]) 1950 M Date Time Provider Department 03/23/21 HIRAM CARRASCO During your visit today, we recorded the following information about you: Harriett Lassitergg 03/23/2021 11:30 AM Signed Patient called in stating he is still having pain - annoying pain ranging between 1-3 in a 10 point pain scale. Patient states he is coughing and that makes the pain worse. States that it is sore around the incision as well. Please advise. (Additionally, patient stated that he also lost his a few days ago.) Harriett Das RN 03/23/2021 12:00 PM Signed Spoke with patient. Yue states that he has been having increased pain around his incision site. He states that he has been coughing a lot and feels that may have something to do with it. He also states that touching the incision and surrounding area is very tender. Offered the patient an appointment for today or tomorrow, but he states that he just lost his and he doesn't want to miss any of her services. The patient advised that he will keep watching it and let us know if he changes his mind and wants to come in. Reassured the patient that the pain he is having, could be related to him coughing, but asked that he keep an eye on it and let us know if he changes his mind about an office visit. The patient voiced understanding. DEMARCUS West III, MD 04/02/2021 10:09 AM Signed Get the patient back in to see Angela as soon as he can. Domenica Das RN 04/02/2021 2:01 PM Signed Spoke with patient. He states that he is still having some discomfort in the area, and more if he pushes on the surgical site, but feels that it is getting better. Offered Yue an appointment for tomorrow, but he declined. He stated that he would see how he feels next week and if he is still having pain, he will call and schedule an appointment. DEMARCUS West 04/08/2021 3:08 PM Signed Patient returned call and scheduled with Dr. Carrasco on 04/10/21. Harriett Johnson Allergies As of Date: 03/23/2021 (No Known Allergies) Date Reviewed: 03/11/2021 Reviewed by: Kylah Davidson LPN - Fully Assessed Reason for Visit: Pain [78] Prescriptions as of 04/08/2021 - metFORMIN (GLUCOPHAGE) 850 mg tablet Take 850 mg by mouth twice daily. - GLIPIZIDE 10 MG TAB Take one(1) tablet daily. - latanoprost(XALATAN 0.005 % EYE DROPS) Place one(1) drop in the affected eye(s) once daily at bedtime. 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] 06/27/2009 Renal Colic [N23] 06/27/2009 Renal Atrophy [N26.1] 07/18/2009 Right inguinal hernia [K40.90] 03/04/2021 03/04/2021 Encounter Status:Closed by HARRIETT JOHNSON on 04/08/21 [facility] Kenny 03-11-2021 CNOV Office Visit (GENSWS ) YUE CHAPIN ([id number]) 1950 M Date Time Provider Department 03/11/21 9:00 AM ANGELA PHELPS During your visit today, we recorded the following information about you: Temperature Pulse Blood pressure Weight 98.9 degrees 118/minute 126/68 100.8 kg Height 1.93 m Angela Phelps PA-C 03/11/2021 9:24 AM Addendum -May use ice and/or heat for symptom relief, especially after doing lots of walking -Recommend supportive underwear with compression The following instructions are important for you related to your office visit today with the [facility] General Surgeons. INSTRUCTIONS FOLLOWING YOUR RECENT HERNIA SURGERY You should be returning to your regular diet, If you have having persistent issues with tolerating your diet, please contact our office It is not unusual to have incisional pain for the first 1-2 weeks following surgery. If this persists beyond 2 weeks, contact the office You may remove the steri-strips in 5 days if they have not fallen off by that time. You may return to your regular activities. You may drive if you are no longer taking narcotic pain medication. Climbing stairs is fine. Walking in encouraged. Sitting up from bed may be uncomfortable. Sitting up using your lateral abdominal muscles (sitting up sideways) is usually more comfortable. You should perform no lifting greater than 20lbs for the next 6-7 weeks. Usually 8 weeks total from the date of surgery. It is not unusual to have loose stools following surgery. This is usually self limited and related to the antibiotics that were given during your surgical procedure. Fiber supplementation and yogurt with active cultures may help you return to regular bowel activity. If you note loose stools persisting for over 2 weeks, or significant cramping or loose bloody stools, contact the office immediately. Contact the office immediately if any of your incisions become increasingly tender, red or have drainage. Again, if you have any difficulties or concerns, contact our office immediately. If you note any additional difficulties, questions, or concerns, you should contact our office immediately @ [phone] and ask to be transferred to the General Surgery department. Angela Phelps PA-C 03/11/2021 4:39 PM Signed FOLLOW UP VISIT - HERNIA NAME: Yue Chapin CLINIC NO.: [id number] DATE OF SERVICE: 03/11/2021 : 1950 REFERRING PHYSICIAN: Zenon Garcia MD Yue is a patient I am following for a right inguinal hernia. Dr. Carrasco performed an open right inguinal hernia repair with mesh on 03/04/21. The patient currently notes no major complaints. his appetite has been good. he denies fever, chills or abdominal pain. he does note some mild incisional discomfort. he notes no bulges at the operative site VITALS: Blood pressure 126/68, pulse 118, temperature 37.2 ?C (98.9 ?F), height 193 cm (6'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 Erythrocyte distribution width (RBC) [Entitic vol] 39.9 fL 35.1-43.9 [facility] Work Phone: Erythrocyte distribution width (RBC) [Ratio] 12.1 % 11.6-14.6 [facility] Work Phone: Immature granulocytes/100 WBC (Bld) 0.300 % 0.0-0.9 [facility] Work Phone: Comment on above: IG% - Immature Granu locytes (promyelocytes, myelocytes and metamyelocytes) > 1% indicates that a LEFT SHIFT is Present. MCH (RBC) [Entitic mass] 28.6 pg 27.0-32.0 [facility] Work Phone: Nucleated RBC/100 WBC (Bld) [Ratio] 0 % 0-5 [facility] Work Phone: MCHC Auto (RBC) [Mass/Vol]on 02-24-2021 MCHC (RBC) [Mass/Vol] 31.8 g/dL 32-36 [facility] Work Phone: No Panel Informationon 02-24 Estimated Creatinine Clearance Calc 92.43 ml/min [facility] Work Phone: Estimated GFR (MDRD) Amer 108 mL/min >60 [facility] Work Phone: Comment on above: GFR Calc Estimated GFR (MDRD) Non-Af Amer 89 mL/min >60 [facility] Work Phone: Comment on above: Non- GFR Calc Platelets bldon 02-24-2021 Platelets (Bld) [#/Vol] 216 10*3/uL 150-450 [facility] Work Phone: Serum or plasma calcium jessica urement (mass/volume)on 02-24-2021 Calcium [Mass/Vol] 9.6 mg/dL 8.5-10.1 [facility] Work Phone: Serum or plasma creatinine m easurement (mass/volume)on 02-24-2021 Creatinine [Mass/Vol] 0.90 mg/dL 0.70-1.30 [facility] Work Phone: Comment on above: The validity of the calculated GFR & GFRAA in patients over 70 years has not been determined. Clinical correlation is essential. Serum or plasma urea nitroge n measurement (mass/volume)on 02-24-2021 Urea nitrogen [Mass/Vol] 22 mg/dL 7-18 [facility] Work Phone: Thin prep Papanicolaou smear with manual screeningon 02-24-2021 Thin prep Papanicolaou smear with manual screening 7 5-15 [facility] Work Phone: Office Visiton 08-05-2016 Documentation of current medications (procedure) Done Invalid Interpretation Code [facility] Work Phone: Protein mass conc Done [facility] Work Phone: Tobacco smoking status [facility] Former smoker [facility] Work Phone: Tobacco use [facility] Former smoker Invalid Interpretation Code [facility] Work Phone: Clinical Lists Update: Prelo venereal disease control head 02-03-2012 Tobacco smoking status [facility] former smoker [facility] Work Phone: Office Visiton 02-03-2012 Protein mass conc Done [facility] Work Phone: Vital Signs Date Time Vital Sign Value Performing Clinician Facility 04-13-2024 13:56-0500 Body height 193.[address] Yue Leal MD Work Phone: [facility] 04-13-2024 13:56-0500 Body mass index (BMI) [Ratio] 24.5 kg/m2 Dr. Yue Leal MD Work Phone: [facility] 04-13-2024 13:56-0500 Body weight 91.[address] Yue Leal MD Work Phone: [facility] 03-16-2024 11:39-0500 Body mass index (BMI) [Ratio] 25 kg/m2 Dr. Yue Leal MD Work Phone: [phone] [place] [address] 03-16-2024 11:39-0500 Body weight 93.[address] Yue Leal MD Work Phone: [facility] 03-16-2024 11:39-0500 Diastolic blood pressure 80 mm[Hg] Dr. Yue Leal MD Work Phone: [facility] 03-16-2024 11:39-0500 Heart rate 66 /min Dr. Yue Leal MD Work Phone: [phone] [place] [address] 03-16-2024 11:39-0500 Respiratory rate 18 /min Dr. Yue eLal MD Work Phone: [facility] 03-16-2024 11:39-0500 Systolic blood pressure 123 mm[Hg] Dr. Yue Leal MD Work Phone: [facility] 02-12-2024 01:20-0500 Body temperature 97.9 [degF] Dr. Yue Leal MD Work Phone: [facility] 02-12-2024 01:20-0500 Diastolic blood pressure 79 mm[Hg] Dr. Yue Leal MD Work Phone: [facility] 02-12-2024 01:20-0500 Heart rate 71 /min Dr. Yue Leal MD Work Phone: [facility] 02-12-2024 01:20-0500 Respiratory rate 18 /min Dr. Yue Leal MD Work Phone: [facility] 02-12-2024 01:20-0500 SaO2% (BldA) [Mass fraction] 96 % Dr. Yue Leal MD Work Phone: [facility] 02-12-2024 01:20-0500 Systolic blood pressure 142 mm[Hg] Dr. Yue Leal MD Work Phone: [facility] 02-11-2024 21:59-0500 Body mass index (BMI) [Ratio] 24.8 kg/m2 Dr. Yue Leal MD Work Phone: [facility] 02-11-2024 21:59-0500 Body weight 92.[address] Yue Leal MD Work Phone: [facility] 01-10-2024 12:53-0500 Body mass index (BMI) [Ratio] 24 kg/m2 Dr. Yue Leal MD Work Phone: [facility] 01-10-2024 12:53-0500 Body weight 89.[address] Yue Leal MD Work Phone: [facility] 01-10-2024 12:53-0500 Diastolic blood pressure 77 mm[Hg] Dr. Yue Leal MD Work Phone: [facility] 01-10-2024 12:53-0500 Heart rate 75 /min Dr. Yue Leal MD Work Phone: [facility] 01-10-2024 12:53-0500 Respiratory rate 16 /min Dr. Yue Leal MD Work Phone: [facility] 01-10-2024 12:53-0500 Systolic blood pressure 126 mm[Hg] Dr. Yue Leal MD Work Phone: [facility] 04-21-2023 14:56-0500 Body temperature 96.9 [degF] [facility] 04-21-2023 14:56-0500 Diastolic blood pressure 74 mm[Hg] [facility] 04-21-2023 14:56-0500 Heart rate 61 /min [facility] 04-21-2023 14:56-0500 Respiratory rate 16 /min [facility] 04-21-2023 14:56-0500 SaO2% (BldA) [Mass fraction] 97 % [facility] 04-21-2023 14:56-0500 Systolic blood pressure 128 mm[Hg] [facility] 04-21-2023 10:39-0500 Body height 193.04 cm [facility] 04-21-2023 10:39-0500 Body mass index (BMI) [Ratio] 22.8 kg/m2 [facility] 04-21-2023 10:39-0500 Body weight 85 kg [facility] 03-07-2021 07:54-0500 Respiratory rate 16 /min [facility] Work Phone: 03-07-2021 07:35-0500 Diastolic blood pressure 71 mm[Hg] [facility] Work Phone: 03-07-2021 07:35-0500 Heart rate 79 /min [facility] Work Phone: 03-07-2021 07:35-0500 SaO2% (BldA) [Mass fraction] 95 % [facility] Work Phone: 03-07-2021 07:35-0500 Systolic blood pressure 126 mm[Hg] [facility] Work Phone: 03-07-2021 05:27-0500 Body height 193.04 cm [facility] Work Phone: 03-07-2021 05:27-0500 Body mass index (BMI) [Ratio] 27 kg/m2 [facility] Work Phone: 03-07-2021 05:27-0500 Body temperature 98.9 [degF] [facility] Work Phone: 03-07-2021 05:27-0500 Body weight 100.8 kg [facility] Work Phone: 02-24-2021 00:26-0500 Diastolic blood pressure 76 mm[Hg] [facility] Work Phone: 02-24-2021 00:26-0500 Heart rate 74 /min [facility] Work Phone: 02-24-2021 00:26-0500 Respiratory rate 17 /min [facility] Work Phone: 02-24-2021 00:26-0500 SaO2% (BldA) [Mass fraction] 97 % [facility] Work Phone: 02-24-2021 00:26-0500 Systolic blood pressure 136 mm[Hg] [facility] Work Phone: 02-23-2021 22:02-0500 Body mass index (BMI) [Ratio] 27.5 kg/m2 [facility] Work Phone: 02-23-2021 22:02-0500 Body temperature 97.1 [degF] [facility] Work Phone: 02-23-2021 22:02-0500 Body weight 102.51 kg [facility] Work Phone: 08-05-2016 14:42-0400 BMI (Body Mass Index) 31.41 kg/m2 [facility] Work Phone: 08-05-2016 14:42-0400 Weight 111.59 kg [facility] Work Phone: 02-03-2012 10:38-0500 BMI (Body Mass Index) 34.89 kg/m2 [facility] Work Phone: 02-03-2012 10:38-0500 Body Temperature 97 [degF] [facility] Work Phone: 02-03-2012 10:38-0500 BP Diastolic 84 mm[Hg] [facility] Work Phone: 02-03-2012 10:38-0500 BP Systolic 131 mm[Hg] [facility] Work Phone: 02-03-2012 10:38-0500 BSA (Body Surface Area) 2.48 m2 [facility] Work Phone: 02-03-2012 10:38-0500 Height 188.47 cm [facility] Work Phone: 02-03-2012 10:38-0500 Pulse (Heart Rate) 73 /min [facility] Work Phone: 02-03-2012 10:38-0500 Respiratory Rate 16 /min [facility] Work Phone: 02-03-2012 10:38-0500 Weight 123.47 kg [facility] Work Phone: Encounters Encounter Date Encounter Type Care Provider Facility Start: 11-29-2024 End: 11-29-2024 ambulatory Yue Leal Facility:[facility] Start: 09-04-2024 End: 09-04-[address] Yue Leal MD Work Phone: -[facility] Start: 09-04-2024 End: 09-04-[address] Yue Leal MD -[facility] Start: 09-04-2024 End: 09-04-2024 ambulatory Yue Leal Facility:[facility] Start: 05-04-2024 End: 05-04-[address] Yue Leal MD Work Phone: [facility] Work Phone: Start: 05-04-2024 End: 05-04-[address] Yue Leal MD -[facility] Start: 05-04-2024 End: 05-04-2024 ambulatory Yue Leal Facility:[facility] Start: 04-13-2024 End: 04-13-[address] Ian Vickers MD -[facility] Work Phone: Start: 04-13-2024 End: 04-13-2024 ambulatory Yue Leal Facility:[facility] Start: 04-10-2024 End: 04-10-[address] Yue Leal MD Work Phone: [facility] Work Phone: Start: 04-10-2024 End: 04-10-[address] Yue Leal MD -Radiology, [place] Work Phone: Start: 04-10-2024 End: 04-10-2024 ambulatory Yue Leal Facility:[facility] Start: 03-26-2024 End: 05-29-[address] [facility] Start: 03-16-2024 End: 03-16-2024 Patient encounter procedure Monica Rider CA -[facility] Work Phone: Start: 03-16-2024 End: 03-16-2024 ambulatory Yue Leal Facility:[facility] Start: 02-24-2024 ambulatory Yue Leal Facilit y:[facility] Start: 02-24-2024 Non-patient / Non-visit Yue Matthew NP-[place] -[facility] Work Phone: Start: 02-23-2024 End: 02-23-2024 Patient encounter procedure Yue Matthew NP-C -Cardiovascular Services Work Phone: Start: 02-23-2024 ambulatory Yue Leal Facilit y:[facility] Start: 02-23-2024 End: 02-23-2024 ambulatory Yue Leal Facility:[facility] Start: 02-16-2024 End: 02-16-[address] Yue Leal MD -Radiology, [place] Work Phone: Start: 02-16-2024 End: 02-16-2024 ambulatory Yue Leal Facility:[facility] Start: 02-11-2024 End: 02-12-2024 Emergency department patient visit Hunter Andes DO -Emergency Department Work Phone: Start: 02-02-2024 End: 02-02-2024 Emergency department patient visit YUE LEAL [facility] Start: 02-01-2024 ambulatory Yue Leal Facilit y:[facility] Start: 02-01-2024 Non-patient / Non-visit Dr. Reji PONCE -[facility] Start: 02-01-2024 End: 02-01-[address] Anjel Nelson MD -Cardiovascular Services Work Phone: Start: 02-01-2024 End: 02-01-2024 ambulatory Anjel Nelson Facility:[facility] Start: 01-10-2024 End: 01-10-[address] Anjel Nelson MD -[facility] Work Phone: Start: 01-10-2024 End: 01-10-2024 ambulatory Yue Leal Facility:[facility] Start: 01-05-2024 End: 01-05-[address] Yue Leal MD -[facility] Start: 01-05-2024 End: 01-05-2024 ambulatory Yue Leal Facility:[facility] Start: 06-16-2023 End: 06-16-2023 ambulatory [facility] Work Phone: Start: 06-16-2023 End: 06-16-2023 Patient encounter procedure [facility]-Pulmonary Services/Neurology Work Phone: Start: 05-18-2023 End: 05-18-2023 ambulatory [facility] Work Phone: Start: 05-18-2023 End: 05-18-2023 [facility] Start: 04-21-2023 End: 04-21-2023 Emergency department patient visit [facility]-Emergency Department Work Phone: Start: 04-12-2023 End: 04-12-2023 ambulatory [facility] Work Phone: Start: 04-12-2023 End: 04-12-2023 Patient encounter procedure [facility] Start: 01-11-2023 End: 01-11-2023 ambulatory [facility] Work Phone: Start: 01-11-2023 End: 01-11-2023 Patient encounter procedure [facility] Work Phone: Start: 10-07-2022 End: 10-07-2022 Patient encounter procedure [facility] Start: 07-07-2022 End: 07-07-2022 ambulatory [facility] Work Phone: Start: 07-07-2022 End: 07-07-2022 Patient encounter procedure [facility] Start: 08-07-2021 End: 08-07-2021 Patient encounter procedure [facility] Start: 05-25-2021 End: 05-25-2021 Patient encounter procedure [facility] Start: 03-31-2021 End: 03-31-2021 Patient encounter procedure [facility] Office 3rd Flr Start: 03-07-2021 End: 03-07-2021 Emergency department patient visit [facility]-Emergency Department Start: 02-23-2021 End: 02-24-2021 Emergency department patient visit [facility]-Emergency Department Procedures Date Procedure Procedure Detail Performing Clinician Start: 09-04-2024 Vitamin D, 25-hydrox y measurement Dr. Yue Leal MD Work Phone: Comment on above: Vitamin D StatusDefi ciency: <20 ng/mL (50nmol/L)Insufficiency: 20-30 ng/mL (50-75 nmol/L)Sufficiency: 30-100 ng/mL (75-250 nmol/L)Toxicity: >100 ng/mL (>250 nmol/L) Start: 04-10-2024 Plain X-ray of finger Yadira Leal MD Work Phone: Start: 02-23-2024 Cardiovascular stres s test using pharmacologic stress agent Dr. Yue Leal MD Work Phone: Start: 02-16-2024 Plain X-ray of finger D miguel Leal MD Work Phone: Start: 02-11-2024 X-ray of chest, PA a nd lateral views Dr. Yue Leal MD Work Phone: Start: 02-11-2024 SARS-CoV-2, Influenz a & RSV (PCR) Dr. Yue Leal MD Work Phone: Start: 01-10-2024 Evaluation of diagno stic study results Dr. Yue Leal MD Work Phone: Start: 05-18-2023 X-ray of lumbar spin e, two or three views Start: 03-07-2021 CT of pelvis with contrast Start: 02-23-2021 CT of abdomen and pe lvis without contrast Plan of Treatment Date Care Activity Detail Author Start: 02-12-2024 [facility] Start: 04-21-2023 [facility] Start: 08-05-2016 End: 08-05-2016 Appointment Appointment [facility] Work Phone: Start: 08-05-2016 End: 08-05-2016 X-ray exam of shoulder X-Ray, Shoulder [facility] Work Phone: Patient Education [facility] Work Phone: Patient referral [facility] Work Phone: Payers Date Payer Category Payer Self-pay [id number] 2015 Unknown [id number] 2014 Medicare [id number] 2005 Private Health Insurance [id number] 2005 Private Health Insurance [id number] 1950 Unknown [id number] 2.16.8 [id number] 1950 Unknown [id number] 2.16.8 40.1.165932.3.579.2.651 Unknown [id number] 2.16.8 40.1.206927.3.579.2.462 Unknown [id number] 2.16.8 40.1.982403.3.579.2.462 Unknown [id number] 2.16.8 40.1.251494.3.579.2.462 Unknown [id number] 2.16.8 40.1.354972.3.579.2.462 Unknown [id number] 2.16.8 40.1.092490.3.579.2.462 Unknown [id number] 2.16.8 40.1.748694.3.579.2.462 Unknown [id number] 2.16.8 40.1.225047.3.579.2.462 Unknown [id number] 2.16.8 40.1.598664.3.579.2.462 Unknown [id number] 2.16.8 40.1.952352.3.579.2.462 Unknown [id number] 2.16.8 40.1.597793.3.579.2.462 Unknown [id number] 2.16.8 40.1.857977.3.579.2.462 Unknown [id number] 2.16.8 40.1.113245.3.579.2.462 Unknown [id number] 2.16.8 40.1.175526.3.579.2.462 Unknown [id number] 2.16.8 40.1.460393.3.579.2.462 Unknown [id number] 2.16.8 40.1.869479.3.579.2.462 Unknown [id number] 2.16.8 40.1.103889.3.579.2.462 Social History Date Type Detail Facility Start: 03-07-2021 End: 04-21-2023 Tobacco smoking status NHIS Unknown if ever smoked [facility] Start: 1950 Sex Assigned At Male W [facility] Start: 02-11-2024 Tobacco smoking stat us NHIS Ex-smoker (finding) [facility] Start: 04-24-2024 End: 05-11-2024 Sex Male (finding) [facility] Mental Status Date Assessment Result Facility 02-11-2024 Cognitive function Voice/Name [facility] Work Phone: Clinical Notes 02-27-2021 to 04-11-2024 Note Date & Type Note Facility 04-11-2024 Radiology Diagnostic study note [facility] Imaging Services [address] [place] [address] Finger(s) Min 2 Views MR#: [id number] Acct: [id number] Name: YUE CHAPIN Rep #: [id number] : 1950 M 73 From: Kishan Batista MD PCP: Dr. Yue Leal MD Status: RE G CLI Study:Finger(s) Min 2 Views Date of Exam: 04/10/24 Exam# [id number] Ordering Dr: Yue Leal MD PROCEDURE: FINGER(S) MIN 2 VIEWS REASON FOR EXAM: History of fracture, still not feeling better TECHNIQUE: 3 view(s) of the left 1st ray, thumb COMPARISON: 02/16/2024 FINDINGS: Continued visualization of fracture plane at the 1st distal phalanx without significant interval callus formation or definite bony bridging since the prior examination. No change in bony alignment. 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 RAD/Finger(s) Min 2 Views IMPRESSION: Continued visualization of fracture plane at the 1st distal phalanx without significant interval callus formation or definite bony bridging since the prior examination. No change in bony alignment. Reading Location: [facility] CC: Dr. Yue Leal MD ~ Traffic Superintendent: Signed [facility] 03-16-2024 Evaluation note Diagnosis Onset Date Resolution Hypercholesterolemia acute Emiliano derek 2024 11:36am PVC (premature ventricular contraction) acute March 16, 2024 11:36am Fracture of thumb, left, closed acute April 13, 2024 1:43pm [facility] Work Phone: 1(493) 249-992512-19-2024 NoteDischarge Instructions Discharge Summary [address] [address] [id number] 02/02/2024 Patient: YUE CHAPIN Sex: Male : 1950 Age: 73y Thank you for visiting [facility]. You have been evaluated today by Chavo Pedersen M.D. for the following condition(s): Principal Diagnosis Closed nondisplaced distal phalanx fracture of the left thumb. INSTRUCTIONS (please follow-up with your primary care. Please keep the splint on as discussed. Please take Tylenol 500 mg every 6 hours as needed for pain and Alternate with ibuprofen every 6 hours as needed for pain, 600mg. unless she re-injured the finger there is no need to follow up with Orthopedics. You already have full movement but there is pain.). Follow-up: Follow up with your doctor. 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 You have been evaluated today by Chavo Pedersen M.D. for the following condition(s): Principal Diagnosis Closed nondisplaced distal phalanx fracture of the left thumb. INSTRUCTIONS (please follow-up with your primary care. Please keep the splint on as discussed. Please take Tylenol 500 mg every 6 hours as needed for pain and Alternate with ibuprofen every 6 hours as needed for pain, 600mg. unless she re-injured the finger there is no need to follow up with Orthopedics. You already have full movement but there is pain.). Follow-up: Follow up with your doctor. ADDITIONAL INFORMATION Broken Thumb, Closed You have a broken (fractured) thumb. This causes pain, swelling, and often bruising in and around your thumb. This injury will usually take about 4 to 6 weeks or longer to heal. Thumb fractures may be treated with a splint or cast. This protects the thumb and holds the bone in place while it heals. More serious fractures may need surgery. This is done by an orthopedic surgeon. This is a surgeon who specializes in treating bone, muscle, joint, and tendon problems. 2 of 4 Discharge Instructions If the thumbnail has been severely injured, it may fall off in 1 to 2 weeks. A new thumbnail will usually start to grow back within a month. Home care Follow these guidelines when caring for yourself at home: Keep your arm elevated to reduce pain and swelling. When sitting or lying down elevate your arm above the level of your heart. You can do this by placing your arm on a pillow that rests on your chest or on a pillow at your side. This is most important during the first 2 days (48 hours) after the injury. Put an ice pack on the injured area. Do this for 20 minutes every 1 to 2 hours the first day for pain relief. You can make an ice pack by wrapping a plastic bag of ice cubes in a thin towel. As the ice melts, be careful that the cast or splint doesn't get wet. Continue using the ice pack 3 to 4 times a day forthe next 2 days. Then use the ice pack as needed to ease pain and swelling. If a splint was put on, leave this in place for the time advised. This will keep the bones from moving out of position. Keep the cast or splint completely dry at all times. Bathe with your cast or splint out of the water. Protect it with a large plastic bag, rubber-banded or taped at the top end. If a fiberglass cast or splint gets wet, you can dry it with a chair inspector and leveler. You may use acetaminophen or ibuprofen to control pain, unless another pain medicine was prescribed. If you have chronic liver or kidney disease, talk with your healthcare provider before using these medicines. Also talk with your provider if you've had a stomach ulcer or gastrointestinal bleeding. Don't put creams or objects under the cast if you have itching. Follow-up care Follow up with your healthcare provider, or as advised. This is to make sure the bone is healing the way it should. Talk with your provider about when it is safe to return to sports or work. X-rays may be taken. You will be told of any new findings that may affect your care. When to seek medical advice Call your healthcare provider right away if any of these occur: The cast or splint cracks The plaster cast or splint becomes wet or soft 3 of 4 Discharge Instructions The fiberglass cast or splint stays wet for more than 24 hours Bad odor from the cast or wound fluid stains the cast Pain or swelling gets worse Redness or warmth in the hand Fingers or hand become cold, blue, numb, or tingly You can't move your hand or fingers Skin around cast or spli (more content not included)...[facility]11-26-2024 Evaluation note* Diagnosis Onset Date Resolution Status Admit Date Diabetes acute January 10, 2024 12:50pm Hypercholesterolemia acute Nove mber 2023 12:50pm PVC (premature ventricular contraction) acute January 09 12:50pm Hypercholesterolemia acute Emiliano derek 2024 11:36am PVC (premature ventricular contraction) acute March 16 11:36am Fracture of thumb, left, closed acut e April 13, 2024 1:43pm [facility] Work Phone: [phone]) 999-111902-28-2022 NoteHNO ID: [id number] Author: Hiram Carrasco MD Service: ? Author Type: Physician Type: Progress Notes Filed: 04/13/2021 2:08 PM Note Text: Subjective: Patient status post open right inguinal hernia on 03/04/2021. He was playing with his grandkids developed some pain in his right groin area. This has subsided. Unfortunately he lost his unexpectedly. Objective:Blood pressure 132/72, pulse 109, temperature 36.2 ?C (97.1 ?F), height 193 cm (6' 4), weight 94.8 kg (209 lb), SpO2 96 %. Incision is healing well. There is no signs of recurrence there is no bulge there is no signs of cellulitis or infection Assessment: Aftercare Plan: He can follow-up with me on an as-needed basis I told him to gradually increase his activities as he tolerates.[facility] 03-11-2021 NoteHNO ID: [id number] Author: Angela Phelps PA-C Service: ? Author Type: Physician Warehouse Specialist Type: Progress Notes Filed: 03/11/2021 4:39 PM Note Text: FOLLOW UP VISIT - HERNIA NAME: Yue Chapin [facility] NO.: [id number] DATE OF SERVICE: 03/11/2021 : 1950 REFERRING PHYSICIAN: Zenon Garcia MD Yue is a patient I am following for a right inguinal hernia. Dr. Carrasco performed an open right inguinal hernia repair with mesh on 03/04/21. The patient currently notes no major complaints. his appetite has been good. he denies fever, chills or abdominal pain. he does note some mild incisional discomfort. he notes no bulges at the operative site VITALS: Blood pressure 126/68, pulse 118, temperature 37.2 ?C (98.9 ?F), height 193 cm (6' 4), weight 100.8 kg (222 lb 3.2 oz), [...] all above and agreed with the plan. LUCIA[facility]01-19-2022 NoteHNO ID: [id number] Author: Olamide Rabago APRN.CORPORATE STATISTICAL FINANCIAL ANALYST Service: Anesthesiology Author Type: Nurse Medical Csr Type: Anesthesia Procedure Notes Filed: 03/04/2021 8:09 AM Note Text: ANESTHESIOLOGY PROCEDURE NOTE Airway General Information Procedure Start Time/Medication Administration: 03/04/2021 7:53 AM Patient location during procedure: OR Timeout Performed Pre-procedure: timeout performed Consent Obtained: Yes Patient identity confirmed: arm band and patient Staffing CORPORATE STATISTICAL FINANCIAL ANALYST: Olamide Rabago APRN.CORPORATE STATISTICAL FINANCIAL ANALYST Performed by: CORPORATE STATISTICAL FINANCIAL ANALYST Indications and Patient Condition Preoxygenated: yes Patient [...] no Airway not difficult SIGNATURE: Olamide Rabago APRN.CORPORATE STATISTICAL FINANCIAL ANALYST PATIENT NAME: Yue Chapin DATE: March 04, 2021 TIME: 8:08 AM CSN: [id number] NoteHNO ID: [id number] Author: Hiram Carrasco MD Service: ? Author Type: Physician Type: Progress Notes Filed: 02/28/2021 9:43 AM Note Text: HISTORY AND PHYSICAL Yue Chapin 1950 REFERRING PHYSICIAN: Hiram Carrasco MD CHIEF COMPLAINT: Consult ([facility] follow up for possible hernia) HPI: Yue [...] Procedure Laterality Date - BACK SURGERY HX 2009 - EXTENSIVE JAW SURGERY 1997 - PAST [...] entered by the nurse and reviewed by sc Nursing Notes: Kylah Davidson LPN 02/27/2021 9:11 AM Signed REVIEW OF SYSTEMS: [...] ?C (98 ?F), height 190.5 cm (6' 3), weight 100.7 kg (222 lb), SpO2 97 %. Body mass index is 27.75 kg/m?. HEENT: Normal cephalic, ataumatic, pupils are equally round, sclera are anicteric, mucous membranes are moist, oropharynx is cl (more content not included)...[facility] noteNo assessment information availableW[facility] Work Phone: Hospital Discharge instructionsW[facility] Work Phone: Hospital Discharge instructions Additional Instructions You can also take 1 cap full of miralax dailyW[facility] Work Phone: Reason for referral (narrative)No reason for referral information availableWThe [facility] Work Phone: Summary Purpose Family History No Family History Records FoundNo Family History Records FoundNo Family History Records FoundNo Family History Records Found Advance Directives No Advanced Directives Records Found Advance Directive Response Recorded Date/ Time Living Will No March 07 7:29am Power of Home Visits Nurse No March 07, 2021 7:29am Advance Directive Response Recorded Date/ Time Living Will No March 07 6:29am Power of Home Visits Nurse No March 07, 2021 6:29am Advance Directive Response Recorded Date/ Time Living Will No April 21, 2023 1:48pm Power of Home Visits Nurse No April 20 1:48pm Advance Directive Response Recorded Date/ Time Living Will No April 21, 2023 2:48pm Power of Home Visits Nurse No April 20 2:48pm Advance Directive Response Recorded Date/ Time Living Will No October 20 024 12:16am Power of Home Visits Nurse No October 21, 2023 12:16am Living Will No February 10, 024 11:04pm Power of Home Visits Nurse No February 11, 2024 11:04pm Advance Directive Response Recorded Date/ Time Living Will No February 10, 024 11:04pm Do you have a [facility] Power of Home Visits Nurse? No February 11, 2024 11:04pm Chief Complaint and Reason for Visit Chief Complaint HERNIA abd pain RIGHT LEG EDEMA Chief Complaint EORDER Chief Complaint EORDER CONSTIPATION Chief Complaint CONSTIPATION EORDER Chief Complaint CONSTIPATION EORDER PRE OP EKG/LABS SCANNED ORDERS Chief Complaint Admit Date PVC's (Schinner) January 10, 2024 12:50pm DYSPNEA/SOB February 01, 2024 1:38pm chest pain February 11, 2024 9:58pm EORDER February 16, 2024 3: 24pm CEEST PAIN February 23, 2024 6: 58am CEEST PAIN February 24, 2024 2 :19pm Amb Documentation February 24, 2024 2 :45pm Acute March 16, 2024 1 1:36am fracture/ THUMB ON LEFT HAND April 102024 4:22pm LEFT THUMB April 13, 2024 1:43pm Reason for Visit Admit Date Diabetes January 10, 2024 12:50pm Hypercholesterolemia January 10, 2024 12:50pm PVC (premature ventricular contraction) January 10, 2024 12:50pm Hypercholesterolemia March 16, 2024 11:36am PVC (premature ventricular contraction) March 16, 2024 11:36am Fracture of thumb, left, closed April 13, 2024 1:43pm Chief Complaint Admit Date DYSPNEA/SOB February 01, 2024 1:38pm chest pain February 11, 2024 9:58pm EORDER February 16, 2024 3: 24pm CEEST PAIN February 23, 2024 6: 58am CEEST PAIN February 24, 2024 2 :19pm Amb Documentation February 24, 2024 2 :45pm Acute March 16, 2024 1 1:36am fracture/ THUMB ON LEFT HAND April 102024 4:22pm LEFT THUMB April 13, 2024 1:43pm Reason for Visit Admit Date Hypercholesterolemia March 16, 2024 11:36am PVC (premature ventricular contraction) March 16, 2024 11:36am Fracture of thumb, left, closed April 13, 2024 1:43pm Additional Source Comments (unrecognized sect ion and content) No Status Records FoundNo Status Records FoundNo Status Records FoundNo Status Records Found INFORMATION SOURCE (unrecogn ized section and content) DATE CREATED AUTHOR 03/07/2021 [facility] DATE CREATED AUTHOR AUTHOR'S ORGANIZ ATION 05/07/2021 [facility] DATE CREATED AUTHOR AUTHOR'S ORGANIZ ATION 05/30/2024 [facility] DATE CREATED AUTHOR AUTHOR'S ORGANIZ ATION 12/15/2024 [facility] Goals (unrecognized section and content) Goals may be documented in a n alternate sectionGoals may be documented in an alternate sectionGoals may be documented in an alternate sectionGoals may be documented in an alternate sectionGoals may be documented in an alternate sectionGoals may be documented in an alternate sectionGoals may be documented in an alternate sectionGoals may be documented in an alternate sectionGoals may be documented in an alternate sectionGoals may be documented in an alternate sectionGoals may be documented in an alternate section Care Teams (unrecognized sec tion and content) Team Status: Active Member Role Status Dates Dr. Zenon Garica MD Family Provider Active Dr. Yue Leal MD Primary Care Provider Active Team Status: Inactive Member Role Status Dates Dr. Yue Leal MD Primary Care Provider, Attend ing Provider Active Team Status: Inactive Member Role Status Dates Dr. Yue Leal MD Primary Care Pr ovider, Attending Provider, Referring Provider Active Team Status: Inactive Member Role Status Dates Dr. Yue Leal MD Primary Care Provider Active Dr. Steffen Santos DO Emergency Provider Active Team Status: Inactive Member Role Status Dates Dr. Yue Leal MD Primary Care Provider Active Dr. Steffen Santos DO Attending Provider, Emergency P rovider Active Team Status: Inactive Member Role Status Dates Dr. Yue Leal MD Primary Care Provider Active Dr. Naseem Diaz MD Attending Provider, Referr ing Provider Active Team Status: Inactive Member Role Status Dates Dr. Yue Leal MD Primary Care Provider Active Start: January 05, 2024 End: January 05, 2024 Dr. Yue Leal MD Attending Provider Active Start: January 05, 2024 End: January 05, 2024 Team Status: Inactive Member Role Status Dates Dr. Yue Leal MD Primary Care Provider Active Start: January 10, 2024 End: January 10, 2024 Dr. Yue Leal MD Referring Provider Active Start: January 10, 2024 End: January 10, 2024 Dr. Anjel Nelson MD Attending Provider Active Start: January 10, 2024 End: January 10, 2024 Team Status: Inactive Member Role Status Dates Dr. Yue Leal MD Primary Care Provider Active Start: February 01, 2024 End: February 01, 2024 Dr. Anjel Nelson MD Attending Provider Active Start: February 01, 2024 End: February 01, 2024 Dr. Anjel Nelson MD Referring Provider Active Start: February 01, 2024 End: February 01, 2024 Team Status: Active Member Role Status Dates Dr. Yue Leal MD Primary Care Provider Active Start: February 01, 2024 Dr. Kieran Melgoza MD Attending Provider Active S tart: February 01, 2024 Team Status: Inactive Member Role Status Dates Dr. Yue Leal MD Primary Care Provider Active Start: February 11, 2024 End: February 12, 2024 Dr. Hunter Hoyt DO Attending Provider Active Start: February 11, 2024 End: February 12, 2024 Dr. Hunter Hoyt DO Emergency Provider Active Start: February 11, 2024 End: February 12, 2024 Team Status: Inactive Member Role Status Dates Dr. Yue Leal MD Primary Care Provider Active Start: February 16, 2024 End: February 16, 2024 Dr. Yue Leal MD Attending Provider Active Start: February 16, 2024 End: February 16, 2024 Dr. Yue Leal MD Referring Provider Active Start: February 16, 2024 End: February 16, 2024 Team Status: Inactive Member Role Status Dates Dr. Yue Leal MD Primary Care Provider Active Start: February 23, 2024 End: February 23, 2024 Yue Matthew ASPHALT ROLLER PERSON, ASPHALT ROLLER PERSON-C Attending Provider Active S tart: February 23, 2024 End: February 23, 2024 Yue Matthew ASPHALT ROLLER PERSON, ASPHALT ROLLER PERSON-C Referring Provider Active S tart: February 23, 2024 End: February 23, 2024 Team Status: Active Member Role Status Dates Dr. Yue Leal MD Primary Care Provider Active Start: February 24, 2024 Yue Matthew ASPHALT ROLLER PERSON, ASPHALT ROLLER PERSON-C Referring Provider Active S tart: February 24, 2024 Yue Matthew ASPHALT ROLLER PERSON, ASPHALT ROLLER PERSON-C Other Provider Active Start : February 24, 2024 Dr. Christopher Matias MD Attending Provider Activ e Start: February 24, 2024 Team Status: Active Member Role Status Dates Dr. Yue Leal MD Primary Care Provider Active Start: February 24, 2024 Yue Matthew ASPHALT ROLLER PERSON, ASPHALT ROLLER PERSON-C Attending Provider Active S tart: February 24, 2024 Team Status: Inactive Member Role Status Dates Dr. Yue Leal MD Primary Care Provider Active Start: March 16, 2024 End: March 16, 2024 Dr. Yue Leal MD Referring Provider Active Start: March 16, 2024 End: March 16, 2024 Monica Rider PA, PA Attending Provider Active Start: March 16, 2024 End: March 16, 2024 Team Status: Inactive Member Role Status Dates Dr. Yue Leal MD Primary Care Provider Active Start: April 10, 2024 End: April 10, 2024 Dr. Yue Leal MD Attending Provider Active Start: April 10, 2024 End: April 10, 2024 Dr. Yue Leal MD Referring Provider Active Start: April 10, 2024 End: April 10, 2024 Team Status: Inactive Member Role Status Dates Dr. Yue Leal MD Primary Care Provider Active Start: April 13, 2024 End: April 13, 2024 Dr. Yue Leal MD Referring Provider Active Start: April 13, 2024 End: April 13, 2024 Ian Vickers MD Attending Provider Active St art: April 13, 2024 End: April 13, 2024 Team Status: Inactive Member Role Status Dates Dr. Yue Leal MD Primary Care Provider Active Start: May 04, 2024 End: May 04, 2024 Dr. Yue Leal MD Attending Provider Active Start: May 04, 2024 End: May 04, 2024 Dr. Yue Leal MD Referring Provider Active Start: May 04, 2024 End: May 04, 2024 Team Status: Active Member Role/Relationship Status Dates Dr. Zenon Garcia MD Family Provider Active Dr. Yue Leal MD Primary Care Provider Active Team Status: Inactive Member Role/Relationship Status Dates Dr. Yue Leal MD Primary Care Provider Active Start: September 04, 2024 End: September 04, 2024 Dr. Yue Leal MD Attending Provider Active Start: September 04, 2024 End: September 04, 2024 Dr. Yue Leal MD Referring Provider Active Start: September 04, 2024 End: September 04, 2024 FOR RECORDS PERTAINING TO PATIENTS WHO ARE [...] BE BASED ON THE PRIMARY CLINICAL RECORDS. [facility]. provides no warranty or guarantee of the accuracy or completeness of information in this document.
== END | disposition home or self-care (01) ==
LOC: NM 11:55
PROVIDERS: PCP Family Medicine; Referring Provider Family Medicine; Visit Provider Family Medicine
DX: E11.8 Type 2 diabetes mellitus with unspecified complications (principal)
CPT/HCPCS: 78264; A9541